=== PATIENT | male | born 1980 | race Caucasian/White ===

== ENCOUNTER 2016-05-26 17:39 | Emergency (ER) | payer BC ==
--- NOTE | 2016-05-26 18:29 | UC ---
Cardiac HPI - HPI Summary HPI Summary: The patient comes in today for: 1. Chest tightness/cough/right otalgia/malaise/nausea/headache (has history of migraine headaches)/chest congestion: Onset: This morning at 7 AM Palliative/provocative: Chest tightness worsens with coughing, or taking a deep breath. Sometimes the chest tightness will change into a burning. Exertion does not make the chest tightness worse. Quality: Tightness is retrosternal Region: Lungs, retrosternal. Severity: 05/24 Associated symptoms: Wheezing: None. Previous inhaler use: "In grade school--episodic." Previous heart disease: CAD risk factors: Male > 45: (-), Smoker: (+)--quit yesterday, DM: (-): HTN: (+ and has been off his medication), MA equivalent (stroke): (-), FmHx: (-), Cough production: NOne. Rhinitis: None Rt ear discharge: None. Vomiting: None. Headache: Frontal/bitemporal * - History of Current Complaint Stated Complaint: CHEST TIGHTNESS,NAUSEA,COUGH Time Seen by Provider: 05/26/16 17:53 Hx Obtained From: Patient - Allergy/Home Medications Allergies/Adverse Reactions: Allergies Allergy/AdvReac Type Severity Reaction Status Date / Time Clarithromycin [From Biaxin] Allergy Severe Hives Verified 04/23/16 11:46 Home Medications: Home Medications ARIPiprazole TAB* [Abilify 15 MG TAB*] 15 mg PO DAILY 05/26/16 [History Confirmed 05/26/16] Bupropion XL* [Wellbutrin XL *] 450 mg PO DAILY 05/26/16 [History Confirmed 01/30] PMH/Surg Hx/FS Hx/Imm Hx Previously Healthy: No - ADHD, on "mood stabilizer"-Abilify. Endocrine History Of: Reports: Dyslipidemia Denies: Diabetes, Thyroid Disease, Hypothyroidism Cardiovascular History Of: Reports: Hypertension Denies: Cardiac Disorders, Pacemaker/ICD, Myocardial Infarction, Congestive Heart Failure, Atrial Fibrillation, Deep Vein Thrombosis, Bleeding Disorders Respiratory History Of: Denies: COPD, Asthma, Bronchitis, Pneumonia, Pulmonary Embolism GI/ History Of: Denies: Gastroesophageal Reflux, Ulcer, Gastrointestinal Bleed, Gall Bladder Disease, Kidney Stones, Diverticulitis, Renal Disease, Urosepsis Neurological History Of: Reports: Migraine - NONE FOR ONE MONTH SINCE ON TOPAMAX Denies: TIA, CVA, Dementia, Seizures Psychological History Of: Reports: Anxiety - ON MEDS, Depression Cancer History Of: Denies: Lung Cancer, Colorectal Cancer, Breast Cancer, Prostate Cancer, Cervical Cancer Other History Of: Negative For: HIV, Hepatitis B, Hepatitis C, Anticoagulant Therapy - Surgical History Surgical History: Yes Surgery Procedure, Year, and Place: right foot fusion,. wisdom teeth removal - Family History Known Family History: Positive: Hypertension, Other - [place] - Social History Occupation: Employed Full-time Alcohol Use: Occasionally Substance Use Type: Marijuana Substance Use Comment - Amount & Last Used: occasionally Smoking Status (MU): Light Every Day Tobacco Smoker Type: Cigarettes Amount Used/How Often: 3 CIG/DAY Length of Time of Smoking/Using Tobacco: 15 YEARS Have You Smoked in the Last Year: Yes When Did the Patient Quit Smoking/Using Tobacco: states he stopped yesterday - Immunization History Most Recent Influenza Vaccination: none Review of Systems Constitutional: Negative Skin: Negative Eyes: Negative ENT: Negative, Sore Throat Respiratory: Cough Cardiovascular: Chest Pain Gastrointestinal: Negative Genitourinary: Negative All Other Systems Reviewed And Are Negative: Yes Physical Exam Triage Information Reviewed: Yes Appearance: Well-Appearing, No Pain Distress, Well-Nourished Vital Signs: Initial Vital Signs Temp 98.6 F 05/26/16 17:49 Pulse 98 05/26/16 17:49 Resp 16 05/26/16 17:49 BP 163/103 05/26/16 17:49 Pulse Ox 98 05/26/16 17:49 Vital Signs Reviewed: Yes Eyes: Positive: Conjunctiva Clear. Negative: Discharge ENT: Positive: Hearing grossly normal. Negative: Pharyngeal erythema, Nasal congestion, Nasal drainage, TM bulging, TM dull, TM red, Tonsillar swelling, Tonsillar exudate Dental: Negative: Gross Decay/Caries @, Dental Fracture @ Neck: Positive: Supple, Nontender, No Lymphadenopathy. Negative: Nuchal Rigidity Respiratory: Positive: Chest non-tender, Lungs clear, No respiratory distress, No accessory muscle use. Negative: Crackles, Wheezing Cardiovascular: Positive: RRR, No Murmur Abdomen Description: Positive: Nontender, No Organomegaly, Soft Musculoskeletal: Positive: Strength Intact, ROM Intact, No Edema Neurological: Positive: Alert, Muscle Tone Normal, Fatigued Psychological: Positive: Age Appropriate Behavior, Consolable Skin: Negative: rashes, breakdown Diagnostics - Laboratory Diagnostic Studies Completed/Ordered: EKG: Rate: 90. Rhythm: Sinus. Ectopy : (-). Acute changes: None. - Assessment/Plan Course Of Treatment: CXR, EKG, DuoNeb: The CXR and the EKG were unremarkable and the DuoNeb treatment did not help. The patient continues with this feeling of "chest tightness/congestion." In regards to the patient's complaint of chest tightness, I said that there are many causes of chest discomfort some benign and some life-threatening. He was told that of the life-threatening conditions, these may present with minimal, or atypical symptoms or be present with no symptoms. Because we are limited here in having the tools to diagnose the life-threatening causes, my recommendation is to go to the ER which has these tools. However, he does not want to do that. He states that he will follow up wtih his primary care provider tomorrow. He did want something for his nausea. He was told to see his primary care provider for his high blood pressure this week also. - Clinical Impression Provider Diagnoses: Chest tightness. Hypertension Discharge - Discharge Plan Condition: Stable Disposition: AGAINST MEDICAL ADVICE Additional Instructions: If you are not going to the ER tonight for your chest tightness, please reconsider if you get worse. Please see your primary care provider as soon as you can.
[2016-05-26] MEDS ORDERED: Albuterol/Ipratropium NEB.SOL* Albuterol 2.5 MG/Ipratropium 0.5 MG 3 ML INH ONE (18:37)
--- NOTE | 2016-05-26 19:08 | RAD ---
Indication: Chest tightness and pressure. 2 views of the chest including dual energy PA views demonstrate no mediastinal shift. Heart is of normal size and configuration. Lung james demonstrate no pleural fluid, pneumonia or pneumothorax. IMPRESSION: No active cardiopulmonary disease is noted.
[2016-05-26 19:54] VITALS: BP 148/94
== END 2016-05-26 19:48 | disposition left against medical advice (07) ==
LOC: UCEAST 17:39
DX: R07.89 Other chest pain (principal); I10 Essential (primary) hypertension; F90.9 Attention-deficit hyperactivity disorder, unspecified type; E78.5 Hyperlipidemia, unspecified; G43.909 Migraine, unspecified, not intractable, without status migrainosus; F41.8 Other specified anxiety disorders; Z88.1 Allergy status to other antibiotic agents; F17.210 Nicotine dependence, cigarettes, uncomplicated
CPT/HCPCS: 71020; 93005; 99213; A9270-GY; G0463

== ENCOUNTER 2017-03-22 21:00 | Emergency (ER) | payer BC ==
--- OUTSIDE RECORDS SUMMARY | 2017-03-22 21:06 | XMS REPORT ---
:1980 External Reference #:[id number] Author Organization [facility] Address [address] [address] Phone [phone] Care Team Providers Name Role Phone Armando Parker MD Primary Care Physician Unavailable Payers Type Date Identification Numbers Payment Provider Subscriber Commercial Policy Number: [id number] BS Facets Jakob Rojo PayID: [id number] [address] [address] [place] [address] Medigap Part B Effective: Policy Number: Saurabh Hart Dayroncarine Deluca 2013 [id number] Expires: 2013 PayID: [id number] [address] [address] [place] [address] Medigap Part B Effective: Policy Number: Saurabh Banks 2010 [id number] Dayroncarine Rojo Expires: 2013 PayID: [id number] [address] [address] [place] [address] Medigap Part B Effective: 2013 Policy Number: DONOVAN Jarrett Taye Deluca [id number] Expires: 2016 PayID: [id number] [address] [address] [place] [address] Problems Date Description Provider Status Onset: 11/30/2013 Obstructive sleep apnea syndrome Glory Almonte MD Active Onset: 12/11/2013 Obstructive sleep apnea syndrome Glory Almonte MD Active Onset: 01/07/2015 Sprain of unspecified site of left knee, Kelechi Smith M.D. 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 Zolmitriptan 04/14 Active Tablets 5mg 10tab 1 tab by G43.009 Jorge Luis Santoyo s mouth Jesus, twice a M.D. day maximum 2 days weekly Topiramate 08/01 Active Tablets 100mg 60tab 2 tab by Jorge Luis Santoyo s mouth Jesus, daily M.D. Shannon Allergy Active Tablets 180mg 1 by mouth Unknown /0000 every day prn Wellbutrin XL Active Tablets 450mg 1 by mouth Unknown /0000 ER 24HR every day Adderall XR Active Caps ER 15mg 1 by mouth Unknown /0000 24HR every day Lamotrigine Active Tablets 100mg 1 by mouth Unknown /0000 once a day Topiramate 04/14 Hx Tablets 100mg 60tab 2 by mouth s every Jesus, - night at M.D. 10/13 bed Topiramate 05/27 Hx Tablets 25mg 90tab 3 tabs Jorge Luis Santoyo s every Jesus, - night at M.D. 04/14 bed (in addition to 100mg dose) Maxalt 02/12 Hx Tablets 10mg 12tab take 1 by Jorge Luis Santoyo s mouth as Jesus, - needed M.D. 04/14 migraine, may repeat after 2 hours, max 2/d, max 2d/wk Rawlings 12/21 Hx Tablets 5-325mg 30tab 1 by mouth s bid as Lyle, - needed for M.D. 02/19 pain ( currently taking) Cpap 11/30 Hx Device 327.23 Glory Kobi Almonte MD 02/11 Rawlings 08/08 Hx Tablets 5-325mg 30tab 1-2 by Jered s mouth bid Lyle, - as needed M.D. 09/14 for pain Oxycodone HCL 05/22 Hx Capsules 5mg 40cap 1-2 tab by Jered s mouth Lyle, - every 4- 6 M.D. 09/14 hours needed pain Rawlings 03/14 Hx Tablets 5-325mg 24tab 1 po q8 Jered s hours prn Kobi Alvarenga M.D. 05/21 Propranolol HCL 06/27 Hx Tablets 80mg 60tab 1 po bid Kobi Alcantara M.D. 12/19 Topiramate 06/27 Hx Tablets 25mg 120ta 1 qd for 1 bs week then Jesus - 2 qd for 1 M.DDemarcus 08/01 week 3 qd for 1 week then 4 each day Indomethacin 04/13 Hx Capsules 50mg 60cap 1 po tid s prn Kobi Rubalcava M.D. 06/27 Diclofenac Sodium 04/13 Hx Tablets 100mg 30tab once daily Hugo ER 24HR Kobi Cordova M.D. 06/27 Pravachol Hx Tablets 40mg 90tab 1 tablet Unknown /0000 s po qhs - 08/01 Hydrochlorothiazide Hx Tablets 25mg 90tab 1 po qd Unknown /0000 s - 06/27 Quinapril HCL Hx Tablets 40mg 90tab 1 po qd Unknown /0000 s - 06/27 Bupropion HCL SR Hx Tablets 150mg 180ta 1 by mouth Unknown /0000 ER 12HR bs twice - daily 06/27 Percocet Hx Tablets 5-325mg 50tab 1-2 po q4h Unknown /0000 s prn pain - 06/27 Propranolol HCL ER 00 Hx Caps ER 120mg 90cap 1 po qd Unknown /0000 24HR s - 06/27 Trazodone HCL Hx Tablets 50mg 30tab 1 tablet Unknown /0000 s at bedtime - as needed 02/11 Ibuprofen / Hx Tablets 600mg 60tab 1 po tid Unknown /0000 s prn - 05/21 Zoloft 00/00 Hx Tablets 50mg 1 po qd Unknown /0000 - 02/11 Lisinopril 00/00 Hx Tablets 20mg 90tab 1 po qd Unknown /0000 s - 10/13 Atorvastatin 00/00 Hx Tablets 20mg 90tab 1 po qd Unknown Calcium /0000 s - 10/13 Imitrex 00/00 Hx Unknown /0000 - 03/14 Propranolol 00/00 Hx Unknown /0000 - 03/14 Chantix 00/00 Hx Unknown /0000 - 09/14 Saphris 00/00 Hx Tablets 5mg one by Unknown /0000 Sub mouth - every 02/19 night needed Wellbutrin XL 00/ Hx Tablets 150mg 1 by mouth Unknown /0000 ER 24HR every day - 02/19 Viibryd 00 Hx Tablets 20mg one by Unknown /0000 mouth - every day 05/25 Pristiq 00/00 Hx Tablets 1 by mouth Unknown /0000 ER 24HR every - morning 02/19 Trintellix 00/00 Hx Tablets 10mg 1 by mouth Unknown /0000 every day - 10/13 Abilify 00/00 Hx Tablets 10mg take one Unknown /0000 tablet by - mouth 10/13 nightly at bedtime Chantix 00/00 Hx Tablets 1mg 1 by mouth Unknown /0000 twice a - day 10/13 Adderall 00/00 Hx Tablets 15mg 1 po qd Unknown /0000 - 04/14 Vraylar 00/00 Hx Capsules 3mg once a day Unknown /0000 po - 03/13 Medications Administered in Office Medication Date Status Form Strength Qnty SIG Indications Ordering Provider Influenza,Unsp Administered Injection Unknown ecified 017 Vital Signs Date Vital Result Comment 03/14/2017 Height 71 inches 5'11" Weight 241.00 lb Heart Rate 84 /min BP Systolic Sitting 158 mmHg BP Diastolic Sitting 78 mmHg Respiratory Rate 14 /min Body Temperature 98.7 F BMI (Body Mass Index) 33.6 kg/m2 10/14/2016 Height 71 inches 5'11" Weight 238.12 lb Heart Rate 78 /min BP Systolic 128 mmHg BP Diastolic 86 mmHg BMI (Body Mass Index) 33.2 kg/m2 04/14/2016 Height 71 inches 5'11" Weight 240.00 lb Heart Rate 71 /min BP Systolic Sitting 128 mmHg BP Diastolic Sitting 76 mmHg Respiratory Rate 16 /min BMI (Body Mass Index) 33.5 kg/m2 02/12/2015 Height 71 inches 5'11" Weight 220.00 lb Heart Rate 64 /min BP Systolic Sitting 130 mmHg BP Diastolic Sitting 84 mmHg Respiratory Rate 16 /min BMI (Body Mass Index) 30.7 kg/m2 01/18/2014 Height 71 inches 5'11" Heart Rate 74 /min BP Systolic 143 mmHg BP Diastolic 83 mmHg 12/21/2013 Height 71 inches 5'11" Weight 220.00 lb Pain Level 7 BMI (Body Mass Index) 30.7 kg/m2 11/30/2013 Height 71 inches 5'11" Weight 220.00 lb Heart Rate 76 /min BP Systolic Sitting 136 mmHg BP Diastolic Sitting 92 mmHg Respiratory Rate 16 /min O2 % BldC Oximetry 96 % BMI (Body Mass Index) 30.7 kg/m2 11/27/2013 Height 71 inches 5'11" Weight 220.00 lb Heart Rate 77 /min BP Systolic 128 mmHg BP Diastolic 87 mmHg BMI (Body Mass Index) 30.7 kg/m2 09/27/2013 Height 71 inches 5'11" Weight 230.00 lb Heart Rate 85 /min BMI (Body Mass Index) 32.1 kg/m2 09/18/2013 Height 71 inches 5'11" Weight 230.00 lb Heart Rate 76 /min BP Systolic Sitting 130 mmHg BP Diastolic Sitting 86 mmHg Respiratory Rate 16 /min BMI (Body Mass Index) 32.1 kg/m2 08/30/2013 Height 71 inches 5'11" Weight 230.00 lb Pain Level 2 BMI (Body Mass Index) 32.1 kg/m2 08/03/2013 Height 71 inches 5'11" Weight 230.00 lb Pain Level 1 BMI (Body Mass Index) 32.1 kg/m2 07/13/2013 Height 71 inches 5'11" Weight 230.00 lb Heart Rate 111 /min BP Systolic 137 mmHg BP Diastolic 93 mmHg BMI (Body Mass Index) 32.1 kg/m2 06/15/2013 Height 71 inches 5'11" Weight 230.00 lb Heart Rate 85 /min BP Systolic 135 mmHg BP Diastolic 84 mmHg BMI (Body Mass Index) 32.1 kg/m2 05/22/2013 Height 71 inches 5'11" Weight 230.00 lb Heart Rate 75 /min BP Systolic 132 mmHg BP Diastolic 92 mmHg BMI (Body Mass Index) 32.1 kg/m2 04/20/2013 Height 71 inches 5'11" Weight 220.00 lb Heart Rate 82 /min BP Systolic 152 mmHg BP Diastolic 108 mmHg BMI (Body Mass Index) 30.7 kg/m2 04/12/2013 Heart Rate 80 /min BP Systolic 145 mmHg BP Diastolic 94 mmHg 03/14/2013 Height 71 inches 5'11" Weight 230.00 lb Heart Rate 86 /min BP Systolic 137 mmHg BP Diastolic 87 mmHg BMI (Body Mass Index) 32.1 kg/m2 12/19/2012 Heart Rate 76 /min BP Systolic Sitting 140 mmHg BP Diastolic Sitting 88 mmHg Respiratory Rate 18 /min 08/01/2012 Height 71 inches 5'11" Weight 210.00 lb Heart Rate 60 /min BP Systolic 158 mmHg BP Diastolic 88 mmHg Respiratory Rate 12 /min BMI (Body Mass Index) 29.3 kg/m2 06/27/2012 Heart Rate 56 /min BP Systolic Sitting 158 mmHg BP Diastolic Sitting 96 mmHg Respiratory Rate 16 /min 04/13/2010 Height 71 inches 5'11" Weight 227.00 lb Heart Rate 80 /min BP Systolic 138 mmHg BP Diastolic 78 mmHg BMI (Body Mass Index) 31.7 kg/m2 Results Test Date Test Result H/L Range Note CBC Auto Diff 10/21/2015 White Blood Count 10.0 10^3/uL 3.5-10.8 Red Blood Count 4.79 10^6/uL 4.0-5.4 Hemoglobin 14.9 g/dL 14.0-18.0 Hematocrit 44 % 42-52 Mean Corpuscular Volume 92 fL 80-94 Mean Corpuscular Hemoglobin 31 pg 27-31 Mean Corpuscular HGB Conc 34 g/dL 31-36 Red Cell Distribution Width 13 % 10.5-15 Platelet Count 194 10^3/uL 150-450 Mean Platelet Volume 8 um3 7.4-10.4 Abs Neutrophils 6.4 10^3/uL 1.5-7.7 Abs Lymphocytes 2.4 10^3/uL 1.0-4.8 Abs Monocytes 0.9 10^3/uL High 0-0.8 Abs Eosinophils 0.2 10^3/uL 0-0.6 Abs Basophils 0.1 10^3/uL 0-0.2 Abs Nucleated RBC 0.01 10^3/uL Granulocyte % 64.3 % 38-83 Lymphocyte % 24.2 % Low 25-47 Monocyte % 8.7 % 1-9 Eosinophil % 1.9 % 0-6 Basophil % 0.9 % 0-2 Nucleated Red Blood Cells % 0.1 Urinalysis Profile 10/21/2015 Urine Color Yellow Urine Appearance Cloudy Urine Specific [place] 1.023 1.010-1.030 Urine pH 7.0 5-9 Urine Urobilinogen Negative Negative Urine Ketones Negative Negative Urine Protein Negative Negative Urine Leukocytes Negative Negative Urine Blood Negative Negative Urine Nitrite Negative Negative Urine Bilirubin Negative Negative Urine Glucose Negative Negative Urine Drug SCR ED 10/21/2015 Amphetamine Ur Screen None Detected None Detect & Pain Clinic Barbiturates Urine Screen None Detected None Detect Benzodiazepine Urine Screen None Detected None Detect Urine Cannabinoids Screen Presumptive Posi <SEE NOTE> None Detect 1 Urine Cocaine Screen None Detected None Detect Urine Opiates Screen None Detected None Detect Urine Phencyclidine Screen None Detected None Detect 2 Comp Metabolic Panel 10/21/2015 Sodium 139 mmol/L 133-145 Potassium 3.5 mmol/L 3.5-5.0 Chloride 109 mmol/L 101-111 Co2 Carbon Dioxide 24 mmol/L 22-32 Anion Gap 6 mmol/L 2-11 Glucose 112 mg/dL High 70-100 Blood Urea Nitrogen 13 mg/dL 6-24 Creatinine 0.72 mg/dL 0.67-1.17 BUN/Creatinine Ratio 18.1 8-20 Calcium 9.0 mg/dL 8.6-10.3 Total Protein 6.8 g/dL 6.4-8.9 Albumin 4.4 g/dL 3.2-5.2 Globulin 2.4 g/dL 2-4 Albumin/Globulin Ratio 1.8 1-3 Total Bilirubin 0.50 mg/dL 0.2-1.0 Alkaline Phosphatase 97 U/L 34-104 Alt 80 U/L High 7-52 Ast 34 U/L 13-39 Egfr Non- 125.0 >60 Egfr 160.7 >60 3 Laboratory test finding 10/21/2015 TSH (Thyroid Stim Horm) 1.34 mcIU/mL 0.34-5.60 Acetaminophen < 15 g/mL 4 Alcohol < 10 mg/dL <10 Salicylate < 2.50 mg/dL <30 Laboratory test finding 04/03/2015 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 2 The urine specimen was tested at the listed cutoffs: Drug class test level (ng/mL) Amphetamines 500 Barbiturates 200 Benzodiazepine metabolites 200 Cocaine metabolites 150 Cannabinoids 50 Opiates 300 Pcp 25 Specimen was received without chain of custody. Results should be used for medical purposes only. 3 Because ethnic data is not always readily available, this report includes an eGFR for both -Americans and non- Americans. The National Kidney Disease Education Program (NKDEP) does not endorse the use of the MDRD equation for patients that are not between the ages of 18 and 70, are , have extremes of body size, muscle mass, or nutritional status, or are non- or non-. According to the National Kidney Foundation, irrespective of diagnosis, the stage of the disease is based on the level of kidney function: Stage Description GFR(mL/min/1.73 m(2)) 1 Kidney damage with normal or decreased GFR 90 2 Kidney damage with mild decrease in GFR 60-89 3 Moderate decrease in GFR 30-59 4 Severe decrease in GFR 15-29 5 Kidney failure <15 (or dialysis) 4 Therapeutic concentration: <50 ug/mL Toxic concentration: >120 ug/mL 5 SEE RESULT BELOW Name: JAKOB ROJO : [address]: Cyrus Mayfield MD Acct: [id number] Unit: [id number] AGE: 34 Location: THYROID Re04/03/15 SEX: M Status: REG REF SPEC: [id number] ESPERANZA: 04/03/15-1210 [facility] DR: Buddy Gold MD REQ: [id number] RECD: 04/03/15 STATUS: STEFFI ISABEL DR: Cyrus Parker MD _ ORDERED: FN ASP DEEP, FNA IMMEDIATE S FINAL DIAGNOSIS Thyroid, right, Ultrasound guided, fine needle aspiration: Benign thyroid nodule- chronic lymphocytic thyroiditis ([place] Class II). The specimen demonstrates moderate watery colloid, moderate largely cohesive follicular epithelium arranged in uniform sheets, medium sized follicles and only occasional small groups demonstrating variable Hurthle cell metaplasia. No atypical Hurthle cells are seen. Lymphoid tangles, lymphocytes and plasma cells are seen in the background. No features of papillary carcinoma are seen. In this clinical setting the risk of malignancy is less than 3%. Clinical management of this thyroid nodule should be based on clinical and radiographic features as well as the above findings. THYROID RIGHT - US GUIDED FINE NEEDLE ASPIRATION CLINICAL HISTORY Right thyroid nodule 1.2 x 0.8 x 1.0 cm CONTINUED ON NEXT PAGE * ML=Testing performed at Main Lab DEPARTMENT OF PATHOLOGY, [address] [place] [address] Radames Ya M.D. Director [facility] # [id number] RUN DATE: 04/03/15 [facility] LAB LIVE PAGE 2 Patient: JAKOB ROJO [id number] (Continued) IMMEDIATE INTERPRETATION (Continued) IMMEDIATE INTERPRETATION Pass 1-adequate GROSS DESCRIPTION 3 - alcohol fixed slide(s) 1 - passes Signed (signature on file) Radames Ya MD 1237 END OF REPORT * ML=Testing performed at Main Lab DEPARTMENT OF PATHOLOGY, [address] [place] [address] Radames Ya M.D. Director [facility] # [id number] 6 OSTEOARTHROSIS LOCALIZED RIGHT ANKLE FOOT 7 [id number] CANC CHIPS 5CC TRANSFUSED 06/04/13 1015 [id number] CANC CHIPS 5CC TRANSFUSED 06/04/13 1015 Procedures Date CPT Code Description Status 09/30/2013 01373 Polysomnography Sleep Staging 4+ Parameters W/Cpap Completed 09/27/2013 75804 Rad Exam; Foot Limited Completed 09/06/2013 90300 Polysomnography Sleep Staging 4+ Parameters Completed 07/13/2013 22264 Rad Exam; Foot Comp Completed 07/13/2013 44343 Walking Cast Completed 06/15/2013 02440 Short Leg Cast Completed 06/04/2013 39785 Artrodesis Subtalar Completed 06/04/2013 Artrodesis Subtalar Completed 06/04/2013 07257 Bone Graft, Any Donor Area Major Or Large Completed 06/04/201350458 Bone Graft, Any Donor Area Major Or Large Completed Encounters Type Date Location Provider CPT E/M Dx Office Visit 10/14/2016 [facility] Jorge Luis Lee, 79438 G43.009 10:15a M.D. Office Visit 04/14/2016 [facility] Jorge Luis Lee, 42280 G43.009 9:00a M.D. Office Visit 02/12/2015 [facility] Jorge Luis Santoyo [place], [address]779 G43.009 8:30a Services Of Saige Smith.Lanette Office Visit 01/07/2015 [facility] Kelechi Smith, 48280 S83.92xD 3:40p CMindy Lugo Office Visit 01/18/2014 [facility] Jered Alvarenga, 58925 715.17 3:00p CMindy Lugo Office Visit 12/21/2013 [facility] Jered Alvarenga 47996 715.17 3:45p CMindy Lugo Office Visit 11/30/2013 [facility] Glory Almonte, 33981 327.23 8:00a Services Of [facility] Office Visit 11/27/2013 [facility] Of Jered Alvarenga, 70547 727.06 4:00p CMindy Lugo Office Visit 09/27/2013 [facility] Jered Alvarenga 27026 715.17 1:15p CMindy Lugo Office Visit 09/18/2013 [facility] Jorge Luis Lee, 79082 346.10 3:45p Services Of [facility] M.DDemarcus Office Visit 09/06/2013 [facility] [place], 47573 780.57 10:06a [place] 786.09 Office Visit 04/20/2013 11:00a [facility] Of Jered Alvarenga 63991 715.17 CMindy Lugo Office Visit 04/12/2013 1:15p [facility] Jered Alvarenga 29355 715.17 CMindy Lugo Office Visit 03/14/2013 1:00p [facility] Jered Alvarenga 90402 715.17 C.M.A. M.D. Office Visit 02/23/2013 3:15p [facility] Jered Alvarenga, 61950 715.17 C.M.A. M.D. Office Visit 12/19/2012 3:45p [facility] Jorge Luis Lee, 03347 346.00 Services Of [facility] M.D. 346.10 Office Visit 10/30/2012 4:30p [facility] Jered Alvarenga, 63756 715.17 C.M.A. M.D. Office Visit 08/01/2012 1:15p [facility] Jorge Luis Lee, 99483 346.10 Services Of [facility] M.D. Office Visit 06/27/2012 1:00p [facility] Jorge Luis Lee, 32592 346.11 Services Of [facility] M.D. Office Visit 05/15/2012 4:30p [facility] Jered Alvarenga, 41550 715.17 C.M.A. M.D. Office Visit 04/03/2012 8:15a [facility] Jered Alvarenga, 67841 715.17 C.M.A. M.D. Office Visit 03/20/2012 4:30p [facility] Jered Alvarenga, 92968 715.17 C.M.A. M.D. Office Visit 03/08/2012 3:30p [facility] Jered Alvarenga, 06192 715.17 C.M.A. M.D. Office Visit 04/13/2010 3:00p Rhe[facility]ology Services Hugo Rubalcava, 91542 719.40 Of Saige Lugo 718.87 Plan of Care Future Appointment(s):06/13/2017 3:40 pm - Sanchez Alexandra M.D. at [facility] Sfpjzlma73/01/2018 2:30 pm - Jorge Luis Lee M.D. at [facility] Xpbnic5403/14/2017 - Sanchez Alexandra M.D.Z20.2 Contact w and exposure to infect w a sexl mode of transmissNew Medication:Truvada 200-300 mgNew Labs:GC/Chlamydia Amplified RnaFollow up:3 months
[2017-03-22 21:20] VITALS: BP 149/95
== END 2017-03-22 21:36 | disposition left against medical advice (07) ==
LOC: UCEAST 21:00
DX: R10.9 Unspecified abdominal pain (principal); Z53.21 Procedure and treatment not carried out due to patient leaving prior to being seen by health care provider

== ENCOUNTER 2017-03-22 21:57 | Emergency (ER) | payer BC ==
[2017-03-23 00:26] VITALS: BP 176/108
== END 2017-03-23 00:29 | disposition left against medical advice (07) ==
LOC: ED 21:57
DX: R10.9 Unspecified abdominal pain (principal); Z53.21 Procedure and treatment not carried out due to patient leaving prior to being seen by health care provider

== ENCOUNTER 2018-05-16 22:05 | Emergency (ER) | payer BC ==
--- OUTSIDE RECORDS SUMMARY | 2018-05-16 22:18 | XMS REPORT | Continuity of Care Document ---
:1980 External Reference #:[id number] Author Name Donaldo Mehta Care Team Providers Name Role Phone Armando Parker MD Primary Care Physician Unavailable Payers Date Identification Numbers Payment Provider Subscriber Policy Number: [id number] [employer] Jakob Rojo PayID: [id number] [address] [address] [place] [address] Effective: 2013 Policy Number: [id number] [facility] Ppo Taye Chakrabortye Expires: 2013 PayID: [id number] [address] [address] [place] [address] Effective: 2010 Policy Number: [id number] [employer] Ppo Jakob Rojo Expires: 2013 PayID: [id number] [address] [address] [place] [address] Effective: 2013 Policy Number: [id number] [employer] Taye Deluca Expires: 2016 PayID: [id number] [address] [place] [address] Advance Directives Description No Information Available Problems Date Description Provider Status Onset: 11/30/2013 Obstructive sleep apnea syndrome Glory Almonte MD Active Onset: 12/11/2013 Obstructive sleep apnea syndrome Glory Almonte MD Active Onset: 01/07/2015 Sprain of unspecified site of left knee, Kelechi Smith M.D. Active subsequent encounter Onset: 05/10/2018 Degeneration of cervical intervertebral Jorge Luis Harvey M.D. 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 /2018 s at night , with 100mg M.D. tablet to equal 150mg Sildenafil Citrate 03/20 Active Tablets 50mg 30tab 1-2 as N52.1 s needed 30 D. minutes Nasrin, before sex M.DDemarcus Eletriptan 09/12 Active Tablets 40mg 10tab 1 by mouth G43.009 Jorge Luis Natanael Hydrobromide s twice a , day as M.DDemarcus needed migraine max 2 days/wk Truvada 03/14 Active Tablets 200-300mg 30tab 1 by mouth Z20.2 Sanchez s every day Lanette Alexandra M.D. Topiramate Active Tablets 100mg 60tab Take 1 tab . s PO in the [place], am, take 1 M.D. tab PO at hs with 50mg to equal 150mg at hs. Shannon Allergy Active Tablets 180mg 1 by mouth every day prn Adderall XR Active Caps ER 30mg 1 by mouth 24HR every day Lamotrigine Active Tablets 200mg 1 by mouth once a day Honor Carbonate Active Tablets 300mg 5 tabs Luciana, ER / ER once daily MD Facundo Amlodipine Besylate Active Tablets 5mg once daily TITO Cisse Indapamide Active Tablets 2.5mg once daily TITO Cisse Zolmitriptan 04/14 Hx Tablets 5mg 10tab 1 tab by G43.009 s mouth Jesus, - twice a M.D. maximum 2 days weekly Topiramate 04/14 Hx Tablets 100mg 60tab 2 by mouth s every Jesus, - night at M.D. 10/13 bed Topiramate 05/27 Hx Tablets 25mg 90tab 3 tabs s every Jesus, - night at M.D. 04/14 bed (in addition to 100mg dose) Maxalt 02/12 Hx Tablets 10mg 12tab take 1 by s mouth as Jesus, - needed M.D. 04/14 migraineJune repeat after 2 hours, max 2/d, max 2d/wk Cerro 12/21 Hx Tablets 5-325mg 30tab 1 by mouth s bid as Lyle, - needed for M.D. 02/19 pain ( currently taking) Cpap 11/30 Hx Device 327.23 Glory Suzy, - 02/11 [place]ro 08/08 Hx Tablets 5-325mg 30tab 1-2 by s mouth bid Lyle, - as needed M.D. 09/14 for pain Oxycodone HCL 05/22 Hx Capsules 5mg 40cap 1-2 tab by s mouth Lyle, - every 4- 6 M.D. 09/14 hours needed pain Cerro 03/14 Hx Tablets 5-325mg 24tab 1 po q8 s hours prn Lyle, - M.D. 05/21 Propranolol HCL 06/27 Hx Tablets 80mg 60tab 1 po bid s Jesus, - M.D. 12/19 Topiramate 06/27 Hx Tablets 25mg 120ta 1 qd for 1 week then Jesus, - 2 qd for 1 M.D. 08/01 week 3 qd for 1 week then 4 each day Indomethacin 04/13 Hx Capsules 50mg 60cap 1 po tid s prn Gini, - M.D. 06/27 Diclofenac Sodium 04/13 Hx Tablets 100mg 30tab once daily Hugo ER 24HR s Endo, - M.DDemarcus 06/27 Pravachol /00 Hx Tablets 40mg 90tab 1 tablet Unknown /0000 s po qhs - 08/01 Hydrochlorothiazide / Hx Tablets 25mg 90tab 1 po qd Unknown /0000 s - 06/27 Quinapril HCL /00 Hx Tablets 40mg 90tab 1 po qd Unknown /0000 s - 06/27 Bupropion HCL SR Hx Tablets 150mg 180ta 1 by mouth Unknown /0000 ER 12HR bs twice - daily 06/27 Percocet Hx Tablets 5-325mg 50tab 1-2 po q4h Unknown /0000 s prn pain - 06/27 Propranolol HCL ER Hx Caps ER 120mg 90cap 1 po qd Unknown /0000 24HR s - 06/27 Trazodone HCL / Hx Tablets 50mg 30tab 1 tablet Unknown /0000 s at bedtime - as needed 02/11 Ibuprofen / Hx Tablets 600mg 60tab 1 po tid Unknown /0000 s prn - 05/21 Zoloft / Hx Tablets 50mg 1 po qd Unknown /0000 - 02/11 Lisinopril /00 Hx Tablets 20mg 90tab 1 po qd [...] - every 02/19 night needed Wellbutrin XL 00/00 Hx Tablets 150mg 1 by mouth Unknown /0000 ER 24HR every day - 02/19 Viibryd 00/00 Hx Tablets 20mg one by Unknown /0000 mouth - every day 05/25 Wellbutrin XL 00/00 Hx Tablets 150mg 1 by mouth Unknown /0000 ER 24HR every day - 09/07 Pristiq 00/00 Hx Tablets 1 by mouth Unknown /0000 ER 24HR every - morning 02/19 Trintellix /00 Hx Tablets 10mg 1 by mouth Unknown /0000 every day - 10/13 Abilify Hx Tablets 10mg take one Unknown /0000 tablet by - mouth 10/13 nightly at bedtime Chantix Hx Tablets 1mg 1 by mouth Unknown /0000 twice a - day 10/13 Adderall Hx Tablets 15mg 1 po qd Unknown /0000 - 04/14 Vraylar Hx Capsules 3mg once a day Unknown /0000 po - 03/13 Medications Administered in Office Medication Date Status Form Strength Qnty SIG Indications Ordering Provider Influenza,Unsp Administered Injection Unknown ecified 017 Immunizations Description No Information Available Vital Signs Date Vital Result Comment 05/10/2018 2:51pm Height 71 inches 5'11" Weight 210.00 lb Heart Rate 95 /min BP Systolic Sitting 132 mmHg BP Diastolic Sitting 98 mmHg Respiratory Rate 14 /min Pain Level 6 BMI (Body Mass Index) 29.3 kg/m2 04/12/2018 10:13am Height 71 inches 5'11" Weight 210.00 lb Heart Rate 92 /min BP Systolic 148 mmHg BP Diastolic 88 mmHg BMI (Body Mass Index) 29.3 kg/m2 03/20/2018 4:08pm Height 71 inches 5'11" Weight 212.50 lb Heart Rate 88 /min BP Systolic 140 mmHg BP Diastolic 90 mmHg Body Temperature 98.5 F O2 % BldC Oximetry 97 % BMI (Body Mass Index) 29.6 kg/m2 12/15/2017 4:00pm Height 71 inches 5'11" Weight 227.50 lb Heart Rate 88 /min BP Systolic Sitting 128 mmHg BP Diastolic Sitting 84 mmHg Respiratory Rate 14 /min Body Temperature 98.8 F BMI (Body Mass Index) 31.7 kg/m2 09/12/2017 9:33am Height 71 inches 5'11" Weight 223.00 lb Heart Rate 74 /min BP Systolic 160 mmHg BP Diastolic 104 mmHg BMI (Body Mass Index) 31.1 kg/m2 09/08/2017 3:56pm Height 71 inches 5'11" Weight 221.00 lb Heart Rate 72 /min BP Systolic Sitting 162 mmHg BP Diastolic Sitting 90 mmHg Respiratory Rate 14 /min Body Temperature 98.9 F BMI (Body Mass Index) 30.8 kg/m2 06/09/2017 4:19pm Height 71 inches 5'11" Weight 230.50 lb Heart Rate 94 /min BP Systolic Sitting 155 mmHg BP Diastolic Sitting 98 mmHg Respiratory Rate 14 /min Body Temperature 98.5 F BMI (Body Mass Index) 32.1 kg/m2 03/14/2017 3:21pm Height 71 inches 5'11" Weight 241.00 lb Heart Rate 84 /min BP Systolic Sitting 158 mmHg BP Diastolic Sitting 78 mmHg Respiratory Rate 14 /min Body Temperature 98.7 F BMI (Body Mass Index) 33.6 kg/m2 10/14/2016 10:18am Height 71 inches 5'11" Weight 238.12 lb Heart Rate 78 /min BP Systolic 128 mmHg BP Diastolic 86 mmHg BMI (Body Mass Index) 33.2 kg/m2 04/14/2016 9:00am Height 71 inches 5'11" Weight 240.00 lb Heart Rate 71 /min BP Systolic Sitting 128 mmHg BP Diastolic Sitting 76 mmHg Respiratory Rate 16 /min BMI (Body Mass Index) 33.5 kg/m2 02/12/2015 8:31am Height 71 inches 5'11" Weight 220.00 lb Heart Rate 64 /min BP Systolic Sitting 130 mmHg BP Diastolic Sitting 84 mmHg Respiratory Rate 16 /min BMI (Body Mass Index) 30.7 kg/m2 01/18/2014 3:31pm Height 71 inches 5'11" Heart Rate 74 /min BP Systolic 143 mmHg BP Diastolic 83 mmHg 12/21/2013 3:45pm Height 71 inches 5'11" Weight 220.00 lb Pain Level 7 BMI (Body Mass Index) 30.7 kg/m2 11/30/2013 8:11am Height 71 inches 5'11" Weight 220.00 lb Heart Rate 76 /min BP Systolic Sitting 136 mmHg BP Diastolic Sitting 92 mmHg Respiratory Rate 16 /min O2 % BldC Oximetry 96 % BMI (Body Mass Index) 30.7 kg/m2 11/27/2013 4:34pm Height 71 inches 5'11" Weight 220.00 lb Heart Rate 77 /min BP Systolic 128 mmHg BP Diastolic 87 mmHg BMI (Body Mass Index) 30.7 kg/m2 09/27/2013 1:12pm Height 71 inches 5'11" Weight 230.00 lb Heart Rate 85 /min BMI (Body Mass Index) 32.1 kg/m2 09/18/2013 3:54pm Height 71 inches 5'11" Weight 230.00 lb Heart Rate 76 /min BP Systolic Sitting 130 mmHg BP Diastolic Sitting 86 mmHg Respiratory Rate 16 /min BMI (Body Mass Index) 32.1 kg/m2 08/30/2013 1:33pm Height 71 inches 5'11" Weight 230.00 lb Pain Level 2 BMI (Body Mass Index) 32.1 kg/m2 08/03/2013 4:00pm Height 71 inches 5'11" Weight 230.00 lb Pain Level 1 BMI (Body Mass Index) 32.1 kg/m2 07/13/2013 3:56pm Height 71 inches 5'11" Weight 230.00 lb Heart Rate 111 /min BP Systolic 137 mmHg BP Diastolic 93 mmHg BMI (Body Mass Index) 32.1 kg/m2 06/15/2013 4:01pm Height 71 inches 5'11" Weight 230.00 lb Heart Rate 85 /min BP Systolic 135 mmHg BP Diastolic 84 mmHg BMI (Body Mass Index) 32.1 kg/m2 05/22/2013 2:33pm Height 71 inches 5'11" Weight 230.00 lb Heart Rate 75 /min BP Systolic 132 mmHg BP Diastolic 92 mmHg BMI (Body Mass Index) 32.1 kg/m2 04/20/2013 11:34am Height 71 inches 5'11" Weight 220.00 lb Heart Rate 82 /min BP Systolic 152 mmHg BP Diastolic 108 mmHg BMI (Body Mass Index) 30.7 kg/m2 04/12/2013 1:16pm Heart Rate 80 /min BP Systolic 145 mmHg BP Diastolic 94 mmHg 03/14/2013 1:09pm Height 71 inches 5'11" Weight 230.00 lb Heart Rate 86 /min BP Systolic 137 mmHg BP Diastolic 87 mmHg BMI (Body Mass Index) 32.1 kg/m2 12/19/2012 3:52pm Heart Rate 76 /min BP Systolic Sitting 140 mmHg BP Diastolic Sitting 88 mmHg Respiratory Rate 18 /min 08/01/2012 1:24pm Height 71 inches 5'11" Weight 210.00 lb Heart Rate 60 /min BP Systolic 158 mmHg BP Diastolic 88 mmHg Respiratory Rate 12 /min BMI (Body Mass Index) 29.3 kg/m2 06/27/2012 12:58pm Heart Rate 56 /min BP Systolic Sitting 158 mmHg BP Diastolic Sitting 96 mmHg Respiratory Rate 16 /min 04/13/2010 3:13pm Height 71 inches 5'11" Weight 227.00 lb Heart Rate 80 /min BP Systolic 138 mmHg BP Diastolic 78 mmHg BMI (Body Mass Index) 31.7 kg/m2 Results Test Date Facility Test Result H/L Range Note HIV 1/2 AB [facility] HIV 1 2 Nonreactive Nonreactive [address] [place] [address] [phone] Basic Metabolic [facility] Sodium 140 mmol/L N 135- [address] [place] [address] [phone] Potassium 3.2 mmol/L Low 3.5-5.0 Chloride 103 mmol/L N 101-111 Co2 Carbon Dioxide 29 mmol/L N 22-32 Anion Gap 8 mmol/L N 2-11 Glucose 81 mg/dL N 70-100 Blood Urea Nitrogen 12 mg/dL N 6-24 Creatinine 0.91 mg/dL N 0.67-1.17 BUN/Creatinine Ratio 13.2 N 8-20 Calcium 9.8 mg/dL N 8.6-10.3 Egfr Non- 93.7 >60 Egfr 113.4 >60 2 Laboratory 03/18/2018 [facility] Syphillis Igg Nonreactive Nonreactive [address] W/[place] [address] [phone] Laboratory 11/26/2017 [facility] Syphillis Igg Nonreactive Nonreactive [address] W/[place] [address] [phone] Basic 11/26/2017 [facility] Sodium 140 mmol/L N 135-[address] [place] [address] [phone] Potassium 4.8 mmol/L N 3.5-5.0 Chloride 108 mmol/L N 101-111 Co2 Carbon Dioxide 27 mmol/L N 22-32 Anion Gap 5 mmol/L N 2-11 Glucose 104 mg/dL High 70-100 Blood Urea Nitrogen 12 mg/dL N 6-24 Creatinine 1.00 mg/dL N 0.67-1.17 BUN/Creatinine Ratio 12.0 N 8-20 Calcium 9.4 mg/dL N 8.6-10.3 Egfr Non- 84.1 >60 Egfr 101.7 >60 5 HIV 1/2 Ag/AB 11/26/2017 [facility] Hiv1/2 Ag/Ab Negative Negative 6 Screen,W/Reflex,Plasma [address] Screen,w/Reflex,[place] [address] [phone] GC/Chlamydia Amplified 09/08/2017 [facility] Chlamydia Negative Negative [address] [place] [address] [phone] Neisseria gonorrhoeae (GC) Rna Negative Negative Urinalysis Profile 06/30/2017 [facility] Urine Color Straw [address] [place] [address] [phone] Urine Appearance Clear Urine Specific Newell 1.005 Low 1.010-1.030 Urine pH 7.0 N 5-9 Urine Urobilinogen Negative Negative Urine Ketones Negative Negative Urine Protein Negative Negative Urine Leukocytes Negative Negative Urine Blood Negative Negative Urine Nitrite Negative Negative Urine Bilirubin Negative Negative Urine Glucose Negative Negative Comp Metabolic Panel 06/30/2017 [facility] Sodium 139 mmol/L N 139-145 [address] [place] [address] [phone] Potassium 4.5 mmol/L N 3.5-5.0 Chloride 109 mmol/L N 101-111 Co2 Carbon Dioxide 23 mmol/L N 22-32 Anion Gap 7 mmol/L N 2-11 Glucose 102 mg/dL High 70-100 Blood Urea Nitrogen 11 mg/dL N 6-24 Creatinine 0.91 mg/dL N 0.67-1.17 BUN/Creatinine Ratio 12.1 N 8-20 Calcium 9.9 mg/dL N 8.6-10.3 Total Protein 6.9 g/dL N 6.4-8.9 Albumin 4.6 g/dL N 3.2-5.2 Globulin 2.3 g/dL N 2-4 Albumin/Globulin Ratio 2.0 N 1-3 Total Bilirubin 0.40 mg/dL N 0.2-1.0 Alkaline Phosphatase 117 U/L High 34-104 Alt 47 U/L N 7-52 Ast 26 U/L N 13-39 Egfr Non- 94.3 >60 Egfr 121.2 >60 8 Laboratory 06/30/2017 [facility] Syphillis Nonreactive Nonreactive 9 test finding [address] Igg W/[place] [address] RPR [phone] HIV 1/2 AB 06/30/2017 [facility] HIV 1 2 Nonreactive Nonreactive [address] Antibody [place], [place] [id number] [phone] Laboratory 06/30/2017 [facility] Honor 0.55 mmol/L Low 0.6- 1.2 test finding [address] [place] [address] [phone] CBC Auto Diff 03/15/2017 [facility] White Blood 9.2 10^3/uL N 3.5-10.[address] [place] [address] [phone] Red Blood Count 5.10 10^6/uL N 4.0-5.4 Hemoglobin 15.5 g/dL N 14.0-18.0 Hematocrit 45 % N 42-52 Mean Corpuscular Volume 88 fL N 80-94 Mean Corpuscular Hemoglobin 30 pg N 27-31 Mean Corpuscular HGB Conc 35 g/dL N 31-36 Red Cell Distribution Width 14 % N 10.5-15 Platelet Count 218 10^3/uL N 150-450 Mean Platelet Volume 7 um3 Low 7.4-10.4 Abs Neutrophils 4.1 10^3/uL N 1.5-7.7 Abs Lymphocytes 4.2 10^3/uL N 1.0-4.8 Abs Monocytes 0.7 10^3/uL N 0-0.8 Abs Eosinophils 0.1 10^3/uL N 0-0.6 Abs Basophils 0 10^3/uL N 0-0.2 Abs Nucleated RBC 0 10^3/uL Granulocyte % 44.5 % N 38-83 Lymphocyte % 46.3 % N 25-47 Monocyte % 7.2 % N 1-9 Eosinophil % 1.5 % N 0-6 Basophil % 0.5 % N 0-2 Nucleated Red Blood Cells % 0 GC/Chlamydia 03/15/2017 [facility] Chlamydia Negative Negative Amplified Rna [address] [place] [address] [phone] Neisseria gonorrhoeae (GC) Rna Negative Negative Laboratory 03/14/2017 [facility] Syphillis Nonreactive Nonreactive 11 test finding [address] Igg W/[place] [address] RPR [phone] HIV 1/2 AB 03/14/2017 [facility] HIV 1 2 Nonreactive Nonreactive [address] [place] [address] [phone] Comp Metabolic 03/14/2017 [facility] Sodium 137 mmol/L N 133- [address] [place] [address] [phone] Potassium 3.8 mmol/L N 3.5-5.0 Chloride 106 mmol/L N 101-111 Co2 Carbon Dioxide 23 mmol/L N 22-32 Anion Gap 8 mmol/L N 2-11 Glucose 83 mg/dL N 70-100 Blood Urea Nitrogen 12 mg/dL N 6-24 Creatinine 1.02 mg/dL N 0.67-1.17 BUN/Creatinine Ratio 11.8 N 8-20 Calcium 9.3 mg/dL N 8.6-10.3 Total Protein 6.8 g/dL N 6.4-8.9 Albumin 4.4 g/dL N 3.2-5.2 Globulin 2.4 g/dL N 2-4 Albumin/Globulin Ratio 1.8 N 1-3 Total Bilirubin 0.50 mg/dL N 0.2-1.0 Alkaline Phosphatase 111 U/L High 34-104 Alt 41 U/L N 7-52 Ast 18 U/L N 13-39 Egfr Non- 82.6 >60 Egfr 106.3 >60 13 CBC Auto Diff 10/21/2015 [facility] White Blood 10.0 10^3/uL N 3.5-10.[address] [place] [address] [phone] Red Blood Count 4.79 10^6/uL N 4.0-5.4 Hemoglobin 14.9 g/dL N 14.0-18.0 Hematocrit 44 % N 42-52 Mean Corpuscular Volume 92 fL N 80-94 Mean Corpuscular Hemoglobin 31 pg N 27-31 Mean Corpuscular HGB Conc 34 g/dL N 31-36 Red Cell Distribution Width 13 % N 10.5-15 Platelet Count 194 10^3/uL N 150-450 Mean Platelet Volume 8 um3 N 7.4-10.4 Abs Neutrophils 6.4 10^3/uL N 1.5-7.7 Abs Lymphocytes 2.4 10^3/uL N 1.0-4.8 Abs Monocytes 0.9 10^3/uL High 0-0.8 Abs Eosinophils 0.2 10^3/uL N 0-0.6 Abs Basophils 0.1 10^3/uL N 0-0.2 Abs Nucleated RBC 0.01 10^3/uL N Granulocyte % 64.3 % N 38-83 Lymphocyte % 24.2 % Low 25-47 Monocyte % 8.7 % N 1-9 Eosinophil % 1.9 % N 0-6 Basophil % 0.9 % N 0-2 Nucleated Red Blood Cells % 0.1 N Urinalysis Profile 10/21/2015 [facility] Urine Color Yellow N [address] [place] [address] [phone] Urine Appearance Cloudy N Urine Specific [place]ell 1.023 N 1.010-1.030 Urine pH 7.0 N 5-9 Urine Urobilinogen Negative N Negative Urine Ketones Negative N Negative Urine Protein Negative N Negative Urine Leukocytes Negative N Negative Urine Blood Negative N Negative Urine Nitrite Negative N Negative Urine Bilirubin Negative N Negative Urine Glucose Negative N Negative Urine Drug 10/21/2015 [facility] Amphetamine Ur None Detected N None Detect SCR ED & [address] [place] [address] [phone] Barbiturates Urine Screen None Detected N None Detect Benzodiazepine Urine Screen None Detected N None Detect Urine Cannabinoids Screen Presumptive Posi <SEE NOTE> Abnormal None Detect 14 Urine Cocaine Screen None Detected N None Detect Urine Opiates Screen None Detected N None Detect Urine Phencyclidine Screen None Detected N None Detect 15 Comp Metabolic Panel 10/21/2015 [facility] Sodium 139 mmol/L N 133-[address] [place] [address] [phone] Potassium 3.5 mmol/L N 3.5-5.0 Chloride 109 mmol/L N 101-111 Co2 Carbon Dioxide 24 mmol/L N 22-32 Anion Gap 6 mmol/L N 2-11 Glucose 112 mg/dL High 70-100 Blood Urea Nitrogen 13 mg/dL N 6-24 Creatinine 0.72 mg/dL N 0.67-1.17 BUN/Creatinine Ratio 18.1 N 8-20 Calcium 9.0 mg/dL N 8.6-10.3 Total Protein 6.8 g/dL N 6.4-8.9 Albumin 4.4 g/dL N 3.2-5.2 Globulin 2.4 g/dL N 2-4 Albumin/Globulin Ratio 1.8 N 1-3 Total Bilirubin 0.50 mg/dL N 0.2-1.0 Alkaline Phosphatase 97 U/L N 34-104 Alt 80 U/L High 7-52 Ast 34 U/L N 13-39 Egfr Non- 125.0 N >60 Egfr 160.7 N >60 16 Laboratory test 10/21/2015 [facility] TSH (Thyroid 1.34 mcIU/mL N 0.34-5.[address] Stim [place]orm) [place] [address] [phone] Acetaminophen < 15 g/mL N 17 Alcohol < 10 mg/dL N <10 Salicylate < 2.50 mg/dL N <30 Laboratory test 04/03/2015 [facility] Cytology Non-Parts Advisor SEE RESULT [address] [place] [address] [phone] Cancellous Chips 06/03/2013 [facility] Cancellous Chips [id number] 19, [address] 5cc <[place] [address] NOTE> [phone] 1 It is recognized that currently available assays for the detection of antibodies to HIV-1 and/or HIV-2 may not detect all infected individuals. HIV antibodies may be undetectable in some stages of the infection and in some clinical conditions. The performance of this assay has not been established for populations of infants or children. Assayed by Chemiluminescence Microparticle Immunoassay on the Siemens Advia Centaur CP. Values obtained with different methods or kits cannot be used interchangeably.The diagnostic specificity of the ADVIA Centaur 1/O/2 Enhanced assay in the low risk population was 99.90% (6052/6058) with a 95% confidence interval of 99.78 to 99.96%. 2 Because ethnic data is not always readily [...] 15-29 5 Kidney failure <15 (or dialysis) 3 Warning: A positive result is not useful for establishing a diagnosis of syphilis. In most situations, such a result may reflect a prior treated infection; a negative result can exclude a diagnosis of syphilis except for incubating or early primary disease. 4 Warning: A positive result is not useful for establishing a diagnosis of syphilis. In most situations, such a result may reflect a prior treated infection; a negative result can exclude a diagnosis of syphilis except for incubating or early primary disease. 5 Because ethnic data is not always readily [...] 15-29 5 Kidney failure <15 (or dialysis) 6 Negative result does not rule out HIV infection. If exposure to HIV infection occurred <14 days ago, contact the laboratory to request addition of HIV-1 RNA detection / quantification test (HIVQN). Test Performed by: [facility] [address] [place] [address] [id number] 8 Because ethnic data is not always readily [...] 15-29 5 Kidney failure <15 (or dialysis) 9 Warning: A positive result is not useful for establishing a diagnosis of syphilis. In most situations, such a result may reflect a prior treated infection; a negative result can exclude a diagnosis of syphilis except for incubating or early primary disease. 10 It is recognized that currently available assays for the detection of antibodies to HIV-1 and/or HIV-2 may not detect all infected individuals. HIV antibodies may be undetectable in some stages of the infection and in some clinical conditions. The performance of this assay has not been established for populations of infants or children. Assayed by Chemiluminescence Microparticle Immunoassay on the Siemens Advia Centaur CP. Values obtained with different methods or kits cannot be used interchangeably.The diagnostic specificity of the ADVIA Centaur 1/O/2 Enhanced assay in the low risk population was 99.90% (6052/6058) with a 95% confidence interval of 99.78 to 99.96%. 11 Warning: A positive result is not useful for establishing a diagnosis of syphilis. In most situations, such a result may reflect a prior treated infection; a negative result can exclude a diagnosis of syphilis except for incubating or early primary disease. 12 It is recognized that currently available assays for the detection of antibodies to HIV-1 and/or HIV-2 may not detect all infected individuals. HIV antibodies may be undetectable in some stages of the infection and in some clinical conditions. The performance of this assay has not been established for populations of infants or children. Assayed by Chemiluminescence Microparticle Immunoassay on the Siemens Advia Centaur CP. Values obtained with different methods or kits cannot be used interchangeably.The diagnostic specificity of the ADVIA Centaur 1/O/2 Enhanced assay in the low risk population was 99.90% (6052/6058) with a 95% confidence interval of 99.78 to 99.96%. 13 Because ethnic data is not always readily [...] 15-29 5 Kidney failure <15 (or dialysis) 14 Presumptive Positive Presumptive positive results are unconfirmed. 15 The urine specimen was tested at the listed cutoffs: Drug class test level (ng/mL) Amphetamines 500 Barbiturates 200 Benzodiazepine metabolites 200 Cocaine metabolites 150 Cannabinoids 50 Opiates 300 Pcp 25 Specimen was received without chain of custody. Results should be used for medical purposes only. 16 Because ethnic data is not always readily [...] 15-29 5 Kidney failure <15 (or dialysis) 17 Therapeutic concentration: <50 ug/mL Toxic concentration: >120 ug/mL 18 SEE RESULT BELOW Name: JAKOB ROJO : [address]: Cyrus Mayfield MD Acct: [id number] Unit: [id number] AGE: 34 Location: THYROID Re04/03/15 SEX: M Status: REG REF SPEC: [id number] ESPERANZA: 04/03/15-[address]: Buddy Gold MD REQ: [id number] RECD: 04/03/15-1230 STATUS: STEFFI ISABEL DR: Cyrus Parker MD _ ORDERED: FN ASP DEEP, FNA IMMEDIATE S FINAL DIAGNOSIS Thyroid, right, Ultrasound guided, fine needle aspiration: Benign thyroid nodule- chronic lymphocytic thyroiditis ([place] Class II). The specimen demonstrates moderate watery [...] performed at Main Lab DEPARTMENT OF PATHOLOGY, [address] [place] [address] Radames Ya M.D. Director PEREZ # [id number] RUN DATE: 04/03/15 [facility] LAB LIVE PAGE 2 Patient: JAKOB ROJO [id number] (Continued) IMMEDIATE INTERPRETATION (Continued) IMMEDIATE INTERPRETATION Pass 1-adequate GROSS DESCRIPTION 3 - alcohol fixed slide(s) 1 - passes Signed (signature on file) Radames Ya MD 1237 END OF REPORT * ML=Testing performed at Main Lab DEPARTMENT OF PATHOLOGY, [address] [place] [address] Radames Ya M.D. Director PEREZ # [id number] 19 OSTEOARTHROSIS LOCALIZED RIGHT ANKLE FOOT 20 [id number] CANC CHIPS 5CC TRANSFUSED 06/04/13 1015 [id number] CANC CHIPS 5CC TRANSFUSED 06/04/13 1015 Procedures Date Code Description Status 09/30/2013 41513 Polysomnography Sleep Staging 4+ Parameters W/Cpap Completed 09/27/2013 01581 Rad Exam; Foot Limited Completed 09/06/2013 04556 Polysomnography Sleep Staging 4+ Parameters Completed 07/13/2013 88384 Rad Exam; Foot Comp Completed 07/13/2013 83535 Walking Cast Completed 06/15/2013 42722 Short Leg Cast Completed 06/04/2013 35400 Artrodesis Subtalar Completed 06/04/2013 Artrodesis Subtalar Completed 06/04/2013 Bone Graft, Any Donor Area Major Or Large Completed 06/04/2013 Bone Graft, Any Donor Area Major Or Large Completed Encounters Type Date Location Provider Dx Diagnosis Office Visit 04/12/2018 [facility] Eduardo Echeverria, FARHAD G43.109 Migraine with 10:00a [facility] aura, not intractable, w/o status migrainosus M54.2 Cervicalgia Office Visit 03/20/2018 [facility] Sanchez Gama Z11.4 Encounter for 4:00p For [place] Alexandra M.D. screening for human Diseases immunodeficiency virus Z79.899 Other shelter (current) drug therapy Z11.3 Encntr screen for infections w sexl mode of transmiss N52.9 Male erectile dysfunction, unspecified Office Visit 12/15/2017 [facility] Sanchez Gama Z11.4 Encounter for 4:00p For [place] Alexandra M.D. screening for human Diseases immunodeficiency virus Z79.899 Other long term care pharmacist (current) drug therapy Office 09/12/2017 [facility] Luis Santoyo G43.009 Migraine w/o aura, Visit 9:30a Clinic Jesus, not intractable, w/o M.D. status migrainosus Office 09/08/2017 [facility] Sanchez Gama Z11.4 Encounter for Visit 4:00p Infectious Alana Alexandra, screening for human KadeDDemarcus immunodeficiency virus Z11.3 Encntr screen for infections w sexl mode of transmiss Z70.8 Other sex counseling Office Visit 06/09/2017 4:20p [facility] Alicia Gama Z20.2 Contact w and Infectious [place] Alexandra exposure to Diseases infect w a sexl mode of transmiss Z71.89 Other specified counseling Office 03/14/2017 [facility] For Sanchez Lanette Z20.2 Contact w and Visit 3:20p Infectious Diseases Nasrin, exposure to infect M.DDemarcus w a sexl mode of transmiss Office 10/14/2016 [facility] Jorge Luis Santoyo G43.009 Migraine w/o aura, Visit 10:15a Clinic [place] Lee not intractable, w/o status migrainosus Office 04/14/2016 [facility] Jorge Luis Santoyo G43.009 Migraine w/o aura, Visit 9:00a Clinic [place] not intractable, w/o status migrainosus Office 02/12/2015 [facility] Jorge Luis Santoyo G43.009 Migraine w/o aura, Visit 8:30a Services Of Saige Lee M.D. not intractable, w/o status migrainosus Office 01/07/2015 [facility] Kelechi S83.92xD Sprain of Visit 3:40p Of Jany Smith M.D. unspecified site of left knee, subs encntr Office 01/18/2014 [facility] Jered Parkinson5.17 Osteoarthrosis Visit 3:00p Of Jany Alvarenga M.D. Localized Prim Ankle & Foot Office 12/21/2013 [facility] Jered Parkinson5.17 Osteoarthrosis Visit 3:45p Of Jany Alvarenga M.D. Localized Prim Ankle & Foot Office 11/30/2013 [facility] And Glory 327.23 Obstructive Sleep Visit 8:00a Sleep Services Of [place] Suzy Apnea Adult & [facility] Pediatric Office 11/27/2013 [facility] Jered 727.06 Tenosynovitis Foot Visit 4:00p Of Jany Alvarenga M.D. & Ankle Office 09/27/2013 [facility] Jered Parkinson5.17 Osteoarthrosis Visit 1:15p Of Jany Alvarenga M.D. Localized Prim Ankle & Foot Office 09/18/2013 [facility] Jorge Luis Santoyo 346.10 Migraine Common Visit 3:45p Services Of Saige Lee M.D. W/O Intractable W/O Status Migrainosus Office 09/06/2013 Sleep Disorder [place] SK. 780.57 Unspecified Sleep Visit 10:06a Marko Jameson M.D. Apnea 786.09 Dyspnea & Respiratory Abnormalities Other Office Visit 04/20/2013 Orthopedic Jered Navarro Osteoarthrosis 11:00a Services Of [place] Alvarenga Localized Prim Ankle C.M.A. & Foot Office Visit 04/12/2013 Orthopedic Jered Navarro Osteoarthrosis 1:15p Services Of [place] Alvarenga Localized Prim Ankle C.M.A. & Foot Office Visit 03/14/2013 Orthopedic Jered Navarro Osteoarthrosis 1:00p Services Of [place] Alvarenga Localized Prim Ankle C.M.A. & Foot Office Visit 02/23/2013 Orthopedic Jered Navarro Osteoarthrosis 3:15p Services Of [place] Alvarenga Localized Prim Ankle C.M.A. & Foot Office Visit 12/19/2012 [place] [facility] Jorge Luis Santoyo 346.00 Migraine Classical 3:45p Neurologic [place] W/O Intractable W/O [facility] Status Migrainosus 346.10 Migraine Common W/O Intractable W/O Status Migrainosus Office Visit 10/30/2012 Orthopedic Jered Christianson.Cecil Osteoarthrosis 4:30p Services Of Jany Alvarenga M.D. Localized Prim Ankle & Foot Office Visit 08/01/2012 [facility] Jorge Luis Santoyo 346.10 Migraine Common W/O 1:15p Services Of Saige Lee M.D. Intractable W/O Status Migrainosus Office Visit 06/27/2012 [facility] Jorge Luis Santoyo 346.11 Migraine W/O Aura 1:00p Services Of Saige Lee M.D. W/Intractable W/O Status Migrainosus Office Visit 05/15/2012 Orthopedic Jered Navarro Osteoarthrosis 4:30p Services Of Jany Alvarenga M.D. Localized Prim Ankle & Foot Office Visit 04/03/2012 Orthopedic Jered Navarro Osteoarthrosis 8:15a Services Of Jany Alvarenga M.D. Localized Prim Ankle & Foot Office Visit 03/20/2012 Orthopedic Jered Navarro Osteoarthrosis 4:30p Services Of Jany Alvarenga M.D. Localized Prim Ankle & Foot Office Visit 03/08/2012 Orthopedic Jered 715.17 Osteoarthrosis 3:30p Services Of Jany Alvarenga M.D. Localized Prim Ankle & Foot Office Visit 04/13/2010 Rheumatology Hugo 719.40 Pain Joint Site 3:00p [facility] Parish Rubalcava Unspec 718.87 Derangement Joint Other Not Elsewhere Class Ankle & Foot Plan of Treatment Future Appointment(s):06/07/2018 1:00 pm - Jose Rodriguez NP at [facility] Internal [facility]06/19/2018 4:00 pm - Denisha Mart NP at [facility] Wzafqqhg66/20/2019 3:45 pm - Jorge Luis Lee M.D. at [facility]06/13/2018 11:00 am - Glory Almonte MD at [facility]05/10/2018 - Jorge Luis Harvey M.D.M50.320 Other cerv disc degeneration, mid-cervical rgn, unsp levelFollow up: with PCP
[2018-05-16] MEDS ORDERED: oxyCODONE/Acetamin 5/325 MG* TAB PO ONE (23:12)
[2018-05-16] MEDS ORDERED: Ketorolac INJ* 60 MG/2 ML VIAL IM ONE (23:12)
[2018-05-16] MEDS ORDERED: Lidocaine PATCH 5%* 1 PATCH TRANSDERM ONE (23:30)
--- NOTE | 2018-05-16 23:30 | ED ---
Back Pain - HPI Summary HPI Summary: 37-year-old male presents with back pain today. He states he was bending down and felt a sharp pain in his lower back that radiates to his neck. He has history of neck and left shoulder issues. Currently seeing an orthopedist about these issues. He had an MRI done in the past month for the neck. Has never had imaging of his lower back. Denies any hematuria or urgency or frequency urgency area. No saddle anesthesia or loss of bladder. States pain does radiate into his legs. He admits to numbness of hands. No numbness or tingling in her legs. Has been having some difficulty due to walking pain. no weakness. Has not taking anything for his pain. he denies any fevers. - History of Current Complaint Chief Complaint: EDBackInjuryPain Stated Complaint: NECK ,SHOULDER AND BACK PAIN PER PT Time Seen by Provider: 05/16/18 23:04 Pain Intensity: 10 - Allergies/Home Medications Allergies/Adverse Reactions: Allergies Allergy/AdvReac Type Severity Reaction Status Date / Time clarithromycin [From Biaxin] Allergy Severe Hives Verified 05/16/18 22:12 Home Medications: Home Medications Eletriptan HBr 40 mg PO BID PRN 05/16/18 [History Confirmed 05/16/18] Indapamide TAB* [Lozol TAB*] 2.5 mg PO DAILY 05/16/18 [History Confirmed ] [facility] Carbonate ER (NF) 1,500 mg PO DAILY 05/16/18 [History Confirmed 05/16/18 ] Sildenafil (NF) [Viagra (NF)] 25 mg PO ONCE PRN 05/16/18 [History Confirmed 04/04] amLODIPine TAB* [Norvasc 5 mg TAB*] 5 mg PO DAILY 05/16/18 [History Confirmed ] PMH/Surg Hx/FS Hx/Imm Hx Endocrine/Hematology History: Denies: Hx Anticoagulant Therapy, Hx Diabetes, Hx Thyroid Disease, Hx Anemia Cardiovascular History: Reports: Hx Coronary Artery Disease - CHOLESTEROL CONTROL WITH MEDS, Hx Hypertension - ON MEDS Denies: Hx Congestive Heart Failure, Hx Deep Vein Thrombosis, Hx Myocardial Infarction, Hx Pacemaker/ICD Respiratory History: Reports: Hx Sleep Apnea - evaluation for 06/2013 Denies: Hx Asthma, Hx Chronic Obstructive Pulmonary Disease (COPD), Hx Lung Cancer, Hx Pneumonia, Hx Pulmonary Embolism GI History: Denies: Hx Gall Bladder Disease, Hx Gastrointestinal Bleed, Hx Jaundice, Hx Ulcer, Hx Urosepsis History: Denies: Hx Dialysis, Hx Kidney Stones, Hx Renal Disease Musculoskeletal History: Reports: Other Musculoskeletal History - osteo- arthritis Right foot Denies: Hx Rheumatoid Arthritis, Hx Osteoporosis, Hx Scoliosis Sensory History: Denies: Hx Contacts or Glasses, Hx Hearing Aid Opthamlomology History: Denies: Hx Contacts or Glasses Neurological History: Reports: Hx Headaches - HX MIGRAINES, Hx Migraine - NONE FOR ONE MONTH SINCE ON TOPAMAX, Other Neuro Impairments/Disorders - migraines Denies: Hx Dementia, Hx Seizures, Hx Transient Ischemic Attacks (TIA) Psychiatric History: Reports: Hx Anxiety - ON MEDS, Hx Eating Disorder - reports inconsistent eating habits, times of binging, others restricting, Hx Depression Denies: Hx Panic Disorder, Hx of Violent Episodes Against Others - Pt denied - Surgical History Surgery Procedure, Year, and Place: right foot fusion,. wisdom teeth removal Hx Anesthesia Reactions: Yes - LOCAL ANESTHESIA ONLY - Immunization History Date of Tetanus Vaccine: 2011 Infectious Disease History: No Infectious Disease History: Denies: Hx Hepatitis, Hx Human Immunodeficiency Virus (HIV), History Other Infectious Disease, Traveled Outside the [place] in Last 30 Days - Family History Known Family History: Positive: Hypertension, Other - [place] - Social History Alcohol Use: Rare Hx Substance Use: Yes Substance Use Type: Reports: None Substance Use Comment - Amount & Last Used: occasionally Hx Tobacco Use: Yes Smoking Status (MU): Former Smoker Type: Cigarettes Amount Used/How Often: 3 CIG/DAY Length of Time of Smoking/Using Tobacco: 15 YEARS Have You Smoked in the Last Year: Yes Review of Systems Negative: Fever Negative: Chest Pain Negative: Shortness Of Breath Positive: Myalgia - back pain All Other Systems Reviewed And Are Negative: Yes Physical Exam Triage Information Reviewed: Yes Vital Signs On Initial Exam: Initial Vitals Temp Pulse Resp BP Pulse Ox 99.3 F 96 16 146/108 100 05/16/18 22:05 05/16/18 22:05 05/16/18 22:05 05/16/18 22:05 05/16/18 22:05 Vital Signs Reviewed: Yes Appearance: Positive: Well-Appearing Skin: Positive: Warm, Dry Head/Face: Positive: Normal Head/Face Inspection Eyes: Positive: Normal, Conjunctiva Clear ENT: Positive: Pharynx normal Respiratory/Lung Sounds: Positive: Clear to Auscultation, Breath Sounds Present Cardiovascular: Positive: Normal, RRR Musculoskeletal: Positive: Limited @ - back, Other - tenderness lower back, pos SLR left, good pulses, sensation grossly intact Neurological: Positive: Normal, Babinski Bilateral - normal Psychiatric: Positive: Normal Diagnostics - Vital Signs Vital Signs Temp Pulse Resp BP Pulse Ox 05/16/18 23:26 16 05/16/18 23:15 91 159/99 95 05/16/18 23:08 105 163/100 99 05/16/18 23:07 113 98 05/16/18 22:05 99.3 F 96 16 146/108 100 - Laboratory Lab Statement: Any lab studies that have been ordered have been reviewed, and results considered in the medical decision making process. - CT lumbar CT Interpretation Completed By: Radiologist Summary of CT Findings: IMPRESSION: 1. Normal lumbar spine CT. 2. Left nephrolithiasis. Re-Evaluation - Re-Evaluation First Eval Re-Evaluation Time: 00:29 Change: Improved Comment: feeling better Back Pain Course/Dx - Course Course Of Treatment: 37-year-old male presents with back pain today. He states he was bending down and felt a sharp pain in his lower back that radiates to his neck. He has history of neck and left shoulder issues. Currently seeing an orthopedist about these issues. He had an MRI done in the past month for the neck. Has never had imaging of his lower back. Denies any hematuria or urgency or frequency urgency area. No saddle anesthesia or loss of bladder. States pain does radiate into his legs. He admits to numbness of hands. No numbness or tingling in her legs. Has been having some difficulty due to walking pain. no weakness. Has not taking anything for his pain. he denies any fevers. On exam tenderness of lower back and over left side neck. Neurovascular intact. Positive straight leg on left. Lumbar CT is normal. Neck pain is no different than previous neck pain so did not get any imaging. gave percocet, toradol and lidocaine and feeling better. Will discharge with Flexeril and medrol. Told to follow up primary and PT. Patient understands and agrees with plan. - Diagnoses Differential Diagnosis/HQI/PQRI: Positive: Herniated Disc, Strain, Sprain Provider Diagnoses: Back pain Discharge - Sign-Out/Discharge Documenting (check all that apply): Patient Departure Patient Received Moderate/Deep Sedation with Procedure: No - Discharge Plan Condition: Good Disposition: HOME Prescriptions: Cyclobenzaprine TAB* [Flexeril 10 MG TAB*] 10 mg PO TID PRN #21 tab PRN Reason: Pain methylPREDNISolone [Medrol Dosepak 4 MG*] 4 mg PO .SEE YAZAN INSTRUCTION #1 packet Patient Education Materials: Back Pain (ED) Referrals: Armando Parker MD [Primary Care Provider] - [facility] Physical therapy,PT [Medical Doctor] - Additional Instructions: Follow directions on package for Medrol pack Take muscle relaxers three times a day Use ibuprofen or Tylenol for pain every 6 hours ice/heat area, move as much as possible Follow up with primary within 5 days Return to ED if develop any new or worsening symptoms - Billing Disposition and Condition Condition: GOOD Disposition: Home
[2018-05-17 00:36] VITALS: BP 150/93
[2018-05-17] MEDS ORDERED: Cyclobenzaprine TAB* 10 MG PO ONE (00:47)
[2018-05-17] MEDS ORDERED: Lidocaine Patch REMOVE* 1 NOTE MISC SCH (21:00)
== END 2018-05-17 00:46 | disposition home or self-care (01) ==
LOC: ED 22:05
DX: M54.5 Low back pain (principal); R20.0 Anesthesia of skin; N20.0 Calculus of kidney; I25.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 native coronary artery without angina pectoris; I10 Essential (primary) hypertension; G43.909 Migraine, unspecified, not intractable, without status migrainosus; F41.9 Anxiety disorder, unspecified; Z88.1 Allergy status to other antibiotic agents; Z82.49 Family history of ischemic heart disease and other diseases of the circulatory system; Z80.9 Family history of malignant neoplasm, unspecified; Z87.891 Personal history of nicotine dependence
CPT/HCPCS: 72131; 96372; 99283; A9270-GY; J1885

== ENCOUNTER → 2018-09-13 12:57 | Emergency (ER) | payer BC ==
[~2018-09-13 12:57] MED LIST: Iohexol 300* (CONTRAST) 10 ML SDV IV ONE; Ketorolac INJ* 30 MG/ML 1 ML VIAL IV PUSH ONE; NS 0.9% 1000 ML** 1,000 ML IV ONE; Ondansetron INJ* 2 MG/ML VIAL IV ONE
--- OUTSIDE RECORDS SUMMARY | 2018-09-13 13:11 | XMS REPORT | Continuity of Care Document ---
:1980 External Reference #:[id number] Author Name Amie Ny Care Team Providers Name Role Phone Radha Julien MD Primary Care Physician Unavailable Payers Date Identification Numbers Payment Provider Subscriber Policy Number: [id number] [employer] Jakob Rojo PayID: [id number] [address] [address] [place] [address] Effective: 2013 Policy Number: [id number] [employer] Ppo Taye Deluca Expires: 2013 PayID: [id number] [address] [address] [place] [address] Effective: 2010 Policy Number: [id number] [employer] Ppo Jakob Rojo Expires: 2013 PayID: [id number] [address] [address] [place] [address] Effective: 2013 Policy Number: [id number] [employer] Taye Deluca Expires: 2016 PayID: [id number] [facility] [place] [address] Problems Active Problems Provider Date Obstructive sleep apnea syndrome Glory Almonte MD Onset: 11/30/2013 Obstructive sleep apnea syndrome Glory Almonte MD Onset: 12/11/2013 Sprain of unspecified site of left knee, Kelechi Smith M.D. Onset: 2014 subsequent encounter Degeneration of cervical intervertebral disc Jorge Luis Harvey M.D. 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 Following with Dr. Meyer for Prep. On Truvada. Allergies, Adverse Reactions, Alerts Active Allergies Reaction Severity Comments Date Biaxin Urticaria Moderate 04/13/2010 Medications Active Medications SIG Qnty Indications Ordering Date Provider Gabapentin take one capsule 60caps G47.00 Jose Rodriguez NP 06/28/2018 300mg qhs. if tolerated Capsules after two weeks increase to one cap morning and every night at bedtime Topiramate take 1 tab by 60tabs G43.109 Jorge Luis Santoyo 04/12/2018 50mg Tablets mouth twice a day Parish Lee with 100 mg tablet to equal 150 mg Sildenafil Citrate 1-2 as needed 30 30tabs N52.1 Sanchez Gama 03/20/2018 50mg minutes before sex Parish Meyer Tablets Eletriptan 1 by mouth twice a 10tabs G43.009 Jorge Luis Santoyo 09/12/2017 Hydrobromide day as needed Parish Lee 40mg migraine max 2 Tablets days/wk [place] 1 by mouth every 30tabs Z20.2 Sanchez Gama 03/14/2017 200-300mg day Parish Meyer Tablets Topiramate take 1 tab by 60tabs Jorge Luis Santoyo 100mg mouth in the in [place] Lee Tablets the morning, take 1 tab by mouth at at bedtime with 50mg to equal 150mg at hs. Shannon Allergy 1 by mouth every Unknown 180mg day prn Tablets Adderall XR 1 by mouth every Unknown 30mg Caps day ER 24HR Lamotrigine 1 by mouth once a Unknown 200mg day Tablets [place] Carbonate ER 5 tabs once daily Facundo Chowdhury MD 300mg Tablets ER Amlodipine Besylate once daily Renetta Mclean 5mg C ,CFNP Tablets Centrum Adults once daily Unknown Tablets Celecoxib Take 1 Capsule By Unknown 200mg Mouth Every Day Capsules History Medications Prednisone Take 2 tabs po 2tabs Jorge Luis Santoyo 07/26/2018 - 20mg Tablets one time today. Parish Lee 08/20/2018 Potassium Chloride ER takes 2 tabs by 14tabs Jose Rodriguez NP 06/14/2018 - 20Meq mouth daily per 06/22/2018 Tablets ER pt Trazodone HCL 1-2 tablets at 30tabs G47.00 Jose Rodriguez NP 06/07/2018 - 50mg Tablets bedtime as 06/28/2018 needed. Zolmitriptan 1 tab by mouth 10tabs G43.00 Jorge Luis Santoyo 04/14/2016 - 5mg Tablets twice a day 9 Parish Lee 04/11/2018 maximum 2 days weekly Topiramate 2 by mouth 60tabs Jorge Luis Santoyo 04/14/2016 - 100mg Tablets every night at [place] Lee 10/13/2016 bedtime Topiramate 3 tabs every 90tabs Jorge Luis Santoyo 05/28/2015 - 25mg Tablets night at [facility] Lee 04/14/2016 bedtime (in addition to 100mg dose) Maxalt take 1 by mouth 12tabs Jorge Luis Santoyo 02/12/2015 - 10mg Tablets as needed Parish Lee 04/14/2016 migraine, may repeat after 2 hours, max 2/d, max 2d/wk [place] 1 by mouth bid 30tabs Jered 12/21/2013 - 5-325mg Tablets as needed for Parish Alvarenga 02/20/2016 pain (not currently taking) Cpap 327.23 Glory 11/30/2013 - Trinity Almonte MD 02/11/2015 [place] 1-2 by mouth 30tabs Jered 08/08/2013 - 5-325mg Tablets bid as needed Parish Alvarenga 09/14/2013 for pain Oxycodone HCL 1-2 tab by 40caps Jered 05/22/2013 - 5mg Capsules mouth every 4- Parish Alvarenga 09/14/2013 6 hours as needed pain [place] 1 po q8 hours 24tabs Jered 03/14/2013 - 5-325mg Tablets prn Parish Alvarenga 05/21/2013 Propranolol HCL 1 po bid 60tabs Jorge Luis Santoyo 06/27/2012 - 80mg Tablets [place] Lee 12/19/2012 Topiramate 1 qd for 1 week 120tabs Jorge Luis Santoyo 06/27/2012 - 25mg Tablets then 2 qd for 1 Parish Lee 08/01/2012 week then 3 qd for 1 week then 4 each day Diclofenac Sodium ER once daily 30tabs Hugo Rubalcava, 04/13/2010 - 100mg MTyrone 06/27/2012 Tablets ER 24HR Indomethacin 1 po tid prn 60caps Hugo Rubalcava, 04/13/2010 - 50mg Capsules Sarah.Lanette 06/27/2012 Indapamide once daily On Vinay, - 2.5mg Tablets TITO Truong 06/28/2018 Vraylar once a day po Unknown - 3mg Capsules 03/13/2017 Adderall 1 po qd Unknown - 15mg Tablets 04/14/2016 Chantix 1 by mouth Unknown - 1mg Tablets twice a day 10/13/2016 Abilify take one tablet Unknown - 10mg Tablets by mouth 10/13/2016 nightly at bedtime Trintellix 1 by mouth Unknown - 10mg Tablets every day 10/13/2016 Pristiq 1 by mouth Unknown - Tablets ER 24HR every morning 02/20/2016 Wellbutrin XL 1 by mouth Unknown - 150mg Tablets ER every day 09/07/2017 24HR Viibryd one by mouth Unknown - 20mg Tablets every day 05/26/2015 Wellbutrin XL 1 by mouth Unknown - 150mg Tablets ER every day 02/20/2016 24HR Saphris one by mouth Unknown - 5mg Tablets Sub every night as 02/20/2016 needed Chantix Unknown - 09/14/2013 Propranolol Unknown - 03/14/2013 Imitrex Unknown - 03/14/2013 Atorvastatin Calcium 1 po qd 90tabs Unknown - 20mg Tablets 10/13/2016 Lisinopril 1 po qd 90tabs Unknown - 20mg Tablets 10/13/2016 Zoloft 1 po qd Unknown - 50mg Tablets 02/11/2015 Ibuprofen 1 po tid prn 60tabs Unknown - 600mg Tablets 05/21/2013 Trazodone HCL 1 tablet at 30tabs Unknown - 50mg Tablets bedtime as 02/11/2015 needed Propranolol HCL ER 1 po qd 90caps Unknown - 120mg Caps ER 06/27/2012 24HR Percocet 1-2 po q4h prn 50tabs Unknown - 5-325mg Tablets pain 06/27/2012 Bupropion HCL SR 1 by mouth 180tabs Unknown - 150mg Tablets ER twice daily 06/27/2012 12HR Quinapril HCL 1 po qd 90tabs Unknown - 40mg Tablets 06/27/2012 Hydrochlorothiazide 1 po qd 90tabs Unknown - 25mg Tablets 06/27/2012 Pravachol 1 tablet po qhs 90tabs Unknown - 40mg Tablets 08/01/2012 Medications Administered in Office Medication SIG Qnty Indications Ordering Provider Date Influenza,Unspecified Unknown 11/14/2016 Injection Vital Signs Date Vital Result Comment 08/21/2018 1:53pm Height 71 inches 5'11" Weight 221.50 lb Heart Rate 84 /min BP Systolic Sitting 154 mmHg Lue large cuff BP Diastolic Sitting 96 mmHg Lue large cuff Respiratory Rate 20 /min O2 % BldC Oximetry 98 % On Ra BMI (Body Mass Index) 30.9 kg/m2 07/26/2018 1:12pm Height 71 inches 5'11" Weight 215.00 lb Heart Rate 88 /min BP Systolic 178 mmHg BP Diastolic 108 mmHg BMI (Body Mass Index) 30.0 kg/m2 06/28/2018 2:33pm Height 71 inches 5'11" Weight 217.38 lb Heart Rate 82 /min BP Systolic 131 mmHg BP Diastolic 86 mmHg Body Temperature 98.1 F O2 % BldC Oximetry 97 % BMI (Body Mass Index) 30.3 kg/m2 06/23/2018 4:06pm Height 71 inches 5'11" Weight 210.00 lb Heart Rate 92 /min BP Systolic 148 mmHg BP Diastolic 90 mmHg BMI (Body Mass Index) 29.3 kg/m2 06/19/2018 4:04pm Height 71 inches 5'11" Weight 218.00 lb Heart Rate 86 /min BP Systolic Sitting 126 mmHg BP Diastolic Sitting 86 mmHg Respiratory Rate 14 /min Body Temperature 98.7 F BMI (Body Mass Index) 30.4 kg/m2 06/13/2018 10:27am Height 71 inches 5'11" Weight 215.25 lb Heart Rate 92 /min BP Systolic Sitting 136 mmHg Lue large cuff BP Diastolic Sitting 84 mmHg Lue large cuff Respiratory Rate 12 /min O2 % BldC Oximetry 98 % BMI (Body Mass Index) 30.0 kg/m2 Neck Circumference in inches 16.25 06/07/2018 1:11pm Height 71 inches 5'11" Weight 259.25 lb Heart Rate 88 /min BP Systolic 154 mmHg Re-check 143/94 BP Diastolic 100 mmHg Re-check 143/94 Body Temperature 97.8 F O2 % BldC Oximetry 98 % BMI (Body Mass Index) 36.2 kg/m2 05/10/2018 2:51pm Height 71 inches 5'11" Weight [...] Date Facility Test Result H/L Range Note Laboratory test 06/28/2018 [facility] TSH 1.23 mcIU/mL N 0.34- 5.[address] ([place] [address] Stim Horm) [phone] T3 Total 124 ng/dL N 87-178 Thyroxine 5.72 g/dL Low 6.09-12.23 Methylmalonic Acid Mma 0.14 nmol/mL <=0.40 1 Laboratory test 06/28/2018 [facility] [place] 0.51 Low 0.6- 1.[address] mmol/[place] [address] [phone] Protein 06/28/2018 [facility] Total 7.1 g/dL 6.3 - 7.[address] Protein([place] [address] ) [phone] Albumin 4.1 g/dL 3.4-4.7 Alpha-1 Globulin 0.2 g/dL 0.1-0.3 Alpha-2 Globulin 0.9 g/dL 0.6-1.0 Beta Globulin 1.1 g/dL 0.7-1.2 Gamma Globulin 0.8 g/dL 0.6-1.6 Albumin/Globulin Ratio 1.38 Impression See Comment 2 Laboratory 06/28/2018 [facility] Topamax 5.7 g/mL [address] (Topiramate) [place] [address] [phone] Laboratory 06/21/2018 [facility] Potassium 4.1 mmol/L N 3.5- 5.[address] [place] [address] [phone] HIV 1/2 AB 06/13/2018 [facility] HIV 1 2 Nonreactive Nonreactive [address] [place] [address] [phone] Laboratory 06/13/2018 [facility] Syphillis Igg Negative Negative test finding [address] W/[place] [address] [phone] CBC Auto Diff 06/13/2018 [facility] White Blood 9.9 10^3/uL N 3.5-10.8 [address] [place] [address] [phone] Red Blood Count 5.32 10^6/uL N 4.18-5.48 Hemoglobin 16.4 g/dL N 14.0-18.0 Hematocrit 48 % High 36-46 Mean Corpuscular Volume 90 fL N 80-94 Mean Corpuscular Hemoglobin 31 pg N 27-31 Mean Corpuscular HGB Conc 34 g/dL N 31-36 Red Cell Distribution Width 14 % N 10.5-15 Platelet Count 267 10^3/uL N 150-450 Mean Platelet Volume 7.9 fL N 7.4-10.4 Abs Neutrophils 6.7 10^3/uL N 1.5-7.7 Abs Lymphocytes 2.4 10^3/uL N 1.0-4.8 Abs Monocytes 0.6 10^3/uL N 0-0.8 Abs Eosinophils 0.2 10^3/uL N 0-0.6 Abs Basophils 0 10^3/uL N 0-0.2 Abs Nucleated RBC 0 10^3/uL Granulocyte % 68.0 % Lymphocyte % 23.9 % Monocyte % 5.7 % Eosinophil % 2.1 % Basophil % 0.3 % Nucleated Red Blood Cells % 0.2 Laboratory test 06/13/2018 [facility] Ferritin 61.7 ng/mL N 24 -[address] [place] [address] [phone] Vitamin B12 296 pg/mL N 180-914 5 PSA Screening 0.968 ng/mL N 0-4.000 6 Urinalysis Profile 06/13/2018 [facility] Urine Color Yellow [address] [place] [address] [phone] Urine Appearance Clear Urine Specific Chandler 1.009 Low 1.010-1.030 Urine pH 7.0 N 5-9 Urine Urobilinogen Negative Negative Urine Ketones Negative Negative Urine Protein Negative Negative Urine Leukocytes Negative Negative Urine Blood Negative Negative Urine Nitrite Negative Negative Urine Bilirubin Negative Negative Urine Glucose Negative Negative Comp Metabolic Panel 06/13/2018 [facility] Sodium 139 mmol/L N 135-[address] [place] [address] [phone] Potassium 2.8 mmol/L Low 3.5-5.0 Chloride 101 mmol/L N 101-111 Co2 Carbon Dioxide 28 mmol/L N 22-32 Anion Gap 10 mmol/L N 2-11 Glucose 100 mg/dL N 70-100 Blood Urea Nitrogen 11 mg/dL N 6-24 Creatinine 0.90 mg/dL N 0.67-1.17 BUN/Creatinine Ratio 12.2 N 8-20 Calcium 9.7 mg/dL N 8.6-10.3 Total Protein 6.9 g/dL N 6.4-8.9 Albumin 4.7 g/dL N 3.2-5.2 Globulin 2.2 g/dL N 2-4 Albumin/Globulin Ratio 2.1 N 1-3 Total Bilirubin 0.60 mg/dL N 0.2-1.0 Alkaline Phosphatase 88 U/L N 34-104 Alt 44 U/L N 7-52 Ast 19 U/L N 13-39 Egfr Non- 95.0 >60 Egfr 114.9 >60 7 Laboratory test 06/13/2018 [facility] Lyme Screen Negative Negative finding [address] W/ [place] [address] WB [phone] HIV 1/2 AB 03/18/2018 [facility] HIV 1 2 Nonreactive Nonreactive [address] [place] [address] [phone] Basic Metabolic 03/18/2018 [facility] Sodium 140 mmol/L N 135- [address] [place] [address] [phone] Potassium 3.2 mmol/L Low 3.5-5.0 Chloride 103 mmol/L N 101-111 Co2 Carbon Dioxide 29 mmol/L N 22-32 Anion Gap 8 mmol/L N 2-11 Glucose 81 mg/dL N 70-100 Blood Urea Nitrogen 12 mg/dL N 6-24 Creatinine 0.91 mg/dL N 0.67-1.17 BUN/Creatinine Ratio 13.2 N 8-20 Calcium 9.8 mg/dL N 8.6-10.3 Egfr Non- 93.7 >60 Egfr 113.4 >60 9 Laboratory 03/18/2018 [facility] [place]ph[place] Nonreactive Nonreactive 10 test finding [address] Igg W/[place] [address] RPR [phone] Laboratory 11/26/2017 [facility] [place] Nonreactive Nonreactive 11 test finding [address] Igg W/[place] [address] RPR [phone] Basic 11/26/2017 [facility] Sodium 140 mmol/L N 135-[address] [place] [address] [phone] Potassium 4.8 mmol/L N 3.5-5.0 Chloride 108 mmol/L N 101-111 Co2 Carbon Dioxide 27 mmol/L N 22-32 Anion Gap 5 mmol/L N 2-11 Glucose 104 mg/dL High 70-100 Blood Urea Nitrogen 12 mg/dL N 6-24 Creatinine 1.00 mg/dL N 0.67-1.17 BUN/Creatinine Ratio 12.0 N 8-20 Calcium 9.4 mg/dL N 8.6-10.3 Egfr Non- 84.1 >60 Egfr 101.7 >60 12 HIV 1/2 Ag/AB 11/26/2017 [facility] Hiv1/2 Ag/Ab Negative Negative 13 Screen,W/Reflex,Plasma [address] Screen,w/Reflex,[place] [address] [phone] GC/Chlamydia Amplified 09/08/2017 [facility] Chlamydia Negative Negative [address] [place] [address] [phone] Neisseria gonorrhoeae (GC) Rna Negative Negative Laboratory 06/30/2017 [facility] [place] 0.55 mmol/L Low 0.6- 1.2 test finding [address] [place] [address] [phone] HIV 1/2 AB 06/30/2017 [facility] HIV 1 2 Nonreactive Nonreactive [address] [place] [address] [phone] Laboratory 06/30/2017 [facility] [place] Nonreactive Nonreactive [address] Igg W/[place] [address] RPR [phone] Comp 06/30/2017 [facility] Sodium 139 mmol/L N 139-145 Metabolic [address] [place] [address] [phone] Potassium 4.5 mmol/L N 3.5-5.0 Chloride 109 [...] Egfr Non- 94.3 >60 Egfr 121.2 >60 17 Urinalysis Profile 06/30/2017 [facility] Urine Color St[place] [address] [place] [address] [phone] Urine Appearance Clear Urine Specific [place] 1.005 Low 1.010-1.030 Urine pH 7.0 N 5-9 Urine Urobilinogen Negative Negative Urine Ketones Negative Negative Urine Protein Negative Negative Urine Leukocytes Negative Negative Urine Blood Negative Negative Urine Nitrite Negative Negative Urine Bilirubin Negative Negative Urine Glucose Negative Negative GC/Chlamydia 03/15/2017 [facility] Chlamydia Negative Negative Amplified Rna [address] [place] [address] [phone] Neisseria gonorrhoeae (GC) Rna Negative Negative CBC Auto Diff 03/15/2017 [facility] White Blood 9.2 10^3/uL N 3.5-10.[address] [place] [address] [phone] Red Blood Count 5.10 10^6/uL N 4.0-5.4 [...] 0-2 Nucleated Red Blood Cells % 0 HIV 1/2 AB 03/14/2017 [facility] HIV 1 2 Nonreactive Nonreactive [address] [place] [address] [phone] Comp Metabolic 03/14/2017 [facility] Sodium 137 mmol/L N 133- [address] [place] [address] [phone] Potassium 3.8 mmol/L N 3.5-5.0 Chloride 106 [...] Egfr Non- 82.6 >60 Egfr 106.3 >60 19 Laboratory 03/14/2017 [facility] Sy[place] Igg Nonreactive Nonreactive 20 test finding [address] W/[place] [address] [phone] Urine Drug 10/21/2015 [facility] Amphetamine Ur None Detected N None Detect SCR ED & Pain [address] [place] [address] [phone] Barbiturates Urine Screen None Detected N None Detect Benzodiazepine Urine Screen None Detected N None Detect Urine Cannabinoids Screen Presumptive Posi <SEE NOTE> Abnormal None Detect 21 Urine Cocaine Screen None Detected N None Detect Urine Opiates Screen None Detected N None Detect Urine Phencyclidine Screen None Detected N None Detect 22 Comp Metabolic Panel 10/21/2015 [facility] Sodium 139 mmol/L N 133-[address] [place] [address] [phone] Potassium 3.5 mmol/L N 3.5-5.0 Chloride 109 [...] 125.0 N >60 Egfr 160.7 N >60 23 Laboratory test 10/21/2015 [facility] TSH (Thyroid 1.34 mcIU/mL N 0.34-5.[address] Stim [place]orm) [place] [address] [phone] Acetaminophen < 15 g/mL N 24 Alcohol < 10 mg/dL N <10 Salicylate < 2.50 mg/dL N <30 Urinalysis Profile 10/21/2015 [facility] Urine Color Yellow N [address] [place] [address] [phone] Urine Appearance Cloudy N Urine Specific [place] 1.023 N 1.010-1.030 Urine pH 7.0 N 5-9 Urine Urobilinogen Negative N Negative Urine Ketones Negative N Negative Urine Protein Negative N Negative Urine Leukocytes Negative N Negative Urine Blood Negative N Negative Urine Nitrite Negative N Negative Urine Bilirubin Negative N Negative Urine Glucose Negative N Negative CBC Auto Diff 10/21/2015 [facility] White Blood 10.0 10^3/uL N 3.5-10.[address] [place] [address] [phone] Red Blood Count 4.79 10^6/uL N 4.0-5.4 [...] Nucleated Red Blood Cells % 0.1 N Laboratory test 04/03/2015 [facility] Cytology Non-Arts Therapist SEE RESULT [address] [place] [address] [phone] Cancellous Chips 06/03/2013 [facility] Cancellous Chips [id number] 26, [address] 5cc <[place] [address] NOTE> [phone] ADDITIONAL INFORMATION This test was developed and its performance characteristics determined by [facility] in a manner consistent with CLIA requirements. This test has not been cleared or approved by the U.S. Food and Drug Administration. Test Performed by: [facility] [place] [id number] RESULT: No apparent monoclonal protein on serum electrophoresis. Test Performed by: [facility] - [address] [address] 3 REFERENCE VALUE Reference values depend on clinical use: Anticonvulsant: 5.0-20.0 mcg/mL Psychiatric: 2.0-8.0 mcg/mL ADDITIONAL INFORMATION This test was developed and its performance characteristics determined by [facility] in a manner consistent with CLIA requirements. This test has not been cleared or approved by the U.S. Food and Drug Administration. Test Performed by: [facility] [address] 4 It is recognized that currently available assays [...] 95% confidence interval of 99.78 to 99.96%. 5 Normal Range 180 to 914 Indeterminate Range 145 to 180 Deficient Range <145 6 Serum levels of PSA measured using the Jade Brandt DXI Hybritech immunoassay should not be interpreted as absolute evidence of the presence or absence of disease. The PSA value should be used in conjunction with other pertinent clinical diagnostic procedures. The values obtained with different assay methods or kits cannot be used interchangeably. 7 Because ethnic data is not always readily [...] 15-29 5 Kidney failure <15 (or dialysis) 8 It is recognized that currently available assays [...] 95% confidence interval of 99.78 to 99.96%. 9 Because ethnic data is not always readily [...] 15-29 5 Kidney failure <15 (or dialysis) 10 Warning: A positive result is not useful for establishing a diagnosis of syphilis. In most situations, such a result may reflect a prior treated infection; a negative result can exclude a diagnosis of syphilis except for incubating or early primary disease. 11 Warning: A positive result is not useful for establishing a diagnosis of syphilis. In most situations, such a result may reflect a prior treated infection; a negative result can exclude a diagnosis of syphilis except for incubating or early primary disease. 12 Because ethnic data is not always readily [...] 15-29 5 Kidney failure <15 (or dialysis) 13 Negative result does not rule out HIV infection. If exposure to HIV infection occurred <14 days ago, contact the laboratory to request addition of HIV-1 RNA detection / quantification test (HIVQN). Test Performed by: [facility] [address] [place] [address] 14 [id number] It is recognized that currently available assays [...] 95% confidence interval of 99.78 to 99.96%. 16 Warning: A positive result is not useful for establishing a diagnosis of syphilis. In most situations, such a result may reflect a prior treated infection; a negative result can exclude a diagnosis of syphilis except for incubating or early primary disease. 17 Because ethnic data is not always readily [...] 15-29 5 Kidney failure <15 (or dialysis) 18 It is recognized that currently available assays [...] 95% confidence interval of 99.78 to 99.96%. 19 Because ethnic data is not always readily [...] 15-29 5 Kidney failure <15 (or dialysis) 20 Warning: A positive result is not useful for establishing a diagnosis of syphilis. In most situations, such a result may reflect a prior treated infection; a negative result can exclude a diagnosis of syphilis except for incubating or early primary disease. 21 Presumptive Positive Presumptive positive results are unconfirmed. 22 The urine specimen was tested at the listed cutoffs: Drug class test level (ng/mL) Amphetamines 500 Barbiturates 200 Benzodiazepine metabolites 200 Cocaine metabolites 150 Cannabinoids 50 Opiates 300 Pcp 25 Specimen was received without chain of custody. Results should be used for medical purposes only. 23 Because ethnic data is not always readily [...] 15-29 5 Kidney failure <15 (or dialysis) 24 Therapeutic concentration: <50 ug/mL Toxic concentration: >120 ug/mL 25 SEE RESULT BELOW Name: JAKOB ROJO : [address]: Cyrus Mayfield MD Acct: [id number] Unit: [id number] AGE: 34 Location: THYROID Re04/03/15 SEX: M Status: REG REF SPEC: [id number] ESPERANZA: 04/03/15-[address]: Buddy Gold MD REQ: [id number] RECD: 04/03/15-1230 STATUS: STEFFI ISABEL DR: Cyrus Parker MD _ ORDERED: FN ASP DEEP, FNA IMMEDIATE S FINAL DIAGNOSIS Thyroid, right, Ultrasound guided, fine needle aspiration: Benign thyroid nodule- chronic lymphocytic thyroiditis ([place] Class II). The specimen demonstrates moderate watery [...] performed at Main Lab DEPARTMENT OF PATHOLOGY, [address] [place] [address] Radames Ya M.D. Director [facility] # [id number] RUN DATE: 04/03/15 [facility] LAB LIVE PAGE 2 Patient: JAKOB ROJO [id number] (Continued) IMMEDIATE INTERPRETATION (Continued) IMMEDIATE INTERPRETATION Pass 1-adequate GROSS DESCRIPTION 3 - alcohol fixed slide(s) 1 - passes Signed (signature on file) Radames Ya MD 1237 END OF REPORT * ML=Testing performed at Main Lab DEPARTMENT OF PATHOLOGY, [address] [place] [address] Radames Ya M.D. Director [facility] # [id number] 26 OSTEOARTHROSIS LOCALIZED RIGHT ANKLE FOOT 27 [id number] CANC CHIPS 5CC TRANSFUSED 06/04/13 1015 [id number] CANC CHIPS 5CC TRANSFUSED 06/04/13 1015 Procedures Date Code Description Status 07/21/2018 91918 Polysomnography Sleep Staging 4+ Parameters Completed 07/21/2018 01578 Polysomnography Sleep Staging 4+ Parameters Completed 06/19/2018 92517 Sleep Study Unattended,HRT Rate,Oxygen Sat,Resp Completed Effort/Airflow 09/30/2013 44690 Polysomnography Sleep Staging 4+ Parameters W/Cpap Completed 09/27/2013 98065 Rad Exam; Foot Limited Completed 09/06/2013 90565 Polysomnography Sleep Staging 4+ Parameters Completed 07/13/2013 88356 Rad Exam; Foot Comp Completed 07/13/2013 32681 Walking Cast Completed 06/15/2013 64360 Short Leg Cast Completed 06/04/2013 01830 Artrodesis Subtalar Completed 06/04/201323518 Artrodesis Subtalar Completed 06/04/201382198 Bone Graft, Any Donor Area Major Or Large Completed 06/04/2013 Bone Graft, Any Donor Area Major Or Large Completed Encounters Type Date Location Provider Dx Diagnosis Office Visit 07/26/2018 [facility] Eduardo Echeverria, FARHAD G43.109 Migraine with 1:00p Services Of Instructional Services Librarian aura, not intractable, w/o status migrainosus G62.9 Polyneuropathy, unspecified Z79.899 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 M54.81 Occipital neuralgia Office Visit 06/28/2018 2:20p [facility] Internal Jose Rodriguez, G47.00 Insomnia, Medicine - [facility] MUTUEL CASHIER unspecified I10 Essential (primary) hypertension Office Visit 06/23/2018 Neurohospitalist Eduardo Echeverria, G43.109 Migraine with 3:30p Clinic MUTUEL CASHIER aura, not intractable, w/o status migrainosus Z79.899 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 G62.9 Polyneuropathy, unspecified Office Visit 06/19/2018 [facility] Denisha Drew Z11.4 Encounter for 4:00p For Infectious [facility], MUTUEL CASHIER screening for human Diseases immunodeficiency virus Z11.3 Encntr screen for infections w sexl mode of transmiss Z79.899 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 Office Visit 06/13/2018 11:00a Pul[facility]ology And [place] G47.33 Obstructive sleep Sleep Services Of MD Suzy apnea (adult) [facility] (pediatric) G47.00 Insomnia, unspecified Office Visit 06/07/2018 1:00p [facility] Internal Jose Michael, R35.0 Frequency of Medicine - [facility] MUTUEL CASHIER micturition R53.83 Other fatigue R10.819 Abdominal tenderness, unspecified site G47.00 Insomnia, unspecified R11.2 Nausea with vomiting, unspecified M54.5 Low back pain M50.10 Cervical disc disorder w radiculopathy, unsp cervical region I10 Essential (primary) hypertension R42 Dizziness and giddiness G43.109 Migraine with aura, not intractable, w/o status migrainosus R41.3 Other amnesia Office Visit 05/10/2018 Neurosurgery Jorge Luis M50.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 screening for human Diseases immunodeficiency virus Z79.899 Other jail (current) drug therapy Office 09/12/2017 Neurohospitalist Jorge Luis Santoyo G43.009 Migraine w/o aura, Visit 9:30a Clinic Jesus, not intractable, w/o M.D. status migrainosus Office 09/08/2017 [facility] Alicia Gama Z11.4 Encounter for Visit 4:00p Infectious Alana Meyer, screening for human M.DDemarcus immunodeficiency virus Z11.3 Encntr screen for infections w sexl mode of transmiss Z70.8 Other sex counseling Office Visit 06/09/2017 4:20p [facility] Sanchez Gama Z20.2 Contact w and Infectious [place] Meyer exposure to Diseases infect w a sexl mode of transmiss Z71.89 Other specified counseling Office 03/14/2017 [facility] Alicia Gama Z20.2 Contact w and Visit 3:20p Infectious Diseases Nasrin, exposure to infect M.DDemarcus w a sexl mode of transmiss Office 10/14/2016 Neurohospitalist Jorge Luis Santoyo G43.009 Migraine w/o aura, Visit 10:15a Clinic [place] not intractable, w/o status migrainosus Office 04/14/2016 Neurohospitalist Jorge Luis Santoyo G43.009 Migraine w/o aura, Visit 9:00a Clinic [place] not intractable, w/o status migrainosus Office 02/12/2015 [facility] Jorge Luis Santoyo G43.009 Migraine w/o [...] Services Of MD Suzy Apnea Adult & [facility] Pediatric Office 11/27/2013 Orthopedic Services Jered 727.06 Tenosynovitis Foot Visit 4:00p Of Jany Alvarenga M.D. & Ankle Office 09/27/2013 Orthopedic Services Jered Parkinson5.17 Osteoarthrosis Visit 1:15p Of Jany Alvarenga M.D. Localized Prim Ankle & Foot Office 09/18/2013 [facility] Jorge Luis Santoyo 346.10 Migraine Common Visit 3:45p Services Of Saige Lee M.D. W/O Intractable W/O Status Migrainosus Office 09/06/2013 Sleep Disorder [place] SK. 780.57 Unspecified Sleep Visit 10:06a [place] Jameson Apnea 786.09 Dyspnea & Respiratory Abnormalities Other [...] Ankle C.M.A. & Foot Office Visit 12/19/2012 [place] Jorge Luis Santoyo 346.00 Migraine Classical 3:45p Neurologic [place] W/O Intractable W/O Services Of [facility] Status Migrainosus 346.10 Migraine Common W/O Intractable W/O Status Migrainosus Office Visit 10/30/2012 Orthopedic Jered Navarro Osteoarthrosis 4:30p Services Of Jany Alvarenga M.D. Localized Prim Ankle & Foot Office Visit 08/01/2012 [place] Gina Santoyo 346.10 Migraine Common W/O 1:15p Services Of Saige Lee M.D. Intractable W/O Status Migrainosus Office Visit 06/27/2012 [place] Gina Santoyo 346.11 Migraine W/O Aura 1:00p Services [...] 719.40 Pain Joint Site 3:00p Services Of [facility] [place] Rubalcava Unspec 718.87 Derangement Joint Other Not Elsewhere Class Ankle & Foot Plan of Treatment Future Appointment(s):10/18/2018 2:30 pm - Alannah South DNP, RN, PRIMARY CLINICIAN-BC at [facility] Of [facility]09/28/2018 3:40 pm - Jose Rodriguez NP at [facility] Internal Medicine - [facility]09/18/2018 4:00 pm - Sanchez Meyer M.D. at [facility] Ahmvjkxj87/20/2019 3:45 pm - Jorge Luis Lee M.D. at [facility]08/21/2018 - Marina Rubalcava NPG47.33 Obstructive sleep apnea (adult) (pediatric)New Orders:[facility]Home[facility], Ordered: 08/21/18Recommendations:If you have any sleepiness while driving you MUST avoid operating a vehicle or machinery. If you have difficulty with your equipment, or need to replace your mask or hoses, please contact your homecare agency. If you have any further questions, please call the [facility] at [phone] Insomnia, unspecified
--- NOTE | 2018-09-13 13:23 | ED ---
Abdominal Pain/Male - HPI Summary HPI Summary: Patient is a 37-year-old male who presents emergency department for left-sided abdominal pain times several days. Patient notes history of diverticulitis. Denies other past medical history. Patient denies fever, chills, chest pain, shortness of breath, vomiting, diarrhea, urinary symptoms. Pain is worse with movement and walking. Lying still improves pain. Symptoms are moderate in severity. - History of Current Complaint Chief Complaint: EDAbdPain Stated Complaint: FLANK PAIN LEFT SIDE PER PT Time Seen by Provider: 09/13/18 13:09 Hx Obtained From: Patient Pain Intensity: 8 - Allergies/Home Medications Allergies/Adverse Reactions: Allergies Allergy/AdvReac Type Severity Reaction Status Date / Time clarithromycin [From Biaxin] Allergy Severe Hives Verified 09/13/18 13:02 Home Medications: Home Medications Amphetamine/Dextroamph ER(NF) [Adderal XR (NF)] 30 mg PO DAILY 09/13/18 [ History Confirmed 09/13/18] Eletriptan 40 mg (Nf)* [Relpax (NF)] 40 mg PO BID PRN 09/13/18 [History Confirmed 09/13/18] Fexofenadine (NF) [Shannon 180 (NF)] 180 mg PO DAILY PRN 09/13/18 [History Confirmed 09/13/18] Multivitamin/Iron/Folic Acid [Centrum Adults Tablet] 1 tab PO DAILY 09/13/18 [ History Confirmed 09/13/18] Topiramate TAB(*) [Topamax 100 mg tab] 100 mg PO BID 09/13/18 [History Confirmed 09/13/18] Topiramate TAB(*) [Topamax 25 MG tab] 50 mg PO BID 09/13/18 [History Confirmed 09/13/18] celeCOXIB CAP* [CeleBREX CAP*] 200 mg PO DAILY 09/13/18 [History Confirmed 09/13] lamoTRIgine TAB(*) [LaMICtal TAB(*)] 200 mg PO DAILY 09/13/18 [History Confirmed 09/13/18] PMH/Surg Hx/FS Hx/Imm Hx Previously Healthy: Yes Endocrine/Hematology History: Denies: Hx Anticoagulant Therapy, Hx Diabetes, Hx Thyroid Disease, Hx Anemia Cardiovascular History: Reports: Hx Coronary Artery Disease - CHOLESTEROL CONTROL WITH MEDS, Hx Hypertension - ON MEDS Denies: Hx Congestive Heart Failure, Hx Deep Vein Thrombosis, Hx Myocardial Infarction, Hx Pacemaker/ICD Respiratory History: Reports: Hx Sleep Apnea - evaluation for 06/2013, another scheduled for 07/2018 Denies: Hx Asthma, Hx Chronic Obstructive Pulmonary Disease (COPD), Hx Lung Cancer, Hx Pneumonia, Hx Pulmonary Embolism GI History: Reports: Other GI Disorders - enlarged liver 2018 Denies: Hx Gall Bladder Disease - possible gallstones on MRI 2018, Hx Gastrointestinal Bleed, Hx Jaundice, Hx Ulcer, Hx Urosepsis History: Denies: Hx Dialysis, Hx Kidney Stones, Hx Renal Disease Musculoskeletal History: Reports: Hx Arthritis, Hx Back Problems, Other Musculoskeletal History - osteo-arthritis Right foot Denies: Hx Rheumatoid Arthritis, Hx Osteoporosis, Hx Scoliosis Sensory History: Denies: Hx Contacts or Glasses, Hx Hearing Aid Opthamlomology History: Denies: Hx Contacts or Glasses Neurological History: Reports: Hx Headaches - HX MIGRAINES, Hx Migraine - NONE FOR ONE MONTH SINCE ON TOPAMAX, Other Neuro Impairments/Disorders - migraines Denies: Hx Dementia, Hx Seizures, Hx Transient Ischemic Attacks (TIA) Psychiatric History: Reports: Hx Anxiety - ON MEDS, Hx Eating Disorder - reports inconsistent eating habits, times of binging, others restricting, Hx Depression, Hx Bipolar Disorder - on [place], bipolar pers disorder? Denies: Hx Panic Disorder, Hx of Violent Episodes Against Others - Pt denied - Surgical History Surgery Procedure, Year, and Place: right foot fusion, 2013? wisdom teeth removal Hx Anesthesia Reactions: Yes - LOCAL ANESTHESIA ONLY - Immunization History Date of Tetanus Vaccine: 2011 Infectious Disease History: No Infectious Disease History: Denies: Hx Hepatitis, Hx Human Immunodeficiency Virus (HIV), History Other Infectious Disease, Traveled Outside the [place] in Last 30 Days - Family History Known Family History: Positive: Hypertension, Other - [place], Non-Contributory - Social History Occupation: Employed Full-time Lives: With Family Alcohol Use: Weekly Alcohol Amount: 1 Hx Substance Use: Yes Substance Use Type: Reports: Marijuana Substance Use Comment - Amount & Last Used: occasionally Hx Tobacco Use: Yes Smoking Status (MU): Former Smoker Type: Cigarettes Amount Used/How Often: 3 CIG/DAY Length of Time of Smoking/Using Tobacco: 15 YEARS Have You Smoked in the Last Year: Yes Review of Systems Constitutional: Negative Negative: Fever, Chills Eyes: Negative Cardiovascular: Negative Respiratory: Negative Positive: Abdominal Pain. Negative: Vomiting, Diarrhea Genitourinary: Negative Negative: dysuria, flank pain Neurological: Negative All Other Systems Reviewed And Are Negative: Yes Physical Exam Triage Information Reviewed: Yes Vital Signs On Initial Exam: Initial Vitals Temp Pulse Resp BP Pulse Ox 99.1 F 100 16 179/108 98 09/13/18 12:58 09/13/18 12:58 09/13/18 12:58 09/13/18 12:58 09/13/18 12:58 Vital Signs Reviewed: Yes Appearance: Positive: Well-Appearing - Pt. lying in bed in NAD. Skin: Positive: Warm, Dry Head/Face: Positive: Normal Head/Face Inspection Eyes: Positive: Normal, EOMI Neck: Positive: Supple Respiratory/Lung Sounds: Positive: Clear to Auscultation, Breath Sounds Present Cardiovascular: Positive: Normal, RRR Abdomen Description: Positive: Other: - Obese. Abd. is soft with marked tenderness to LUQ and LLQ with guarding. Mild left CVA tenderness. Musculoskeletal: Positive: Normal, Strength/ROM Intact Neurological: Positive: Normal, CN Intact II-III Psychiatric: Positive: Affect/Mood Appropriate Diagnostics - Vital Signs Vital Signs Temp Pulse Resp BP Pulse Ox 09/13/18 12:58 99.1 F 100 16 179/108 98 - Laboratory Result Diagrams: 09/13/18 13:56 09/13/18 13:56 Lab Statement: Any lab studies that have been ordered have been reviewed, and results considered in the medical decision making process. Abdominal Pain Male Course/Dx - Course Assessment/Plan: Pt. with LLQ pain. He is afebrile with stable VS. Labs show elevated CBC, otherwise unremarkable. CT per radiolgoy:IMPRESSION: 1. DIVERTICULITIS, WITHOUT LOCULATED FLUID COLLECTION TO SUGGEST ABSCESS. 2. HEPATOMEGALY WITH FATTY INFILTRATION OF THE LIVER. On re-exam pt. resting comfortably. Pt. notes he has been treated for divertic abount 4-5 times in the last 4 years. States he has never been hospitalized. Will tx with cipro and flagyl. Clear liquid diet. Small rx for lortab given. 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 To fu with pcp and return to ER if sxs change or worsen. - Diagnoses Differential Diagnosis/HQI/PQRI: Constipation, Diverticulitis, Ureteral Stone, Urinary Tract Infection Provider Diagnoses: Diverticulitis Discharge - Sign-Out/Discharge Documenting (check all that apply): Patient Departure Patient Received Moderate/Deep Sedation with Procedure: No - Discharge Plan Condition: Improved Disposition: HOME Prescriptions: Ciprofloxacin HCl [Cipro] 500 mg PO BID #20 tablet Hydrocodone/Acetaminophen [Hydrocodone-Acetamin 5-325 mg] 1 each PO Q6H #12 tablet MDD 4 metroNIDAZOLE [Flagyl] 500 mg PO TID #30 tablet Patient Education Materials: Diverticulitis (ED), Diverticulitis Diet (ED) Referrals: Jose Rodriguez RECORD TESTER [Primary Care Provider] - Additional Instructions: Follow up with PCP within one week Medication as directed Clear liquid diet x 3-5 days Return to ER for increased pain, fever, vomiting or if concerned - Billing Disposition and Condition Condition: IMPROVED Disposition: Home
[2018-09-13 13:38] LABS: Urine Appearance Cloudy; Urine Bilirubin Negative (Negative); Urine Blood Negative (Negative); Urine Color Yellow; Urine Glucose Negative (Negative); Urine Ketones Negative (Negative); Urine Nitrite Negative (Negative); Urine Protein Negative (Negative); Urine Specific Gravity 1.018 (1.010-1.030); Urine Urobilinogen Negative (Negative)
[2018-09-13 14:08] LABS: ABS Basophils 0.1 10^3/ul (0-0.2); ABS Eosinophils 0.1 10^3/ul (0-0.6); ABS Lymphocytes 1.7 10^3/ul (1.0-4.8); ABS Monocytes 0.7 10^3/ul (0-0.8); Eosinophil % 1.2 %; Hematocrit 44 % (42-52); Hemoglobin 14.9 g/dL (14.0-18.0); Lymphocyte % 13.5 %; Mean Corpuscular HGB Conc 34 g/dL (31-36); Mean Corpuscular Hemoglobin 31 pg (27-31); Mean Corpuscular Volume 91 fL (80-94); Mean Platelet Volume 7.8 fL (7.4-10.4); Platelet Count 202 10^3/uL (150-450); Red Blood Count 4.81 10^6 /uL (4.18-5.48); Red Cell Distribution Width 14 % (10-15); White Blood Count 12.6 10^3/uL (3.5-10.8)
[2018-09-13 14:41] LABS: Albumin 4.4 g/dL (3.2-5.2); BUN/Creatinine Ratio 12.8 (8-20); C Reactive Protein 11.1 mg/L (<8.01); Calcium 8.9 mg/dL (8.6-10.3); EGFR African American 121.1 (>60); EGFR Non-African American 100.1 (>60); Globulin 2.2 g/dL (2-4); Potassium 3.4 mmol/L (3.5-5.0); Total Bilirubin 0.7 mg/dL (0.2-1.0); Total Protein 6.6 g/dL (6.4-8.9)
[2018-09-13 16:02] VITALS: BP 168/94
== END | disposition home or self-care (01) ==
LOC: ED 12:57
DX: K57.92 Diverticulitis of intestine, part unspecified, without perforation or abscess without bleeding (principal); I25.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 native coronary artery without angina pectoris; I10 Essential (primary) hypertension; Z88.1 Allergy status to other antibiotic agents; Z79.899 Other long term (current) drug therapy; Z87.891 Personal history of nicotine dependence; K76.0 Fatty (change of) liver, not elsewhere classified; R16.0 Hepatomegaly, not elsewhere classified
CPT/HCPCS: 36415; 74177; 80053; 81003; 85025; 86140; 96361; 96374; 96375; 99282; J1885; Q9967

== ENCOUNTER 2018-10-18 10:37 | Observation (INO) | payer BC ==
[2018-10-18] MEDS ORDERED: Aspirin 81 mg CHEW TAB* 81 MG TAB.CHEW PO ONE (10:54)
[2018-10-18 11:06] LABS: ABS Basophils 0.1 10^3/ul (0-0.2); ABS Eosinophils 0.3 10^3/ul (0-0.6); ABS Lymphocytes 2.4 10^3/ul (1.0-4.8); ABS Monocytes 0.8 10^3/ul (0-0.8); ABS Neutrophils 10.2 10^3/ul (1.5-7.7); Eosinophil % 1.9 %; Hematocrit 47 % (42-52); Hemoglobin 15.9 g/dL (14.0-18.0); Lymphocyte % 17.3 %; Mean Corpuscular HGB Conc 34 g/dL (31-36); Mean Corpuscular Hemoglobin 31 pg (27-31); Mean Corpuscular Volume 91 fL (80-94); Mean Platelet Volume 7.9 fL (7.4-10.4); Nucleated Red Blood Cells % 0.1; Platelet Count 208 10^3/uL (150-450); Red Blood Count 5.14 10^6 /uL (4.18-5.48); Red Cell Distribution Width 13 % (10-15); White Blood Count 13.8 10^3/uL (3.5-10.8)
--- NOTE | 2018-10-18 11:12 | ED ---
HPI Chest Pain - HPI Summary HPI Summary: Patient is a 37 y/o M presenting to ED with complaints of chest pain. He was scheduled for a stress test today, 10/18/18, due to patient likely having had a recent [place]. Patient states that he was sent to ED for evaluation after having failed his stress test. Patient notes that he was informed that he will likely need a cardiac catheterization. He notes that he has substernal chest pain at present rated 4-5/10 and characterized as a pressure. SOB is denied, patient endorses some nausea and dizziness. He notes that he is a former smoker, endorses rare alcohol usage, and reports marijuana usage. No FMHx of cardiac disease is reported. Home medications and allergies are reviewed. - History of Current Complaint Chief Complaint: EDChestPainROMI Time Seen by Provider: 10/18/18 11:10 Hx Obtained From: Patient Onset/Duration: Still Present Current Severity: Moderate Pain Intensity: 5 Pain Scale Used: 0-10 Numeric Chest Pain Location: Lower Sternal Character: Pressure/Squeezing Associated Signs and Symptoms: Positive: Chest Pain, Dizziness, Nausea. Negative: Shortness of Breath - Additional Pertinent History Primary Care Physician: [id number] - Allergy/Home Medications Allergies/Adverse Reactions: Allergies Allergy/AdvReac Type Severity Reaction Status Date / Time clarithromycin [From Biaxin] Allergy Severe Hives Verified 09/13/18 13:02 Home Medications: Home Medications Aspirin EC TAB* [Ecotrin EC Low Dose 81 MG*] 81 mg PO DAILY 10/18/18 [History Confirmed 10/18/18] Inositol 500 - 1,000 mg PO DAILY 10/18/18 [History Confirmed 10/18/18] L.acidoph,Paracasei, B.lactis [Probiotic] 1 each PO QID 10/18/18 [History Confirmed 10/18/18] [place]-3 Fatty Acids (Nf) [Fish Oil (NF)] 1,000 mg PO DAILY 10/18/18 [History Confirmed 10/18/18] Topiramate TAB(*) [Topamax 100 mg tab] 150 mg PO BID 10/18/18 [History Confirmed 10/18/18] PMH/Surg Hx/FS Hx/Imm Hx Endocrine/Hematology History: Denies: Hx Anticoagulant Therapy, Hx Diabetes, Hx Thyroid Disease, Hx Anemia Cardiovascular History: Reports: Hx Coronary Artery Disease - CHOLESTEROL CONTROL WITH MEDS, Hx Hypertension - ON MEDS Denies: Hx Congestive Heart Failure, Hx Deep Vein Thrombosis, Hx Myocardial Infarction, Hx Pacemaker/ICD Respiratory History: Reports: Hx Sleep Apnea - evaluation for 06/2013, another scheduled for 07/2018 Denies: Hx Asthma, Hx Chronic Obstructive Pulmonary Disease (COPD), Hx Lung Cancer, Hx Pneumonia, Hx Pulmonary Embolism GI History: Reports: Other GI Disorders - enlarged liver 2018 Denies: Hx Gall Bladder Disease - possible gallstones on MRI 2018, Hx Gastrointestinal Bleed, Hx Jaundice, Hx Ulcer, Hx Urosepsis History: Denies: Hx Dialysis, Hx Kidney Stones, Hx Renal Disease Musculoskeletal History: Reports: Hx Arthritis, Hx Back Problems, Other Musculoskeletal History - osteo-arthritis Right foot Denies: Hx Rheumatoid Arthritis, Hx Osteoporosis, Hx Scoliosis Sensory History: Denies: Hx Contacts or Glasses, Hx Hearing Aid Opthamlomology History: Denies: Hx Contacts or Glasses Neurological History: Reports: Hx Headaches - HX MIGRAINES, Hx Migraine - NONE FOR ONE MONTH SINCE ON TOPAMAX, Other Neuro Impairments/Disorders - migraines Denies: Hx Dementia, Hx Seizures, Hx Transient Ischemic Attacks (TIA) Psychiatric History: Reports: Hx Anxiety - ON MEDS, Hx Eating Disorder - reports inconsistent eating habits, times of binging, others restricting, Hx Depression, Hx Bipolar Disorder - on [place], bipolar pers disorder? Denies: Hx Panic Disorder, Hx of Violent Episodes Against Others - Pt denied - Surgical History Surgery Procedure, Year, and Place: right foot fusion, 2013? wisdom teeth removal Hx Anesthesia Reactions: Yes - LOCAL ANESTHESIA ONLY - Immunization History Date of Tetanus Vaccine: 2011 Infectious Disease History: No Infectious Disease History: Denies: Hx Hepatitis, Hx Human Immunodeficiency Virus (HIV), History Other Infectious Disease, Traveled Outside the [place] in Last 30 Days - Family History Known Family History: Positive: Hypertension, Other - [place] Negative: Cardiac Disease - Social History Alcohol Use: Rare Alcohol Amount: 1 Hx Substance Use: Yes Substance Use Type: Reports: Marijuana Substance Use Comment - Amount & Last Used: occasionally Hx Tobacco Use: Yes Smoking Status (MU): Former Smoker Type: Cigarettes Amount Used/How Often: 3 CIG/DAY Length of Time of Smoking/Using Tobacco: 15 YEARS Have You Smoked in the Last Year: Yes Review of Systems Positive: Chest Pain Negative: Shortness Of Breath Positive: Nausea Neurological: Other - positive - dizziness All Other Systems Reviewed And Are Negative: Yes Physical Exam - Summary Physical Exam Summary: General: Well-developed, Well-nourished male. No acute distress. HEENT: Normocephalic, Atraumatic. Eyes: Conjuctiva normal, PERRL. Ears: TMs within normal limits. Nares: (-) discharge, (-) erythema. Oropharynx: Clear, mucous membranes moist, (-) exudates. Neck: Soft, FROM, (-) lymphadenopathy, (-) thyromegaly, (-) JVD. Cardiovascular: Normal sinus rhythm, (-) murmur. Lungs: Clear to auscultation bilaterally (-) wheezes, (-) rales, (-) rhonchi. Abdomen: Soft, non-tender, non-distended, (-) organomegaly, normal bowel sounds. Back: (-) CVA tenderness Extremities: No edema. Skin: Warm, dry, (-) rash. Neuro: Alert and oriented x3, no focal deficits. Psychiatric: Mood normal, affect normal. Triage Information Reviewed: Yes Vital Signs On Initial Exam: Initial Vitals Temp Pulse Resp BP Pulse Ox 96.1 F 70 20 171/107 100 10/18/18 10:53 10/18/18 10:53 10/18/18 10:53 10/18/18 10:53 10/18/18 10:53 Vital Signs Reviewed: Yes Diagnostics - Vital Signs Vital Signs Temp Pulse Resp BP Pulse Ox 10/18/18 10:53 96.1 F 70 20 171/107 100 - Laboratory Lab Results: Lab Results 10/18/18 Range/Units 10:57 WBC 13.8 H (3.5-10.8) 10^3/uL RBC 5.14 (4.18-5.48) 10^6 /uL Hgb 15.9 (14.0-18.0) g/dL Hct 47 (42-52) % MCV 91 (80-94) fL MCH 31 (27-31) pg MCHC 34 (31-36) g/dL RDW 13 (10-15) % Plt Count 208 (150-450) 10^3/uL MPV 7.9 (7.4-10.4) fL Neut % (Auto) 74.2 % Lymph % (Auto) 17.3 % Young % (Auto) 5.8 % Eos % (Auto) 1.9 % Baso % (Auto) 0.8 % Absolute Neuts (auto) 10.2 H (1.5-7.7) 10^3/ul Absolute Lymphs (auto) 2.4 (1.0-4.8) 10^3/ul Absolute Monos (auto) 0.8 (0-0.8) 10^3/ul Absolute Eos (auto) 0.3 (0-0.6) 10^3/ul Absolute Basos (auto) 0.1 (0-0.2) 10^3/ul Absolute Nucleated RBC 0.0 10^3/ul Nucleated RBC % 0.1 Result Diagrams: 10/18/18 10:57 10/18/18 10:57 Lab Statement: Any lab studies that have been ordered have been reviewed, and results considered in the medical decision making process. - Radiology CXR Radiology Interpretation Completed By: Radiologist Summary of Radiographic Findings: IMPRESSION: NO ACTIVE CARDIOPULMONARY DISEASE. THIS REPORT WAS REVIEWED BY DR. HARRISON. - EKG 1042 Cardiac Rate: Bradycardia - rate of 67 BPM EKG Rhythm: Sinus Bradycardia Summary of EKG Findings: EKG showed sinus bradycardia with rate of 57 BPM, ST elevation in V2. Chest Pain Course/Dx - Course Course Of Treatment: Patient is a 37 y/o M presenting to ED with complaints of chest pain. He was scheduled for a stress test today, 10/18/18, due to patient likely having had a recent [place]. Patient states that he was sent to ED for evaluation after having failed his stress test. Patient notes that he was informed that he will likely need a cardiac catheterization. Physical exam is unremarkable. EKG showed sinus bradycardia with rate of 57 BPM, ST elevation in V2. CXR IMPRESSION: NO ACTIVE CARDIOPULMONARY DISEASE. Bloodwork obtained. Trop was negative. Abnormal values include glucose 101, BUN/creatinine ratio 20.5, absolute neuts 10.2, WBC 13.8. 1125 - Patients case was discussed with Dr. Rose, who evaluated the patient in ED. Dr. Rose ordered nitro drip and heparin drip. Patient also received Lipitor 80 mg PO and Tylenol 650 mg PO, ordered by Dr. Rose. 1200 Dr. Rose placed admission order, patient to be admitted to ICU. - Diagnoses Provider Diagnoses: ACS (acute coronary syndrome) - Provider Notifications Discussed Care Of Patient With: Karon Rose Time Discussed With Above Provider: 11:25 Instructed by Provider To: Other - 1125 - Patients case was discussed with Dr. Rose, who evaluated the patient in ED. Dr. Rose ordered nitro drip and heparin drip. Patient also received Lipitor 80 mg PO and Tylenol 650 mg PO, ordered by Dr. Rose. 1200 Dr[address] Rose placed admission order, patient to be admitted to ICU. Discharge ED - Sign-Out/Discharge Documenting (check all that apply): Patient Departure - admit All imaging exams completed and their final reports reviewed: Yes Patient Received Moderate/Deep Sedation with Procedure: No - Discharge Plan Condition: Fair Disposition: ADMITTED TO [facility] - Billing Disposition and Condition Condition: FAIR Disposition: Admitted to [facility] - Attestation Statements Document Initiated by Scribe: Yes Documenting Scribe: KE CAMPOS Provider For Whom Scribe is Documenting (Include Credential): MEG HARRISON MD Scribe Attestation: KE Venegas, scribed for MEG HARRISON MD on 10/18/18 at 1351. Scribe Documentation Reviewed: Yes Provider Attestation: The documentation as recorded by the KE corbin accurately reflects the service I personally performed and the decisions made by , MEG HARRISON MD Status of Scribe Document: Viewed
[2018-10-18] MEDS ORDERED: nitroGLYCERIN DRIP* 25,000 MCG/250 ML BTL ONE ×2 (11:13→14:52)
[2018-10-18 11:16] LABS: Activated Partial Thrombo Time 34.9 seconds (26.0-38.0); INR 0.98 (0.82-1.09)
[2018-10-18 11:31] LABS: Albumin 4.4 g/dL (3.2-5.2); Albumin/Globulin Ratio 1.9 (1-3); BUN/Creatinine Ratio 20.5 (8-20); Calcium 9.4 mg/dL (8.6-10.3); EGFR African American 135.5 (>60); Globulin 2.3 g/dL (2-4); Potassium 4.3 mmol/L (3.5-5.0); Total Bilirubin 0.6 mg/dL (0.2-1.0); Total Protein 6.7 g/dL (6.4-8.9)
--- OUTSIDE RECORDS SUMMARY | 2018-10-18 11:31 | XMS REPORT | Continuity of Care Document ---
:1980 External Reference #:[id number] Author Name Jose Rodriguez NP (transmitted by agent of provider Kathryn Tyler) Address [address] [facility], [place] [address] Care Team Providers Name Role Phone Kem Celaya MD - Family Medicine Care Team Information Calculation Reviewer [phone] Radha Julien MD - Internal Medicine Care Team Information Calculation Reviewer [phone] Problems Active Problems Provider Date Obstructive sleep apnea syndrome Glory Almonte MD Onset: 11/30/2013 Obstructive sleep apnea syndrome Glory Almonte MD Onset: 12/11/2013 Sprain of unspecified site of left knee, Kelechi Smith M.D. Onset: 2014 subsequent encounter Degeneration of cervical intervertebral disc Jorge Luis Harvey M.D. Onset: 05/10 Social History Type Date Description Comments Sex Unknown ETOH Use Occasionally consumes alcohol Recreational Drug Use Former Drug User Tobacco Use Start: Unknown End: Patient is a former smoker Unknown Smoking Status Reviewed: 10/09/18 Patient is a former smoker Exercise Type/Frequency Exercises sporadically Allergies, Adverse Reactions, Alerts Active Allergies Reaction [...] 100 mg tablet to equal 150 mg Eletriptan 1 by mouth twice a 10tabs G43.009 Jorge Luis Santoyo 09/12/2017 Hydrobromide day as needed Parish Lee 40mg migraine max 2 Tablets days/wk Truvada 1 by mouth every 30tabs Z20.2 Sanchez Gama 03/14/2017 200-300mg day Parish Alexandra Tablets Topiramate take 1 tab by 60tabs Jorge Luis Santoyo 100mg mouth in the in Parish Lee Tablets the morning, take 1 tab by mouth at at bedtime with 50mg to equal 150mg at hs. Shannon Allergy 1 by mouth every Unknown 180mg day prn Tablets Amlodipine Besylate once daily Renetta [place] 5mg C ,CFNP Tablets Celecoxib Take 1 Capsule By Unknown 200mg Mouth Every Day Capsules History Medications Prednisone Take 2 tabs po 2tabs Jorge Luis Lee, 07/26/2018 - 20mg one time today. Parish 08/20/2018 Tablets Potassium Chloride takes 2 tabs by 14tabs Jose Rodriguez NP 06/14/2018 - ER mouth daily per 06/22/2018 20Meq Tablets ER pt Trazodone HCL 1-2 tablets at 30tabs G47.00 Jose Rodriguez NP 06/07/2018 - 50mg bedtime as 06/28/2018 Tablets needed. Medications Administered in Office Medication SIG Qnty Indications Ordering Provider Date Influenza,Unspecified Unknown 11/14/2016 Injection Immunizations Description No Information Available Vital Signs Date Vital Result Comment 10/09/2018 9:59am Height 71 inches 5'11" Weight 222.25 lb Heart Rate 82 /min BP Systolic 137 mmHg BP Diastolic 94 mmHg BP Systolic Recheck 134 mmHg BP Diastolic Recheck 84 mmHg Body Temperature 97.2 F O2 % BldC Oximetry 96 % BMI (Body Mass Index) 31.0 kg/m2 10/03/2018 4:09pm Height 71 inches 5'11" Weight 226.00 lb Heart Rate 74 /min BP Systolic 152 mmHg BP Diastolic 92 mmHg BMI (Body Mass Index) 31.5 kg/m2 Results Test Date Facility Test Result H/L Range Note Order 10/09/2018 [facility] In-House EKG <pending> Urinalysis Profile 09/13/2018 [facility] Urine Color Yellow [address] [place] [address] [phone] Urine Appearance Cloudy Urine Specific [place] 1.018 Normal 1.010-1.030 Urine pH 6.0 Normal 5-9 Urine Urobilinogen Negative Negative Urine Ketones Negative Negative Urine Protein Negative Negative Urine Leukocytes Negative Negative Urine Blood Negative Negative Urine Nitrite Negative Negative Urine Bilirubin Negative Negative Urine Glucose Negative Negative CBC Auto 09/13/2018 [facility] White Blood 12.6 10^3/uL High 3.5-10.[address] [place] [address] [phone] Red Blood Count 4.81 10^6/uL Normal 4.18-5.48 Hemoglobin 14.9 g/dL Normal 14.0-18.0 Hematocrit 44 % Normal 42-52 Mean Corpuscular Volume 91 fL Normal 80-94 Mean Corpuscular Hemoglobin 31 pg Normal 27-31 Mean Corpuscular HGB Conc 34 g/dL Normal 31-36 Red Cell Distribution Width 14 % Normal 10-15 Platelet Count 202 10^3/uL Normal 150-450 Mean Platelet Volume 7.8 fL Normal 7.4-10.4 Abs Neutrophils 10.0 10^3/uL High 1.5-7.7 Abs Lymphocytes 1.7 10^3/uL Normal 1.0-4.8 Abs Monocytes 0.7 10^3/uL Normal 0-0.8 Abs Eosinophils 0.1 10^3/uL Normal 0-0.6 Abs Basophils 0.1 10^3/uL Normal 0-0.2 Abs Nucleated RBC 0.0 10^3/uL Granulocyte % 78.9 % Lymphocyte % 13.5 % Monocyte % 5.5 % Eosinophil % 1.2 % Basophil % 0.9 % Nucleated Red Blood Cells % 0.0 Laboratory test 09/13/2018 [facility] C Reactive 11.10 mg/L High <8.[address] [place] [address] [phone] Comp Metabolic 09/13/2018 [facility] Sodium 140 mmol/L Normal 135-[address] [place] [address] [phone] Potassium 3.4 mmol/L Low 3.5-5.0 Chloride 109 mmol/L Normal 101-111 Co2 Carbon Dioxide 23 mmol/L Normal 22-32 Anion Gap 8 mmol/L Normal 2-11 Glucose 101 mg/dL High 70-100 Blood Urea Nitrogen 11 mg/dL Normal 6-24 Creatinine 0.86 mg/dL Normal 0.67-1.17 BUN/Creatinine Ratio 12.8 Normal 8-20 Calcium 8.9 mg/dL Normal 8.6-10.3 Total Protein 6.6 g/dL Normal 6.4-8.9 Albumin 4.4 g/dL Normal 3.2-5.2 Globulin 2.2 g/dL Normal 2-4 Albumin/Globulin Ratio 2.0 Normal 1-3 Total Bilirubin 0.70 mg/dL Normal 0.2-1.0 Alkaline Phosphatase 92 U/L Normal 34-104 Alt 31 U/L Normal 7-52 Ast 17 U/L Normal 13-39 Egfr Non- 100.1 >60 Egfr 121.1 >60 1 Laboratory 09/05/2018 [facility] Syphillis Negative Negative test finding [address] Igg W/[place] [address] RPR [phone] HIV-1 Rna QNT 09/05/2018 [facility] HIV-1 Rna Undetected Undetected 2 By PCR Sli [address] (PCR) copies/[place] [address] [phone] Basic 09/05/2018 [facility] Sodium 142 mmol/L Normal 135-[address] [place] [address] [phone] Potassium 4.0 mmol/L Normal 3.5-5.0 Chloride 109 mmol/L Normal 101-111 Co2 Carbon Dioxide 24 mmol/L Normal 22-32 Anion Gap 9 mmol/L Normal 2-11 Glucose 94 mg/dL Normal 70-100 Blood Urea Nitrogen 14 mg/dL Normal 6-24 Creatinine 0.91 mg/dL Normal 0.67-1.17 BUN/Creatinine Ratio 15.4 Normal 8-20 Calcium 10.5 mg/dL High 8.6-10.3 Egfr Non- 93.7 >60 Egfr 113.4 >60 3 Laboratory test 06/28/2018 [facility] Fleischmanns 0.51 Low 0.6- 1.[address] mmol/[place] [address] [phone] Laboratory test 06/28/2018 [facility] Topamax 5.7 g/mL [address] ([place] [address] ) [phone] Protein 06/28/2018 [facility] Total 7.1 g/dL 6.3 - 7.[address] Protein([place] [address] ) [phone] Albumin 4.1 g/dL 3.4-4.7 Alpha-1 Globulin 0.2 g/dL 0.1-0.3 Alpha-2 Globulin 0.9 g/dL 0.6-1.0 Beta Globulin 1.1 g/dL 0.7-1.2 Gamma Globulin 0.8 g/dL 0.6-1.6 Albumin/Globulin Ratio 1.38 Impression See Comment 5 Laboratory 06/28/2018 [facility] TSH (Thyroid 1.23 Normal 0.34 -5.[address] Stim Horm) mcIU/mL [place], [place] [id number] [phone] T3 Total 124 ng/dL Normal 87-178 Thyroxine 5.72 g/dL Low 6.09-12.23 Methylmalonic Acid Mma 0.14 nmol/mL <=0.40 6 Laboratory 06/21/2018 [facility] Potassium 4.1 mmol/L Normal 3.5-5.[address] [place] [address] [phone] HIV 1/2 AB 06/13/2018 [facility] HIV 1 2 Nonreactive Nonreactive 7 Evaluation [address] [place] [address] [phone] Laboratory 06/13/2018 [facility] Syphillis Negative Negative test finding [address] [place] [address] W/Reflex [phone] RPR CBC Auto Diff 06/13/2018 [facility] White Blood 9.9 10^3/uL Normal 3.5-10.[address] [place] [address] [phone] Red Blood Count 5.32 10^6/uL Normal 4.18-5.48 Hemoglobin 16.4 g/dL Normal 14.0-18.0 Hematocrit 48 % High 36-46 Mean Corpuscular Volume 90 fL Normal 80-94 Mean Corpuscular Hemoglobin 31 pg Normal 27-31 Mean Corpuscular HGB Conc 34 g/dL Normal 31-36 Red Cell Distribution Width 14 % Normal 10.5-15 Platelet Count 267 10^3/uL Normal 150-450 Mean Platelet Volume 7.9 fL Normal 7.4-10.4 Abs Neutrophils 6.7 10^3/uL Normal 1.5-7.7 Abs Lymphocytes 2.4 10^3/uL Normal 1.0-4.8 Abs Monocytes 0.6 10^3/uL Normal 0-0.8 Abs Eosinophils 0.2 10^3/uL Normal 0-0.6 Abs Basophils 0 10^3/uL Normal 0-0.2 Abs Nucleated RBC 0 10^3/uL Granulocyte % 68.0 % Lymphocyte % 23.9 % Monocyte % 5.7 % Eosinophil % 2.1 % Basophil % 0.3 % Nucleated Red Blood Cells % 0.2 Laboratory test 06/13/2018 [facility] Ferritin 61.7 ng/mL Normal 24-336 finding [address] [place] [address] [phone] Vitamin B12 296 pg/mL Normal 180-914 8 PSA Screening 0.968 ng/mL Normal 0-4.000 9 Urinalysis Profile 06/13/2018 [facility] Urine Color Yellow [address] [place] [address] [phone] Urine Appearance Clear Urine Specific [place] 1.009 Low 1.010-1.030 Urine pH 7.0 Normal 5-9 Urine Urobilinogen Negative Negative Urine Ketones Negative Negative Urine Protein Negative Negative Urine Leukocytes Negative Negative Urine Blood Negative Negative Urine Nitrite Negative Negative Urine Bilirubin Negative Negative Urine Glucose Negative Negative Comp Metabolic 06/13/2018 [facility] Sodium 139 mmol/L Normal 135-145 Panel [address] [place] [address] [phone] Potassium 2.8 mmol/L Low 3.5-5.0 Chloride 101 mmol/L Normal 101-111 Co2 Carbon Dioxide 28 mmol/L Normal 22-32 Anion Gap 10 mmol/L Normal 2-11 Glucose 100 mg/dL Normal 70-100 Blood Urea Nitrogen 11 mg/dL Normal 6-24 Creatinine 0.90 mg/dL Normal 0.67-1.17 BUN/Creatinine Ratio 12.2 Normal 8-20 Calcium 9.7 mg/dL Normal 8.6-10.3 Total Protein 6.9 g/dL Normal 6.4-8.9 Albumin 4.7 g/dL Normal 3.2-5.2 Globulin 2.2 g/dL Normal 2-4 Albumin/Globulin Ratio 2.1 Normal 1-3 Total Bilirubin 0.60 mg/dL Normal 0.2-1.0 Alkaline Phosphatase 88 U/L Normal 34-104 Alt 44 U/L Normal 7-52 Ast 19 U/L Normal 13-39 Egfr Non- 95.0 >60 Egfr 114.9 >60 10 Laboratory test 06/13/2018 [facility] Lyme Screen Negative Negative finding [address] W/ [place] [address] WB [phone] 1 Because ethnic data is not always readily [...] 15-29 5 Kidney failure <15 (or dialysis) 2 Result in log copies/mL is Undetected. ADDITIONAL INFORMATION The quantification range of this assay is 20 to 10,000,000 copies/mL (1.30 log to 7.00 log copies/mL). Testing was performed using the tano HIV-1 test ([employer] with the tano 6800 System. This test has been modified from the industrial machine system technician's instructions. Its performance characteristics were determined by [facility] in a manner consistent with CLIA requirements. This test has not been cleared or approved by the U.S. Food and Drug Administration. Test Performed by: [place] [address] 3 Because ethnic data is not always [...] 5 Kidney failure <15 (or dialysis) 4 REFERENCE VALUE Reference values depend on clinical use: Anticonvulsant: 5.0-20.0 mcg/mL Psychiatric: 2.0-8.0 mcg/mL ADDITIONAL INFORMATION This test was developed and its performance characteristics determined by [facility] in a manner consistent with CLIA requirements. This test has not been cleared or approved by the U.S. Food and Drug Administration. Test Performed by: [facility] [place] - [address] [address] 5 RESULT: No apparent monoclonal protein on serum electrophoresis. Test Performed by: [facility] - [address] [address] 6 ADDITIONAL INFORMATION This test was developed and its performance characteristics determined by [facility] in a manner consistent with CLIA requirements. This test has not been cleared or approved by the U.S. Food and Drug Administration. Test Performed by: [address] [address] 7 It is recognized that currently available assays [...] 95% confidence interval of 99.78 to 99.96%. 8 Normal Range 180 to 914 Indeterminate Range 145 to 180 Deficient Range <145 9 Serum levels of PSA measured using the Jade Brandt DXI Hybritech immunoassay should not be interpreted as absolute evidence of the presence or absence of disease. The PSA value should be used in conjunction with other pertinent clinical diagnostic procedures. The values obtained with different assay methods or kits cannot be used interchangeably. 10 Because ethnic data is not always readily [...] 15-29 5 Kidney failure <15 (or dialysis) Procedures Date Code Description Status 10/09/2018 63422 EKG Tracing & Interpretation Completed 07/21/2018 55287 Polysomnography Sleep Staging 4+ Parameters Completed 07/21/2018 31032 Polysomnography Sleep Staging 4+ Parameters Completed 06/19/2018 50371 Sleep Study Unattended,HRT Rate,Oxygen Sat,Resp Completed Effort/Airflow Medical Devices Description No Information Available Encounters Type Date Location Provider Dx Diagnosis Office Visit 09/18/2018 [facility] Alicia Gama Z11.4 Encounter for screening 4:00p Infectious Gregg Alexandra. for human Diseases immunodeficiency virus Z79.899 Other [facility] (current) drug therapy Office Visit 08/21/2018 [facility] G47.33 Obstructive sleep 2:00p [facility] Rubalcava apnea (adult) [facility] (pediatric) G47.00 Insomnia, unspecified Office Visit 07/26/2018 1:00p [place] Eduardo Echeverria, G43.109 Migraine with Neurologic AUTOMOTIVE FINANCE MANAGER aura, not Services [facility] intractable, w/o status migrainosus G62.9 Polyneuropathy, unspecified Z79.899 Other [facility] (current) drug therapy M54.81 Occipital neuralgia Office Visit 06/28/2018 2:20p [facility] Internal Jose Rodriguez, G47.00 Insomnia, Medicine - [facility] [employer]GER unspecified I10 Essential (primary) hypertension Office Visit 06/23/2018 [facility] Eduardo Echeverria, G43.109 Migraine with 3:30p Clinic [employer] aura, not intractable, w/o status migrainosus Z79.899 Other m[facility] (current) drug therapy G62.9 Polyneuropathy, unspecified Office Visit 06/19/2018 [facility] Denisha Drew Z11.4 Encounter for 4:00p For Infectious [facility] Mart screening for human Diseases immunodeficiency virus Z11.3 Encntr screen for infections w sexl mode of transmiss Z79.899 Other [facility] (current) drug therapy Office Visit 06/13/2018 11:00a [facility] Glory G47.33 Obstructive sleep [facility] MD Suzy apnea (adult) [facility] (pediatric) G47.00 Insomnia, unspecified Office Visit 06/07/2018 1:00p [facility] Internal Jose Rodriguez, R35.0 Frequency of Medicine - [facility] [employer]NAGER micturition R53.83 Other fatigue R10.819 Abdominal tenderness, unspecified site G47.00 Insomnia, unspecified R11.2 Nausea with vomiting, unspecified M54.5 Low back pain M50.10 Cervical disc disorder w radiculopathy, unsp cervical region I10 Essential (primary) hypertension R42 Dizziness and giddiness G43.109 Migraine with aura, not intractable, w/o status migrainosus R41.3 Other amnesia Office Visit 05/10/2018 Neurosurgery Jorge Luis M50.320 Other cerv disc 3:00p Services Of Saige Harvey M.D. 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 without status migraino 10/03/2018 M54.5 Low back pain Jorge Luis Lee M.D. 10/03/2018 M54.2 Cervicalgia Jorge Luis Lee M.D. 09/18/2018 Z11.4 Encounter for screening for human Sanchez Alexandra M.D. immunodeficiency virus [Hi 09/18/2018 Z79.899 Other [facility] (current) drug Sanchez Alexandra M.D. therapy 08/21/2018 G47.33 Obstructive sleep apnea (adult) Marina Rubalcava NP (pediatric) 08/21/2018 G47.00 Insomnia, unspecified Marina Rubalcava NP 07/26/2018 G43.109 Migraine with aura, not intractable, Eduardo Echeverria NP without status migraino 07/26/2018 G62.9 Polyneuropathy, unspecified Eduardo Echeverria NP 07/26/2018 Z79.899 Other mcc (current) drug Eduardo Echeverria NP therapy 07/26/2018 M54.81 Occipital neuralgia Eduardo Juwan, [employer]IVE FINANCE MANAGER 07/21/2018 G47.33 Obstructive sleep apnea (adult) Glory Almonte MD (pediatric) 06/28/2018 G47.00 Insomnia, unspecified Jose Michael, AUT[employer]OTIVE FINANCE MANAGER 06/28/2018 I10 Essential (primary) hypertension Jose Michael, AUTOMOTIVE FINANCE MANAGER 06/23/2018 G43.109 Migraine with aura, not intractable, Eduardo Echeverria AUT[employer]IVE FINANCE MANAGER without status migraino 06/23/2018 Z79.899 Other [facility] (current) drug Eduardosly Echeverria, AUT[employer] FINANCE MANAGER therapy 06/23/2018 G62.9 Polyneuropathy, unspecified Eduardo Juwan, AUTOMOTIVE FINANCE MANAGER 06/19/2018 G47.33 Obstructive sleep apnea (adult) Glory Almonte MD (pediatric) 06/19/2018 Z11.4 Encounter for screening for human Denisha Mart NP immunodeficiency virus [Hi 06/19/2018 Z11.3 Encounter for screening for Denisha Mart NP infections with a predominantly 06/19/2018 Z79.899 Other neuroradiologist (current) drug Denisha Mart NP therapy 06/13/2018 G47.33 Obstructive sleep apnea (adult) Glory Almonte MD (pediatric) 06/13/2018 G47.00 Insomnia, unspecified Glory Almonte MD 06/07/2018 R35.0 Frequency of micturition Jose Michael, AUTOMOTIVE FINANCE MANAGER 06/07/2018 R53.83 Other fatigue Jose Michael, AUTOMOTIVE FINANCE MANAGER 06/07/2018 R10.819 Abdominal tenderness, unspecified Jose Michael, AUTOMOTIVE FINANCE MANAGER site 06/07/2018 G47.00 Insomnia, unspecified Jose Michael, AUTOMOTIVE FINANCE MANAGER 06/07/2018 R11.2 Nausea with vomiting, unspecified Jose Michael, AUTOMOTIVE FINANCE MANAGER 06/07/2018 M54.5 Low back pain Jose Michael, AUTOMOTIVE FINANCE MANAGER 06/07/2018 M50.10 Cervical disc disorder with Jose Michael, AUTOMOTIVE FINANCE MANAGER radiculopathy, unspecified cervi 06/07/2018 I10 Essential (primary) hypertension Jose Michael, AUTOMOTIVE FINANCE MANAGER 06/07/2018 R42 Dizziness and giddiness Jose Michael, AUTOMOTIVE FINANCE MANAGER 06/07/2018 G43.109 Migraine with aura, not intractable, Jose Rodriguez NP without status migraino 06/07/2018 R41.3 Other amnesia Jose Rodriguez NP 05/10/2018 M50.320 Other cervical disc degeneration, Jorge Luis Harvey M.D. mid-cervical region, unspe 04/12/2018 G43.109 Migraine with aura, not intractable, Eduardo Echeverria NP without status migraino 04/12/2018 M54.2 Cervicalgia Eduardo Echeverria NP Plan of Treatment Future Appointment(s):04/10/2019 3:45 pm - Jorge Luis Lee M.D. at [place] [facility]12/18/2018 4:00 pm - Sanchez Alexandra M.D. at [place] [facility]/04/2019 2:30 pm - Alannah South DNP , RN, PUMPER BREWERY-BC at [facility]10/09/2018 - Jose Rodriguez NPI10 Essential (primary) hypertensionComments:HYPERTENSION:Controlled on current regimen. Continue present management.R07.89 Other chest painComments:I have ordered a stress test to further evaluate your symptoms and abnormal EKG.If you develop chestpain that is not resolving or any new significant symptoms go to the ER.K57.92 Diverticulitis of intestine, part unspecified, without perforation or abscess without bleedingReferral:[facility], [id number] Neoplasm of uncertain behavior of unspecified testisNew Xrays:US Testicular, Ordered: 10/09/18 Functional Status Description No Information Available Mental Status Description No Information Available Referrals Refer to Reason for Referral Status Appt Date [facility] [place] Created [address] [place], [place] [id number] [phone] Pain Clinic Closed [address] [place] [address] [phone]
--- OUTSIDE RECORDS SUMMARY | 2018-10-18 11:31 | XMS REPORT | Continuity of Care Document ---
:1980 External Reference #:[id number] Author Name Jose Rodriguez NP (transmitted by agent of provider Radha Julien) Address [address], [place] [address] Care Team Providers Name Role Phone Kem Celaya MD - Family Medicine Care Team Information Green T[employer] Inspector Radha Julien MD - Internal Medicine Care Team Information Green T[employer] Inspector [phone] Problems Active Problems Provider Date Obstructive sleep [...] Test Result H/L Range Note Order 10/09/2018 Veterinary Attendant In-House EKG <pending> Lipid Profile 10/09/2018 [facility] Triglycerides 479 mg/dL 1 (Trig/Chol/HDL) [address] [place] [address] [phone] Cholesterol 322 mg/dL 2 HDL Cholesterol 34.0 mg/dL 3 LDL Cholesterol (SEE NOTE) mg/dL 4 Laboratory test 10/09/2018 [facility] Troponin-I (TnI) 0.01 ng/ mL <0.[address] [place] [address] [phone] TSH (Thyroid Stim Horm) 0.44 mcIU/mL Normal 0.34-5.60 LDL Cholesterol Direct 185 mg/dL 6 Urinalysis Profile 09/13/2018 [facility] Urine Color Yellow [address] [place] [address] [phone] Urine Appearance Cloudy Urine Specific [place] 1.018 Normal 1.010-1.030 Urine pH 6.0 Normal 5-9 Urine Urobilinogen Negative Negative Urine Ketones Negative Negative Urine Protein Negative Negative Urine Leukocytes Negative Negative Urine Blood Negative Negative Urine Nitrite Negative Negative Urine Bilirubin Negative Negative Urine Glucose Negative Negative CBC Auto 09/13/2018 [facility] White Blood 12.6 10^3/uL High 3.5-10.[address] [place] [address] [phone] Red Blood Count 4.81 10^6/uL Normal 4.18-5.48 [...] % Nucleated Red Blood Cells % 0.0 Comp Metabolic 09/13/2018 [facility] Sodium 140 mmol/L Normal 135-145 Panel [address] [place] [address] [phone] Potassium 3.4 mmol/L Low 3.5-5.0 Chloride 109 [...] Egfr Non- 100.1 >60 Egfr 121.1 >60 7 Laboratory test 09/13/2018 [facility] C Reactive 11.10 mg/L High <8.01 finding [address] [facility] [place] [address] [phone] Basic Metabolic 09/05/2018 [facility] Sodium 142 mmol/L Normal 135-145 Panel [address] [place] [address] [phone] Potassium 4.0 mmol/L Normal 3.5-5.0 Chloride 109 mmol/L Normal 101-111 Co2 Carbon Dioxide 24 mmol/L Normal 22-32 Anion Gap 9 mmol/L Normal 2-11 Glucose 94 mg/dL Normal 70-100 Blood Urea Nitrogen 14 mg/dL Normal 6-24 Creatinine 0.91 mg/dL Normal 0.67-1.17 BUN/Creatinine Ratio 15.4 Normal 8-20 Calcium 10.5 mg/dL High 8.6-10.3 Egfr Non- 93.7 >60 Egfr 113.4 >60 8 Laboratory test 09/05/2018 [facility] Syphillis Negative Negative finding [address] [place] [address] W/Reflex [phone] RPR HIV-1 Rna QNT By 09/05/2018 [facility] HIV-1 Rna Undetected Undetected 9 PCR Sli [address] (PCR) copies/[place] [address] [phone] Laboratory test 06/28/2018 [facility] [place] 0.51 mmol/L Low 0.6-1.[address] [place] [address] [phone] Laboratory test 06/28/2018 [facility] Topamax 5.7 g/mL [address] ([place] [address] ) [phone] Protein 06/28/2018 [facility] Total 7.1 g/dL 6.3 - 7.[address] Protein([place] [address] ) [phone] Albumin 4.1 g/dL 3.4-4.7 Alpha-1 Globulin 0.2 g/dL 0.1-0.3 Alpha-2 Globulin 0.9 g/dL 0.6-1.0 Beta Globulin 1.1 g/dL 0.7-1.2 Gamma Globulin 0.8 g/dL 0.6-1.6 Albumin/Globulin Ratio 1.38 Impression See Comment 11 Laboratory 06/28/2018 [facility] TSH (Thyroid 1.23 Normal 0.34 -5.60 test finding [address] Stim Horm) mcIU/[place] [address] [phone] T3 Total 124 ng/dL Normal 87-178 Thyroxine 5.72 g/dL Low 6.09-12.23 Methylmalonic Acid Mma 0.14 nmol/mL <=0.40 12 Laboratory 06/21/2018 [facility] Potassium 4.1 mmol/L Normal 3.5-5.0 test finding [address] [place] [address] [phone] HIV 1/2 AB 06/13/2018 [facility] HIV 1 2 Nonreactive Nonreactive [address] Antibody [place], [place] [address] [phone] Laboratory 06/13/2018 [facility] Syphillis Negative Negative test finding [address] [place] [address] W/Reflex [phone] RPR CBC Auto 06/13/2018 [facility] White Blood 9.9 10^3/uL Normal 3.5-10.[address] [place] [address] [phone] Red Blood Count 5.32 10^6/uL Normal 4.18-5.48 [...] Blood Cells % 0.2 Laboratory test 06/13/2018 [facility] Ferritin 61.7 ng/mL Normal 24-[address] [place] [address] [phone] Vitamin B12 296 pg/mL Normal 180-914 14 PSA Screening 0.968 ng/mL Normal 0-4.000 15 Urinalysis Profile 06/13/2018 [facility] Urine Color [place] [address] [place] [address] [phone] Urine Appearance Clear Urine Specific [place] 1.009 Low 1.010-1.030 Urine pH 7.0 Normal 5-9 Urine Urobilinogen Negative Negative Urine Ketones Negative Negative Urine Protein Negative Negative Urine Leukocytes Negative Negative Urine Blood Negative Negative Urine Nitrite Negative Negative Urine Bilirubin Negative Negative Urine Glucose Negative Negative Comp Metabolic 06/13/2018 [facility] Sodium 139 mmol/L Normal 135-[address] [place] [address] [phone] Potassium 2.8 mmol/L Low 3.5-5.0 Chloride 101 [...] Egfr Non- 95.0 >60 Egfr 114.9 >60 16 Laboratory test 06/13/2018 [facility] Lyme Screen Negative Negative finding [address] W/ [place] [address] WB [phone] 1 Desirable: <150 Borderline High: 150-199 High: 200-499 Very High: >500 2 Desirable: <200 Borderline High: 200-239 High: >239 3 Low: <40 Desirable: 40-60 High: >60 4 Unable to calculate LDL as triglyceride is > 400 5 Troponin-I testing on Plasma Separator Tubes (PST) has a known false positive rate of 0.20-0.40%. All positive troponins reflex immediately to secondary confirmatory testing. Using the [employer] 800 Access Immunoassay systems, the 99th percentile upper reference limit was demonstrated to be < 0.03 ng/mL. 6 Desirable: <100 Near Optimal: 100-129 Borderline High: 130-159 High: 160-189 Very High: >189 7 Because ethnic data is not always [...] 5 Kidney failure <15 (or dialysis) 8 Because ethnic data is not always [...] 5 Kidney failure <15 (or dialysis) 9 Result in log copies/mL is Undetected. ADDITIONAL INFORMATION The quantification range of this assay is 20 to 10,000,000 copies/mL (1.30 log to 7.00 log copies/mL). Testing was performed using the tano HIV-1 test ([employer] with the tano 6800 System. This test has been modified from the accounts clerk's instructions. Its performance characteristics were determined by [facility] in a manner consistent with CLIA requirements. This test has not been cleared or approved by the U.S. Food and Drug Administration. Test Performed by: [facility] - [address] [address] 10 REFERENCE VALUE Reference values depend on clinical use: Anticonvulsant: 5.0-20.0 mcg/mL Psychiatric: 2.0-8.0 mcg/mL ADDITIONAL INFORMATION This test was developed and its performance characteristics determined by [facility] in a manner consistent with CLIA requirements. This test has not been cleared or approved by the U.S. Food and Drug Administration. Test Performed by: [facility] [place] [address] 11 RESULT: No apparent monoclonal protein on serum electrophoresis. Test Performed by: [facility] - [address] [address] 12 ADDITIONAL INFORMATION This test was developed and its performance characteristics determined by [facility] in a manner consistent with CLIA requirements. This test has not been cleared or approved by the U.S. Food and Drug Administration. Test Performed by: [facility] - [address] [address] 13 It is recognized that currently available assays [...] 95% confidence interval of 99.78 to 99.96%. 14 Normal Range 180 to 914 Indeterminate Range 145 to 180 Deficient Range <145 15 Serum levels of PSA measured using the [employer] DXI Hybritech immunoassay should not be interpreted as absolute evidence of the presence or absence of disease. The PSA value should be used in conjunction with other pertinent clinical diagnostic procedures. The values obtained with different assay methods or kits cannot be used interchangeably. 16 Because ethnic data is not always [...] dialysis) Procedures Date Code Description Status 10/09/2018 76216 EKG Tracing & Interpretation Completed 07/21/2018 59603 Polysomnography Sleep Staging 4+ Parameters Completed 07/21/2018 59490 Polysomnography Sleep Staging 4+ Parameters Completed 06/19/2018 12561 Sleep Study Unattended,HRT Rate,Oxygen Sat,Resp Completed Effort/Airflow Medical Devices Description No Information Available Encounters Type Date Location Provider Dx Diagnosis Office Visit 09/18/2018 [facility] Alicia Gama Z11.4 Encounter for screening 4:00p Wicho Alexandra M.D. for human Diseases immunodeficiency virus Z79.899 Other retirement (current) drug therapy Office Visit 08/21/2018 [facility] G47.33 Obstructive sleep 2:00p [facility] Rubalcava apnea (adult) Saige (pediatric) G47.00 Insomnia, unspecified Office Visit 07/26/2018 1:00p [facility] Eduardo Echeverria G43.109 Migraine with Neurologic CATTLE KILLER aura, not [facility] intractable, w/o status migrainosus G62.9 Polyneuropathy, unspecified Z79.899 Other retirement (current) drug therapy M54.81 Occipital neuralgia Office Visit 06/28/2018 2:20p [facility] Internal Jose Michael, G47.00 Insomnia, Medicine - Ccmob CATTLE KILLER unspecified I10 Essential (primary) hypertension Office Visit 06/23/2018 Neurohospitalist Eduardo Echeverria, G43.109 Migraine with 3:30p Clinic CATTLE KILLER aura, not intractable, w/o status migrainosus Z79.899 Other retirement (current) drug therapy G62.9 Polyneuropathy, unspecified Office Visit 06/19/2018 [facility] Encounter for 4:00p For Infectious Mart, CATTLE KILLER screening for human Diseases immunodeficiency virus Z11.3 Encntr screen for infections w sexl mode of transmiss Z79.899 Other sound cutter (current) drug therapy Office Visit 06/13/2018 11:00a [facility] G47.33 Obstructive sleep [facility] Suzy apnea (adult) Veterinary Attendant (pediatric) G47.00 Insomnia, unspecified Office Visit 06/07/2018 1:00p [facility] Internal Jose Michael, R35.0 Frequency of Medicine - Ccmob CATTLE KILLER micturition R53.83 Other fatigue R10.819 Abdominal tenderness, [...] Other cerv disc 3:00p [facility] Hravey M.D. degeneration, mid-cervical rgn, unsp level Assessments Date Code Description Provider 10/09/2018 I10 Essential (primary) hypertension Josekevin Rodriguez CATTLE KILLER 10/09/2018 R07.89 Other chest pain Josekevin Rodriguez CATTLE KILLER 10/09/2018 R22.2 Localized swelling, mass and lump, Josekevin Rodriguez CATTLE KILLER trunk 10/09/2018 K57.92 Diverticulitis of intestine, part Jose Michael, CATTLE KILLER unspecified, without perforation or abscess without bleeding 10/09/2018 R94.31 Abnormal electrocardiogram [ECG] Jose Rodriguez NP [EKG] 10/03/2018 G43.109 Migraine with aura, not intractable, Jorge Luis Lee M.D. without status migraino 10/03/2018 M54.5 Low back pain Jorge Luis Lee M.D. 10/03/2018 M54.2 Cervicalgia Jorge Luis Lee M.D. 09/18/2018 Z11.4 Encounter for screening for human Sanchez Alexandra M.D. immunodeficiency virus [Hi 09/18/2018 Z79.899 Other retirement (current) drug Sanchez Alexandra M.D. therapy 08/21/2018 G47.33 Obstructive sleep apnea (adult) Marina Rubalcava NP (pediatric) 08/21/2018 G47.00 Insomnia, unspecified Marina Rubalcava, FARHAD 07/26/2018 G43.109 Migraine with aura, not intractable, Eduardo Echeverria CATTLE KILLER without status migraino 07/26/2018 G62.9 Polyneuropathy, unspecified Eduardo Knaake, CATTLE KILLER 07/26/2018 Z79.899 Other sound cutter (current) drug Eduardo Juwan, CATTLE KILLER therapy 07/26/2018 M54.81 Occipital neuralgia Eduardo Juwan, FARHAD 07/21/2018 G47.33 Obstructive sleep apnea (adult) Glory Almonte MD (pediatric) 06/28/2018 G47.00 Insomnia, unspecified Jose Rodriguez NP 06/28/2018 I10 Essential (primary) hypertension Jose Rodriguez NP 06/23/2018 G43.109 Migraine with aura, not intractable, Eduardosly Echeverria CATTLE KILLER without status migraino 06/23/2018 Z79.899 Other sound cutter (current) drug Eduardo Juwan, CATTLE KILLER therapy 06/23/2018 G62.9 Polyneuropathy, unspecified Eduarod Knaake, CATTLE KILLER 06/19/2018 G47.33 Obstructive sleep apnea (adult) Glory Almonte MD (pediatric) 06/19/2018 Z11.4 Encounter for screening for human Denisha Mart NP immunodeficiency virus [Hi 06/19/2018 Z11.3 Encounter for screening for Denisha Mart NP infections with a predominantly 06/19/2018 Z79.899 Other sound cutter (current) drug Denisha Mart NP therapy 06/13/2018 G47.33 Obstructive sleep apnea (adult) Glory Almonte MD (pediatric) 06/13/2018 G47.00 Insomnia, unspecified Glory Almonte MD 06/07/2018 R35.0 Frequency of micturition Jose Michael, CATTLE KILLER 06/07/2018 R53.83 Other fatigue Jose Michael, CATTLE KILLER 06/07/2018 R10.819 Abdominal tenderness, unspecified Jose Michael, CATTLE KILLER site 06/07/2018 G47.00 Insomnia, unspecified Jose Michael, CATTLE KILLER 06/07/2018 R11.2 Nausea with vomiting, unspecified Jose Michael, CATTLE KILLER 06/07/2018 M54.5 Low back pain Jose Michael, CATTLE KILLER 06/07/2018 M50.10 Cervical disc disorder with Josekevin Rodriguez, CATTLE KILLER radiculopathy, unspecified cervi 06/07/2018 I10 Essential (primary) hypertension Jose Michael, CATTLE KILLER 06/07/2018 R42 Dizziness and giddiness Jose Michael, CATTLE KILLER 06/07/2018 G43.109 Migraine with aura, not intractable, Josekevin Rodriguez, CATTLE KILLER without status migraino 06/07/2018 R41.3 Other amnesia Josekevin Rodriguez, CATTLE KILLER 05/10/2018 M50.320 Other cervical disc degeneration, Jorge Luis Harvey M.D. mid-cervical region, unspe Plan of Treatment Future Appointment(s):10/30/2018 3:45 pm - Ica ECHO Schedule at [place] [facility]10/30/2018 4:15 pm - Osmel Sena M.D., [facility] at [facility]04/10/2019 3:45 pm - Jorge Luis Lee M.D. at [facility]12/18/2018 4:00 pm - Sanchez Alexandra M.D. at [facility]96/04/2019 2:30 pm - Alannah South DNP , RN, KNOT BUMPER-BC at [facility]10/03/2018 - Jorge Luis Lee M.D.G43.109 Migraine with aura, not intractable, without status migrainoFollow up:6 mmldbnU33.5 Low back painM54.2 Cervicalgia Functional Status Description No Information Available Mental Status Description No Information Available Referrals Refer to Reason for Referral Status Appt Date [facility] [address] [place] [address] [phone] Pain Clinic Closed [address] [place] [address] [phone]
--- OUTSIDE RECORDS SUMMARY | 2018-10-18 11:31 | XMS REPORT | Continuity of Care Document ---
:1980 External Reference #:[id number] Author Name Yulisa Garcia Care Team Providers Name Role Phone Radha Julien MD Primary Care Physician Unavailable Payers Date Identification Numbers Payment Provider Subscriber Policy Number: [id number] [employer] Jakob Rojo PayID: [id number] [address] [address] [place] [address] Effective: 2013 Policy Number: [id number] [employer] Ppo Taye Deluca Expires: 2013 PayID: [id number] [address] [address] [place] [address] Effective: 2010 Policy Number: [id number] [employer] Ppo Jakob Rojo Expires: 2013 PayID: [id number] [address] [address] [place] [address] Effective: 2013 Policy Number: [id number] [employer] Taye Deluca Expires: 2016 PayID: [id number] [address] [facility] [place] [address] Problems Active Problems Provider Date Obstructive sleep [...] Marital Status Lives With Alone 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 Following with Dr. Meyer for Prep. On Truvada. Allergies, Adverse Reactions, Alerts Active Allergies Reaction Severity Comments Date Biaxin Urticaria Moderate 04/13/2010 Medications Active Medications SIG Qnty Indications Ordering Date Provider Gabapentin take one capsule 60caps G47.00 Jose Rodriguez NP 06/28/2018 300mg Capsules qhs. if tolerated after two weeks increase to one cap morning and every night at bedtime Topiramate take 1 tab by 60tabs G43.109 Jorge Luis Santoyo 04/12/2018 50mg Tablets mouth twice a day [facility] Lee with 100 mg tablet to equal 150 mg Sildenafil Citrate 1-2 as needed 30 30tabs N52.1 Sanchez Gama 03/20/2018 50mg minutes before [facility] Meyer Tablets sex Eletriptan 1 by mouth twice 10tabs G43.009 Jorge Luis Santoyo 09/12/2017 Hydrobromide a day as needed [facility] Lee 40mg Tablets migraine max 2 days/wk Truvada 1 by mouth every 30tabs Z20.2 Sanchez Gama 03/14/2017 200-300mg Tablets day Parish Meyer Metronidazole tid Unknown 500mg Tablets Hydrocodone-Acetaminop Unknown hen 5-325mg Tablets Ciprofloxacin HCL bid Unknown 500mg Tablets Celecoxib Take 1 Capsule By Unknown 200mg Capsules Mouth Every Day Centrum Adults once daily Unknown Tablets Amlodipine Besylate once daily Renetta Mclean 5mg C ,CFNP Tablets [place] Carbonate ER 5 tabs once daily Facundo Chowdhury, MD 300mg Tablets ER Lamotrigine 1 by mouth once a Unknown 200mg Tablets day Adderall XR 1 by mouth every Unknown 30mg Caps ER day 24HR Shannon Allergy 1 by mouth every Unknown 180mg day prn Tablets Topiramate take 1 tab by 60tabs Jorge Luis Santoyo 100mg Tablets mouth in the in [facility] Lee the morning, take 1 tab by mouth at at bedtime with 50mg to equal 150mg at hs. History Medications Prednisone Take 2 tabs po 2tabs Jorge Luis Santoyo 07/26/2018 - 20mg Tablets one time today. [facility] Lee 08/20/2018 Potassium Chloride ER takes 2 tabs by 14tabs Jose Rodriguez NP 06/14/2018 - 20Meq mouth daily per 06/22/2018 Tablets ER pt Trazodone HCL 1-2 tablets at 30tabs G47.00 Jose Rodriguez NP 06/07/2018 - 50mg Tablets bedtime as 06/28/2018 needed. Topiramate 2 by mouth 60tabs Jorge Luis Santoyo 04/14/2016 - 100mg Tablets every night at [facility] 10/13/2016 bedtime Zolmitriptan 1 tab by mouth 10tabs G43.00 Jorge Luis Santoyo 04/14/2016 - 5mg Tablets twice a day 9 [facility] [place] 04/11/2018 maximum 2 days weekly Topiramate 3 tabs every 90tabs Jorge Luis Santoyo 05/28/2015 - 25mg Tablets night at [facility] 04/14/2016 bedtime (in addition to 100mg dose) Maxalt take 1 by mouth 12tabs Jorge Luis Santoyo 02/12/2015 - 10mg Tablets as needed [facility] Lee 04/14/2016 migraine, may repeat after 2 hours, max 2/d, max 2d/wk Farber 1 by mouth bid 30tabs Jered 12/21/2013 - 5-325mg Tablets as needed for [facility] Alvarenga 02/20/2016 pain (not currently taking) Cpap 327.23 Glory 11/30/2013 - Trinity Almonte MD 02/11/2015 Farber 1-2 by mouth 30tabs Jered 08/08/2013 - 5-325mg Tablets bid as needed [facility] Alvarenga 09/14/2013 for pain Oxycodone HCL 1-2 tab by 40caps Jered 05/22/2013 - 5mg Capsules mouth every 4- [facility] Avlarenga 09/14/2013 6 hours as needed pain Farber 1 po q8 hours 24tabs Jered 03/14/2013 - 5-325mg Tablets prn [facility] Alvarenga 05/21/2013 Topiramate 1 qd for 1 week 120tabs Jorge Luis Santoyo 06/27/2012 - 25mg Tablets then 2 qd for 1 [facility] Lee 08/01/2012 week then 3 qd for 1 week then 4 each day Propranolol HCL 1 po bid 60tabs Jorge Luis Santoyo 06/27/2012 - 80mg Tablets [facility] Lee 12/19/2012 Indomethacin 1 po tid prn 60caps Hugo Rubalcava, 04/13/2010 - 50mg Capsules Parish 06/27/2012 Diclofenac Sodium ER once daily 30tabs Hugo Rubalcava, 04/13/2010 - 100mg Parish 06/27/2012 Tablets ER 24HR Indapamide once daily On Vinay, - 2.5mg [...] Injection Vital Signs Date Vital Result Comment 09/18/2018 4:17pm Height 71 inches 5'11" Weight 218.50 lb Heart Rate 84 /min BP Systolic Sitting 160 mmHg BP Diastolic Sitting 90 mmHg Respiratory Rate 14 /min Body Temperature 98.9 F BMI (Body Mass Index) 30.5 kg/m2 08/21/2018 1:53pm Height 71 inches 5'11" Weight [...] Date Facility Test Result H/L Range Note CBC Auto Diff 09/13/2018 [facility] White Blood 12.6 10^3/uL High 3.5-10.[address] [place] [address] [phone] Red Blood Count 4.81 10^6/uL Normal 4.18-5.48 [...] Blood Cells % 0.0 Comp Metabolic 09/13/2018 [facility] Sodium 140 mmol/L Normal 135-145 Panel [address] [place] [address] [phone] Potassium 3.4 mmol/L Low 3.5-5.0 Chloride 109 [...] 100.1 >60 Egfr 121.1 >60 1 Laboratory test 09/13/2018 [facility] C Reactive 11.10 mg/L High <8.01 finding [address] [facility] [place] [address] [phone] Urinalysis 09/13/2018 [facility] Urine Color Yellow Profile [address] [place] [address] [phone] Urine Appearance Cloudy Urine Specific [place]ander 1.018 Normal 1.010-1.030 Urine pH 6.0 Normal 5-9 Urine Urobilinogen Negative Negative Urine Ketones Negative Negative Urine Protein Negative Negative Urine Leukocytes Negative Negative Urine Blood Negative Negative Urine Nitrite Negative Negative Urine Bilirubin Negative Negative Urine Glucose Negative Negative Basic Metabolic 09/05/2018 [facility] Sodium 142 mmol/L Normal 135-145 Panel [address] [place] [address] [phone] Potassium 4.0 mmol/L Normal 3.5-5.0 Chloride 109 mmol/L Normal 101-111 Co2 Carbon Dioxide 24 mmol/L Normal 22-32 Anion Gap 9 mmol/L Normal 2-11 Glucose 94 mg/dL Normal 70-100 Blood Urea Nitrogen 14 mg/dL Normal 6-24 Creatinine 0.91 mg/dL Normal 0.67-1.17 BUN/Creatinine Ratio 15.4 Normal 8-20 Calcium 10.5 mg/dL High 8.6-10.3 Egfr Non- 93.7 >60 Egfr 113.4 >60 2 HIV-1 Rna QNT By 09/05/2018 [facility] HIV-1 Rna Undetected Undetected 3 PCR Sli [address] (PCR) copies/[place] [address] [phone] Laboratory test 09/05/2018 [facility] Syphillis Negative [place] [address] W/Reflex [phone] RPR Laboratory test 06/28/2018 [facility] [place] 0.51 mmol/L Low 0.6-1.[address] [place] [address] [phone] Laboratory test 06/28/2018 [facility] Topamax 5.7 g/mL [address] ([place] [address] ) [phone] Protein 06/28/2018 [facility] Total 7.1 g/dL 6.3 - 7.[address] Protein([place] [address] ) [phone] Albumin 4.1 g/dL 3.4-4.7 Alpha-1 Globulin 0.2 g/dL 0.1-0.3 Alpha-2 Globulin 0.9 g/dL 0.6-1.0 Beta Globulin 1.1 g/dL 0.7-1.2 Gamma Globulin 0.8 g/dL 0.6-1.6 Albumin/Globulin Ratio 1.38 Impression See Comment 5 Laboratory 06/28/2018 [facility] TSH (Thyroid 1.23 Normal 0.34 -5.[address] Stim Horm) mcIU/[place] [address] [phone] T3 Total 124 ng/dL Normal 87-178 Thyroxine 5.72 g/dL Low 6.09-12.23 Methylmalonic Acid Mma 0.14 nmol/mL <=0.40 6 Laboratory 06/21/2018 [facility] Potassium 4.1 mmol/L Normal 3.5-5.[address] [place] [address] [phone] HIV 1/2 AB 06/13/2018 [facility] HIV 1 2 Nonreactive Nonreactive [address] [place] [address] [phone] Laboratory 06/13/2018 [facility] Syphillis Negative Negative test finding [address] [place] [address] W/Reflex [phone] RPR CBC Auto Diff 06/13/2018 [facility] White Blood 9.9 10^3/uL Normal 3.5-10.8 [address] [place] [address] [phone] Red Blood Count 5.32 10^6/uL Normal 4.18-5.48 [...] Blood Cells % 0.2 Laboratory test 06/13/2018 [facility] Ferritin 61.7 ng/mL Normal 24-[address] [place] [address] [phone] Vitamin B12 296 pg/mL Normal 180-914 8 PSA Screening 0.968 ng/mL Normal 0-4.000 9 Urinalysis Profile 06/13/2018 [facility] Urine Color Yellow [address] [place] [address] [phone] Urine Appearance Clear Urine Specific Lander 1.009 Low 1.010-1.030 Urine pH 7.0 Normal 5-9 Urine Urobilinogen Negative Negative Urine Ketones Negative Negative Urine Protein Negative Negative Urine Leukocytes Negative Negative Urine Blood Negative Negative Urine Nitrite Negative Negative Urine Bilirubin Negative Negative Urine Glucose Negative Negative Comp Metabolic 06/13/2018 [facility] Sodium 139 mmol/L Normal 135-145 Panel [address] [place], [place] [id number] [phone] Potassium 2.8 mmol/L Low 3.5-5.0 Chloride 101 [...] 95.0 >60 Egfr 114.9 >60 10 Laboratory 06/13/2018 [facility] Lyme Negative Negative test finding [address] Screen [place]/ [place] [address] Reflex To [phone] WB HIV 1/2 AB 03/18/2018 [facility] HIV 1 2 Nonreactive Nonreactive 11 Evaluation [address] [place] [address] [phone] Basic 03/18/2018 [facility] Sodium 140 mmol/L Normal 135-145 Metabolic [address] [place] [address] [phone] Potassium 3.2 mmol/L Low 3.5-5.0 Chloride 103 mmol/L Normal 101-111 Co2 Carbon Dioxide 29 mmol/L Normal 22-32 Anion Gap 8 mmol/L Normal 2-11 Glucose 81 mg/dL Normal 70-100 Blood Urea Nitrogen 12 mg/dL Normal 6-24 Creatinine 0.91 mg/dL Normal 0.67-1.17 BUN/Creatinine Ratio 13.2 Normal 8-20 Calcium 9.8 mg/dL Normal 8.6-10.3 Egfr Non- 93.7 >60 Egfr 113.4 >60 12 Laboratory 03/18/2018 [facility] Syphillis Nonreactive Nonreactive 13 test finding [address] [place] [address] W/Reflex [phone] RPR Laboratory 11/26/2017 [facility] Syphillis Nonreactive Nonreactive 14 test finding [address] [place] [address] W/Reflex [phone] RPR Basic 11/26/2017 [facility] Sodium 140 mmol/L Normal 135-145 Metabolic [address] [place] [address] [phone] Potassium 4.8 mmol/L Normal 3.5-5.0 Chloride 108 mmol/L Normal 101-111 Co2 Carbon Dioxide 27 mmol/L Normal 22-32 Anion Gap 5 mmol/L Normal 2-11 Glucose 104 mg/dL High 70-100 Blood Urea Nitrogen 12 mg/dL Normal 6-24 Creatinine 1.00 mg/dL Normal 0.67-1.17 BUN/Creatinine Ratio 12.0 Normal 8-20 Calcium 9.4 mg/dL Normal 8.6-10.3 Egfr Non- 84.1 >60 Egfr 101.7 >60 15 HIV 1/2 Ag/AB 11/26/2017 [facility] Hiv1/2 Ag/Ab Negative Negative 16 Screen,W/Reflex,Plasma [address] Screen,w/Reflex,[place] [address] [phone] GC/Chlamydia Amplified 09/08/2017 [facility] Chlamydia Negative Negative 17 Rna [address] [address] [phone] Neisseria gonorrhoeae (GC) Rna Negative Negative Laboratory 06/30/2017 [facility] [place] 0.55 mmol/L Low 0.6- 1.2 test finding [address] [place] [address] [phone] HIV 1/2 AB 06/30/2017 [facility] HIV 1 2 Nonreactive Nonreactive [address] [place] [address] [phone] Laboratory 06/30/2017 [facility] Syphillis Nonreactive Nonreactive 19 test finding [address] [facility] [place] [address] W/Reflex [phone] RPR Comp 06/30/2017 [facility] Sodium 139 mmol/L Normal 139-[address] [place] [address] [phone] Potassium 4.5 mmol/L Normal 3.5-5.0 Chloride 109 mmol/L Normal 101-111 Co2 Carbon Dioxide 23 mmol/L Normal 22-32 Anion Gap 7 mmol/L Normal 2-11 Glucose 102 mg/dL High 70-100 Blood Urea Nitrogen 11 mg/dL Normal 6-24 Creatinine 0.91 mg/dL Normal 0.67-1.17 BUN/Creatinine Ratio 12.1 Normal 8-20 Calcium 9.9 mg/dL Normal 8.6-10.3 Total Protein 6.9 g/dL Normal 6.4-8.9 Albumin 4.6 g/dL Normal 3.2-5.2 Globulin 2.3 g/dL Normal 2-4 Albumin/Globulin Ratio 2.0 Normal 1-3 Total Bilirubin 0.40 mg/dL Normal 0.2-1.0 Alkaline Phosphatase 117 U/L High 34-104 Alt 47 U/L Normal 7-52 Ast 26 U/L Normal 13-39 Egfr Non- 94.3 >60 Egfr 121.2 >60 20 Urinalysis Profile 06/30/2017 [facility] Urine Color Straw [address] [place] [address] [phone] Urine Appearance Clear Urine Specific [place]ander 1.005 Low 1.010-1.030 Urine pH 7.0 Normal 5-9 Urine Urobilinogen Negative Negative Urine Ketones Negative Negative Urine Protein Negative Negative Urine Leukocytes Negative Negative Urine Blood Negative Negative Urine Nitrite Negative Negative Urine Bilirubin Negative Negative Urine Glucose Negative Negative GC/Chlamydia 03/15/2017 [facility] Chlamydia Negative Negative Amplified Rna [address] [place] [address] [phone] Neisseria gonorrhoeae (GC) Rna Negative Negative CBC Auto 03/15/2017 [facility] White Blood 9.2 10^3/uL Normal 3.5-10.[address] [place] [address] [phone] Red Blood Count 5.10 10^6/uL Normal 4.0-5.4 Hemoglobin 15.5 g/dL Normal 14.0-18.0 Hematocrit 45 % Normal 42-52 Mean Corpuscular Volume 88 fL Normal 80-94 Mean Corpuscular Hemoglobin 30 pg Normal 27-31 Mean Corpuscular HGB Conc 35 g/dL Normal 31-36 Red Cell Distribution Width 14 % Normal 10.5-15 Platelet Count 218 10^3/uL Normal 150-450 Mean Platelet Volume 7 um3 Low 7.4-10.4 Abs Neutrophils 4.1 10^3/uL Normal 1.5-7.7 Abs Lymphocytes 4.2 10^3/uL Normal 1.0-4.8 Abs Monocytes 0.7 10^3/uL Normal 0-0.8 Abs Eosinophils 0.1 10^3/uL Normal 0-0.6 Abs Basophils 0 10^3/uL Normal 0-0.2 Abs Nucleated RBC 0 10^3/uL Granulocyte % 44.5 % Normal 38-83 Lymphocyte % 46.3 % Normal 25-47 Monocyte % 7.2 % Normal 1-9 Eosinophil % 1.5 % Normal 0-6 Basophil % 0.5 % Normal 0-2 Nucleated Red Blood Cells % 0 Comp Metabolic 03/14/2017 [facility] Sodium 137 mmol/L Normal 133-[address] [place] [address] [phone] Potassium 3.8 mmol/L Normal 3.5-5.0 Chloride 106 mmol/L Normal 101-111 Co2 Carbon Dioxide 23 mmol/L Normal 22-32 Anion Gap 8 mmol/L Normal 2-11 Glucose 83 mg/dL Normal 70-100 Blood Urea Nitrogen 12 mg/dL Normal 6-24 Creatinine 1.02 mg/dL Normal 0.67-1.17 BUN/Creatinine Ratio 11.8 Normal 8-20 Calcium 9.3 mg/dL Normal 8.6-10.3 Total Protein 6.8 g/dL Normal 6.4-8.9 Albumin 4.4 g/dL Normal 3.2-5.2 Globulin 2.4 g/dL Normal 2-4 Albumin/Globulin Ratio 1.8 Normal 1-3 Total Bilirubin 0.50 mg/dL Normal 0.2-1.0 Alkaline Phosphatase 111 U/L High 34-104 Alt 41 U/L Normal 7-52 Ast 18 U/L Normal 13-39 Egfr Non- 82.6 >60 Egfr 106.3 >60 21 Laboratory 03/14/2017 [facility] Syphillis Nonreactive Nonreactive 22 test finding [address] I[place] [address] RPR [phone] HIV 1/2 AB 03/14/2017 [facility] HIV 1 2 Nonreactive Nonreactive [address] [place] [address] [phone] Urine Drug 10/21/2015 [facility] Amphetamine None Normal None Detect SCR ED & [address] Ur Screen [place] [address] [phone] Barbiturates Urine Screen None Detected Normal None Detect Benzodiazepine Urine Screen None Detected Normal None Detect Urine Cannabinoids Screen Presumptive Posi <SEE NOTE> Abnormal None Detect 24 Urine Cocaine Screen None Detected Normal None Detect Urine Opiates Screen None Detected Normal None Detect Urine Phencyclidine Screen None Detected Normal None Detect 25 Comp Metabolic 10/21/2015 [facility] Sodium 139 mmol/L Normal 133-[address] [place] [address] [phone] Potassium 3.5 mmol/L Normal 3.5-5.0 Chloride 109 mmol/L Normal 101-111 Co2 Carbon Dioxide 24 mmol/L Normal 22-32 Anion Gap 6 mmol/L Normal 2-11 Glucose 112 mg/dL High 70-100 Blood Urea Nitrogen 13 mg/dL Normal 6-24 Creatinine 0.72 mg/dL Normal 0.67-1.17 BUN/Creatinine Ratio 18.1 Normal 8-20 Calcium 9.0 mg/dL Normal 8.6-10.3 Total Protein 6.8 g/dL Normal 6.4-8.9 Albumin 4.4 g/dL Normal 3.2-5.2 Globulin 2.4 g/dL Normal 2-4 Albumin/Globulin Ratio 1.8 Normal 1-3 Total Bilirubin 0.50 mg/dL Normal 0.2-1.0 Alkaline Phosphatase 97 U/L Normal 34-104 Alt 80 U/L High 7-52 Ast 34 U/L Normal 13-39 Egfr Non- 125.0 Normal >60 Egfr 160.7 Normal >60 26 Laboratory 10/21/2015 [facility] TSH (Thyroid 1.34 Normal 0.34 -5.60 test finding [address] Stim Horm) mcIU/[place] [address] [phone] Acetaminophen < 15 g/mL Normal 27 Alcohol < 10 mg/dL Normal <10 Salicylate < 2.50 mg/dL Normal <30 Urinalysis Profile 10/21/2015 [facility] Urine Color Yellow Normal [address] [place] [address] [phone] Urine Appearance Cloudy Normal Urine Specific Lander 1.023 Normal 1.010-1.030 Urine pH 7.0 Normal 5-9 Urine Urobilinogen Negative Normal Negative Urine Ketones Negative Normal Negative Urine Protein Negative Normal Negative Urine Leukocytes Negative Normal Negative Urine Blood Negative Normal Negative Urine Nitrite Negative Normal Negative Urine Bilirubin Negative Normal Negative Urine Glucose Negative Normal Negative CBC Auto 10/21/2015 [facility] White Blood 10.0 10^3/uL Normal 3.5-10.[address] [place] [address] [phone] Red Blood Count 4.79 10^6/uL Normal 4.0-5.4 Hemoglobin 14.9 g/dL Normal 14.0-18.0 Hematocrit 44 % Normal 42-52 Mean Corpuscular Volume 92 fL Normal 80-94 Mean Corpuscular Hemoglobin 31 pg Normal 27-31 Mean Corpuscular HGB Conc 34 g/dL Normal 31-36 Red Cell Distribution Width 13 % Normal 10.5-15 Platelet Count 194 10^3/uL Normal 150-450 Mean Platelet Volume 8 um3 Normal 7.4-10.4 Abs Neutrophils 6.4 10^3/uL Normal 1.5-7.7 Abs Lymphocytes 2.4 10^3/uL Normal 1.0-4.8 Abs Monocytes 0.9 10^3/uL High 0-0.8 Abs Eosinophils 0.2 10^3/uL Normal 0-0.6 Abs Basophils 0.1 10^3/uL Normal 0-0.2 Abs Nucleated RBC 0.01 10^3/uL Normal Granulocyte % 64.3 % Normal 38-83 Lymphocyte % 24.2 % Low 25-47 Monocyte % 8.7 % Normal 1-9 Eosinophil % 1.9 % Normal 0-6 Basophil % 0.9 % Normal 0-2 Nucleated Red Blood Cells % 0.1 Normal Laboratory test 04/03/2015 [facility] Cytology Non-Setter Out SEE RESULT [address] [place] [address] [phone] Cancellous Chips 06/03/2013 [facility] Cancellous Chips [id number] 29, [address] 5cc <[place] [address] NOTE> [phone] 1 Because ethnic data is not always [...] 5 Kidney failure <15 (or dialysis) 2 Because ethnic data is not always [...] 5 Kidney failure <15 (or dialysis) 3 Result in log copies/mL is Undetected. ADDITIONAL INFORMATION The quantification range of this assay is 20 to 10,000,000 copies/mL (1.30 log to 7.00 log copies/mL). Testing was performed using the tano HIV-1 test ([employer] with the tano [employer] PC0 System. This test has been modified from the assembly member's instructions. Its performance characteristics were determined by [facility] in a manner consistent with CLIA requirements. This test has not been cleared or approved by the U.S. Food and Drug Administration. Test Performed by: [facility] - [address] [address] 4 REFERENCE VALUE Reference values depend on clinical use: Anticonvulsant: 5.0-20.0 mcg/mL Psychiatric: 2.0-8.0 mcg/mL ADDITIONAL INFORMATION This test was developed and its performance characteristics determined by [facility] in a manner consistent with CLIA requirements. This test has not been cleared or approved by the U.S. Food and Drug Administration. Test Performed by: [facility] - [address] [address] 5 RESULT: No apparent monoclonal protein on serum electrophoresis. Test Performed by: [facility] - [address] [address] 6 ADDITIONAL INFORMATION This test was developed and its performance characteristics determined by [facility] in a manner consistent with CLIA requirements. This test has not been cleared or approved by the U.S. Food and Drug Administration. Test Performed by: [facility] - [address] [address] 7 It is recognized that currently available [...] levels of PSA measured using the [employer] SpotRight DXI Hybritech immunoassay should not be interpreted [...] 15-29 5 Kidney failure <15 (or dialysis) 11 It is recognized that currently available assays [...] 95% confidence interval of 99.78 to 99.96%. 12 Because ethnic data is not always [...] 5 Kidney failure <15 (or dialysis) 13 Warning: A positive result is not useful for establishing a diagnosis of syphilis. In most situations, such a result may reflect a prior treated infection; a negative result can exclude a diagnosis of syphilis except for incubating or early primary disease. 14 Warning: A positive result is not useful for establishing a diagnosis of syphilis. In most situations, such a result may reflect a prior treated infection; a negative result can exclude a diagnosis of syphilis except for incubating or early primary disease. 15 Because ethnic data is not always readily [...] 15-29 5 Kidney failure <15 (or dialysis) 16 Negative result does not rule out HIV infection. If exposure to HIV infection occurred <14 days ago, contact the laboratory to request addition of HIV-1 RNA detection / quantification test (HIVQN). Test Performed by: [facility] [place] [address] [place] [address] 17 [id number] It is recognized that currently available [...] confidence interval of 99.78 to 99.96%. 19 Warning: A positive result is not useful for establishing a diagnosis of syphilis. In most situations, such a result may reflect a prior treated infection; a negative result can exclude a diagnosis of syphilis except for incubating or early primary disease. 20 Because ethnic data is not always readily [...] 15-29 5 Kidney failure <15 (or dialysis) 21 Because ethnic data is not always readily [...] 15-29 5 Kidney failure <15 (or dialysis) 22 Warning: A positive result is not useful for establishing a diagnosis of syphilis. In most situations, such a result may reflect a prior treated infection; a negative result can exclude a diagnosis of syphilis except for incubating or early primary disease. 23 It is recognized that currently available assays [...] 95% confidence interval of 99.78 to 99.96%. 24 Presumptive Positive Presumptive positive results are unconfirmed. 25 The urine specimen was tested at the listed cutoffs: Drug class test level (ng/mL) Amphetamines 500 Barbiturates 200 Benzodiazepine metabolites 200 Cocaine metabolites 150 Cannabinoids 50 Opiates 300 Pcp 25 Specimen was received without chain of custody. Results should be used for medical purposes only. 26 Because ethnic data is not always readily [...] 15-29 5 Kidney failure <15 (or dialysis) 27 Therapeutic concentration: <50 ug/mL Toxic concentration: >120 ug/mL 28 SEE RESULT BELOW Name: JAKOB ROJO Darren : [address]: Cyrus Mayfield MD Acct: [id number] Unit: [id number] AGE: 34 Location: THYROID Re04/03/15 SEX: M Status: REG REF SPEC: [id number] ESPERANZA: 04/03/15-12[address] [facility] [address]: Buddy Gold MD REQ: [id number] RECD: 04/03/15-1230 STATUS: STEFFI ISABEL DR: Cyrus Parker MD _ ORDERED: FN ASP DEEP, FNA IMMEDIATE S FINAL DIAGNOSIS Thyroid, right, Ultrasound guided, fine needle aspiration: Benign thyroid nodule- chronic lymphocytic thyroiditis (Tiro Class II). The specimen demonstrates moderate watery [...] 1.0 cm CONTINUED ON NEXT PAGE * ML = Testing performed at Main Lab DEPARTMENT OF PATHOLOGY, [address] [place] [address] Radames Ya M.D[address] Director [facility] # [id number] RUN DATE: 04/03/15 [facility] LAB LIVE PAGE 2 Patient: JAKOB ROJO Darren [id number] (Continued) IMMEDIATE INTERPRETATION (Continued) IMMEDIATE INTERPRETATION Pass 1-adequate GROSS DESCRIPTION 3 - alcohol fixed slide(s) 1 - passes Signed (signature on file) Radames Ya MD 1237 END OF REPORT * ML = Testing performed at Main Lab DEPARTMENT OF PATHOLOGY, [address] [place] [address] Radames Ya M.D. Director [facility] # [id number] 29 OSTEOARTHROSIS LOCALIZED RIGHT ANKLE FOOT 30 [id number] CANC CHIPS 5CC TRANSFUSED 06/04/13 1015 [id number] CANC CHIPS 5CC TRANSFUSED 06/04/13 1015 Procedures Date Code Description Status 07/21/2018 56217 Polysomnography Sleep Staging 4+ Parameters Completed 07/21/2018 06624 Polysomnography Sleep Staging 4+ Parameters Completed 06/19/2018 65897 Sleep Study Unattended,HRT Rate,Oxygen Sat,Resp Completed Effort/Airflow 09/30/2013 40202 Polysomnography Sleep Staging 4+ Parameters W/Cpap Completed 09/27/2013 24086 Rad Exam; Foot Limited Completed 09/06/2013 83363 Polysomnography Sleep Staging 4+ Parameters Completed 07/13/2013 95962 Rad Exam; Foot Comp Completed 07/13/2013 64765 Walking Cast Completed 06/15/2013 16079 Short Leg Cast Completed 06/04/2013 55460 Artrodesis Subtalar Completed 06/04/2013 62777 Artrodesis Subtalar Completed 06/04/2013 61224 Bone Graft, Any Donor Area Major Or Large Completed 06/04/201392712 Bone Graft, Any Donor Area Major Or Large Completed Encounters Type Date Location Provider Dx Diagnosis Office Visit 08/21/2018 Pul[facility]ology [facility] Marina G47.33 Obstructive sleep 2:00p [facility] Rubalcava apnea (adult) Cis Coordinator (pediatric) G47.00 Insomnia, unspecified Office Visit 07/26/2018 1:00p Saira Echeverria, G43.109 Migraine with Neurologic MANAGER INVENTORY MANAGEMENT aura, not Services Of Cis Coordinator intractable, w/o status migrainosus G62.9 Polyneuropathy, unspecified Z79.899 Other continuous churn buttermaker (current) drug therapy M54.81 Occipital neuralgia Office Visit 06/28/2018 2:20p [facility] Internal Josekevin Rodriguez G47.00 Insomnia, Medicine - Ccmob MANAGER INVENTORY MANAGEMENT unspecified I10 Essential (primary) hypertension Office Visit 06/23/2018 Neurohospitalist Eduardo Echeverria, G43.109 Migraine with 3:30p Clinic MANAGER INVENTORY MANAGEMENT aura, not intractable, w/o status migrainosus Z79.899 Other nursing home (current) drug therapy G62.9 Polyneuropathy, unspecified Office Visit 06/19/2018 [facility] Denisha Viki Z11.4 Encounter for 4:00p For Infectious Brittny MANAGER INVENTORY MANAGEMENT screening for human Diseases immunodeficiency virus Z11.3 Encntr screen for infections w sexl mode of transmiss Z79.899 Other continuous churn buttermaker (current) drug therapy Office Visit 06/13/2018 11:00a Pulmonology And Glory G47.33 Obstructive sleep Sleep Services Of MD Suzy apnea (adult) [facility] (pediatric) G47.00 Insomnia, unspecified Office Visit 06/07/2018 1:00p [facility] Internal Jose Michael, R35.0 Frequency of Medicine - Ccmob MANAGER INVENTORY MANAGEMENT micturition R53.83 Other fatigue R10.819 Abdominal tenderness, unspecified site G47.00 Insomnia, unspecified R11.2 Nausea with vomiting, unspecified M54.5 Low back pain M50.10 Cervical disc disorder w radiculopathy, unsp cervical region I10 Essential (primary) hypertension R42 Dizziness and giddiness G43.109 Migraine with aura, not intractable, w/o status migrainosus R41.3 Other amnesia Office Visit 05/10/2018 Neurosurgery Jorge Luis M50.320 Other cerv disc 3:00p Services Of [facility] Gregg Harvey. degeneration, mid-cervical rgn, unsp level Office Visit 04/12/2018 [facility] Eduardo Echeverria, G43.109 Migraine with 10:00a Services Of [facility] MANAGER INVENTORY MANAGEMENT aura, not intractable, w/o status migrainosus M54.2 Cervicalgia Office Visit 03/20/2018 [facility] Sanchez Gama Z11.4 Encounter for 4:00p For Infectious Parish Meyer screening for human Diseases immunodeficiency virus Z79.899 Other continuous churn buttermaker (current) drug therapy Z11.3 Encntr screen for infections w sexl mode of transmiss N52.9 Male erectile dysfunction, unspecified Office Visit 12/15/2017 [facility] Sanchez Gama Z11.4 Encounter for 4:00p For Infectious Parish Meyer screening for human Diseases immunodeficiency virus Z79.899 Other nursing home (current) drug therapy Office 09/12/2017 Neurohospitalist Jorge Luis Santoyo G43.009 Migraine w/o aura, Visit 9:30a Otilio Lee not intractable, w/o M.D. status migrainosus Office 09/08/2017 [facility] Alicia Gama Z11.4 Encounter for Visit 4:00p Infectious Diseases Nasrin, screening for human M.DDemarcus immunodeficiency virus Z11.3 Encntr screen for infections w sexl mode of transmiss Z70.8 Other sex counseling Office Visit 06/09/2017 4:20p [facility] Alicia Gama Z20.2 Contact w and Infectious Parish Meyer exposure to Diseases infect w a sexl mode of transmiss Z71.89 Other specified counseling Office 03/14/2017 [facility] Alicia Gama Z20.2 Contact w and Visit 3:20p Infectious Diseases Nasrin, exposure to infect M.D. w a sexl mode of transmiss Office 10/14/2016 Neurohospitalist Jorge Luis Santoyo G43.009 Migraine w/o aura, Visit 10:15a Otilio Lee M.D. not intractable, w/o status migrainosus Office 04/14/2016 Neurohospitalist Jorge Luis Santoyo G43.009 Migraine w/o aura, Visit 9:00a Otilio Lee M.D. not intractable, w/o status migrainosus Office 02/12/2015 [facility] Jorge Luis Santoyo G43.009 Migraine w/o aura, Visit 8:30a Services Of Saige Lee M.D. not intractable, w/o status migrainosus Office 01/07/2015 Orthopedic Services Kelechi S83.92xD Sprain of Visit 3:40p Of Jany Smith M.D. unspecified site of left knee, subs encntr Office 01/18/2014 Orthopedic Services Jered 715.17 Osteoarthrosis Visit 3:00p Of Jany Alvarenga M.D. Localized Prim Ankle & Foot Office 12/21/2013 Orthopedic Services Jered Christianson.17 Osteoarthrosis Visit 3:45p Of Jany Alvarenga M.D. Localized Prim Ankle & Foot Office 11/30/2013 [facility] 327.23 Obstructive Sleep Visit 8:00a Sleep Services Of MD Suzy Apnea Adult & [facility] Pediatric Office 11/27/2013 Orthopedic Services Jered 727.06 Tenosynovitis Foot Visit 4:00p Of Jany Alvarenga M.D. & Ankle Office 09/27/2013 Orthopedic Services Jered 715.17 Osteoarthrosis Visit 1:15p Of Jany Alvarenga M.D. Localized Prim Ankle & Foot Office 09/18/2013 [facility] Jorge Luis Santoyo 346.10 Migraine Common Visit 3:45p Services Of Saige Lee M.D. W/O Intractable W/O Status Migrainosus Office 09/06/2013 Sleep Disorder Ky SK. 780.57 Unspecified Sleep Visit 10:06a Marko Jameson M.D. Apnea 786.09 Dyspnea & Respiratory Abnormalities Other Office Visit 04/20/2013 Orthopedic Jered Christianson.17 Osteoarthrosis 11:00a Services Of Parish Alvarenga Localized Prim Ankle C.M.A. & Foot Office Visit 04/12/2013 Orthopedic Jered Christianson.17 Osteoarthrosis 1:15p Services Of Parish Alvarenga Localized Prim Ankle C.M.A. & Foot Office Visit 03/14/2013 Orthopedic Jered Christianson.17 Osteoarthrosis 1:00p Services Of Parish Alvarenga Localized Prim Ankle C.M.A. & Foot Office Visit 02/23/2013 Orthopedic Jered Christianson.17 Osteoarthrosis 3:15p Services Of Parish Alvarenga Localized Prim Ankle C.M.A. & Foot Office Visit 12/19/2012 [facility] Jorge Luis Santoyo 346.00 Migraine Classical 3:45p Neurologic Parish Lee W/O Intractable W/O Services Of [facility] Status Migrainosus 346.10 Migraine Common W/O Intractable W/O Status Migrainosus Office Visit 10/30/2012 Orthopedic Jered Christianson.17 Osteoarthrosis 4:30p Services Of Jany Alvarenga M.D. Localized Prim Ankle & Foot Office Visit 08/01/2012 [facility] Gina Santoyo 346.10 Migraine Common W/O 1:15p Services Of Saige Lee M.D. Intractable W/O Status Migrainosus Office Visit 06/27/2012 [facility] Jorge Luis DarrenDemarcus 346.11 Migraine W/O Aura 1:00p Services Of Saige Lee M.D. W/Intractable W/O Status Migrainosus Office Visit 05/15/2012 Orthopedic Jered 715.17 Osteoarthrosis 4:30p Services Of Jany Alvarenga M.D. Localized Prim Ankle & Foot Office Visit 04/03/2012 Orthopedic Jered 715.17 Osteoarthrosis 8:15a Services Of Jany Alvarenga M.D. Localized Prim Ankle & Foot Office Visit 03/20/2012 Orthopedic Jered Parkinson5.17 Osteoarthrosis 4:30p Services Of Jany Alvarenga M.D. Localized Prim Ankle & Foot Office Visit 03/08/2012 Orthopedic Jered 715.17 Osteoarthrosis 3:30p Services Of Jany Alvarenga M.D. Localized Prim Ankle & Foot Office Visit 04/13/2010 Rheumatology Hugo 719.40 Pain Joint Site 3:00p Services Of Saige Rubalcava M.D. Unspec 718.87 Derangement Joint Other Not Elsewhere Class Ankle & Foot Plan of Treatment Future Appointment(s):12/18/2018 4:00 pm - Sanchez Meyer M.D. at [facility]65/04/2019 2:30 pm - Alannah South DNP, RN, MECHANICAL SPREADER OPERATOR- at Pulmonology And Sleep Services Of [facility]09/28/2018 3:40 pm - Jose Rodriguez NP at [facility] Internal Medicine - Ccmob10/03/2018 3:45 pm - Jorge Luis Lee M.D. at [facility] Of [facility]09/18/2018 - Sanchez Meyer M.D.Z11.4 Encounter for screening for human immunodeficiency virusNew Labs: Syphillis Igg W/Reflex RPR, Ordered: 09/18/18HIV 1&2 p24 Screen, Ordered: Basic Metabolic Panel, Ordered: 09/18/18
[2018-10-18] MEDS ORDERED: diPHENhydraMINE IV* 50 MG/ML 1 ml VIAL (BENADRYL) SLOW PUSH PRN (11:36)
[2018-10-18] MEDS ORDERED: Diazepam TAB(*) 5 MG PO PRN (11:36)
[2018-10-18] MEDS ORDERED: nitroGLYCERIN DRIP* 25,000 MCG/250 ML BTL IV ONE (11:38)
[2018-10-18] MEDS ORDERED: NS 0.9% 1000 ML** 1,000 ML IV SCH ×2 (11:45→14:15)
[2018-10-18] MEDS: Heparin DRIP 25,000 UNITS(*) 25,000 UNITS/500 ML BAG IV SCH (11:51)
[2018-10-18] MEDS ORDERED: Heparin VIAL(*) 5000 UNITS/ML VIAL (FIVE THOUSAND) IV PRN (12:00)
[2018-10-18] MEDS ORDERED: Atorvastatin* 80 MG TAB PO ONE (12:03)
[2018-10-18] MEDS: Acetaminophen TAB* 325 MG PO PRN ×2 (12:13→18:37)
--- NOTE | 2018-10-18 12:45 | HP ---
History of Present Illness - History of Present Illness Reason for Visit: Abnormal ECG and resting stress images with angina. History of Present Illness: 37 yo male with 3 months of CP on exertion, walking. Referred for a stress test today (ex myoview). Resting images showed an anterior apical defect and ECG s/w anterior septal NE. I met the patient in the ED and he was having on going CP, upper sternal. Pt stated he received ASA 325 mg in office and 3 pills he swallowed (not sublingual). Mild diaphoresis, no nausea or SOB. No radiation of pain. ROS as below. Also stopped [place] February, amlodipine added 2018 for HTN. 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 Lives: Alone Domestic Violence: Negative Review of Systems - Review of Systems Constitutional: Negative: Fever, Chills, Sweats, Weakness, Malaise, Other Eyes: Negative: Pain, Vision Change, Conjunctivae Inflammation, Eyelid Inflammation, Redness, Other ENT: Negative: Ear Pain, Ear Discharge, Nose Pain, Nose Discharge, Nose Congestion, Mouth Pain, Mouth Swelling, Throat Pain, Throat Swelling, Other Respiratory: Negative: Cough, Dry, Shortness of Breath, Hemoptysis, SOB with Excertion, Pleuritic Pain, Sputum, Wheezing Cardiovascular: Positive: Chest Pain Gastrointestinal: Positive: Nausea Genitourinary: Negative: Dysuria, Frequency, Incontinence, Hematuria, Retention , Other Musculoskeletal: Negative: Neck Pain, Shoulder Pain, Arm Pain, Back Pain, Hand Pain, Leg Pain, Foot Pain, Other Skin: Negative: Rash, Lesions, Amish, Bruising, Other Neurological: Negative: Weakness, Numbness, Incoordination, Change in Speech, Confusion, Seizures, Other - Medications/Allergies Allergies/Adverse Reactions: Allergies Allergy/AdvReac Type Severity Reaction Status Date / Time clarithromycin [From Biaxin] Allergy Severe Hives Verified 09/13/18 13:02 Medications: Current Medications Acetaminophen (Tylenol Tab*) 650 mg PO Q4H PRN PRN Reason: HEADACHE Last Admin: 10/18/18 12:13 Dose: 650 mg Aspirin (Aspirin Ec Tab*) 81 mg PO DAILY WALKER Diazepam (Valium Tab(*)) 5 mg PO ONCE PRN PRN Reason: call center trainer to Group President Diphenhydramine HCl (Benadryl Iv*) 25 mg SLOW PUSH ONCE PRN PRN Reason: call center trainer to Group President Heparin Sodium (Porcine) (Heparin Vial(*)) 0 units IV .PER PROTOCOL PRN PRN Reason: . Heparin Sodium/Dextrose (Heparin Drip 25,000 Units(*)) 25,000 units in 500 mls @ 0 mls/hr IV .PER PROTOCOL WALKER; Protocol Last Admin: 10/18/18 11:51 Dose: 20 mls/hr Nitroglycerin/Dextrose (Nitroglycerin Drip*) 25,000 mcg in 250 mls @ 3 mls/hr IV ED ONCE ONE; Protocol Stop: 10/21/18 22:57 Last Admin: 10/18/18 11:45 Dose: 3 mls/hr Sodium Chloride (Ns 0.9% 1000 Ml) 1,000 mls @ 100 mls/hr IV .per rate [facility] Home MEDS: Emtricitabine/Tenofovir (Tdf) [Truvada 200 mg-300 mg Tablet] 1 each PO DAILY 08/01 [History Confirmed 10/18/18] amLODIPine TAB* [Norvasc 5 mg TAB*] 2.5 mg PO DAILY 05/16/18 [History Confirmed 10/18/18] Aspirin EC TAB* [Ecotrin EC Low Dose 81 MG*] 81 mg PO DAILY 10/18/18 [History Confirmed 10/18/18] Inositol 500 - 1,000 mg PO DAILY 10/18/18 [History Confirmed 10/18/18] L.acidoph,Paracasei, B.lactis [Probiotic] 1 each PO QID 10/18/18 [History Confirmed 10/18/18] Morris-3 Fatty Acids (Nf) [Fish Oil (NF)] 1,000 mg PO DAILY 10/18/18 [History Confirmed 10/18/18] Topiramate TAB(*) [Topamax 100 mg tab] 150 mg PO BID 10/18/18 [History Confirmed 10/18/18] Exam - Exam Vital Signs: Vital Signs (72 hours) 10/18/18 10/18/18 10/18/18 10:53 11:18 11:19 Temperature 96.1 F Pulse Rate 70 63 Respiratory 20 27 22 Rate Blood Pressure 171/107 174/114 (mmHg) O2 Sat by Pulse 100 97 Oximetry 10/18/18 10/18/18 10/18/18 11:28 11:48 12:00 Temperature Pulse Rate 52 59 60 Respiratory 19 15 19 Rate Blood Pressure 142/101 139/92 (mmHg) O2 Sat by Pulse 100 99 98 Oximetry 10/18/18 10/18/18 12:08 12:13 Temperature Pulse Rate 59 61 Respiratory 16 12 Rate Blood Pressure 120/73 122/84 (mmHg) O2 Sat by Pulse 99 98 Oximetry General: Alert, Oriented x3, Cooperative, Mild distress HEENT: Atraumatic, PERRLA, Mucous membr. moist/pink Lungs: Clear to auscultation Cardiovascular: Regular rate, Normal S1, Normal S2, No murmurs Abdomen: Normal bowel sounds, Soft, No tenderness, No hepatospenomegaly Extremities: Normal pulses - trace edema on the legs Skin: No rashes Neurological: Normal speech, Normal tone, Sensation intact, Cranial nerves 3-12 NL Psych/Mental Status: Mental status NL, Mood NL Assessment/Plan - Assessment/Plan Assessment: Laboratory Tests 10/18/18 10/18/18 10/18/18 10:56 10:57 10:57 WBC 13.8 H RBC 5.14 Hgb 15.9 Hct 47 MCV 91 MCH 31 MCHC 34 RDW 13 Plt Count 208 MPV 7.9 Neut % (Auto) 74.2 Lymph % (Auto) 17.3 Dyer % (Auto) 5.8 Eos % (Auto) 1.9 Baso % (Auto) 0.8 Absolute Neuts (auto) 10.2 H Absolute Lymphs (auto) 2.4 Absolute Monos (auto) 0.8 Absolute Eos (auto) 0.3 Absolute Basos (auto) 0.1 Absolute Nucleated RBC 0.0 Nucleated RBC % 0.1 INR (Anticoag Therapy) 0.98 APTT 34.9 Sodium 138 Potassium 4.3 Chloride 109 Carbon Dioxide 23 Anion Gap 6 BUN 16 Creatinine 0.78 Est GFR ( Amer) 135.5 Est GFR (Non-Af Amer) 112.0 BUN/Creatinine Ratio 20.5 H Glucose 101 H Calcium 9.4 Total Bilirubin 0.60 AST 21 ALT 43 Alkaline Phosphatase 97 Troponin I 0.00 Total Protein 6.7 Albumin 4.4 Globulin 2.3 Albumin/Globulin Ratio 1.9 Lipids outpatient: High TG's and LDL. ECG: NSR, anterior Q's. Resting nuclear images anterior apical defect. 37 yo with ongoing chest pain today with a 3 month hx crescendo angina, evidence of CAD and old apical NE on ECG and nuclear imaging. Cardiac catheterization: risks, benefits details of the procedure discussed as well as indications. ASA, heparin gtt, NTG gtt started for ACS. Lipator 80 mg initiated for mixed dyslipidemia, will need diet changes and would benefit if vascepa added. Continue with BP lowering meds, titrate PRN.
[2018-10-18 14:42] LABS: Urine Appearance Clear; Urine Bacteria Absent (Absent); Urine Bilirubin Negative (Negative); Urine Blood Negative (Negative); Urine Color Yellow; Urine Glucose Negative (Negative); Urine Ketones Negative (Negative); Urine Nitrite Negative (Negative); Urine Protein Negative (Negative); Urine Red Blood Cell Absent (Absent); Urine Specific Gravity 1.011 (1.010-1.030); Urine Urobilinogen Negative (Negative); Urine White Blood Cell Absent (Absent)
[2018-10-18] MEDS ORDERED: Heparin(*) 1000 UNIT/ML 10 ML VIAL CATH LAB IV ONE (14:51)
[2018-10-18] MEDS ORDERED: Midazolam* 1 MG/ML 5 ML VIAL (5 MG) ONE (14:51)
[2018-10-18] MEDS ORDERED: VERAPAMIL 2.5 MG/ML 2 ML VIAL ** 5 mg/2 ml ONE (14:51)
[2018-10-18] MEDS ORDERED: fentaNYL* 50 MCG/ML 2 ML VIAL (100 MCG VIAL) ONE (14:51)
[2018-10-18] MEDS ORDERED: Lidocaine 1% INJ* 10 MG/ML 30 ML SDV ONE (14:52)
[2018-10-18] MEDS ORDERED: Heparin 2 UNITS/ML IVPREMIX* 2,000 ML IV ONE (14:52)
[2018-10-18] MEDS ORDERED: Iohexol 350 (CONTRAST) 200 ML MDV IV ONE (14:52)
[2018-10-18] MEDS ORDERED: Ondansetron INJ* 2 MG/ML VIAL IV PRN (19:15)
[2018-10-18] MEDS: Lactobacillus Acidophilus* 1 TAB PO SCH (19:39)
[2018-10-18] MEDS: amLODIPine TAB* 5 MG PO SCH (19:39)
[2018-10-18] MEDS: Topiramate TAB(*) 100 MG PO SCH (19:59)
[2018-10-18] MEDS: Topiramate TAB(*) 25 MG PO SCH (19:59)
[2018-10-18] MEDS: Tenofovir/Emtricitab 200/300 * TAB PO SCH (19:59)
[2018-10-18] MEDS ORDERED: Temazepam CAP* 15 MG PO PRN (20:12)
[2018-10-19] MEDS: amLODIPine TAB* 5 MG PO SCH ×2 (05:40→07:46)
[2018-10-19 06:44] LABS: ABS Eosinophils 0.2 10^3/ul (0-0.6); ABS Lymphocytes 1.7 10^3/ul (1.0-4.8); ABS Monocytes 0.6 10^3/ul (0-0.8); Eosinophil % 2.4 %; Hematocrit 44 % (42-52); Hemoglobin 15.6 g/dL (14.0-18.0); Lymphocyte % 22.7 %; Mean Corpuscular HGB Conc 35 g/dL (31-36); Mean Corpuscular Hemoglobin 32 pg (27-31); Mean Corpuscular Volume 90 fL (80-94); Mean Platelet Volume 7.8 fL (7.4-10.4); Platelet Count 171 10^3/uL (150-450); Red Blood Count 4.87 10^6 /uL (4.18-5.48); Red Cell Distribution Width 13 % (10-15); White Blood Count 7.6 10^3/uL (3.5-10.8)
[2018-10-19 06:59] LABS: EGFR African American 126.1 (>60); EGFR Non-African American 104.3 (>60)
[2018-10-19] MEDS ORDERED: Perflutren Lipid Microsphere* 3 ML VIAL ONE (08:08)
[2018-10-19 08:23] LABS: Troponin I 0.02 ng/mL (<0.04)
[2018-10-19] MEDS: Heparin DRIP 25,000 UNITS(*) 25,000 UNITS/500 ML BAG IV SCH (08:23)
[2018-10-19] MEDS ORDERED: Isosorbide Mononitrate ER TAB* 30 MG PO ONE (08:31)
[2018-10-19] MEDS ORDERED: INOSITOL PO SCH (09:00)
[2018-10-19] MEDS ORDERED: Captopril TAB* 12.5 MG PO SCH (09:00)
[2018-10-19] MEDS ORDERED: Diltiazem TAB* 30 MG PO SCH (09:00)
[2018-10-19] MEDS ORDERED: CMCS:OMEGA-3 FATTY ACIDS (NF) 1,000 MG CAP PO SCH (09:00)
[2018-10-19] MEDS ORDERED: Magnesium Oxide TAB* 400 MG PO SCH (09:00)
[2018-10-19] MEDS ORDERED: Aspirin EC TAB* 81 MG TAB.EC PO SCH (09:00)
--- NOTE | 2018-10-19 09:21 | PN ---
Subjective Date of Service: 10/19/18 - CC: CP Interval History: Cath yesterday revealed 3V CAD, occluded LAD with collaterals and tight RCA + Cx. Severe WOODY yesterday w/NTG gtt, nausea-resolved with stopping gtt, resuming Topamax, tylenol. CP ongoing waxing waning, per patient improved with amlodipine this AM but still reports 5/10 CP now. Denies orthopnea, PND or SOB. Admits to anxiety. Patient stopped meds for bipolor disorder last month due to side effects, started supplements Inostitol and NAC instead. Medications Active Medications: Acetaminophen (Tylenol Tab*) 650 mg PO Q4H PRN PRN Reason: HEADACHE Last Admin: 10/18/18 18:37 Dose: 650 mg Amlodipine Besylate (Norvasc Tab*) 5 mg PO DAILY [facility] Last Admin: 10/19/18 07:46 Dose: 5 mg Aspirin (Aspirin Ec Tab*) 81 mg PO DAILY [facility] Atorvastatin Calcium (Lipitor*) 80 mg PO 1700 [facility] Captopril (Capoten Tab*) 6.25 mg PO TID [facility] Diltiazem HCl (Cardizem Tab*) 30 mg PO Q6H [facility] Emtricitabine/Tenofovir (Truvada 200/300 Mg*) 1 tab PO DAILY [facility]; Protocol Last Admin: 10/18/18 19:59 Dose: 1 tab Fish Oil (Fish Oil (Nf)) 1,000 mg PO DAILY [facility]; Protocol Heparin Sodium (Porcine) (Heparin Vial(*)) 0 units IV .PER PROTOCOL PRN PRN Reason: . Last Admin: 10/18/18 18:37 Dose: 4,000 units Heparin Sodium/Dextrose (Heparin Drip 25,000 Units(*)) 25,000 units in 500 mls @ 0 mls/hr IV .PER PROTOCOL WALKER; Protocol Last Admin: 10/19/18 08:23 Dose: 28 mls/hr Lactobacillus Rhamnosus (Lactobacillus Acidophilus*) 1 tab PO QID [facility] Last Admin: 10/18/18 19:39 Dose: 1 tab Magnesium Oxide (Magox 400 Tab*) 400 mg PO DAILY [facility] Nft* Inositol 1,000 mg PO DAILY [facility] Ondansetron HCl (Zofran Inj*) 4 mg IV Q4H PRN PRN Reason: NAUSEA Last Admin: 10/18/18 19:39 Dose: 4 mg Ranolazine (Ranexa (Nf)) 500 mg PO BID [facility]; Protocol Temazepam (Restoril Cap*) 15 mg PO BEDTIME PRN PRN Reason: INSOMNIA Last Admin: 10/18/18 22:11 Dose: 15 mg Topiramate (Topamax(*)) 100 mg PO BID [facility] Last Admin: 10/18/18 19:59 Dose: 100 mg Topiramate (Topamax(*)) 50 mg PO BID [facility] Last Admin: 10/18/18 19:59 Dose: 50 mg Objective Vital Signs: Temp Pulse Resp BP Pulse Ox 98.2 F 74 21 159/92 99 10/19/18 08:00 10/19/18 08:33 10/19/18 08:33 10/19/18 08:33 10/19/18 08:33 Vital Signs - 12 hr Temp Pulse Resp BP Pulse Ox 10/19/18 09:01 71 23 150/95 98 10/19/18 09:00 69 17 98 10/19/18 08:33 74 21 159/92 99 10/19/18 08:28 60 16 165/109 98 10/19/18 08:00 98.2 F 62 26 165/90 98 10/19/18 07:00 68 19 154/102 98 10/19/18 06:01 67 19 95 10/19/18 06:00 64 14 150/96 96 10/19/18 05:37 67 21 149/101 96 10/19/18 05:01 74 23 96 10/19/18 05:00 73 17 107/81 97 10/19/18 04:00 57 19 121/73 96 10/19/18 03:44 97.9 F 10/19/18 03:32 19 10/19/18 03:00 51 17 126/72 97 10/19/18 02:00 56 19 120/74 96 10/19/18 01:00 53 16 119/83 95 10/19/18 00:00 51 17 123/92 95 10/18/18 23:42 98.1 F 10/18/18 23:36 67 27 138/91 96 10/18/18 23:14 65 19 95 10/18/18 23:01 56 20 95 10/18/18 23:00 58 19 103/69 95 10/18/18 22:01 61 26 141/82 93 10/18/18 22:00 20 Oxygen Devices in Use Now: None Appearance: Stocky, fit, in no distress by appearance. Lying in bed 30 degrees. Eyes: No Scleral Icterus, PERRLA Ears/Nose/Mouth/Throat: Clear Oropharnyx, Mucous Membranes Moist Neck: NL Appearance and Movements; NL JVP, Trachea Midline Respiratory: Symmetrical Chest Expansion and Respiratory Effort, Clear to Auscultation Cardiovascular: NL Sounds; No Murmurs; No JVD, RRR Abdominal: NL Sounds; No Tenderness; No Distention, No Hepatosplenomegaly - overweight Extremities: No Edema - strong PTP, radial pulses good including cath site R radial. Skin: No Rash or Ulcers Neurological: Alert and Oriented x 3 Lines/Tubes/Other Access: Clean, Dry and Intact Peripheral IV Laboratory Results: 10/19/18 06:28 10/19/18 06:28 INR (Anticoag Therapy) 0.98 (0.82-1.09) 10/18/18 10:56 APTT 68.8 seconds (26.0-38.0) H 10/19/18 08:31 Total Bilirubin 0.60 mg/dL (0.2-1.0) 10/18/18 10:57 AST 21 U/L (13-39) 10/18/18 10:57 ALT 43 U/L (7-52) 10/18/18 10:57 Alkaline Phosphatase 97 U/L (34-104) 10/18/18 10:57 Total Protein 6.7 g/dL (6.4-8.9) 10/18/18 10:57 Albumin 4.4 g/dL (3.2-5.2) 10/18/18 10:57 Globulin 2.3 g/dL (2-4) 10/18/18 10:57 Albumin/Globulin Ratio 1.9 (1-3) 10/18/18 10:57 10/18/18 10/18/18 10/18/18 10:57 13:45 16:52 Troponin I 0.00 0.00 0.01 10/19/18 06:28 Troponin I 0.02 10/09/18 lipids: TC 322, TG 479 HDL 34 LDL 185. Diagnostic Imaging: Cardiac cath 10/18/18: 100% LAD occlusion, collateral flow, 75% Cx occlusion, 75% RCA occlusion, report pending. Vgram: normal wall motion, EF 65%. ECHO today pending. EKG Data: NSR 59 bpm, anterior Q's, precordial STelevation w/abnormal coving. Stable c/w 10/18/18, Q's and ST changes new c/w 2016 ECG. Assessment/Plan 37 yo with several months of exertional angina, now with anginal symptoms at rest refractory to medical management. Troponins negative. 3V CAD with occluded LAD, viable myocardium based on V gram and evidence of collateral flow. The being transferred to [facility] for revascularization, possible candidate for hybrid procedure with MORALES to LAD, stents to Cx and RCA, evaluation for best approach to be done there. CAD and risks: As BB not helpful yesterday with CP and can increase spasm, increasing CCB's for angina and BP control. On ACEI for elevated LVEDP (20) and BP. Trying Ranexa for CP Anxiolytics may help for CP as well. On heparin and ASA On high dose lipator (new) Will need diet changes for elevated TG's. Bipolor disorder: Off meds. Antiretroviral meds per pt used for prophylaxis.
[2018-10-19] MEDS: Lactobacillus Acidophilus* 1 TAB PO SCH (09:32)
[2018-10-19] MEDS: Topiramate TAB(*) 25 MG PO SCH (09:33)
[2018-10-19] MEDS: Topiramate TAB(*) 100 MG PO SCH (09:34)
[2018-10-19] MEDS: CMCS Ranolazine (NF) 500 MG TAB PO SCH ×2 (09:34→10:05)
[2018-10-19] MEDS: Tenofovir/Emtricitab 200/300 * TAB PO SCH (09:34)
--- NOTE | 2018-10-19 10:07 | ECHO ---
*[facility]* [place] [address] Fax #: [phone] Transthoracic Echocardiogram Patient: Jakob Martinez : 1980 Study Date: 10/19/2018 Age: 37 Gender: M HR: 55 bpm Height: 71 in /180.3 cm BSA: 2.2 m^2 Weight: 221.5 lb /100.7 kg BMI: 31 kg/m^2 *Instrument Repair Specialist: Lisa Jaramillo [facility] *Referring Physician: * Karon Rose MD *Reading Physician: * Karon Rose MD Indications: Myocardial Infarction (new). Chest Pain, unspecified. History: Risk factors: Hypertension. Dyslipidemia. Conclusions Summary: - Left ventricle: The cavity size is normal. Wall thickness is mildly increased. Systolic function is mildly reduced. The estimated ejection fraction is 45-50%. Hypokinesis of the apical and apical anterior myocardium seen on 4,3 and 2 chamber views. - Right ventricle: Systolic function is normal. - Mitral valve: There is trace to mild regurgitation. - No prior echocardiogram to compare. Study data: Transthoracic echocardiogram. Procedure: Transthoracic echocardiography was performed. Image quality was fair. Intravenous Definity , 3 mlswas administered. Image enhancement administered by OSMAN Graydecision unit rn Complete 2D, spectral Doppler, and color flow Doppler. Location: ICU Patient status: Inpatient. Patient room number: 4. Rhythm: Bradycardia. Findings Left ventricle: The cavity size is normal. Wall thickness is mildly increased. Systolic function is mildly reduced. The estimated ejection fraction is 45-50%. Regional wall motion abnormalities: Hypokinesis of the apical myocardium. Hypokinesis of the mid-apicalanteroseptal myocardium. There is no consistent Doppler evidence of clinically significant diastolic dysfunction. Right ventricle: The cavity size is normal. Systolic function is normal. Left atrium: The atrium is normal in size. Right atrium: The atrium is at the upper limits of normal in size. Mitral valve: The leaflets are normal thickness. There is no evidence of stenosis. There is trace to mild regurgitation. Aortic valve: The valve is probably trileaflet. The leaflets are normal thickness. There is no evidence of stenosis. There is no significant regurgitation. Tricuspid valve: The leaflets are normal thickness. There is no evidence of stenosis. There is no significant regurgitation. Pulmonic valve: The leaflets are normal thickness. There is no evidence of stenosis. There is no significant regurgitation. Aorta: The aortic root appears normal. The aortic arch appears normal. Pericardium: There is no significant pericardial effusion. Pulmonary arteries: The main pulmonary artery is normal-sized. Systolic pressure can not be accurately estimated. Systemic veins: Inferior vena cava: The vessel is normal in size. There is (>= 50%) respiratory change in the IVC dimension. Measurements Left ventricle Value Ref Aortic valve continued Value Ref MADELIN, LAX 4.8 cm 4.2 - 5.8 Peak v, S 1.04 m/sec ---- ESD, LAX 3.4 cm 2.5 - 4.0 VTI, S 20.6 cm ---- FS, LAX 30 % 25 - 43 Mean grad, S 2.0 mm Hg ---- PW, ED, LAX (H) 1.1 cm 0.6 - 1.0 Peak grad, S 4.0 mm Hg ---- EF 57 % 52 - 72 E', lat kimberley, TDI 10.3 cm/sec >=10.0 Mitral valve Value Re f E/e', lat kimberley, 8 Peak E 0.78 m/sec ---- TDI Peak A 0.55 m/sec ---- E', med kimberley, TDI 7.3 cm/sec >=7.0 Decel time 145 ms -- -- E/e', med kimberley, 11 Peak grad, D 2.5 mm Hg ---- TDI Peak E/A ratio 1.4 ---- E', avg, TDI 8.8 cm/sec E/e', avg, TDI 9 <=14 Pulmonic valve Value Re f Peak v, S 0.8 m/sec ---- LVOT Value Ref Peak grad, S 3.0 mm Hg ---- Peak speedy, S 0.84 m/sec Mean grad, S 1 mm Hg Aortic root Value Ref Root diam 3.4 cm <3.9 Ventricular septum Value Ref IVS, ED (H) 1.4 cm 0.6 - 1.0 Ascending aorta Value Ref AAo AP diam, S 3.1 cm ---- Right ventricle Value Ref MADELIN, LAX 2.7 cm Aortic arch Value Ref MADELIN minor ax, A4C 2.9 cm 1.9 - 3.5 Arch diam 2.9 cm ---- mid Decending aorta Value Ref Left atrium Value Ref Jenna peak speedy 0.93 m/sec ---- AP dim, ES 3.60 cm 3.00 - 4.00 Inferior vena cava Value Ref ML dim, A4C 4.0 cm Diam 2.2 cm ---- SI dim, A4C 5.3 cm Vol/bsa, ES, A/L 30 ml/m^2 16 - 34 Pulmonary veins Value Ref Peak v, S 0.55 m/sec ---- Right atrium Value Ref Peak v, D 0.39 m/sec ---- SI dim, ES (H) 5.4 cm 3.4 - 5.3 Peak S/D ratio 1.4 ---- ML dim, ES, A4C 4.3 cm 2.6 - 4.4 A rev duration 174 ms ---- Estimated RAP 8 mm Hg Aortic valve Value Ref Kimberley diam, ED 2.5 cm Legend: (L) and (H) ann values outside specified reference range. Prepared and electronically signed by Karon Rose MD 10/19/2018 10:07
[2018-10-19 10:32] VITALS: BP 159/98
--- NOTE | 2018-10-19 10:46 | TRS ---
CC: Risa Kowalski NP, Dr. Reymundo Ortiz* TRANSFER SUMMARY: DATE OF ADMISSION: 10/18/18. DATE OF TRANSFER: 10/19/18. ATTENDING PHYSICIAN: Dr. Karon Rose, cardiology* (dictated by Gurmeet Soria NP). PRIMARY MACHINE II ENGRAVER: Reymundo Ortiz DO. PRIMARY PROVIDER: Risa Kowalski NP. ADMITTING DIAGNOSES: 1. CCS class 2 angina, status post exercise nuclear stress test with abnormal MPI revealing anterior apical defect. The patient underwent left heart catheterization. Per Dr. Aden, occluded LAD with collaterals, 75% stenosis involving the left circumflex, 75% stenosis involving the right coronary artery. 2. History of hypertension, on amlodipine and captopril therapy. 3. History of bipolar disorder. The patient historically was on lithium therapy. I am told that he took himself off medications. 4. History of hyperlipidemia, on high-intensity statin therapy. DISCHARGE DIAGNOSES: 1. Triple-vessel coronary artery disease, to be transferred to [facility] for evaluation for CABG plus or minus PCI, ?hybrid approach, Dr. Ramsey accepting. The patient is on aspirin, statin, IV heparin, and diltiazem therapy. He has a tendency for relative bradycardia and is intolerant of IV nitroglycerin therapy. Thus, medications are not on the patient's medication regimen. 2. Hyperlipidemia, on Lipitor therapy. Goal LDL less than 70. 3. History of bipolar disorder, historically on lithium. I am told he took himself off medication. 4. History of hypertension. Systolic blood pressure currently 160. PROCEDURES PERFORMED: The patient underwent an elective left heart catheterization due to abnormal exercise nuclear stress test by Dr. Sampson Aden on 10/18/18 via right radial access. Per verbal report by Dr. Aden, left heart cath revealed LVEF 65%, 100% occlusion of LAD with collateral flow, 75% stenosis of left circumflex, 75% stenosis of right coronary artery. COMPLICATIONS: None. COURSE OF HOSPITAL STAY: This is a pleasant 37-year-old male patient who follows with Dr. Reymundo Ortiz of our practice due to history of hypertension, hyperlipidemia, and bipolar disorder who was complaining of stable angina. He was risk stratified with exercise nuclear stress test. Per report, there was an anterior apical defect. Thus, the patient presented to [facility] electively on 10/18/18 for left heart catheterization. Prior to having the procedure performed, basic blood work was obtained. White count was 7.6, hemoglobin 15.6, hematocrit 44. Trop was negative x5. Creatinine 0.83. He underwent the above-mentioned procedure, and post procedure, was transferred to the ICU. He has had ongoing chest pain described as sternal chest pressure radiating to his left arm that is worse with movement. He was given IV nitroglycerin; however, had a profound headache with associated emesis. Thus, IV nitroglycerin therapy was discontinued. Due to ongoing pain, he was given amlodipine. Most recent dose was on 08/28/18 and that did not resolve pain. Isoenzymes have been negative despite constant chest pain. ECG has been updated and on 10/19/18, it was 700. ECG revealed sinus bradycardia, rate 59 with biphasic anterior T waves in V1 through V4. No reciprocal changes appreciated. Comparable to prior ECG. He has been maintained on IV heparin therapy. He is to be given 500 mg of Ranexa this morning in addition to diltiazem therapy. He has been hypertensive, systolic blood pressure 160. Currently, heart rate is in the 70s. Due to relative bradycardia, he has not been given beta becki therapy. Given known triple-vessel disease with ongoing chest pain, he is to be transferred to [facility], which I am told is the nearest facility for possible bypass with hybrid approach. Dr. Karon Rose personally spoke to Dr. Ramsey, accepting physician at [facility]. The patient is currently in stable condition. DISPOSITION: [facility]. DISCHARGE MEDICATIONS: Per discharge med rec. The patient's family was at his bedside and is aware of plan of care. Dr. Karon Rose has personally seen and examined the patient and agrees with the above assessment and plan. GURMEET SORIA NP [id number]/[facility] #: [id number] IRISH
[2018-10-19] MEDS ORDERED: Atorvastatin* 80 MG TAB PO SCH (17:00)
--- NOTE | 2018-10-23 23:13 | CATH ---
CC: Risa Kowalski NP; Dr. Ortiz; Dr. Lee; [facility] * CATH REPORT: DATE OF CATH: 10/18/18 - ROOM #ICU-104 PRIMARY CARE PROVIDER: Risa Kowalski NP. CRANK HAND: Dr. Ortiz. NEUROLOGIST: Dr. Lee. PROCEDURES: Right radial artery access, bilateral selective coronary cineangiography, left heart catheterization, left ventriculography. HISTORY: A 37-year-old male with unstable angina with progressive frequency of symptoms. Stress testing revealed resting mid LAD fixed defect with LV dysfunction; the stress portion was, therefore, not performed. He was referred to the ER. PROCEDURE ACCESS: Right radial artery. SHEATH: 6F slender. MEDICATIONS: 1. Subcu lidocaine. 2. IV Versed. 3. IV fentanyl. 4. Intra-arterial nitroglycerin 300 mcg. 5. Verapamil 3 mg. DIAGNOSTIC CATHETER: 5F TIG4, 5F pigtail. HEMODYNAMICS: Initial LV 116/12, no aortic valve gradient on pullback. ANGIOGRAPHY: RCA: The RCA is large, dominant, it has mild proximal luminal irregularity. The PDA is moderate to large, has a 75% proximal stenosis. Distally, the PDA supplies right to left collaterals to the second diagonal via transseptal collaterals, and to the distal third of the LAD via distal transseptal collaterals. More distal RCA has luminal irregularity with a small and then a moderate posterolateral, without significant distal stenosis. Left main: The left main is normal in size, has no stenosis. LAD: The LAD is moderate to large, supplies a small first diagonal, the LAD is then occluded. The second diagonal fills by left collaterals. There is competitive flow at its origin, in some frames it appears there is backflow from the second diagonal into the LAD. Circumflex: The circumflex is large, nondominant, with a moderate ramus, a small first marginal, a large second marginal, which has 75% proximal stenosis. The AV groove continuation has 40% stenosis, supplies only a small posterolateral branch. LV gram: There is moderate distal anterolateral and apical hypokinesis with a visually estimated LVEF of 45%. There is no mitral regurgitation. CONCLUSION: 1. Three-vessel disease in a young patient of 37, with a mildly impaired LV systolic function. 2. Normal left-sided hemodynamics. 3. He will be referred to a tertiary center for review regarding revascularization options, including possible hybrid procedure. [id number]/[facility] #: [id number] IRISH
== END 2018-10-19 10:15 | disposition short-term general hospital (02) ==
LOC: ED 10:37 → ICU 12:00
PROVIDERS: ADMIT Specialist; ATTEND Specialist
DX: R07.9 Chest pain, unspecified (principal); I10 Essential (primary) hypertension; E78.5 Hyperlipidemia, unspecified; F41.9 Anxiety disorder, unspecified; Z79.82 Long term (current) use of aspirin; F31.9 Bipolar disorder, unspecified; I25.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 native coronary artery without angina pectoris; E78.00 Pure hypercholesterolemia, unspecified; G47.30 Sleep apnea, unspecified; R51 Headache; Z87.891 Personal history of nicotine dependence; Z79.899 Other long term (current) drug therapy; R94.31 Abnormal electrocardiogram [ECG] [EKG]
CPT/HCPCS: 36415; 71045; 80053; 81003; 82565; 83036; 83605; 84484; 85025; 85610; 85730; 87641; 93005; 93306; 93458; 96361; 96365; 96366; 96372; 96375; 99156; 99157; 99285; A9270-GY; C8929; G0378; J1200; J1644; J2250; J2405; J3010

== ENCOUNTER 2018-10-30 21:19 | Inpatient (IN) | payer BC ==
[2018-10-30] MEDS ORDERED: NS 0.9% 1000 ML** 1,000 ML IV ONE (21:34)
[2018-10-30] MEDS ORDERED: Morphine 4 MG/ML VIAL (1 ml) 4 MG/ML VIAL IV ONE (21:35)
--- OUTSIDE RECORDS SUMMARY | 2018-10-30 21:38 | XMS REPORT | Continuity of Care Document ---
:1980 External Reference #:[id number] Author Name Lauro Brown M.D. (transmitted by agent of provider Nannette Santos) Address [address] [place] [address] Care Team Providers Name Role Phone Kem Celaya MD - Family Medicine Care Team Information Preschool Adviser [phone] Radha Julien MD - Internal Medicine Care Team Information Preschool Adviser Problems Active Problems Provider Date Obstructive sleep apnea syndrome Glory Almonte MD Onset: 11/30/2013 Obstructive sleep apnea syndrome Glory Almonte MD Onset: 12/11/2013 Sprain of unspecified site of left knee, Kelechi Smith M.D. Onset: 2014 subsequent encounter Degeneration of cervical intervertebral disc Jorge Luis Harvey M.D. Onset: 05/10 Social History Type Date Description Comments Sex Unknown ETOH Use Occasionally consumes alcohol Tobacco Use Start: Unknown Patient is a former End: Unknown smoker Recreational Drug Use Never Used Drugs Prior marijuana use Smoking Status Reviewed: 10/18/18 Patient is a former smoker Exercise Type/Frequency [...] Gama 03/14/2017 200-300mg day [place] Alexandra Tablets Probiotic Daily 4 by mouth every Unknown day Capsules Magnesium 1 by mouth every Unknown 400mg Tablets day Inositol 5,000 mg/day Unknown 500mg Tablets O-Jwkhwm-S-Cysteine takes 2000 mg per Unknown day 600mg Capsules S-Adenosylmethionine 1600 mg/day Unknown Fish Oil Takes 1500mg three Unknown 1000mg times a day Capsules Aspirin Adult Low 1 by mouth every Unknown Dose day 81mg Tablets DR Celecoxib Take 1 Capsule By Unknown 200mg Mouth Every Day Capsules Amlodipine Besylate once daily Renetta Mclean 5mg C ,CFNP Tablets Shannon Allergy 1 by mouth every Unknown [...] Medication SIG Qnty Indications Ordering Provider Date Technetium TC 99M Reymundo Ortiz DO [facility] 10/18/2018 Tetrofosmin, Per Unit Dose Up To 40 Millicuries Injection Influenza,Unspecified Unknown 11/14/2016 Injection Immunizations Description No [...] Date Facility Test Result H/L Range Note Inr/Protime 10/18/2018 [facility] Inr 0.98 Normal 0.82-1.[address] [place] [address] [phone] Laboratory test 10/18/2018 [facility] Partial 34.9 seconds Normal 26.0-38.[address] [place] [address] PTT [phone] CBC Auto Diff 10/18/2018 [facility] White Blood 13.8 10^3/uL High 3.5-10.[address] [place] [address] [phone] Red Blood Count 5.14 10^6/uL Normal 4.18-5.48 Hemoglobin 15.9 g/dL Normal 14.0-18.0 Hematocrit 47 % Normal 42-52 Mean Corpuscular Volume 91 fL Normal 80-94 Mean Corpuscular Hemoglobin 31 pg Normal 27-31 Mean Corpuscular HGB Conc 34 g/dL Normal 31-36 Red Cell Distribution Width 13 % Normal 10-15 Platelet Count 208 10^3/uL Normal 150-450 Mean Platelet Volume 7.9 fL Normal 7.4-10.4 Abs Neutrophils 10.2 10^3/uL High 1.5-7.7 Abs Lymphocytes 2.4 10^3/uL Normal 1.0-4.8 Abs Monocytes 0.8 10^3/uL Normal 0-0.8 Abs Eosinophils 0.3 10^3/uL Normal 0-0.6 Abs Basophils 0.1 10^3/uL Normal 0-0.2 Abs Nucleated RBC 0.0 10^3/uL Granulocyte % 74.2 % Lymphocyte % 17.3 % Monocyte % 5.8 % Eosinophil % 1.9 % Basophil % 0.8 % Nucleated Red Blood Cells % 0.1 Comp Metabolic 10/18/2018 [facility] Sodium 138 mmol/L Normal 135-[address] [place] [address] [phone] Potassium 4.3 mmol/L Normal 3.5-5.0 Chloride 109 mmol/L Normal 101-111 Co2 Carbon Dioxide 23 mmol/L Normal 22-32 Anion Gap 6 mmol/L Normal 2-11 Glucose 101 mg/dL High 70-100 Blood Urea Nitrogen 16 mg/dL Normal 6-24 Creatinine 0.78 mg/dL Normal 0.67-1.17 BUN/Creatinine Ratio 20.5 High 8-20 Calcium 9.4 mg/dL Normal 8.6-10.3 Total Protein 6.7 g/dL Normal 6.4-8.9 Albumin 4.4 g/dL Normal 3.2-5.2 Globulin 2.3 g/dL Normal 2-4 Albumin/Globulin Ratio 1.9 Normal 1-3 Total Bilirubin 0.60 mg/dL Normal 0.2-1.0 Alkaline Phosphatase 97 U/L Normal 34-104 Alt 43 U/L Normal 7-52 Ast 21 U/L Normal 13-39 Egfr Non- 112.0 >60 Egfr 135.5 >60 2 Laboratory test 10/18/2018 [facility] Troponin-I (TnI) 0.00 ng/ mL <0.[address] [place] [address] [phone] Hemoglobin A1c (Glyco HGB) 5.4 % Normal 4.0-5.6 4 Order 10/18/2018 [facility] Stress Test, <pending> [address] [place] [address] [phone] Lipid Profile 10/09/2018 [facility] Triglycerides 479 mg/dL 5 (Trig/Chol/HD [address] L) [place] [address] [phone] Cholesterol 322 mg/dL 6 HDL Cholesterol 34.0 mg/dL 7 LDL Cholesterol (SEE NOTE) mg/dL 8 Laboratory test 10/09/2018 [facility] Troponin-I (TnI) 0.01 ng/ mL <0.04 [address] [place] [address] [phone] TSH (Thyroid Stim Horm) 0.44 mcIU/mL Normal 0.34-5.60 LDL Cholesterol Direct 185 mg/dL 10 CBC Auto 09/13/2018 [facility] White Blood 12.6 10^3/uL High 3.5-10.[address] [place] [address] [phone] Red Blood Count 4.81 10^6/uL Normal 4.18-5.48 [...] Blood Cells % 0.0 Comp Metabolic 09/13/2018 [facility] Sodium 140 mmol/L Normal 135-[address] [place] [address] [phone] Potassium 3.4 mmol/L Low 3.5-5.0 Chloride 109 [...] Egfr Non- 100.1 >60 Egfr 121.1 >60 11 Laboratory test 09/13/2018 [facility] C Reactive 11.10 mg/L High <8.[address] [place] [address] [phone] Urinalysis 09/13/2018 [facility] Urine Color Yellow Profile [address] [place] [address] [phone] Urine Appearance Cloudy Urine Specific Java 1.018 Normal 1.010-1.030 Urine pH 6.0 Normal 5-9 Urine Urobilinogen Negative Negative Urine Ketones Negative Negative Urine Protein Negative Negative Urine Leukocytes Negative Negative Urine Blood Negative Negative Urine Nitrite Negative Negative Urine Bilirubin Negative Negative Urine Glucose Negative Negative Basic Metabolic 09/05/2018 [facility] Sodium 142 mmol/L Normal 135-[address] [place] [address] [phone] Potassium 4.0 mmol/L Normal 3.5-5.0 Chloride 109 mmol/L Normal 101-111 Co2 Carbon Dioxide 24 mmol/L Normal 22-32 Anion Gap 9 mmol/L Normal 2-11 Glucose 94 mg/dL Normal 70-100 Blood Urea Nitrogen 14 mg/dL Normal 6-24 Creatinine 0.91 mg/dL Normal 0.67-1.17 BUN/Creatinine Ratio 15.4 Normal 8-20 Calcium 10.5 mg/dL High 8.6-10.3 Egfr Non- 93.7 >60 Egfr 113.4 >60 12 HIV-1 Rna QNT 09/05/2018 [facility] HIV-1 Rna Undetected Undetected 13 By PCR Sli [address] [employer] (PCR) copies/[place] [address] [phone] Laboratory 09/05/2018 [facility] Syphillis Negative Negative test finding [address] [place] [address] W/Reflex [phone] RPR Laboratory 06/28/2018 [facility] TSH 1.23 mcIU/mL Normal 0.34- 5.[address] ([place] [address] Stim Horm) [phone] T3 Total 124 ng/dL Normal 87-178 Thyroxine 5.72 g/dL Low 6.09-12.23 Methylmalonic Acid Mma 0.14 nmol/mL <=0.40 14 Protein 06/28/2018 [facility] Total 7.1 g/dL 6.3 - Electrophoresis DRIVE Protein(Pep) 7.9 [place] [address] [phone] Albumin 4.1 g/dL 3.4-4.7 Alpha-1 Globulin 0.2 g/dL 0.1-0.3 Alpha-2 Globulin 0.9 g/dL 0.6-1.0 Beta Globulin 1.1 g/dL 0.7-1.2 Gamma Globulin 0.8 g/dL 0.6-1.6 Albumin/Globulin Ratio 1.38 Impression See Comment 15 Laboratory 06/28/2018 [facility] Topamax 5.7 g/mL 16 test finding ticckle (Topiramate) [place] [address] [phone] Laboratory 06/28/2018 [facility] Shuqualak 0.51 mmol/L Low 0.6- 1.2 test [place] [address] [phone] Laboratory 06/21/2018 [facility] Potassium 4.1 mmol/L Normal 3.5-5.0 test [place] [address] [phone] HIV 1/2 AB 06/13/2018 [facility] HIV 1 2 Nonreactive Nonreactive 17 [address] [employer] [place] [address] [phone] Laboratory 06/13/2018 [facility] Syphillis Igg Negative Negative test finding [employer] W/[place] [address] [phone] CBC Auto 06/13/2018 [facility] White Blood 9.9 10^3/uL Normal 3.5-10.8 [place] [address] [phone] Red Blood Count 5.32 10^6/uL Normal 4.18-5.48 [...] Blood Cells % 0.2 Laboratory test 06/13/2018 [facility] Ferritin 61.7 ng/mL Normal 24-336 finding [address] [place] [address] [phone] Vitamin B12 296 pg/mL Normal 180-914 18 PSA Screening 0.968 ng/mL Normal 0-4.000 19 Urinalysis Profile 06/13/2018 [facility] Urine Color Yellow [address] [place] [address] [phone] Urine Appearance Clear Urine Specific Java 1.009 Low 1.010-1.030 Urine pH 7.0 Normal 5-9 Urine Urobilinogen Negative Negative Urine Ketones Negative Negative Urine Protein Negative Negative Urine Leukocytes Negative Negative Urine Blood Negative Negative Urine Nitrite Negative Negative Urine Bilirubin Negative Negative Urine Glucose Negative Negative Comp Metabolic 06/13/2018 [facility] Sodium 139 mmol/L Normal 135-145 Panel [address] [place] [address] [phone] Potassium 2.8 mmol/L Low 3.5-5.0 Chloride 101 [...] Egfr Non- 95.0 >60 Egfr 114.9 >60 20 Laboratory test 06/13/2018 [facility] Lyme Screen Negative Negative finding [address] W/ [place] [address] WB [phone] 1 Standard intensity warfarin therapeutic range: 2.0-3.0 High intensity warfarin therapeutic range: 2.5-3.5 2 Because ethnic data is not always [...] 5 Kidney failure <15 (or dialysis) 3 Troponin-I testing on Plasma Separator Tubes (PST) has a known false positive rate of 0.20-0.40%. All positive troponins reflex immediately to secondary confirmatory testing. Using the [employer] Access Immunoassay systems, the 99th percentile upper reference limit was demonstrated to be < 0.03 ng/mL. 4 Therapeutic target for the treatment of diabetes mellitus patients is <7% HBA1C, and in selective patients <6.0%. Please refer to [place] [employer] diabetic care guidelines for further information. 5 Desirable: <150 Borderline High: 150-199 High: 200-499 Very High: >500 6 Desirable: <200 Borderline High: 200-239 High: >239 7 Low: <40 Desirable: 40-60 High: >60 8 Unable to calculate LDL as triglyceride is > 400 9 Troponin-I testing on Plasma Separator Tubes (PST) has a known false positive rate of 0.20-0.40%. All positive troponins reflex immediately to secondary confirmatory testing. Using the [employer] DxI 800 Access Immunoassay systems, the 99th percentile upper reference limit was demonstrated to be < 0.03 ng/mL. 10 Desirable: <100 Near Optimal: 100-129 Borderline High: 130-159 High: 160-189 Very High: >189 11 Because ethnic data is not always readily [...] 15-29 5 Kidney failure <15 (or dialysis) 12 Because ethnic data is not always [...] 5 Kidney failure <15 (or dialysis) 13 Result in log copies/mL is Undetected. ADDITIONAL INFORMATION The quantification range of this assay is 20 to 10,000,000 copies/mL (1.30 log to 7.00 log copies/mL). Testing was performed using the tano HIV-1 test ([employer] with the tano [employer] System. This test has been modified from the production grip's instructions. Its performance characteristics were determined by [facility] in a manner consistent with CLIA requirements. This test has not been cleared or approved by the U.S. Food and Drug Administration. Test Performed by: [facility] - [address] [address] 14 ADDITIONAL INFORMATION This test was developed and its performance characteristics determined by [facility] in a manner consistent with CLIA requirements. This test has not been cleared or approved by the U.S. Food and Drug Administration. Test Performed by: [facility] - [address] [address] 15 RESULT: No apparent monoclonal protein on serum electrophoresis. Test Performed by: [facility] - [address] [address] 16 REFERENCE VALUE Reference values depend on clinical use: Anticonvulsant: 5.0-20.0 mcg/mL Psychiatric: 2.0-8.0 mcg/mL ADDITIONAL INFORMATION This test was developed and its performance characteristics determined by [facility] in a manner consistent with CLIA requirements. This test has not been cleared or approved by the U.S. Food and Drug Administration. Test Performed by: [facility] - [facility] [address] [place] [address] 17 It is recognized that currently available assays [...] 95% confidence interval of 99.78 to 99.96%. 18 Normal Range 180 to 914 Indeterminate Range 145 to 180 Deficient Range <145 19 Serum levels of PSA measured using the [employer] DXI Hybritech immunoassay should not be interpreted as absolute evidence of the presence or absence of disease. The PSA value should be used in conjunction with other pertinent clinical diagnostic procedures. The values obtained with different assay methods or kits cannot be used interchangeably. 20 Because ethnic data is not always [...] (or dialysis) Procedures Date Code Description Status 10/18/2018 14963 Myocardial Perfusion Imaging Tomographic (Spect) Multiple Completed Studies 10/09/2018 05880 EKG Tracing & Interpretation Completed 07/21/2018 48082 Polysomnography Sleep Staging 4+ Parameters Completed 07/21/2018 26809 Polysomnography Sleep Staging 4+ Parameters Completed 06/19/2018 22650 Sleep Study Unattended,HRT Rate,Oxygen Sat,Resp Completed Effort/Airflow Medical Devices Description No Information Available Encounters Type Date Location Provider Dx Diagnosis Office Visit 10/09/2018 [facility] Internal Jose Rodriguez NP I10 Essential (primary ) 10:00a Medicine - [facility] hypertension R07.89 Other chest pain R22.2 Localized swelling, mass and lump, trunk K57.92 Dvtrcli of intest, part unsp, w/o perf or abscess w/o bleed R94.31 Abnormal electrocardiogram [ECG] [EKG] Office Visit 09/18/2018 [facility] Sanchez Gama Z11.4 Encounter for 4:00p For Infectious [place] Alex[place] screening for human Diseases immunodeficiency virus Z79.899 Other jail (current) drug therapy Office Visit 08/21/2018 [facility] G47.33 Obstructive sleep 2:00p [facility] Rubalcava apnea (adult) [facility] (pediatric) G47.00 Insomnia, unspecified Office Visit 07/26/2018 1:00p [place] Eduardo cEheverria, G43.109 Migraine with Neurologic SALES AND LEASING AGENT aura, not Services [facility] intractable, w/o status migrainosus G62.9 Polyneuropathy, unspecified Z79.899 Other longwall headgate operator (current) drug therapy M54.81 Occipital neuralgia Office Visit 06/28/2018 2:20p [facility] Internal Jose Rodriguez G47.00 Insomnia, Medicine - [facility] SALES [employer] LEASING AGENT unspecified I10 Essential (primary) hypertension Office Visit 06/23/2018 [facility] Eduardo Echeverria, G43.109 Migraine with 3:30p Clinic SALES AND LEASING AGENT aura, not intractable, w/o status migrainosus Z79.899 Other jail (current) drug therapy G62.9 Polyneuropathy, unspecified Office Visit 06/19/2018 [facility] Denisha Drew Z11.4 Encounter for 4:00p For Infectious F[facility]HAD Mart screening for human Diseases immunodeficiency virus Z11.3 Encntr screen for infections w sexl mode of transmiss Z79.899 Other longwall headgate operator (current) drug therapy Office Visit 06/13/2018 11:00a [facility] Glory G47.33 Obstructive sleep Sleep Services [facility] MD Suzy apnea (adult) Saige (pediatric) G47.00 Insomnia, unspecified Office Visit 06/07/2018 1:00p [facility] Internal Jose Michael, R35.0 Frequency of Medicine - [facility] SALES [employer] LEASING AGENT micturition R53.83 Other fatigue R10.819 Abdominal tenderness, [...] Harvey M.D. 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 10/18/2018 F17.201 Nicotine dependence, unspecified, in Reymundoalfonzo Putnamsajan DO [facility] remission 10/18/2018 I10 Essential (primary) hypertension Reymundo Ortiz, DO [facility] 10/18/2018 E78.5 Hyperlipidemia, unspecified Reymundo SDemarcus Ortiz, DO [facility] 10/18/2018 E66.8 Other obesity Reymundo Ortiz, DO [facility] 10/18/2018 R07.89 Other chest pain Jose Michael SALES [employer] LEASING AGENT 10/18/2018 R94.31 Abnormal electrocardiogram [ECG] Jose Rodriguez NP [EKG] 10/09/2018 R94.31 Abnormal electrocardiogram [ECG] Enedina Abreu MD [EKG] 10/09/2018 I10 Essential (primary) hypertension Jose Rodriguez NP 10/09/2018 R07.89 Other chest pain Enedina Abreu MD 10/09/2018 R07.89 Other chest pain Josekevin Rodriguez NP 10/09/2018 R22.2 Localized swelling, mass and lump, Josekevin Rodriguez NP trunk 10/09/2018 K57.92 Diverticulitis of intestine, part Josekevin Rodriguez NP unspecified, without perforation or abscess [...] M.D. immunodeficiency virus [Hi 09/18/2018 Z79.899 Other longwall headgate operator (current) drug Sanchez Alexandra M.D. therapy 08/21/2018 G47.33 Obstructive sleep apnea (adult) Marina Rubalcava NP (pediatric) 08/21/2018 G47.00 Insomnia, unspecified Marina Rubalcava NP 07/26/2018 G43.109 Migraine with aura, not intractable, Eduardo Echeverria NP without status migraino 07/26/2018 G62.9 Polyneuropathy, unspecified Eduardo Juwan, SALES [employer] LEASING AGENT 07/26/2018 Z79.899 Other longwall headgate operator (current) drug Eduardo Echeverria NP therapy 07/26/2018 M54.81 Occipital neuralgia Eduardosly Echeverria, FARHAD 07/21/2018 G47.33 Obstructive sleep apnea (adult) Glory Almonte MD (pediatric) 06/28/2018 G47.00 Insomnia, unspecified Jose Rodriguez NP 06/28/2018 I10 Essential (primary) hypertension Jose Rodriguez NP 06/23/2018 G43.109 Migraine with aura, not intractable, Eduardo Echeverria NP without status migraino 06/23/2018 Z79.899 Other longwall headgate operator (current) drug Eduardo Echeverria NP therapy 06/23/2018 G62.9 Polyneuropathy, unspecified Eduardo Olgamaria dolores, SALES AND LEASING AGENT 06/19/2018 G47.33 Obstructive sleep apnea (adult) Glory Almonte MD (pediatric) 06/19/2018 Z11.4 Encounter for screening for human Denisha Mart NP immunodeficiency virus [Hi 06/19/2018 Z11.3 Encounter for screening for Denisha Mart NP infections with a predominantly 06/19/2018 Z79.899 Other jail (current) drug Denisha Mart NP therapy 06/13/2018 G47.33 Obstructive sleep apnea (adult) Glory Almonte MD (pediatric) 06/13/2018 G47.00 Insomnia, unspecified Glory Almonte MD 06/07/2018 R35.0 Frequency of micturition Josekevin Rodriguez, SALES AND LEASING AGENT 06/07/2018 R53.83 Other fatigue Josekevin Rodriguez, SALES AND LEASING AGENT 06/07/2018 R10.819 Abdominal tenderness, unspecified Josekevin Rodriguez, SALES AND LEASING AGENT site 06/07/2018 G47.00 Insomnia, unspecified Jose Michael, SALES AND LEASING AGENT 06/07/2018 R11.2 Nausea with vomiting, unspecified Jose Michael, SALES AND LEASING AGENT 06/07/2018 M54.5 Low back pain Josekevin Rodriguez SALES AND LEASING AGENT 06/07/2018 M50.10 Cervical disc disorder with Josekevin Rodriguez SALES AND LEASING AGENT radiculopathy, unspecified cervi 06/07/2018 I10 Essential (primary) hypertension Jose Michael, SALES AND LEASING AGENT 06/07/2018 R42 Dizziness and giddiness Jose iMchael, SALES AND LEASING AGENT 06/07/2018 G43.109 Migraine with aura, not intractable, Josekevin Rodriguez, SALES AND LEASING AGENT without status migraino 06/07/2018 R41.3 Other amnesia Jose Michael, SALES AND LEASING AGENT 05/10/2018 M50.320 Other cervical disc degeneration, Jorge Luis Harvey M.D. mid-cervical region, [facility] Plan of Treatment Future Appointment(s):10/30/2018 4:00 pm - Reymundo Ortiz DO FAC at [place] [facility]04/10/2019 3:45 pm - Jorge Luis Lee M.D. at [place] [facility]12/18/2018 4:00 pm - [place] Alexandra M.D. at [facility] For [facility]ious [facility]40/20/2019 - Jorge Luis Lee M.D.G43.109 Migraine with aura, not intractable, without status migrainoFollow up:6 inkiywU44.5 Low back painM54.2 Cervicalgia Functional Status Description No Information Available Mental Status Description No Information Available Referrals Refer to Dr Reason for Referral Status Appt Date Sherman Beckman MD Sent [address] [place] [address] [place] [address] [phone] [facility] Sent 10/30/[address] [place] [address] [phone] [facility] Received Partial 10/26/[address] [place] [address] [phone] Pain Clinic Closed [address] [place] [address] [phone]
[2018-10-30 21:58] LABS: ABS Basophils 0.1 10^3/ul (0-0.2); ABS Eosinophils 0.3 10^3/ul (0-0.6); ABS Lymphocytes 2.6 10^3/ul (1.0-4.8); ABS Monocytes 1.2 10^3/ul (0-0.8); ABS Neutrophils 6.4 10^3/ul (1.5-7.7); Eosinophil % 2.9 %; Hematocrit 42 % (42-52); Hemoglobin 14.5 g/dL (14.0-18.0); Lymphocyte % 24.4 %; Mean Corpuscular HGB Conc 35 g/dL (31-36); Mean Corpuscular Hemoglobin 31 pg (27-31); Mean Corpuscular Volume 89 fL (80-94); Mean Platelet Volume 7.3 fL (7.4-10.4); Platelet Count 343 10^3/uL (150-450); Red Blood Count 4.65 10^6 /uL (4.18-5.48); Red Cell Distribution Width 13 % (10-15); White Blood Count 10.6 10^3/uL (3.5-10.8)
[2018-10-30 22:24] LABS: Troponin I 0.01 ng/mL (<0.04)
[2018-10-30 22:25] LABS: Albumin 4.4 g/dL (3.2-5.2); Albumin/Globulin Ratio 1.7 (1-3); BUN/Creatinine Ratio 16.1 (8-20); Calcium 9.2 mg/dL (8.6-10.3); EGFR African American 110.6 (>60); EGFR Non-African American 91.4 (>60); Globulin 2.6 g/dL (2-4); Total Bilirubin 0.5 mg/dL (0.2-1.0)
[2018-10-30 22:28] LABS: INR 1.25 (0.82-1.09)
[2018-10-31] MEDS ORDERED: oxyCODONE TAB* 5 MG TAB PO ONE (01:26)
[2018-10-31] MEDS ORDERED: ELETRIPTAN 40 MG PO PRN (04:02)
[2018-10-31] MEDS ORDERED: Acetaminophen TAB* 325 MG PO PRN (04:02)
[2018-10-31] MEDS: Morphine 4 MG/ML VIAL (1 ml) 4 MG/ML VIAL IV PRN ×4 (04:03→20:28)
[2018-10-31] MEDS: Ondansetron INJ* 2 MG/ML VIAL IV PRN ×2 (04:03→23:34)
--- NOTE | 2018-10-31 05:17 | ED ---
HPI Chest Pain - HPI Summary HPI Summary: Patient is a 38 y/o M with recent CABG at [facility], [place] last week who presents to ED with complaints of chest pain and left calf pain. He states that he had onset of intermittent pain at left calf yesterday. Around 45 minutes ago, patient had onset of diffuse chest pain while he was lying on a couch. He notes that the chest pain is dissimilar to that which he had during his previous MS. Pain is aggravated by breathing. Patient is on ASA 325 mg daily. He states that he is being treated for diverticulitis with antibiotics as well. He denies vomiting. On triage, pain is rated 8/10, nothing is noted to aggravate/alleviate Sx. Home medications and allergies are reviewed. - History of Current Complaint Chief Complaint: EDChestPainROMI Time Seen by Provider: 10/30/18 21:29 Hx Obtained From: Patient Onset/Duration: Started Minutes Ago - chest pain, Started Days Ago - left calf pain Timing: Lasting Minutes - chest pain, Lasting Days - left calf pain Current Severity: Severe Pain Intensity: 8 Pain Scale Used: 0-10 Numeric Chest Pain Location: Diffuse Aggravating Factor(s): Deep Breaths Alleviating Factor(s): Nothing Associated Signs and Symptoms: Positive: Chest Pain, Calf Pain/Swelling. Negative: Vomiting - Additional Pertinent History Primary Care Physician: ELISA - Allergy/Home Medications Allergies/Adverse Reactions: Allergies Allergy/AdvReac Type Severity Reaction Status Date / Time clarithromycin [From Biaxin] Allergy Severe Hives Verified 10/30/18 21:35 Home Medications: Home Medications Acetaminophen TAB* [Tylenol TAB*] 650 mg PO Q4H PRN 10/30/18 [History Confirmed 10/30/18] Ascorbic Acid TAB* [Vitamin C TAB*] 500 mg PO DAILY 10/30/18 [History Confirmed 10/30/18] Atorvastatin* [Lipitor 80 MG*] 80 mg PO BEDTIME 10/30/18 [History Confirmed ] Carvedilol TAB* [Coreg TAB*] 6.25 mg PO BID 10/30/18 [History Confirmed 10/30/18 ] Eletriptan 40 mg (Nf)* [Relpax (NF)] 40 mg PO DAILY PRN MDD 80 mg 10/30/18 [ History Confirmed 10/30/18] Ferrous Gluconate TAB* [Fergon TAB*] 325 mg PO BID 10/30/18 [History Confirmed 10/30/18] Folic Acid TAB* [Folvite TAB*] 1 mg PO DAILY 10/30/18 [History Confirmed ] Gabapentin CAP(*) [Neurontin 300 CAP(*)] 300 mg PO BID 10/30/18 [History Confirmed 10/30/18] Magnesium Oxide TAB* [MagOx 400 TAB*] 400 mg PO DAILY 10/30/18 [History Confirmed 10/30/18] Multivitamins/Minerals TAB* [Theragran/minerals TAB*] 1 tab PO DAILY 10/30/18 [ History Confirmed 10/30/18] [place]-3 Fatty Acids (Nf) [Fish Oil (NF)] 1,500 mg PO TID 10/30/18 [History Confirmed 10/30/18] Oxycodone TAB(NF) [Oxycodone HCl 10 MG] 10 - 15 mg PO Q4HR PRN 10/30/18 [ History Confirmed 10/30/18] PMH/Surg Hx/FS Hx/Imm Hx Endocrine/Hematology History: Denies: Hx Anticoagulant Therapy, Hx Diabetes, Hx Thyroid Disease, Hx Anemia Cardiovascular History: Reports: Hx Angina, Hx Coronary Artery Disease - CHOLESTEROL CONTROL WITH MEDS, Hx Hypercholesterolemia, Hx Hypertension - ON MEDS, Hx Myocardial Infarction Denies: Hx Congestive Heart Failure, Hx Deep Vein Thrombosis, Hx Pacemaker/ ICD, Hx Valvular Heart Disease Respiratory History: Reports: Hx Sleep Apnea - evaluation for 06/2013, another scheduled for 07/2018 Denies: Hx Asthma, Hx Chronic Obstructive Pulmonary Disease (COPD), Hx Lung Cancer, Hx Pneumonia, Hx Pulmonary Embolism GI History: Reports: Other GI Disorders - enlarged liver 2019 Denies: Hx Gall Bladder Disease - possible gallstones on MRI 2019, Hx Gastrointestinal Bleed, Hx Jaundice, Hx Ulcer, Hx Urosepsis History: Denies: Hx Chronic Renal Failure, Hx Dialysis, Hx Kidney Stones, Hx Renal Disease Musculoskeletal History: Reports: Hx Arthritis, Hx Back Problems, Other Musculoskeletal History - osteo-arthritis Right foot Denies: Hx Rheumatoid Arthritis, Hx Osteoporosis, Hx Scoliosis Sensory History: Reports: Hx Contacts or Glasses Denies: Hx Cataracts, Hx Hearing Aid Opthamlomology History: Reports: Hx Contacts or Glasses Denies: Hx Cataracts Neurological History: Reports: Hx Headaches - HX MIGRAINES, Hx Migraine - NONE FOR ONE MONTH SINCE ON TOPAMAX, Other Neuro Impairments/Disorders - migraines Denies: Hx Dementia, Hx Seizures, Hx Transient Ischemic Attacks (TIA) Psychiatric History: Reports: Hx Anxiety - ON MEDS, Hx Eating Disorder - reports inconsistent eating habits, times of binging, others restricting, Hx Depression, Hx Bipolar Disorder - on [place] for depression Denies: Hx Panic Disorder, Hx of Violent Episodes Against Others - Pt denied - Surgical History Surgery Procedure, Year, and Place: right foot fusion, 2013? wisdom teeth removal Hx Anesthesia Reactions: Yes - LOCAL ANESTHESIA ONLY - Immunization History Date of Tetanus Vaccine: 2011 Infectious Disease History: No Infectious Disease History: Denies: Hx Hepatitis, Hx Human Immunodeficiency Virus (HIV), History Other Infectious Disease, Traveled Outside the [place] in Last 30 Days - Family History Known Family History: Positive: Hypertension, Other - [place] Negative: Cardiac Disease - Social History Alcohol Use: Rare Alcohol Amount: 1 drink a month Hx Substance Use: Yes Substance Use Type: Reports: None Substance Use Comment - Amount & Last Used: marajuana 2-3 times a Hx Tobacco Use: Yes Smoking Status (MU): Former Smoker Type: Cigarettes Amount Used/How Often: 3 CIG/DAY Length of Time of Smoking/Using Tobacco: 15 YEARS Have You Smoked in the Last Year: Yes - quit April 2018 Review of Systems Positive: Chest Pain Negative: Vomiting Musculoskeletal: Other - positive - calf pain All Other Systems Reviewed And Are Negative: Yes Physical Exam - Summary Physical Exam Summary: Appearance: Well-appearing, Well-nourished, lying in bed comfortably Skin: Warm, dry, no obvious rash; healing surgical wounds at left chest, sutures are clean and dry and healing well. There is no tenderness to palpation. Eyes: sclera anicteric, no conjunctival pallor ENT: mucous membranes moist, pharynx appears normal Neck: Supple, nontender Respiratory: Clear to auscultation, no signs of respiratory distress Cardiovascular: Normal S1, S2. No murmurs. Normal distal pulses in tibial and radial bilaterally. Abdomen: Soft, nontender, normal active bowel sounds present Musculoskeletal: Normal, Strength/ROM Intact; left leg is non-tender and not swollen. Neurological: A&Ox3, awake and alert, mentation is normal, speech is fluent and appropriate Psychiatric: affect is normal, does not appear anxious or depressed Triage Information Reviewed: Yes Vital Signs On Initial Exam: Initial Vitals Pulse Resp BP Pulse Ox 91 24 135/84 97 10/30/18 21:28 10/30/18 21:28 10/30/18 21:28 10/30/18 21:28 Vital Signs Reviewed: Yes Diagnostics - Vital Signs Vital Signs Temp Pulse Resp BP Pulse Ox 10/31/18 03:00 82 16 94 10/31/18 02:58 81 20 115/84 94 10/31/18 02:28 79 21 128/67 95 10/31/18 02:00 76 25 96 10/31/18 01:58 69 25 128/77 96 10/31/18 01:30 81 25 94/70 96 10/31/18 01:00 73 25 94 10/31/18 00:58 75 31 126/78 96 10/31/18 00:28 75 27 137/86 96 10/31/18 00:00 81 21 96 10/30/18 23:58 70 26 125/78 95 10/30/18 23:29 73 29 138/70 96 10/30/18 23:00 75 21 97 10/30/18 22:58 74 28 123/77 95 10/30/18 22:49 77 25 97 10/30/18 22:28 76 24 138/82 97 10/30/18 22:07 82 28 97 10/30/18 21:58 82 125/90 97 10/30/18 21:49 16 10/30/18 21:30 99.5 F 84 18 135/84 97 10/30/18 21:28 91 24 135/84 97 - Laboratory Lab Results: Lab Results 10/30/18 10/30/18 10/30/18 Range/Units 21:48 21:48 21:48 WBC 10.6 (3.5-10.8) 10^3/uL RBC 4.65 (4.18-5.48) 10^6 /uL Hgb 14.5 (14.0-18.0) g/dL Hct 42 (42-52) % MCV 89 (80-94) fL MCH 31 (27-31) pg MCHC 35 (31-36) g/dL RDW 13 (10-15) % Plt Count 343 (150-450) 10^3/uL MPV 7.3 L (7.4-10.4) fL Neut % (Auto) 60.6 % Lymph % (Auto) 24.4 % [place] % (Auto) 11.0 % Eos % (Auto) 2.9 % Baso % (Auto) 1.1 % Absolute Neuts (auto) 6.4 (1.5-7.7) 10^3/ul Absolute Lymphs (auto) 2.6 (1.0-4.8) 10^3/ul Absolute Monos (auto) 1.2 H (0-0.8) 10^3/ul Absolute Eos (auto) 0.3 (0-0.6) 10^3/ul Absolute Basos (auto) 0.1 (0-0.2) 10^3/ul Absolute Nucleated RBC 0.0 10^3/ul Nucleated RBC % 0.0 INR (Anticoag Therapy) 1.25 H (0.82-1.09) Sodium 138 (135-145) mmol/L Potassium 4.0 (3.5-5.0) mmol/L Chloride 106 (101-111) mmol/L Carbon Dioxide 24 (22-32) mmol/L Anion Gap 8 (2-11) mmol/L BUN 15 (6-24) mg/dL Creatinine 0.93 (0.67-1.17) mg/dL Est GFR ( Amer) 110.6 (>60) Est GFR (Non-Af Amer) 91.4 (>60) BUN/Creatinine Ratio 16.1 (8-20) Glucose 108 H (70-100) mg/dL Calcium 9.2 (8.6-10.3) mg/dL Total Bilirubin 0.50 (0.2-1.0) mg/dL AST 20 (13-39) U/L ALT 29 (7-52) U/L Alkaline Phosphatase 94 (34-104) U/L Troponin I 0.01 (<0.04) ng/mL Total Protein 7.0 (6.4-8.9) g/dL Albumin 4.4 (3.2-5.2) g/dL Globulin 2.6 (2-4) g/dL Albumin/Globulin Ratio 1.7 (1-3) 10/31/18 Range/Units 00:37 WBC (3.5-10.8) 10^3/uL RBC (4.18-5.48) 10^6 /uL Hgb (14.0-18.0) g/dL Hct (42-52) % MCV (80-94) fL MCH (27-31) pg MCHC (31-36) g/dL RDW (10-15) % Plt Count (150-450) 10^3/uL MPV (7.4-10.4) fL Neut % (Auto) % Lymph % (Auto) % [place] % (Auto) % Eos % (Auto) % Baso % (Auto) % Absolute Neuts (auto) (1.5-7.7) 10^3/ul Absolute Lymphs (auto) (1.0-4.8) 10^3/ul Absolute Monos (auto) (0-0.8) 10^3/ul Absolute Eos (auto) (0-0.6) 10^3/ul Absolute Basos (auto) (0-0.2) 10^3/ul Absolute Nucleated RBC 10^3/ul Nucleated RBC % INR (Anticoag Therapy) (0.82-1.09) Sodium (135-145) mmol/L Potassium (3.5-5.0) mmol/L Chloride (101-111) mmol/L Carbon Dioxide (22-32) mmol/L Anion Gap (2-11) mmol/L BUN (6-24) mg/dL Creatinine (0.67-1.17) mg/dL Est GFR ( Amer) (>60) Est GFR (Non-Af Amer) (>60) BUN/Creatinine Ratio (8-20) Glucose (70-100) mg/dL Calcium (8.6-10.3) mg/dL Total Bilirubin (0.2-1.0) mg/dL AST (13-39) U/L ALT (7-52) U/L Alkaline Phosphatase (34-104) U/L Troponin I 0.01 (<0.04) ng/mL Total Protein (6.4-8.9) g/dL Albumin (3.2-5.2) g/dL Globulin (2-4) g/dL Albumin/Globulin Ratio (1-3) Result Diagrams: 11/01/18 05:35 11/01/18 05:35 Lab Statement: Any lab studies that have been ordered have been reviewed, and results considered in the medical decision making process. - Radiology CXR Radiology Interpretation Completed By: ED Physician Summary of Radiographic Findings: CXR showed haziness to the left lingual, which is changed from recent film, pending official report. - Ultrasound LLE VENOUS DOPPLER STUDY Ultrasound Interpretation Completed By: ED Physician Summary of Ultrasound Findings: IMPRESSION: Deep vein thrombosis in one of 2 proximal and mid posterior tibial veins. THIS REPORT WAS REVIEWED BY DR. GARCÍA. - EKG 2138 Cardiac Rate: NL - rate of 84 BPM EKG Rhythm: Sinus Rhythm Summary of EKG Findings: NSR with rate of 84 BPM, stable Q waves and ST elevation, NSTEMI. EKG was reviewed and interpreted by ED physician. Chest Pain Course/Dx - Course Course Of Treatment: Patient is a 38 y/o M with recent CABG at [facility], [place] last week who presents to ED with complaints of chest pain and left calf pain. He states that he had onset of intermittent pain at left calf yesterday. Around 45 minutes ago, patient had onset of diffuse chest pain while he was lying on a couch. He notes that the chest pain is dissimilar to that which he had during his previous MS. Pain is aggravated by breathing. Patient is on ASA 325 mg daily. There are healing surgical wounds at left chest, sutures are clean and dry and healing well. There is no tenderness to palpation. Left leg is non- tender and not swollen. EKG showed NSR with rate of 84 BPM, stable Q waves and ST elevation, NSTEMI. CXR showed haziness to the left lingual, which is changed from recent film. LLE VENOUS DOPPLER IMPRESSION: Deep vein thrombosis in one of 2 proximal and mid posterior tibial veins. Bloodwork was obtained. Labs showed MPV 7.3, absolute monos 1.2, INR 1.25, glucose 108. First and second drop was negative. During ED course, patient received fluids, oxycodone 10 mg PO and morphine 10 mg IV. 0048 - Patient's case was discussed with Dr. Valentino, Dr. Valentino accepts for admission. - Diagnoses Provider Diagnoses: DVT (deep venous thrombosis), Pulmonary embolism - Provider Notifications Discussed Care Of Patient With: Zheng Valentino Time Discussed With Above Provider: 00:48 Instructed by Provider To: Other - 0048 - Patient's case was discussed with Dr. Valentino, Dr. Movva accepts for admission. Discharge ED - Sign-Out/Discharge Documenting (check all that apply): Patient Departure - admit All imaging exams completed and their final reports reviewed: Yes Patient Received Moderate/Deep Sedation with Procedure: No - Discharge Plan Condition: Stable Disposition: ADMITTED TO [facility] - Billing Disposition and Condition Condition: STABLE Disposition: Admitted to [facility] - Attestation Statements Document Initiated by Leroye: Yes Documenting Scribe: KE CAMPOS Provider For Whom Elieser is Documenting (Include Credential): BEN GARCÍA MD Scribe Attestation: KE Venegas, scribed for BEN GARCÍA MD on 11/04/18 at 0617. Scribe Documentation Reviewed: Yes Provider Attestation: The documentation as recorded by the KE corbin accurately reflects the service I personally performed and the decisions made by , BEN GARCÍA MD Status of Scribe Document: Viewed
[2018-10-31] MEDS: oxyCODONE/Acetamin 5/325 MG* TAB PO PRN ×4 (06:04→23:34)
[2018-10-31] MEDS: amLODIPine TAB* 5 MG PO SCH (08:34)
[2018-10-31] MEDS: Folic Acid TAB* 1 MG PO SCH (08:35)
[2018-10-31] MEDS: Ferrous Gluconate TAB* 324 MG TAB PO SCH ×2 (08:43→20:27)
[2018-10-31] MEDS: Gabapentin CAP(*) 300 MG PO SCH ×2 (08:44→20:26)
[2018-10-31] MEDS: Ascorbic Acid TAB* 500 MG PO SCH (08:44)
[2018-10-31] MEDS: Carvedilol TAB* 6.25 MG PO SCH ×2 (08:45→20:26)
[2018-10-31] MEDS: Multivitamins/Minerals TAB PO SCH (08:45)
[2018-10-31] MEDS: Aspirin 81 mg CHEW TAB* 81 MG TAB.CHEW PO SCH (08:45)
[2018-10-31] MEDS: Magnesium Oxide TAB* 400 MG PO SCH (08:45)
[2018-10-31] MEDS: Rivaroxaban TAB(*) 15 MG PO SCH ×2 (08:45→20:27)
[2018-10-31] MEDS: Topiramate TAB(*) 25 MG PO SCH ×2 (08:46→20:25)
[2018-10-31] MEDS: Tenofovir/Emtricitab 200/300 * TAB PO SCH (08:47)
[2018-10-31] MEDS: CMCS:OMEGA-3 FATTY ACIDS (NF) 1,000 MG CAP PO SCH ×3 (08:47→20:27)
[2018-10-31] MEDS ORDERED: Ferrous Gluconate TAB* 324 MG TAB PO SCH (09:00)
[2018-10-31] MEDS ORDERED: Iohexol 350* (CONTRAST) 500 ML MDV IV ONE (10:10)
[2018-10-31] MEDS: Furosemide TAB* 40 MG PO SCH (11:48)
--- NOTE | 2018-10-31 14:03 | CONS ---
CC: Dr. Julien; Dr. Reymundo Ortiz.* CONSULTATION REPORT: DATE OF CONSULT: 10/31/18 ATTENDING PHYSICIAN: Dr. Lauro Brown.* (DICTATED BY GURMEET RAYMOND NP) REASON FOR CONSULT: Acute left lower extremity deep vein thrombosis, status post bypass. PRIMARY PHYSICIAN: Dr. Julien. PRIMARY SOIL CONSERVATIONIST: Dr. Reymundo Ortiz. CHIEF COMPLAINT: Left lower extremity pain, chest pain. HISTORY OF PRESENT ILLNESS: This is a 38-year-old male patient, who follows Dr. Reymundo Ortiz of our practice due to known triple-vessel disease, status post MORALES to LAD on 10/24/18, hypertension, hyperlipidemia. The patient was recently transferred to [facility] for CABG with hybrid approach on 10/19/18 due to triple- vessel disease that was identified on his left heart catheterization. According to the patient, he underwent MORALES to LAD and is supposed to have staged intervention to right coronary artery and left circumflex. The patient was recently discharged from [facility] on 10/28/18. He states that he had frequent early ambulation post bypass. Apparently, on Tuesday10/29/18, he started to note left lower extremity pain and discomfort with swelling that was not improving. Thus, he presented to [facility] today at 5 o'clock in the morning. While being evaluated, he underwent a venous Doppler study, per report revealed acute left posterior tibial vein thrombus in the proximal mid aspect. The patient has not undergone chest CTA to rule out PE or V/Q scan. We have been asked to see the patient in consultation due to initiation of oral anticoagulation in the setting of recent CABG. The patient states he has been noting pleuritic chest pain worse with inspiration. Denies dizziness, syncope, palpitations. He is compliant with medications. He states that he has not heard back from Dr. Cisneros, film numberer at [facility] in regards to scheduling his staged intervention. He otherwise offers no other complaints. Apparently, he was treated for diverticulitis with IV Flagyl on 10/22/[address] [facility]. He denies any history of bleeding complications, requiring blood transfusions. Denies history of blood in the urine or stool. Last echocardiogram according to our medical records was 10/19/18, per report: LVEF 45% to 50%. There was hypokinesis of the apical myocardium, hypokinesis of the mid apical antral septal myocardium, trace mitral insufficiency, no aortic stenosis or aortic insufficiency. Last cardiac catheterization from the medical records was 10/23/18, per report: 1. Left main was normal in size. No stenosis. 2. LAD, moderate to large supplies the small first diag, LAD is not occluded. The second diag fills by left collaterals. There is competitive flow at its origin. In some frames, it appears that there is backflow from the second diag into the LAD. 3. Left circumflex, large, codominant with moderate ramus, small first marginal , and large second marginal, which has 75% proximal stenosis. AV groove continuation has 40% stenosis, supplies only a small posterolateral branch. 4. Right coronary, large dominant, has mild proximal luminal irregularity. PDA is moderate to large, has a 75% proximal stenosis. Distally the PDA supplies right to left collaterals to the second diagonal via transeptal collaterals and the distal third of the LAD via distal transeptal collaterals. LVEF on LV gram was 45%. PAST MEDICAL HISTORY: 1. Triple vessel coronary artery disease. 2. Hypertension. 3. Bipolar disorder. 4. Hyperlipidemia. 5. Diverticulitis. 6. Heart failure, mild reduction in ejection fraction. PAST SURGICAL HISTORY: CABG x1 at [facility] according to the patient, MORALES to LAD on 10/24/18 pending operative report, which was requested. HOME MEDICATIONS: 1. Norvasc 2.5 mg daily. 2. Topamax 150 mg p.o. b.i.d. 3. Gabapentin 300 mg p.o. b.i.d. 4. Truvada as directed. 5. Lipitor 80 mg p.o. q.h.s. 6. Aspirin 325 mg p.o. daily. 7. Coreg 6.25 mg p.o. b.i.d. 8. Furosemide 40 mg daily. 9. Laie 3 as directed. ALLERGIES: Listed include CLARITHROMYCIN. FAMILY HISTORY: Positive for cardiovascular disease in first-degree relatives ( his father). SOCIAL HISTORY: The patient formerly smoked tobacco products, however, he quit. Rare distant use of cocaine in his 20s. Denies illegal drug use at this time. 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 He lives home alone. Denies alcohol use. REVIEW OF SYSTEMS: All systems have been reviewed and are negative except as above mentioned in the HPI. PHYSICAL EXAM: Most recent set of vital signs, temperature 98.5, pulse 75, respirations 16, blood pressure 126/83, oxygenation 97% on room air. General: The patient was sitting up in bed, just finished his breakfast, upon entering room, does not appear to be in any distress. He is alert and oriented x3, cooperative with examination. HEENT: Head is atraumatic, normocephalic. Oral mucosa is moist. Tongue is midline. Neck: Supple. Trachea midline. No JVD. No carotid bruits. Cardiac: Normal S1 and S2. Regular rate and rhythm. No murmur, rub or gallop noted. Lungs: Auscultated posteriorly, no evidence of adventitious breath sounds. /GI: Abdomen is soft, nontender, nondistended, normoactive bowel sounds x4. Extremities: 3+ bilateral dorsalis pedis pulse palpated bilaterally and symmetrically, 3+ bilateral brachial pulse palpated bilaterally and symmetrically. SKIN: There is a 2 inch surgical incision noted under his left anterior chest, below breast. Incision is well approximated. No oozing, no hematoma. Surgical tape in place. Nontender to palpation. There is a small 1 cm surgical incision noted under left axilla, appears to be glued shut. No oozing, no hematoma, nontender to palpation. No inflammation. DIAGNOSTIC STUDIES/LAB DATA: Blood work obtained on 10/30/18, INR 1.25, sodium 138, potassium 4, chloride 106, carbon dioxide 24, BUN 15, creatinine 0.93, glucose 108, white count 10.6, hemoglobin 14.5, hematocrit 42, platelets 343. ECG obtained on 10/31/18 reviewed; sinus rhythm rate 84 with anterior Q-waves, comparable to prior ECG on 10/19/18. Chest x-ray 10/30/18 per radiology report; small left pleural effusion with patchy air space disease at the left lung base. ASSESSMENT AND PLAN: 1. Acute left lower extremity deep vein thrombosis; the patient is on Xarelto therapy. Aspirin has been reduced to 81 mg a day. CTA chest pending to rule out pulmonary embolus. I spoke with cardiothoracic surgeon, Dr. Gregorio at [facility] personally, who states that he was okay with the reduction of aspirin to 81 mg a day given initiation of oral anticoagulant therapy. He did ask that I recheck with Dr. Cisneros, who is supposed to do staged intervention. I have left a message with his nursing staff for him to contact us. 2. Status post bypass x1; surgical report pending. The patient states he had MORALES to LAD and still needs staged intervention to right coronary and left circumflex. The patient is on aspirin 81 mg a day, Coreg 6.25 mg p.o. b.i.d. and Lipitor therapy. He has complaints of pleuritic chest pain. CTA is pending to rule out pulmonary embolus, appears stable at this time. Isoenzymes normal x2. 3. History of hyperlipidemia, on atorvastatin 80 mg p.o. q.h.s. Goal LDL less than 70. 4. History of heart failure with mild reduction in EF; last echocardiogram was 10/19/18. Per report LVEF 45% to 50%. The patient is carvedilol therapy. He appears compensated on physical examination. We will resume home furosemide dose, which was prescribed prior to discharging from [facility]. 5. Disposition: Pending course Dr. Lauro Brown has personally seen and examined the patient and agrees with the above assessment and plan. Thank you for this kind consultation. We will update after I speak to Dr. Cisneros at the discretion of Dr. Gregorio, cardiothoracic surgeon, I was asked to update him the clinical status. Again, patient needs staged intervention and is now on aspirin 81 mg a day and oral coagulation due to acute deep vein thrombosis. GURMEET RAYMOND NP [id number]/[facility] #: [id number] IRISH
--- NOTE | 2018-10-31 16:08 | PN ---
Hospitalist Progress Note Date of Service: 10/31/18 Re-eval Brief Note: Patient seen and examined. Family at bedside. Complaint of left calf pain and chest pain primarily with deep inspiration. CTA chest negative for PE, no dissection. Continue xarelto with ASA 81mg daily. Pending reports from [facility] CV surgery. Continue telemetry monitoring. Cardiology consult appreciated.
[2018-10-31] MEDS: Atorvastatin* 80 MG TAB PO SCH (20:26)
--- NOTE | 2018-10-31 20:52 | HP ---
CC: Dr. Lauro Brown; Dr. Radha Julien * ADMISSION HISTORY AND PHYSICAL: DATE OF ADMISSION: 10/31/18 CHIEF COMPLAINT: Chest discomfort and left calf pain. HISTORY OF PRESENT ILLNESS: This is a 38-year-old male with past medical history of hypertension, dyslipidemia, coronary artery disease, recent coronary artery bypass graft of the LAD performed at [facility] where the surgery done on 10/24/18 and the patient was discharged on 10/28/18. Since discharge, the patient was doing well; however, yesterday he started to have chest pain, which was present in his entire chest, not just the surgical site pain which he had on the day of discharge. This was accompanied with some nausea and some back pain and also some left calf pain, so he finally decided to come to the ER for further evaluation. The patient otherwise denies any vomiting, any diarrhea, any breathing difficulty, although he did state that his pain is worse with breathing deeply. PAST MEDICAL HISTORY: Hypertension, dyslipidemia, migraine, anxiety, bipolar disorder, depression. He does take prophylactic Truvada for HIV prevention, but does not have HIV himself. PAST SURGICAL HISTORY: As mentioned, single vessel bypass graft performed in [facility] on 10/24/18 with a future plan of having further stenting. He has also had right foot bone fusion done in 2013. HOME MEDICATIONS: The patient is currently on: 1. Topamax 150 mg p.o. b.i.d. 2. Magnesium oxide 400 mg oral daily. 3. [place]-3 fatty acids 1500 mg p.o. t.i.d. 4. Gabapentin 300 mg p.o. b.i.d. 5. Truvada 1 tablet oral daily. 6. Relpax 40 mg p.o. p.r.n. for migraine. 7. Amlodipine 2.5 mg oral daily. 8. Atorvastatin 80 mg p.o. at bedtime. 9. Aspirin 325 mg oral daily. 10. Oxycodone 10 to 15 mg p.o. q.4 hours p.r.n. 11. Folic acid 1 mg p.o. daily. 12. Fergon 325 mg p.o. b.i.d. 13. Multivitamin 1 tablet oral daily. 14. Carvedilol 6.25 mg p.o. b.i.d. 15. Ascorbic acid 500 mg oral daily. 16. Tylenol 650 mg q.4 hours p.r.n. ALLERGIES: The patient is allergic to CLARITHROMYCIN, which causes hives. FAMILY HISTORY: Father had some coronary artery disease. SOCIAL HISTORY: The patient quit smoking a few years ago. 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 Denies any alcohol. Has used cocaine in the past. Lives alone. REVIEW OF SYSTEMS: A 14-point review of systems did not reveal any new information other than what is stated in the HPI. PHYSICAL EXAMINATION GENERAL: The patient is awake, alert, and oriented x3, did not appear to be in any acute respiratory distress. VITAL SIGNS: Upon arrival to the ER, temperature was documented at 98.5, BP 131 /81, heart rate 80, respiration rate 22, saturating 94% on room air. HEAD AND NECK: Atraumatic, normocephalic. Bilateral pupils are reactive. Oral mucosa was moist. Neck supple. No jugular venous distention. LUNGS: Clear to auscultation bilaterally. No wheezing, rhonchi, or rales. HEART: S1, S2. Regular rate and rhythm. ABDOMEN: Soft, nontender, nondistended. EXTREMITIES: The patient did have some mild tenderness of the left calf and some minimal swelling compared to the right calf on the left side. No obvious pitting edema was noted. DIAGNOSTIC STUDIES/LAB DATA: CBC was unremarkable. Coagulation profile shows INR elevated at 1.25. Comprehensive metabolic panel was unremarkable. Two sets of troponin were negative. Venous Doppler showed DVT of the proximal and mid posterior tibial vein on the left side. Chest x-ray showed small left pleural effusion with patchy airspace disease of the left lung base. EKG showed sinus rhythm with minimal ST elevation noted in V2 to V3, likely J- point elevation. When compared to an older EKG from 10/19/18, these elevations were present in the previous EKG as well. IMPRESSION: This is a 38-year-old male here with chest pain and left lower extremity deep venous thrombosis, with recent coronary artery bypass graft. ASSESSMENT AND PLAN: 1. Acute left lower extremity deep venous thrombosis. We will start the patient on Xarelto and decrease his home dose of aspirin from 325 mg to 81 mg and discuss the case with Cardiology regarding further treatment and plan. 2. Chest pain, typical, could be secondary to atelectasis given recent surgery versus postop pain. There is another possibility that this is acute pulmonary embolism; however, given that the patient has deep venous thrombosis, I do not see a benefit in doing a pulmonary embolism study at this point. Not to mention the patient has had cath recently with some contrast dye. Unless the patient becomes symptomatically short of breath, we would delay the CT angiogram. 3. History of hypertension. Restart home medications. 4. History of dyslipidemia. Restart home medications. 5. History of migraine. 6. History of psychiatric diseases including anxiety, bipolar, depression. Restart home medications. 7. HIV prophylaxis: On Truvada. 8. Code status: The patient is full code. [id number] #: [id number] MTDD
[2018-11-01] MEDS: Morphine 4 MG/ML VIAL (1 ml) 4 MG/ML VIAL IV PRN ×4 (00:40→20:27)
[2018-11-01] MEDS ORDERED: HYDROmorphone INJ* 0.5 MG/0.5 ML SYRINGE IV ONE (03:08)
[2018-11-01] MEDS ORDERED: HYDROmorphone INJ1* 1 MG/ML SYRINGE IV ONE (03:08)
[2018-11-01] MEDS: Ondansetron INJ* 2 MG/ML VIAL IV PRN ×2 (03:39→09:45)
[2018-11-01 05:48] LABS: ABS Eosinophils 0.3 10^3/ul (0-0.6); ABS Lymphocytes 1.9 10^3/ul (1.0-4.8); ABS Monocytes 0.8 10^3/ul (0-0.8); ABS Neutrophils 5.5 10^3/ul (1.5-7.7); Eosinophil % 3.6 %; Hematocrit 38 % (42-52); Hemoglobin 12.9 g/dL (14.0-18.0); Lymphocyte % 22.8 %; Mean Corpuscular HGB Conc 34 g/dL (31-36); Mean Corpuscular Hemoglobin 31 pg (27-31); Mean Corpuscular Volume 89 fL (80-94); Mean Platelet Volume 6.9 fL (7.4-10.4); Nucleated Red Blood Cells % 0.1; Platelet Count 306 10^3/uL (150-450); Red Blood Count 4.22 10^6 /uL (4.18-5.48); Red Cell Distribution Width 13 % (10-15); White Blood Count 8.6 10^3/uL (3.5-10.8)
[2018-11-01 06:11] LABS: BUN/Creatinine Ratio 16.9 (8-20); EGFR African American 125.5 (>60); EGFR Non-African American 103.7 (>60); Potassium 3.9 mmol/L (3.5-5.0)
[2018-11-01] MEDS ORDERED: Influenza VAC *QUAD* 2019-20* 0.5 ML SYRINGE IM ONE (09:00)
[2018-11-01] MEDS ORDERED: SUMAtriptan SQ* 6 MG/0.5 ML VIAL SUBCUT ONE (09:46)
[2018-11-01] MEDS: Aspirin 81 mg CHEW TAB* 81 MG TAB.CHEW PO SCH (10:14)
[2018-11-01] MEDS: Topiramate TAB(*) 25 MG PO SCH ×2 (10:14→20:32)
[2018-11-01] MEDS: CMCS:OMEGA-3 FATTY ACIDS (NF) 1,000 MG CAP PO SCH ×3 (10:15→20:32)
[2018-11-01] MEDS: Ascorbic Acid TAB* 500 MG PO SCH (10:15)
[2018-11-01] MEDS: Rivaroxaban TAB(*) 15 MG PO SCH ×2 (10:15→20:32)
[2018-11-01] MEDS: Folic Acid TAB* 1 MG PO SCH (10:16)
[2018-11-01] MEDS: Ferrous Gluconate TAB* 324 MG TAB PO SCH ×2 (10:16→20:32)
[2018-11-01] MEDS: Carvedilol TAB* 6.25 MG PO SCH ×2 (10:16→20:32)
[2018-11-01] MEDS: Magnesium Oxide TAB* 400 MG PO SCH (10:16)
[2018-11-01] MEDS: Multivitamins/Minerals TAB PO SCH (10:17)
[2018-11-01] MEDS: Gabapentin CAP(*) 300 MG PO SCH ×2 (10:17→20:32)
[2018-11-01] MEDS: Furosemide TAB* 40 MG PO SCH (10:17)
[2018-11-01] MEDS: Tenofovir/Emtricitab 200/300 * TAB PO SCH (10:18)
[2018-11-01] MEDS: amLODIPine TAB* 5 MG PO SCH (10:18)
--- NOTE | 2018-11-01 13:32 | PN ---
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 L lower leg pain and new pleuritic CP DVT, no PE On new Xarelto. Pt has persistent LLE pain, CP improved, now just mild incisional pain. Pt asking about NOAC and how long. Wants stents prior to end of year RE: insurance. Want details and wanted to know if they could be done here. Vital Signs: Temp Pulse Resp BP Pulse Ox 98.5 F 68 18 116/57 97 11/01/18 11:15 11/01/18 11:15 11/01/18 13:30 11/01/18 11:15 11/01/18 11:15 Exam: Overweight, NAD Lungs clear S1S2 regular no murmurs. A/p Pt with 3V CAD, s/p MORALES to LAD, on med management for RCA and Cx w/plans to revascularize in the future. Questions answered. Will discuss with [facility] interventional MD's. Addendum: Reviewed with Dr Daley, he feels his Cx and RCA lesions could be done here when it is felt safe to hold Xarelto for procedure.
--- NOTE | 2018-11-01 15:30 | PN ---
Subjective Date of Service: 11/01/18 Interval History: Patient seen and examined. Complaining of migraine headache this morning with nausea/vomiting. Denies SOB, no chest pain. States calf pain about the same as yesterday. No acute overnight events. Objective Active Medications: Acetaminophen (Tylenol Tab*) 650 mg PO Q4H PRN PRN Reason: PAIN - MILD Amlodipine Besylate (Norvasc Tab*) 2.5 mg PO DAILY [facility] Last Admin: 11/01/18 10:18 Dose: 2.5 mg Ascorbic Acid (Vitamin C Tab*) 500 mg PO DAILY [facility] Last Admin: 11/01/18 10:15 Dose: 500 mg Aspirin (Aspirin 81 Mg Chew Tab*) 81 mg PO DAILY [facility] Last Admin: 11/01/18 10:14 Dose: 81 mg Atorvastatin Calcium (Lipitor*) 80 mg PO BEDTIME [facility] Last Admin: 10/31/18 20:26 Dose: 80 mg Carvedilol (Coreg Tab*) 6.25 mg PO BID [facility] Last Admin: 11/01/18 10:16 Dose: 6.25 mg Emtricitabine/Tenofovir (Truvada 200/300 Mg*) 1 tab PO DAILY [facility]; Protocol Last Admin: 11/01/18 10:18 Dose: 1 tab Ferrous Gluconate (Fergon Tab*) 324 mg PO BID [facility] Last Admin: 11/01/18 10:16 Dose: 324 mg Fish Oil (Fish Oil (Nf)) 1,000 mg PO TID [facility]; Protocol Last Admin: 11/01/18 10:15 Dose: 1,000 mg Folic Acid (Folvite Tab*) 1 mg PO DAILY [facility] Last Admin: 11/01/18 10:16 Dose: 1 mg Furosemide (Lasix Tab*) 40 mg PO DAILY [facility] Last Admin: 11/01/18 10:17 Dose: 40 mg Gabapentin (Neurontin Cap(*)) 300 mg PO BID [facility] Last Admin: 11/01/18 10:17 Dose: 300 mg Magnesium Oxide (Magox 400 Tab*) 400 mg PO DAILY [facility] Last Admin: 11/01/18 10:16 Dose: 400 mg Morphine Sulfate (Morphine 4 Mg/Ml Vial (1 Ml)) 4 mg IV Q4H PRN PRN Reason: PAIN - SEVERE Last Admin: 11/01/18 09:47 Dose: 4 mg Multivitamins/Minerals (Theragran/Minerals Tab*) 1 tab PO DAILY [facility] Last Admin: 11/01/18 10:17 Dose: 1 tab Ondansetron HCl (Zofran Inj*) 4 mg IV Q4H PRN PRN Reason: NAUSEA/VOMITING Last Admin: 11/01/18 09:45 Dose: 4 mg Oxycodone/Acetaminophen (Percocet 5/325 Tab*) 1 tab PO Q4H PRN PRN Reason: PAIN - MODERATE Last Admin: 10/31/18 23:34 Dose: 1 tab Rivaroxaban (Xarelto(*)) 15 mg PO Q12HR [facility] Last Admin: 11/01/18 10:15 Dose: 15 mg Topiramate (Topamax(*)) 150 mg PO BID [facility] Last Admin: 11/01/18 10:14 Dose: 150 mg Vital Signs - 8 hr 11/01/18 11/01/18 11/01/18 08:00 09:47 10:17 Temperature Pulse Rate Respiratory 18 21 21 Rate Blood Pressure (mmHg) O2 Sat by Pulse Oximetry 11/01/18 11/01/18 11/01/18 11:15 13:29 13:30 Temperature 98.5 F Pulse Rate 68 Respiratory 19 18 18 Rate Blood Pressure 116/57 (mmHg) O2 Sat by Pulse 97 Oximetry Oxygen Devices in Use Now: None Appearance: alert, moderate distress Eyes: PERRLA Ears/Nose/Mouth/Throat: NL Teeth, Lips, Gums, Mucous Membranes Moist Neck: NL Appearance and Movements; NL JVP, Trachea Midline Respiratory: Symmetrical Chest Expansion and Respiratory Effort, Clear to Auscultation Cardiovascular: NL Sounds; No Murmurs; No JVD, RRR Abdominal: NL Sounds; No Tenderness; No Distention Extremities: No Clubbing, Cyanosis, - - left calf tight, tender Skin: No Rash or Ulcers, - - somewhat dry and flaky in general Neurological: Alert and Oriented x 3 Nutrition: Taking PO's Result Diagrams: 11/01/18 05:35 11/01/18 05:35 Additional Lab and Data: Lab Results 10/30/18 10/30/18 10/30/18 Range/Units 21:48 21:48 21:48 WBC 10.6 (3.5-10.8) 10^3/uL RBC 4.65 (4.18-5.48) 10^6 /uL Hgb 14.5 (14.0-18.0) g/dL Hct 42 (42-52) % MCV 89 (80-94) fL MCH 31 (27-31) pg MCHC 35 (31-36) g/dL RDW 13 (10-15) % Plt Count 343 (150-450) 10^3/uL MPV 7.3 L (7.4-10.4) fL Neut % (Auto) 60.6 % Lymph % (Auto) 24.4 % [place] % (Auto) 11.0 % Eos % (Auto) 2.9 % Baso % (Auto) 1.1 % Absolute Neuts (auto) 6.4 (1.5-7.7) 10^3/ul Absolute Lymphs (auto) 2.6 (1.0-4.8) 10^3/ul Absolute Monos (auto) 1.2 H (0-0.8) 10^3/ul Absolute Eos (auto) 0.3 (0-0.6) 10^3/ul Absolute Basos (auto) 0.1 (0-0.2) 10^3/ul Absolute Nucleated RBC 0.0 10^3/ul Nucleated RBC % 0.0 INR (Anticoag Therapy) 1.25 H (0.82-1.09) Sodium 138 (135-145) mmol/L Potassium 4.0 (3.5-5.0) mmol/L Chloride 106 (101-111) mmol/L Carbon Dioxide 24 (22-32) mmol/L Anion Gap 8 (2-11) mmol/L BUN 15 (6-24) mg/dL Creatinine 0.93 (0.67-1.17) mg/dL Est GFR ( Amer) 110.6 (>60) Est GFR (Non-Af Amer) 91.4 (>60) BUN/Creatinine Ratio 16.1 (8-20) Glucose 108 H (70-100) mg/dL Calcium 9.2 (8.6-10.3) mg/dL Total Bilirubin 0.50 (0.2-1.0) mg/dL AST 20 (13-39) U/L ALT 29 (7-52) U/L Alkaline Phosphatase 94 (34-104) U/L Troponin I 0.01 (<0.04) ng/mL Total Protein 7.0 (6.4-8.9) g/dL Albumin 4.4 (3.2-5.2) g/dL Globulin 2.6 (2-4) g/dL Albumin/Globulin Ratio 1.7 (1-3) 10/31/18 Range/Units 00:37 WBC (3.5-10.8) 10^3/uL RBC (4.18-5.48) 10^6 /uL Hgb (14.0-18.0) g/dL Hct (42-52) % MCV (80-94) fL MCH (27-31) pg MCHC (31-36) g/dL RDW (10-15) % Plt Count (150-450) 10^3/uL MPV (7.4-10.4) fL Neut % (Auto) % Lymph % (Auto) % [place] % (Auto) % Eos % (Auto) % Baso % (Auto) % Absolute Neuts (auto) (1.5-7.7) 10^3/ul Absolute Lymphs (auto) (1.0-4.8) 10^3/ul Absolute Monos (auto) (0-0.8) 10^3/ul Absolute Eos (auto) (0-0.6) 10^3/ul Absolute Basos (auto) (0-0.2) 10^3/ul Absolute Nucleated RBC 10^3/ul Nucleated RBC % INR (Anticoag Therapy) (0.82-1.09) Sodium (135-145) mmol/L Potassium (3.5-5.0) mmol/L Chloride (101-111) mmol/L Carbon Dioxide (22-32) mmol/L Anion Gap (2-11) mmol/L BUN (6-24) mg/dL Creatinine (0.67-1.17) mg/dL Est GFR ( Amer) (>60) Est GFR (Non-Af Amer) (>60) BUN/Creatinine Ratio (8-20) Glucose (70-100) mg/dL Calcium (8.6-10.3) mg/dL Total Bilirubin (0.2-1.0) mg/dL AST (13-39) U/L ALT (7-52) U/L Alkaline Phosphatase (34-104) U/L Troponin I 0.01 (<0.04) ng/mL Total Protein (6.4-8.9) g/dL Albumin (3.2-5.2) g/dL Globulin (2-4) g/dL Albumin/Globulin Ratio (1-3) Diagnostic Imaging: Patient Name: KRYSTLE ROJO Medical Record#: [id number] Ordering Physician: Sherry Louis NP Acct.#: [id number] : 1980 Age: 38 Sex: M Location: [address] [place] [address]/TELEMETRY Exam Date: 10/31/18956 ADM Status: ADM IN Order Information: CTA CHEST Accession Number: [id number] CPT: 32399 INDICATION: Chest pain and shortness of breath. Concern for pulmonary embolism. February 25, [address] COMPARISON: February 25, [address] TECHNIQUE: A CT angiogram of the chest was performed with intravenous following intravenous injection of 81 ml of Omnipaque 350 nonionic contrast. Contiguous axial sections were obtained from the lung apices through the lung bases. Images were reconstructed in the coronal and sagittal planes. FINDINGS: Images are mildly degraded by streak artifact. PULMONARY ARTERIES: There is relatively homogeneous opacification of the pulmonary arteries. No intraluminal filling defect or pulmonary embolism is seen. HEART: The heart is within normal limits in size. There is no abnormal bowing of the interventricular septum. No pericardial effusion is present. The coronary artery origins are conventional. THORACIC AORTA: The thoracic aorta is normal in caliber. LUNGS: Bibasilar dependent atelectasis is likely. There are a few paraseptal blebs at the right apex. A 2 mm calcified granuloma in the superior segment left lower lobe is unchanged. The central airways are clear There is a small left pleural effusion. MEDIASTINUM: No significant enlarged mediastinal or hilar lymph nodes are seen. Thyroid: There are two unchanged subcentimeter nodules in the right lobe of the thyroid ABDOMEN: No acute findings are seen on the visualized portion of the upper abdomen. BONES: No significant focal osseous abnormality is seen. IMPRESSION: 1. No pulmonary embolism is identified. 2. Small left pleural effusion. 3. Bibasilar dependent atelectasis is likely. Assess/Plan/Problems-Billing Assessment: This is a 38 year old male with hx of CAD, s/p CABG, HTN and bipolar depression that presented to the ED with complaints of left calf pain and swelling with chest pain, after having CABG at [facility] 1 week ago. - Patient Problems (1) Left leg DVT Code(s): I82.402 - ACUTE EMBOLISM AND THOMBOS UNSP DEEP VEINS OF L LOW EXTREM SNOMED Code(s): 650854583 Comment: - Noted on US - Xarelto started (2) CAD in [place] artery Code(s): I25.10 - ATHSCL HEART DISEASE OF [place] CORONARY ARTERY W/O ANG PCTRS SNOMED Code(s): 2653324807917 Comment: - 3 vessel disease, recent single vessel CABG at [facility], planned staged for further intervention - Continue lasix, amlodipine, coreg, ASA decreased to 81mg daily - CTA ruled out PE, chest pain is likely musculoskeltal 2/[address] surgery - Cardiology following, pending recs from Dr. Cisneros at [facility] (3) Migraine Code(s): G43.909 - MIGRAINE, UNSP, NOT INTRACTABLE, WITHOUT STATUS MIGRAINOSUS SNOMED Code(s): 83793505 Comment: - Responded well to zofran and SQ sumatriptan (4) Bipolar depression Code(s): F31.9 - BIPOLAR DISORDER, UNSPECIFIED SNOMED Code(s): 816288553 Comment: - On Topiramate, was on lithium in the past - Also some history of chronic pain, on gabapentin - Recommend outpatient follow up (5) High risk sexual behavior Code(s): Z72.51 - HIGH RISK HETEROSEXUAL BEHAVIOR SNOMED Code(s): 161374819 Comment: - On Truvada for PREP, follows with ID as outpatient - Will defer to ID for continuation during planned cardiothoracic surgical procedures (6) Hypercholesterolemia Code(s): E78.0 - PURE HYPERCHOLESTEROLEMIA * DO NOT USE * SNOMED Code(s): 27461011 Comment: - Continue high dose statin (7) Hypertension Code(s): I10 - ESSENTIAL (PRIMARY) HYPERTENSION SNOMED Code(s): 68325640 Comment: - Continue amlodipine and coreg (8) DVT prophylaxis Code(s): Z29.9 - ENCOUNTER FOR PROPHYLACTIC MEASURES, UNSPECIFIED SNOMED Code( s): 866595826 Comment: - Xarelto (9) Full code status Code(s): Z78.9 - OTHER SPECIFIED HEALTH STATUS SNOMED Code(s): 771536063 Status and Disposition: Inpatient. Dispo to home when medically stable.
[2018-11-01] MEDS: Atorvastatin* 80 MG TAB PO SCH (20:32)
[2018-11-01] MEDS: oxyCODONE/Acetamin 5/325 MG* TAB PO PRN (22:51)
[2018-11-02] MEDS: Rivaroxaban TAB(*) 15 MG PO SCH (09:23)
--- NOTE | 2018-11-02 10:12 | PN ---
Subjective Date of Service: 11/02/18 Interval History: f/u cad/cabg, popliteal dvt Has mild left calf and pain at surgery site no angina breathing is ok wants to go home, would prefer to have staged PCI when appropriate here with Dr. Aden Medications Active Medications: Acetaminophen (Tylenol Tab*) 650 mg PO Q4H PRN PRN Reason: PAIN - MILD Amlodipine Besylate (Norvasc Tab*) 2.5 mg PO DAILY [facility] Last Admin: 11/01/18 10:18 Dose: 2.5 mg Ascorbic Acid (Vitamin C Tab*) 500 mg PO DAILY [facility] Last Admin: 11/01/18 10:15 Dose: 500 mg Aspirin (Aspirin 81 Mg Chew Tab*) 81 mg PO DAILY [facility] Last Admin: 11/01/18 10:14 Dose: 81 mg Atorvastatin Calcium (Lipitor*) 80 mg PO BEDTIME [facility] Last Admin: 11/01/18 20:32 Dose: 80 mg Carvedilol (Coreg Tab*) 6.25 mg PO BID [facility] Last Admin: 11/01/18 20:32 Dose: 6.25 mg Emtricitabine/Tenofovir (Truvada 200/300 Mg*) 1 tab PO DAILY [facility]; Protocol Last Admin: 11/01/18 10:18 Dose: 1 tab Ferrous Gluconate (Fergon Tab*) 324 mg PO BID [facility] Last Admin: 11/01/18 20:32 Dose: 324 mg Fish Oil (Fish Oil (Nf)) 1,000 mg PO TID [facility]; Protocol Last Admin: 11/01/18 20:32 Dose: 1,000 mg Folic Acid (Folvite Tab*) 1 mg PO DAILY [facility] Last Admin: 11/01/18 10:16 Dose: 1 mg Furosemide (Lasix Tab*) 40 mg PO DAILY [facility] Last Admin: 11/01/18 10:17 Dose: 40 mg Gabapentin (Neurontin Cap(*)) 300 mg PO BID [facility] Last Admin: 11/01/18 20:32 Dose: 300 mg Magnesium Oxide (Magox 400 Tab*) 400 mg PO DAILY [facility] Last Admin: 11/01/18 10:16 Dose: 400 mg Morphine Sulfate (Morphine 4 Mg/Ml Vial (1 Ml)) 4 mg IV Q4H PRN PRN Reason: PAIN - SEVERE Last Admin: 11/01/18 20:27 Dose: 4 mg Multivitamins/Minerals (Theragran/Minerals Tab*) 1 tab PO DAILY [facility] Last Admin: 11/01/18 10:17 Dose: 1 tab Ondansetron HCl (Zofran Inj*) 4 mg IV Q4H PRN PRN Reason: NAUSEA/VOMITING Last Admin: 11/01/18 09:45 Dose: 4 mg Oxycodone/Acetaminophen (Percocet 5/325 Tab*) 1 tab PO Q4H PRN PRN Reason: PAIN - MODERATE Last Admin: 11/01/18 22:51 Dose: 1 tab Topiramate (Topamax(*)) 150 mg PO BID [facility] Last Admin: 11/01/18 20:32 Dose: 150 mg Objective Vital Signs: Temp Pulse Resp BP Pulse Ox 98.6 F 85 16 133/69 98 11/02/18 09:47 11/02/18 09:47 11/02/18 09:47 11/02/18 09:47 11/02/18 09:47 Oxygen Devices in Use Now: None Appearance: nad, pleasant Ears/Nose/Mouth/Throat: Clear Oropharnyx, Mucous Membranes Moist Neck: NL Appearance and Movements; NL JVP, Trachea Midline Respiratory: Symmetrical Chest Expansion and Respiratory Effort, Clear to Auscultation Cardiovascular: NL Sounds; No Murmurs; No JVD, RRR, No Edema, - - left sided thoracotomy and puncture sites healing well with no drainage or evidence of infection Abdominal: NL Sounds; No Tenderness; No Distention Extremities: No Edema Skin: No Rash or Ulcers Neurological: Alert and Oriented x 3 Laboratory Results: 11/01/18 05:35 11/01/18 05:35 INR (Anticoag Therapy) 1.25 (0.82-1.09) H 10/30/18 21:48 Total Bilirubin 0.50 mg/dL (0.2-1.0) 10/30/18 21:48 AST 20 U/L (13-39) 10/30/18 21:48 ALT 29 U/L (7-52) 10/30/18 21:48 Alkaline Phosphatase 94 U/L (34-104) 10/30/18 21:48 Total Protein 7.0 g/dL (6.4-8.9) 10/30/18 21:48 Albumin 4.4 g/dL (3.2-5.2) 10/30/18 21:48 Globulin 2.6 g/dL (2-4) 10/30/18 21:48 Albumin/Globulin Ratio 1.7 (1-3) 10/30/18 21:48 10/30/18 10/31/18 21:48 00:37 Troponin I 0.01 0.01 Diagnostic Imagin10/30/18 7109 EXAM: US Duplex Left Lower Extremity Veins, Limited FINDINGS: Left deep veins: The left common femoral, femoral, and popliteal veins show normal phasicity, augmentation, and Doppler flow. One of the paired posterior tibial veins contains an occlusive thrombus in the proximal and mid aspect with the distal aspect widely patent. Left superficial veins: Normal. Saphenofemoral junction is patent without thrombus. Soft tissues: Normal. IMPRESSION: Deep vein thrombosis in one of 2 proximal and mid posterior tibial veins. ct pe study Exam Date: 10/31/18 IMPRESSION: 1. No pulmonary embolism is identified. 2. Small left pleural effusion. 3. Bibasilar dependent atelectasis is likely. EKG Data: ekg 10/30/2018 NSr 84 bpm, ivcd old or recent anterior mi Assessment/Plan 1. CAD/MD/Ischemic CM - s/p robotic assisted MORALES-LAD 10/24/2018 - LVEF 45-50% pre-operatively - Residual 75% PDA and large OM2 stenosis, asymptomatic on DAPT planned for stage PCI in the future 2. Provoked post-operative symptomatic isolated distal DVT - Given controversy of whether we should anticoagulate at all or observe ( symptoms favor anticoagulate), ambulatory status, and combination of aspirin, will forgo loading dose xarelto and just use 20 mg once a day with follow up along with decreasing aspirin to 81 mg once a day. His other pre-admission medicatiosn can remain unchanged. We discussed the risks, benefits and uncertainties of this approach and he is agreeable to plan of care with non- standard dosing regimen (skipping loading dose 15 mg po bid). He will follow up on 11/08/2018 as scheduled with myself and we will recheck an ultrasound at some point and probably a d-dimer once recovered further from surgery. Once off anti -coagulation will arrange staged PCI with Dr. Aden at [facility] [place] [facility] as patient requests. Patient can be discharged today from a cardiac standpoint.
[2018-11-02] MEDS ORDERED: Morphine INJ* 4 MG/ML 1 ML SYRINGE (NEW SYRINGE VERSION) IV PRN (11:00)
[2018-11-02] MEDS: amLODIPine TAB* 5 MG PO SCH (11:15)
[2018-11-02] MEDS: Ascorbic Acid TAB* 500 MG PO SCH (11:16)
[2018-11-02] MEDS: Carvedilol TAB* 6.25 MG PO SCH (11:16)
[2018-11-02] MEDS: Aspirin 81 mg CHEW TAB* 81 MG TAB.CHEW PO SCH (11:16)
[2018-11-02] MEDS: Ferrous Gluconate TAB* 324 MG TAB PO SCH (11:16)
[2018-11-02] MEDS: Furosemide TAB* 40 MG PO SCH (11:17)
[2018-11-02] MEDS: Folic Acid TAB* 1 MG PO SCH (11:17)
[2018-11-02] MEDS: Gabapentin CAP(*) 300 MG PO SCH (11:17)
[2018-11-02] MEDS: Magnesium Oxide TAB* 400 MG PO SCH (11:18)
[2018-11-02] MEDS: Multivitamins/Minerals TAB PO SCH (11:18)
[2018-11-02] MEDS: Tenofovir/Emtricitab 200/300 * TAB PO SCH (11:18)
[2018-11-02] MEDS: CMCS:OMEGA-3 FATTY ACIDS (NF) 1,000 MG CAP PO SCH ×2 (11:18→15:08)
[2018-11-02] MEDS: Topiramate TAB(*) 25 MG PO SCH (11:19)
[2018-11-02] MEDS ORDERED: ELETRIPTAN 20 MG PO SCH (12:05)
[2018-11-02] MEDS ORDERED: SUMAtriptan SQ* 6 MG/0.5 ML VIAL SUBCUT ONE (13:08)
[2018-11-02 15:12] VITALS: BP 137/78
[2018-11-02] MEDS ORDERED: Rivaroxaban TAB(*) 20 MG TAB PO SCH (18:00)
--- NOTE | 2018-11-04 00:46 | DS ---
CC: Dr. Julien; Dr. Brown; Dr. Aden * DISCHARGE SUMMARY: DATE OF ADMISSION: 10/31/18 DATE OF DISCHARGE: 11/02/18 PRIMARY CARE PROVIDER: Dr. Julien. ATTENDING PHYSICIAN: Dr. Tiera Diggs.* (DICTATED BY ARANZA MARQUEZ NP ) HOSPITAL COURSE: Please refer to admitting H and P on 10/31/18, but in short, this is a 38-year-old male patient with a past medical history of coronary artery disease, status post single-vessel bypass on the LAD at [facility] on 12/02, discharged 3 days before admission to [facility]. The patient came in complaining of chest pain and left calf pain. In the emergency department an ultrasound was performed and showed the patient to have a posterior tibial DVT and there was some concern for the patient having PE. Because the patient had a recent bypass surgery, he was admitted and Cardiology was consulted to evaluate the patient. The patient was seen by both Dr. Rose and Dr. Ortiz of Cardiology. We did perform a CTA of the chest to rule out PE, which was negative. The patient was empirically started on Xarelto for anticoagulation. A call was placed to [facility], Dr. Cisneros, to advice of this change in status and his new DVT. Please refer to Cardiology's notes for these discussions and their updates. The patient did have some additional discussions regarding his continuing plan of care for his multivessel disease, however. The patient is supposed to be staged for intervention for 2 additional vessels for PCI. However, the question remained that if the patient was going to be anticoagulated, how would this impact the staging of his intervention. After some discussion it was determined, after talking to Dr. Ortiz, that the patient 's Xarelto dose would be lowered from 15 mg b.i.d. to 20 mg daily. The patient would be discharged on that dose and then he would follow up with Cardiology in the office and with Dr. Aden, to be scheduled as an outpatient to return to [facility] for PCI intervention for the rest of his residual clot burden in his coronary arteries. The patient's only other issue during this hospitalization was recurrent migraine. He was treated effectively with sumatriptan subcutaneously and Zofran. He responded well to these therapies. He was medically readied for discharge on 11/02/18. On the day of discharge, the patient denied any fever, fatigue or chills. No headache, no blurry vision. No chest pain, no shortness of breath. No nausea, no vomiting, no abdominal pain. He does have slight calf pain on the left lower extremity, but otherwise no further constitutional complaints. The patient was complaining of some recurrent depression. The patient does have history of bipolar depression. I did reach out to Philly Bustos, his nurse practitioner, who was managing his medications as an outpatient. She did recommend the patient restart Latuda 60 mg. He was agreeable to restarting this medication as an outpatient. It should also be noted that the patient is on Truvada for PrEP and follows up with ID as an outpatient. This medication was continued during his hospital stay. He did have some elevated liver enzymes; however, this did not impact any therapy that he received during this hospitalization or in the postoperative period after his bypass surgery. PHYSICAL EXAM: In general, the patient is alert and well appearing, in no acute distress. Vital signs are blood pressure of 137/78, heart rate 77, respiratory rate 18, O2 saturation 100% on room air with a temperature of 98.6. HEENT: The patient is atraumatic, normocephalic. PERRLA. Nonicteric sclerae. Oral mucosa is moist. Tongue is midline. Neck: Supple, nontender. No JVD noted and no thyromegaly appreciated. No carotid bruits auscultated. Cardiovascular: S1 and S2 present. Rate and rhythm are regular. No murmurs, gallops or rubs noted. Left chest surgical wound, with no erythema or drainage. Dressing is clean, dry, and intact. Lungs are clear bilaterally to auscultation, with no wheezing, rhonchi or rales. Abdomen: Soft, nontender, and nondistended. Positive bowel sounds in all four quadrants. : Deferred. Musculoskeletal: There is no clubbing, no cyanosis. He does have edema and some tightness to the left calf with palpable tenderness. +2 distal pulses. Full range of motion. Gross motor and sensation are intact. Steady gait. Neurologic: Grossly intact with no focal deficits. Psychiatric: Cooperative and appropriate. LABORATORY DATA: WBCs 8.6, RBCs 4.22, hemoglobin 12.9, hematocrit 38, platelets 306. Sodium 138, potassium 3.9, chloride 106, CO2 of 25, BUN 14, creatinine 0.83, GFR 103.7, calcium 9.0. Troponins are negative at 0.01 x2. IMAGING: Chest x-ray dated 10/30/18 shows small left pleural effusion with patchy airspace disease of the left lung base. Venous Doppler dated 10/30/18 shows deep vein thrombosis in 1 of 2 proximal and mid posterior tibial veins. CTA of the chest dated 10/31/18 shows no pulmonary embolism identified, small left pleural effusion and bibasilar dependent atelectases. DISCHARGE DIAGNOSES: 1. Left leg deep vein thrombosis, posterior tibial. 2. Coronary artery disease, multivessel. 3. Migraines. 4. History of bipolar depression. 5. Hypercholesterolemia. 6. Hypertension. MEDICATIONS AT DISCHARGE: Include: 1. Topiramate 150 mg p.o. b.i.d. 2. Mag-Ox 400 mg p.o. daily. 3. Fish oil 1500 mg p.o. 3 times a day. 4. Gabapentin 300 mg p.o. b.i.d. 5. Truvada 200/300 mg 1 tablet daily. 6. Relpax 40 mg p.o. daily as needed. 7. Amlodipine 2.5 mg p.o. daily. 8. Atorvastatin 80 mg p.o. in the evening. 9. Oxycodone 10 mg p.o. q.4 hours as needed. 10. Folic acid 1 mg p.o. daily. 11. Fergon 325 mg p.o. b.i.d. 12. Theragran with minerals 1 tab p.o. daily. 13. Carvedilol 6.25 mg p.o. b.i.d. 14. Vitamin C 500 mg p.o. daily. 15. Tylenol 650 mg p.o. q.4 hours as needed. 16. Aspirin 81 mg daily. This represents a change from the 325 mg he was taking. New medications include: 1. Xarelto 20 mg p.o. daily. 2. Latuda 60 mg p.o. daily. DISPOSITION: The patient was discharged to home under the care of family. He is in stable condition. DIET: Heart healthy, as tolerated. ACTIVITY: Progress activity as tolerated. FOLLOWUPS: The patient was instructed to follow up with Dr. Ortiz on 11/08/[address] Aden to schedule his PCI. Also to follow up with his primary care provider, Dr. Julien, on 11/03/18. Follow up with Dr. Cisneros at [facility] on an as-needed basis for his postoperative checks. The patient, again, was discharged in stable condition. All questions were answered. The patient stated his understanding of the discharge instructions, medications, and followup. TIME SPENT: Forty-five minutes on discharge planning. ARANZA MARQUEZ NP [id number] #: [id number] [place]
== END 2018-11-02 17:14 | disposition home or self-care (01) | DRG 197 ==
LOC: ED 21:19 → MEDTELE 10-31 03:16
PROVIDERS: ADMIT Internal Medicine; ATTEND Internal Medicine
DX: I82.442 Acute embolism and thrombosis of left tibial vein (principal); J98.11 Atelectasis; J90 Pleural effusion, not elsewhere classified; I25.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 native coronary artery without angina pectoris; E78.00 Pure hypercholesterolemia, unspecified; G47.30 Sleep apnea, unspecified; R16.0 Hepatomegaly, not elsewhere classified; G43.909 Migraine, unspecified, not intractable, without status migrainosus; F41.9 Anxiety disorder, unspecified; E78.5 Hyperlipidemia, unspecified; F31.9 Bipolar disorder, unspecified; I34.0 Nonrheumatic mitral (valve) insufficiency; R07.9 Chest pain, unspecified; E66.3 Overweight; F50.9 Eating disorder, unspecified; Z68.30 Body mass index [BMI] 30.0-30.9, adult; Z82.49 Family history of ischemic heart disease and other diseases of the circulatory system; Z87.891 Personal history of nicotine dependence; Z95.1 Presence of aortocoronary bypass graft; Z88.1 Allergy status to other antibiotic agents; I25.2 Old myocardial infarction; Z72.51 High risk heterosexual behavior; Z79.82 Long term (current) use of aspirin; Z79.01 Long term (current) use of anticoagulants
CPT/HCPCS: 36415; 71046; 71275; 80048; 80053; 84484; 85025; 85610; 85652; 90686; 93005; 99284; A9270-GY; J1170; J2270; J2405; J3030; Q9967

== ENCOUNTER 2018-12-05 15:10 | Emergency (ER) | payer BC ==
--- OUTSIDE RECORDS SUMMARY | 2018-12-05 15:17 | XMS REPORT | Continuity of Care Document ---
:1980 External Reference #:[id number] Author Name Alannah South DNP, RN, BREAD STACKER-BC (transmitted by agent of provider Amie Ny) Address [address], [address] [place] [address] Care Team Providers Name Role Phone Kem Celaya MD - Family Medicine Care Team Information Failure Analysis Engineer Radha Julein MD - Internal Medicine Care Team Information Failure Analysis Engineer [phone] Problems Active Problems Provider Date Obstructive sleep apnea syndrome Glory Almonte MD Onset: 11/30/2013 Note: Mild. AHI- 6.6/REM AHI 13.1, O2 agnieszka 91% Obstructive sleep apnea syndrome Glory Almonte MD [...] Drugs Prior marijuana use Smoking Status Reviewed: 11/20/18 Patient is a former smoker Exercise Type/Frequency Exercises sporadically Allergies, Adverse Reactions, Alerts Active Allergies Reaction Severity Comments Date Biaxin Urticaria Moderate 04/13/2010 Medications Active Medications SIG Qnty Indications Ordering Date Provider Latuda 1 by mouth every 30tabs Jose Rodriguez NP 11/03/2018 60mg Tablets day at bedtime Ascorbic Acid Take 1 tablet 30tabs Unknown 10/29/2018 500mg (500 mg total) by Tablets mouth daily Folic Acid Take 1 tablet (1 30tabs Unknown 10/29/2018 1mg Tablets mg total) by mouth daily Atorvastatin Calcium take 1 tablet (80 90tabs Reymundo S. 10/28/2018 mg total) by DO Angel FACC 80mg Tablets mouth nightly Acetaminophen Take 2 tablets 30tabs Unknown 10/28/2018 325mg (650 mg total) by Tablets mouth every 4 (four) hours as needed (Mild pain) Carvedilol take 1 tablet 180tabs Reymundo S. 10/28/2018 6.25mg (6.25 mg total) DO Angel FACC Tablets by mouth 2 (two) times a day Oxycodone HCL Take 1-1.5 40tabs Unknown 10/28/2018 10mg tablets (10-15 mg Tablets total) by mouth every 4 (four) hours as needed (Severe pain) Max Daily Amount: 90 mg Gabapentin take one capsule 60caps G47.00 Jose Rodriguez NP 06/28/2018 300mg qhs. if tolerated Capsules after two weeks increase to one cap morning and every night at bedtime Topiramate take 1 tab by 60tabs G43.109 Jorge Luis Santoyo 04/12/2018 50mg Tablets mouth twice a day [place] with 100 mg tablet to equal 150 mg Eletriptan 1 by mouth twice 10tabs G43.009 Jorge Luis Santoyo 09/12/2017 Hydrobromide a day as needed [place] 40mg migraine max 2 Tablets days/wk Truvada 1 by mouth every 30tabs Z20.2 Sanchez Gama 03/14/2017 200-300mg day [place] Tablets Xarelto 1 by mouth every 30tabs Reymundo S. 20mg Tablets day DO JOON Ortiz Aspirin chew one tablet 100units Reymundo S. 81mg Chewtabs by mouth every Ortiz DO FACC day Daily Farzaneh 1 by mouth every Unknown Tablets day Amlodipine Besylate take 2.5 mg by 90tabs Jose Rodriguez NP mouth daily 2.5mg Tablets Fish Oil Takes 1500mg Unknown 1000mg three times a day Capsules Shannon Allergy 1 by mouth every Unknown 180mg day prn Tablets Topiramate take 1 tab by 60tabs Jorge Luis Banks. 100mg mouth in the in [place] Tablets the morning, take 1 tab by mouth at at bedtime with 50mg to equal 150mg at hs. History Medications Ferrous Gluconate Take 1 tablet (324 60tabs Jose Rodriguez NP 11/03/2018 - mg total) by mouth 11/19/2018 324(37.5Fe) mg 2 (two) times a Tablets day Aspirin Ec Take 1 tablet (325 30tabs Unknown 10/29/2018 - 325mg mg total) by mouth 11/03/[address] daily Furosemide Take 1 tablet (40 5tabs Unknown 10/29/2018 - 40mg mg total) by mouth 11/08/2018 Tablets every morning for 5 days Potassium Chloride Take 1 tablet (20 5tabs Unknown 10/28/2018 - Kayla ER mEq total) by 11/08/2018 20Meq Tablets mouth daily for 5 ER days Take with Furosemide Senna-Docusate Take 2 tablets by 30tabs Unknown 10/28/2018 - Sodium mouth nightly 11/19/2018 8.6-50mg Tablets Carvedilol Take 1 tablet 60tabs Unknown 10/28/2018 - 6.25mg (6.25 mg total) by 10/28/2018 Tablets mouth 2 (two) times a day Senna-Docusate Take 2 tablets by 30tabs Unknown 10/28/2018 - Sodium mouth nightly 10/28/2018 8.6-50mg Tablets Oxycodone HCL Take 1-1.5 tablets 40tabs Unknown 10/28/2018 - 10mg (10-15 mg total) 10/28/2018 Tablets by mouth every 4 (four) hours as needed (Severe pain) Max Daily Amount: 90 mg Prednisone Take 2 tabs po one 2tabs Jorge Luis Santoyo 07/26/2018 - 20mg time today. [place] 08/20/2018 Tablets Potassium Chloride takes 2 tabs by 14tabs Jose Rodriguez NP 06/14/2018 - ER mouth daily per pt 06/22/2018 20Meq Tablets ER Trazodone HCL 1-2 tablets at 30tabs G47.00 Jose Rodriguez NP 06/07/2018 - 50mg bedtime as needed. 06/28/2018 Tablets Medications Administered in Office Medication SIG Qnty Indications Ordering Provider Date Technetium TC 99M Reymundo rOtiz DO MERGED WITH [facility] 10/18/2018 Tetrofosmin, Per Unit Dose Up To 40 Millicuries Injection Influenza,Unspecified Unknown 11/14/2016 Injection Immunizations Description No Information Available Vital Signs Date Vital Result Comment 11/20/2018 8:25am Height 71 inches 5'11" Weight 224.50 lb Heart Rate 68 /min BP Systolic Sitting 120 mmHg Lue large cuff BP Diastolic Sitting 82 mmHg Lue large cuff Respiratory Rate 22 /min O2 % BldC Oximetry 97 % On Ra BMI (Body Mass Index) 31.3 kg/m2 11/08/2018 1:39pm Height 71 inches 5'11" Weight 211.25 lb with shoes Heart Rate 80 /min BP Systolic Sitting 126 mmHg Ra BP Diastolic Sitting 80 mmHg Ra BP Systolic Standing 119 mmHg Ra BP Diastolic Standing 76 mmHg Ra BMI (Body Mass Index) 29.5 kg/m2 Ejection Fraction 45-50% Echo 10/19/18 Results Test Date Facility Test Result H/L Range Note Laboratory test 2018 [facility] Troponin-I 0.01 ng/mL < 0.04 [address] (TnI) [place] [address] [phone] CBC Auto Diff 10/30/2018 [facility] White Blood 10.6 10^3/uL Normal 3.5-10.[address] [place] [address] [phone] Red Blood Count 4.65 10^6/uL Normal 4.18-5.48 Hemoglobin 14.5 g/dL Normal 14.0-18.0 Hematocrit 42 % Normal 42-52 Mean Corpuscular Volume 89 fL Normal 80-94 Mean Corpuscular Hemoglobin 31 pg Normal 27-31 Mean Corpuscular HGB Conc 35 g/dL Normal 31-36 Red Cell Distribution Width 13 % Normal 10-15 Platelet Count 343 10^3/uL Normal 150-450 Mean Platelet Volume 7.3 fL Low 7.4-10.4 Abs Neutrophils 6.4 10^3/uL Normal 1.5-7.7 Abs Lymphocytes 2.6 10^3/uL Normal 1.0-4.8 Abs Monocytes 1.2 10^3/uL High 0-0.8 Abs Eosinophils 0.3 10^3/uL Normal 0-0.6 Abs Basophils 0.1 10^3/uL Normal 0-0.2 Abs Nucleated RBC 0.0 10^3/uL Granulocyte % 60.6 % Lymphocyte % 24.4 % Monocyte % 11.0 % Eosinophil % 2.9 % Basophil % 1.1 % Nucleated Red Blood Cells % 0.0 Inr/Protime 10/30/2018 [facility] Inr 1.25 High 0.82-1.[address] [place] [address] [phone] Laboratory test 10/30/2018 [facility] Troponin-I 0.01 <0.04 [address] (TnI) ng/[place] [address] [phone] Comp Metabolic 10/30/2018 [facility] Sodium 138 Normal 135- [address] mmol/[place] [address] [phone] Potassium 4.0 mmol/L Normal 3.5-5.0 Chloride 106 mmol/L Normal 101-111 Co2 Carbon Dioxide 24 mmol/L Normal 22-32 Anion Gap 8 mmol/L Normal 2-11 Glucose 108 mg/dL High 70-100 Blood Urea Nitrogen 15 mg/dL Normal 6-24 Creatinine 0.93 mg/dL Normal 0.67-1.17 BUN/Creatinine Ratio 16.1 Normal 8-20 Calcium 9.2 mg/dL Normal 8.6-10.3 Total Protein 7.0 g/dL Normal 6.4-8.9 Albumin 4.4 g/dL Normal 3.2-5.2 Globulin 2.6 g/dL Normal 2-4 Albumin/Globulin Ratio 1.7 Normal 1-3 Total Bilirubin 0.50 mg/dL Normal 0.2-1.0 Alkaline Phosphatase 94 U/L Normal 34-104 Alt 29 U/L Normal 7-52 Ast 20 U/L Normal 13-39 Egfr Non- 91.4 >60 Egfr 110.6 >60 4 Inr/Protime 10/18/2018 [facility] Inr 0.98 Normal 0.82-1.[address] [place] [address] [phone] Laboratory test 10/18/2018 [facility] Partial 34.9 Normal 26.0 -38.[address] [place] [address] Time PTT [phone] CBC Auto Diff 10/18/2018 [facility] White Blood 13.8 High 3.5- 10.[address] Count 10^3/[place] [address] [phone] Red Blood Count 5.14 10^6/uL Normal 4.18-5.48 [...] Blood Cells % 0.1 Comp Metabolic 10/18/2018 [facility] Sodium 138 mmol/L Normal 135-[address] [place] [address] [phone] Potassium 4.3 mmol/L Normal 3.5-5.0 Chloride 109 [...] Egfr Non- 112.0 >60 Egfr 135.5 >60 6 Laboratory test 10/18/2018 [facility] Troponin-I (TnI) 0.00 ng/ mL <0.[address] [place] [address] [phone] Hemoglobin A1c (Glyco HGB) 5.4 % Normal 4.0-5.6 8 Order 10/18/[address] [facility] Stress Test, <pending> [address] [place] [address] [phone] Lipid Profile 10/09/2018 [facility] Triglycerides 479 mg/dL 9 (Trig/Chol/HD DRIVE L) [place] [address] [phone] Cholesterol 322 mg/dL 10 HDL Cholesterol 34.0 mg/dL 11 LDL Cholesterol (SEE NOTE) mg/dL 12 Laboratory test 10/09/2018 [facility] Troponin-I (TnI) 0.01 ng/ mL <0.[address] [place] [address] [phone] TSH (Thyroid Stim Horm) 0.44 mcIU/mL Normal 0.34-5.60 LDL Cholesterol Direct 185 mg/dL 14 CBC Auto 09/13/2018 [facility] White Blood 12.6 10^3/uL High 3.5-10.[address] [place] [address] [phone] Red Blood Count 4.81 10^6/uL Normal 4.18-5.48 [...] Blood Cells % 0.0 Comp Metabolic 09/13/2018 [facility] Sodium 140 mmol/L Normal 135-145 Panel [address] [place] [address] [phone] Potassium 3.4 mmol/L Low 3.5-5.0 Chloride 109 [...] Egfr Non- 100.1 >60 Egfr 121.1 >60 15 Laboratory test 09/13/2018 [facility] C Reactive 11.10 mg/L High <8.[address] [place] [address] [phone] Urinalysis 09/13/2018 [facility] Urine Color Yellow Profile [address] [place] [address] [phone] Urine Appearance Cloudy Urine Specific [place] 1.018 Normal 1.010-1.030 Urine pH 6.0 Normal 5-9 Urine Urobilinogen Negative Negative Urine Ketones Negative Negative Urine Protein Negative Negative Urine Leukocytes Negative Negative Urine Blood Negative Negative Urine Nitrite Negative Negative Urine Bilirubin Negative Negative Urine Glucose Negative Negative Basic Metabolic 09/05/2018 [facility] Sodium 142 mmol/L Normal 135-145 Panel [address] [place], [place] [id number] [phone] Potassium 4.0 mmol/L Normal 3.5-5.0 Chloride 109 mmol/L Normal 101-111 Co2 Carbon Dioxide 24 mmol/L Normal 22-32 Anion Gap 9 mmol/L Normal 2-11 Glucose 94 mg/dL Normal 70-100 Blood Urea Nitrogen 14 mg/dL Normal 6-24 Creatinine 0.91 mg/dL Normal 0.67-1.17 BUN/Creatinine Ratio 15.4 Normal 8-20 Calcium 10.5 mg/dL High 8.6-10.3 Egfr Non- 93.7 >60 Egfr 113.4 >60 16 HIV-1 Rna QNT 09/05/2018 [facility] HIV-1 Rna Undetected Undetected 17 By PCR Sli [address] (PCR) copies/[place] [address] [phone] Laboratory 09/05/2018 [facility] Syphillis Negative Negative test finding [address] [place] [address] W/Reflex [phone] RPR Laboratory 06/28/2018 [facility] Orting 0.51 mmol/L Low 0.6- 1.2 test finding [address] [place] [address] [phone] Laboratory 06/28/2018 [facility] TSH 1.23 mcIU/mL Normal 0.34- 5.60 test finding [address] [employer] ([place] [address] Stim Horm) [phone] T3 Total 124 ng/dL Normal 87-178 Thyroxine 5.72 g/dL Low 6.09-12.23 Methylmalonic Acid Mma 0.14 nmol/mL <=0.40 18 Protein 06/28/2018 [facility] Total 7.1 g/dL 6.3 - Electrophoresis [address] Protein(Pep) 7.9 [place], [place] [id number] [phone] Albumin 4.1 g/dL 3.4-4.7 Alpha-1 Globulin 0.2 g/dL 0.1-0.3 Alpha-2 Globulin 0.9 g/dL 0.6-1.0 Beta Globulin 1.1 g/dL 0.7-1.2 Gamma Globulin 0.8 g/dL 0.6-1.6 Albumin/Globulin Ratio 1.38 Impression See Comment 19 Laboratory 06/28/2018 [facility] Topamax 5.7 g/mL [address] (Topiramate) [place] [address] [phone] Laboratory 06/21/2018 [facility] Potassium 4.1 mmol/L Normal 3.5-5.[address] [place] [address] [phone] Laboratory 06/13/2018 [facility] Syphillis Igg Negative Negative test finding [address] W/[place] [address] [phone] CBC Auto Diff 06/13/2018 [facility] White Blood 9.9 Normal 3.5 -10.[address] Count 10^3/[place] [address] [phone] Red Blood Count 5.32 10^6/uL Normal 4.18-5.48 [...] Blood Cells % 0.2 Laboratory test 06/13/2018 [facility] Ferritin 61.7 ng/mL Normal 24-[address] [place] [address] [phone] Vitamin B12 296 pg/mL Normal 180-914 21 PSA Screening 0.968 ng/mL Normal 0-4.000 22 Urinalysis Profile 06/13/2018 [facility] Urine Color Yellow [address] [place] [address] [phone] Urine Appearance Clear Urine Specific [place] 1.009 Low 1.010-1.030 Urine pH 7.0 Normal 5-9 Urine Urobilinogen Negative Negative Urine Ketones Negative Negative Urine Protein Negative Negative Urine Leukocytes Negative Negative Urine Blood Negative Negative Urine Nitrite Negative Negative Urine Bilirubin Negative Negative Urine Glucose Negative Negative Comp Metabolic 06/13/2018 [facility] Sodium 139 mmol/L Normal 135-145 Panel 101 [place] [address] [phone] Potassium 2.8 mmol/L Low 3.5-5.0 Chloride 101 [...] Egfr Non- 95.0 >60 Egfr 114.9 >60 23 Laboratory 06/13/2018 [facility] Lyme Screen Negative Negative test finding [address] W/ [place] [address] WB [phone] HIV 1/2 AB 06/13/2018 [facility] HIV 1 2 Nonreactive Nonreactive [address] [place] [address] [phone] 1 Troponin-I testing on Plasma Separator Tubes (PST) has a known false positive rate of 0.20-0.40%. All positive troponins reflex immediately to secondary confirmatory testing. Using the [employer] DxI 800 Access Immunoassay systems, the 99th percentile upper reference limit was demonstrated to be < 0.03 ng/mL. 2 Standard intensity warfarin therapeutic range: 2.0-3.0 High intensity warfarin therapeutic range: 2.5-3.5 3 Troponin-I testing on Plasma Separator Tubes (PST) has a known false positive rate of 0.20-0.40%. All positive troponins reflex immediately to secondary confirmatory testing. Using the [employer] DxI 800 Access Immunoassay systems, the 99th percentile upper reference limit was demonstrated to be < 0.03 ng/mL. 4 Because ethnic data is not always readily [...] 15-29 5 Kidney failure <15 (or dialysis) 5 Standard intensity warfarin therapeutic range: 2.0-3.0 High intensity warfarin therapeutic range: 2.5-3.5 6 Because ethnic data is not always readily [...] 15-29 5 Kidney failure <15 (or dialysis) 7 Troponin-I testing on Plasma Separator Tubes (PST) has a known false positive rate of 0.20-0.40%. All positive troponins reflex immediately to secondary confirmatory testing. Using the [employer] DxI 800 Access Immunoassay systems, the 99th percentile upper reference limit was demonstrated to be < 0.03 ng/mL. 8 Therapeutic target for the treatment of diabetes mellitus patients is <7% HBA1C, and in selective patients <6.0%. Please refer to [place] [employer] diabetic care guidelines for further information. 9 Desirable: <150 Borderline High: 150-199 High: 200-499 Very High: >500 10 Desirable: <200 Borderline High: 200-239 High: >239 11 Low: <40 Desirable: 40-60 High: >60 12 Unable to calculate LDL as triglyceride is > 400 13 Troponin-I testing on Plasma Separator Tubes (PST) has a known false positive rate of 0.20-0.40%. All positive troponins reflex immediately to secondary confirmatory testing. Using the [employer] DxI 800 Access Immunoassay systems, the 99th percentile upper reference limit was demonstrated to be < 0.03 ng/mL. 14 Desirable: <100 Near Optimal: 100-129 Borderline High: 130-159 High: 160-189 Very High: >189 15 Because ethnic data is not always [...] 5 Kidney failure <15 (or dialysis) 16 Because ethnic data is not always [...] 5 Kidney failure <15 (or dialysis) 17 Result in log copies/mL is Undetected. ADDITIONAL INFORMATION The quantification range of this assay is 20 to 10,000,000 copies/mL (1.30 log to 7.00 log copies/mL). Testing was performed using the tano HIV-1 test ([employer] with the tano 6800 System. This test has been modified from the rough rice tender's instructions. Its performance characteristics were determined by [facility] in a manner consistent with CLIA requirements. This test has not been cleared or approved by the U.S. Food and Drug Administration. Test Performed by: [facility] [address] [place] [address] 18 ADDITIONAL INFORMATION This test was developed and its performance characteristics determined by [facility] in a manner consistent with CLIA requirements. This test has not been cleared or approved by the U.S. Food and Drug Administration. Test Performed by: [facility] [address] [place] [address] 19 RESULT: No apparent monoclonal protein on serum electrophoresis. Test Performed by: [facility] [place] [address] [place] [address] 20 REFERENCE VALUE Reference values depend on clinical use: Anticonvulsant: 5.0-20.0 mcg/mL Psychiatric: 2.0-8.0 mcg/mL ADDITIONAL INFORMATION This test was developed and its performance characteristics determined by [facility] in a manner consistent with CLIA requirements. This test has not been cleared or approved by the U.S. Food and Drug Administration. Test Performed by: [facility] - [address] [address] 21 Normal Range 180 to 914 Indeterminate Range 145 to 180 Deficient Range <145 22 Serum levels of PSA measured using the [employer] DXI Hybritech immunoassay should not be interpreted as absolute evidence of the presence or absence of disease. The PSA value should be used in conjunction with other pertinent clinical diagnostic procedures. The values obtained with different assay methods or kits cannot be used interchangeably. 23 Because ethnic data is not always [...] 5 Kidney failure <15 (or dialysis) 24 It is recognized that currently available assays [...] 95% confidence interval of 99.78 to 99.96%. Procedures Date Code Description Status 11/08/2018 98199 EKG Tracing & Interpretation Completed 10/19/2018 99050 ECHO Transthorasic Realtime 2D W Doppler & Color Flow Hosp Completed 10/18/2018 83664 Left Heart Cath. Incl S/I Coronaries, Angio S/I V Gram If Completed Done 10/18/2018 91763 Myocardial Perfusion Imaging Tomographic (Spect) Single Completed Study 10/09/2018 90841 EKG Tracing & Interpretation Completed 07/21/2018 07705 Polysomnography Sleep Staging 4+ Parameters Completed 07/21/2018 48733 Polysomnography Sleep Staging 4+ Parameters Completed 06/19/2018 42392 Sleep Study Unattended,HRT Rate,Oxygen Sat,Resp Completed Effort/Airflow Medical Devices Description No Information Available Encounters Type Date Location Provider Dx Diagnosis Office Visit 11/08/2018 [facility] Reymundo Ortiz, I25.2 Old myocardial 1:40p Of [facility] DO FACC infarction I82.402 Acute embolism and thombos unsp deep veins of l low extrem I25.5 Ischemic cardiomyopathy I10 Essential (primary) hypertension E78.5 Hyperlipidemia, unspecified F17.201 Nicotine dependence, unspecified, in remission Office Visit 11/03/2018 9:20a [facility] Internal Jose Rodriguez, CARE CENTER MANAGER I25.119 [facility] disease of [place] cor art w unsp ang pctrs I10 Essential (primary) hypertension I82.402 Acute embolism and thombos unsp deep veins of l low extrem F31.9 Bipolar disorder, unspecified J90 Pleural effusion, not elsewhere classified Office Visit 11/02/2018 1:51p [facility] Reymundo Santoyo I25.10 [facility] heart [facility] Angel DO disease of FACC [place] coronary artery w/o ang pctrs I25.5 Ischemic cardiomyopathy I25.2 Old myocardial infarction I82.442 Acute embolism and thrombosis of left tibial vein Office Visit 11/02/2018 9:53a [facility] I82.402 Acute embolism Assoc,[facility], and [facility] Hospitalists CARE CENTER MANAGER unsp deep veins of l low extrem I25.119 [facility] heart disease of [place] cor art w unsp ang pctrs I10 Essential (primary) hypertension G43.909 Migraine, unsp, not intractable, without status migrainosus Office Visit 11/01/2018 4:43p [facility] Karon Rose, I25.10 [facility] heart Of Director Of Kids M.D. disease of [place] coronary artery w/o ang pctrs Office Visit 11/01/2018 9:53a [facility] I82.402 Acute embolism Assoc,[facility], and [facility] Hospitalists CARE CENTER MANAGER unsp deep veins of l low extrem I25.10 [facility]scl heart disease of [place] coronary artery w/o ang pctrs I10 Essential (primary) hypertension G43.909 Migraine, unsp, not intractable, without status migrainosus E78.00 Pure hypercholesterolemia, unspecified Office Visit 2018 3:58p [facility] Sammi Soria, I82.402 Acute embolism Of [facility] CARE CENTER MANAGER and [facility] unsp deep veins of l low extrem I25.10 Athscl heart disease of [place] coronary artery w/o ang pctrs Z95.1 Presence of aortocoronary bypass graft E78.5 Hyperlipidemia, unspecified I50.9 Heart failure, unspecified Office Visit 2018 9:52a [facility] Corine Oh, I82.402 Acute embolism Assoc, [facility] and [facility] Hospitalists unsp deep veins of l low extrem R07.9 Chest pain, unspecified I10 Essential (primary) hypertension E78.5 Hyperlipidemia, unspecified Office Visit 10/19/2018 3:01p [facility] Karon Rose, I25.119 Athscl heart Of Director Of Kids M.D. disease of [place] cor art w unsp ang pctrs I10 Essential (primary) hypertension E78.5 Hyperlipidemia, unspecified R07.9 Chest pain, unspecified Office Visit 10/18/2018 9:00a [facility] Reymundo Santoyo I25.2 Old myocardial Of [facility] Ortiz, DO infarction FACC I25.119 [facility] heart disease of [place] cor art w unsp ang pctrs F17.201 Nicotine dependence, unspecified, in remission I10 Essential (primary) hypertension E78.5 Hyperlipidemia, unspecified E66.8 Other obesity Office Visit 10/18/2018 3:50p [facility] Karon Rose, I25.110 [facility] heart Of [facility] M.D. disease of [place] cor art w unstable ang pctrs I25.2 Old myocardial infarction Office Visit 10/09/2018 10:00a [facility] Internal Jose Michael, I10 Essential ( primary) Medicine - [facility] CARE CENTER MANAGER hypertension R07.89 Other chest pain R22.2 Localized swelling, mass and lump, trunk K57.92 Dvtrcli of intest, part unsp, w/o perf or abscess w/o bleed R94.31 Abnormal electrocardiogram [ECG] [EKG] Office Visit 10/03/2018 [place] Jorge Luis Santoyo G43.109 Migraine with 3:45p Neurologic [place] aura, not Services Of [facility] intractable, w/o status migrainosus M54.5 Low back pain M54.2 Cervicalgia Office Visit 09/18/2018 [facility] Sanchez Gama Z11.4 Encounter for 4:00p For Infectious [place] screening for human Diseases immunodeficiency virus Z79.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 Office Visit 08/21/2018 [facility] G47.33 Obstructive sleep 2:00p Sleep [facility] Rubalcava apnea (adult) [facility] (pediatric) G47.00 Insomnia, unspecified Office Visit 07/26/2018 1:00p [place] Eduardo Echeverria G43.109 Migraine with Neurologic CARE CENTER MANAGER aura, not Services [facility] intractable, w/o status migrainosus G62.9 Polyneuropathy, unspecified Z79.899 Other half-way (current) drug therapy M54.81 Occipital neuralgia Office Visit 06/28/2018 2:20p [facility] Internal Josekevin Rodriguez G47.00 Insomnia, Medicine - [facility] CARE CENTER MANAGER unspecified I10 Essential (primary) hypertension Office Visit 06/23/2018 [facility] Eduardo Knaake, G43.109 Migraine with 3:30p Clinic CARE CENTER MANAGER aura, not intractable, w/o status migrainosus Z79.899 Other half-way (current) drug therapy G62.9 Polyneuropathy, unspecified Office Visit 06/19/2018 [facility] Denisha Drew Z11.4 Encounter for 4:00p For Infectious Mart, CARE CENTER MANAGER screening for human Diseases immunodeficiency virus Z11.3 Encntr screen for infections w sexl mode of transmiss Z79.899 Other half-way (current) drug therapy Office Visit 06/13/2018 11:00a [facility] G47.33 Obstructive sleep [facility] Suzy apnea (adult) Director Of Kids (pediatric) G47.00 Insomnia, unspecified Office Visit 06/07/2018 1:00p [facility] Internal Jose Rodriguez, R35.0 Frequency of Medicine - Ccmob CARE CENTER MANAGER micturition R53.83 Other fatigue R10.819 Abdominal tenderness, unspecified site G47.00 Insomnia, unspecified R11.2 Nausea with vomiting, unspecified M54.5 Low back pain M50.10 Cervical disc disorder w radiculopathy, unsp cervical region I10 Essential (primary) hypertension R42 Dizziness and giddiness G43.109 Migraine with aura, not intractable, w/o status migrainosus R41.3 Other amnesia Assessments Date Code Description Provider 11/20/2018 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, Alannah South DNP, RN, delayed sleep phase type [facility]- 11/20/2018 F51.04 Psychophysiologic insomnia Alannah South DNP, RN, [facility]- 11/20/2018 G47.33 Obstructive sleep apnea (adult) Alannah South DNP, RN, (pediatric) [facility] 11/08/2018 I25.2 Old myocardial infarction Reymundo Ortiz, DO [facility] 11/08/2018 I82.402 Acute embolism and thrombosis of Reymundo Ortiz, DO [facility] unspecified deep veins of left lower extremity 11/08/2018 I25.5 Ischemic cardiomyopathy Reymundo Ortiz DO [facility] 11/08/2018 I10 Essential (primary) hypertension Reymundo Ortiz DO [facility] 11/08/2018 E78.5 Hyperlipidemia, unspecified Reymundo Ortiz DO [facility] 11/08/2018 F17.201 Nicotine dependence, unspecified, in Reymundo Ortiz, DO [facility] remission 11/03/2018 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 11/03/2018 I10 Essential (primary) hypertension Jose Rodriguez, CARE CENTER MANAGER 11/03/2018 I82.402 Acute embolism and thrombosis of Jose Rodriguez, CARE CENTER MANAGER unspecified deep veins of left lower extremity 11/03/2018 F31.9 Bipolar disorder, unspecified Jose Rodriguez, CARE CENTER MANAGER 11/03/2018 J90 Pleural effusion, not elsewhere Josekevin Rodriguez, CARE CENTER MANAGER classified 11/02/2018 I25.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 Reymundo Ortiz, DO [facility] [place] coronary artery without angina pectoris 11/02/2018 I82.402 Acute embolism and thrombosis of Sherry Louis, CARE CENTER MANAGER unspecified deep veins of left lower extremity 11/02/2018 I25.5 Ischemic cardiomyopathy Reymundo Ortiz, DO [facility] 11/02/2018 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 Sherry Louis CARE CENTER MANAGER [place]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 11/02/2018 I25.2 Old myocardial infarction Reymundo Ortiz, DO [facility] 11/02/2018 I10 Essential (primary) hypertension Sherry Louis, CARE CENTER MANAGER 11/02/2018 I82.442 Acute embolism and thrombosis of Reymudno Ortiz, DO [facility] left tibial vein 11/02/2018 G43.909 Migraine, unspecified, not Sherry Quinn Fischero, CARE CENTER MANAGER intractable, without status migrainosus 11/01/2018 I25.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 Karon Rose M.D. [place] coronary artery without angina pectoris 11/01/2018 I82.402 Acute embolism and thrombosis of Sherry Louis, CARE CENTER MANAGER unspecified deep veins of left lower extremity 11/01/2018 I25.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 Sherry Louis, CARE CENTER MANAGER [place] coronary artery without angina pectoris 11/01/2018 I10 Essential (primary) hypertension Sherry Fischero, CARE CENTER MANAGER 11/01/2018 G43.909 Migraine, unspecified, not Sherry Quinn Doto, CARE CENTER MANAGER intractable, without status migrainosus 11/01/2018 E78.00 Pure hypercholesterolemia, Sherry Ball FARHAD Louis unspecified 2018 I82.402 Acute embolism and thrombosis of Sammi SoriaFARHAD unspecified deep veins of left lower extremity 2018 I82.402 Acute embolism and thrombosis of Corine Oh M.D. unspecified deep veins of left lower extremity 2018 I25.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 Sammi BrandFARHAD oh [place] coronary artery without angina pectoris 2018 R07.9 Chest pain, unspecified Corine Oh M.D. 2018 Z95.1 Presence of aortocoronary bypass Sammi Soria NP graft 2018 I10 Essential (primary) hypertension Corine Oh M.D. 2018 E78.5 Hyperlipidemia, unspecified Sammi Soria NP 2018 E78.5 Hyperlipidemia, unspecified Corine Oh M.D. 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 [place]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 10/19/2018 I10 Essential (primary) hypertension Karon Rose M.D. 10/19/2018 E78.5 Hyperlipidemia, unspecified Karon Rose M.D. 10/19/2018 R07.9 Chest pain, unspecified Karon Rose M.D. 10/18/2018 I25.1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 Karon Rose M.D. [place] coronary artery with unstable angina pectoris 10/18/2018 I25.2 Old myocardial infarction Karon Rose M.D. 10/18/2018 I25.1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 Sampson Aden MD, [facility], [place] coronary artery with unstable FSCAI angina pectoris 10/18/2018 R07.9 Chest pain, unspecified Reymundo Ortiz, [facility] 10/18/2018 I25.2 Old myocardial infarction Reymundo Ortiz, DO [facility] 10/18/2018 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 Reymundo Ortiz, DO [facility] [place]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 10/18/2018 F17.201 Nicotine dependence, unspecified, in Reymundo Ortiz, DO [facility] remission 10/18/2018 I10 Essential (primary) hypertension Reymundo Ortiz, DO [facility] 10/18/2018 E78.5 Hyperlipidemia, unspecified Reymundo Ortiz, DO [facility] 10/18/2018 E66.8 Other obesity Reymundo Ortiz, DO [facility] 10/18/2018 R07.89 Other chest pain Jose Michael, CARE CENTER MANAGER 10/18/2018 R94.31 Abnormal electrocardiogram [ECG] Jose Michael CARE CENTER MANAGER [EKG] 10/09/2018 R94.31 Abnormal electrocardiogram [ECG] Enedina Abreu MD [EKG] 10/09/2018 I10 Essential (primary) hypertension Jose Michael, CARE CENTER MANAGER 10/09/2018 R07.89 Other chest pain Enedina Abreu MD 10/09/2018 R07.89 Other chest pain Jose Michael, CARE CENTER MANAGER 10/09/2018 R22.2 Localized swelling, mass and lump, Jose Michael, CARE CENTER MANAGER trunk 10/09/2018 K57.92 Diverticulitis of intestine, part Jose Michael, CARE CENTER MANAGER unspecified, without perforation or abscess without bleeding 10/09/2018 R94.31 Abnormal electrocardiogram [ECG] Josekevin Rodriguez, CARE CENTER MANAGER [EKG] 10/03/2018 G43.109 Migraine with aura, not intractable, Jorge Luis Lee M.D. without status migraino 10/03/2018 M54.5 Low back pain Jorge Luis Lee M.D. 10/03/2018 M54.2 Cervicalgia Jorge Luis Lee M.D. 09/18/2018 Z11.4 Encounter for screening for human Sanchez Alexandra M.D. immunodeficiency virus [Hi 09/18/2018 Z79.899 Other half-way (current) drug Sanchez Alexandra M.D. therapy 08/21/2018 G47.33 Obstructive sleep apnea (adult) Marina Rubalcava NP (pediatric) 08/21/2018 G47.00 Insomnia, unspecified Marina Rubalcava NP 07/26/2018 G43.109 Migraine with aura, not intractable, Eduardo Knaake, CARE CENTER MANAGER without status migraino 07/26/2018 G62.9 Polyneuropathy, unspecified Eduardo Knaake, CARE CENTER MANAGER 07/26/2018 Z79.899 Other half-way (current) drug Eduardo Knaake, CARE CENTER MANAGER therapy 07/26/2018 M54.81 Occipital neuralgia Eduardo Knaake, CARE CENTER MANAGER 07/21/2018 G47.33 Obstructive sleep apnea (adult) Glory Almonte MD (pediatric) 06/28/2018 G47.00 Insomnia, unspecified Jose Michael, CARE CENTER MANAGER 06/28/2018 I10 Essential (primary) hypertension Jose Michael, CARE CENTER MANAGER 06/23/2018 G43.109 Migraine with aura, not intractable, Eduardo Knaake, CARE CENTER MANAGER without status migraino 06/23/2018 Z79.899 Other half-way (current) drug Eduardo Knaake, CARE CENTER MANAGER therapy 06/23/2018 G62.9 Polyneuropathy, unspecified Eduardo Knaake, CARE CENTER MANAGER 06/19/2018 G47.33 Obstructive sleep apnea (adult) Glory Almonte MD (pediatric) 06/19/2018 Z11.4 Encounter for screening for human Denisha Mart NP immunodeficiency virus [Hi 06/19/2018 Z11.3 Encounter for screening for Denisha Mart NP infections with a predominantly 06/19/2018 Z79.899 Other buttermilk drier operator (current) drug Denisha Mart NP therapy 06/13/2018 G47.33 Obstructive sleep apnea (adult) Glory Almonte MD (pediatric) 06/13/2018 G47.00 Insomnia, ryanified Glory Almonte MD 06/07/2018 R35.0 Frequency of micturition Jose Michael, CARE CENTER MANAGER 06/07/2018 R53.83 Other fatigue Jose Michael, CARE CENTER MANAGER 06/07/2018 R10.819 Abdominal tenderness, unspecified Jose Michael, CARE CENTER MANAGER site 06/07/2018 G47.00 Insomnia, unspecified Jose Michael, CARE CENTER MANAGER 06/07/2018 R11.2 Nausea with vomiting, unspecified Jose Michael, CARE CENTER MANAGER 06/07/2018 M54.5 Low back pain Jose Michael, CARE CENTER MANAGER 06/07/2018 M50.10 Cervical disc disorder with Jose Rodriguez NP radiculopathy, unspecified cervi 06/07/2018 I10 Essential (primary) hypertension Jose Rodriguez NP 06/07/2018 R42 Dizziness and giddiness Jose Rodriguez NP 06/07/2018 G43.109 Migraine with aura, not intractable, Jose Rodriguez NP without status migraino 06/07/2018 R41.3 Other amnesia Jose Rodriguez NP Plan of Treatment Future Appointment(s):01/05/2019 11:15 am - Alannah South DNP, RN, BREAD STACKER-BC at [facility]11/21/2018 10:40 am - Jose Rodriguez [facility] pm - Reymundo Ortiz DO [facility] at [place]04/10/2019 3:45 pm - Jorge Luis Lee M.D. at [place] [facility]12/18/2018 4:00 pm - Sanchez Alexandra M.D. at [place] [facility]60/07/2019 - Alannah South DNP, RN, BREAD STACKER- BC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, delayed sleep phase typeFollow up:1 month 30 minutesRecommendations:We discussed that you may have insomnia due to the delayed sleep phase. Keep sleep diary BASED ON PERCEPTION ONLY IF YOU ARE UNABLE TO SLEEP get out of bed for 30 minutes then go back to sleep. Wear your CPAP mask. Review the sleep hygiene handout. We discussed tie for sleep to try 1 AM to 9 AM, Keepthe 9 AM wake up time so your clock is not too much off for return to work in Feb 2019.F51.04 Psychophysiologic insomniaRecommendations:See assessment # 1 We discussed the 3P and 4 P model, circadian rhythm, and sleep drive. Keep the sleep diary based on perception.G47.33 Obstructive sleep apnea ( adult) (pediatric)Recommendations:Resume CAP auto device, change in pressure to min 6 max 10 and try the Resmed N30i (sample mask) provided. Cleaning Wipe off mask daily (baby wipe-no scent, or warm water) Clean mask, tubing, filter, and water chamber weekly in mild no scent dish soap and water. Hang to dry. If you have any sleepiness while driving you MUST avoid operating a vehicle or machinery. If you have difficulty with your equipment, or need to replace your mask or hoses, please contact your homecare agency. A weight change of 20 pounds or more may have an effect on your equipment; if you are experiencing problems please call for an appointment. If you have any further questions, please call the [facility] [phone]. Review of risks of untreated sleep apnea including cardiovascular events: rhythm irregularities, heart attack, stroke; gastro esophageal reflux disease (GERD); diabetes; anxiety, depression; high blood pressure; accidents (machinery and automobile) Recommendation for PAPother treatment modalities NON-PAP including oral appliance/mandibular advancement device, positional strategies , and surgery. Functional Status Description No Information Available Mental Status Description No Information Available Referrals Refer to Reason for Referral Status Appt Date Ofe Hoang NPP Sent [address] [place] [address] [phone] Malini Matson M.D. refaxed referral they will be looking for it. Closed 11/13/201810/[address] [place] [address] [phone] [facility] 10/30/[address] [place] [address] [phone] [facility] Received Partial 11/28/2018 [address] [place] [address] [phone] [facility] Cl[facility] [address] [place] [address] [phone]
--- OUTSIDE RECORDS SUMMARY | 2018-12-05 15:17 | XMS REPORT | Continuity of Care Document ---
:1980 External Reference #:[id number] Author Name Jose Rodriguez NP (transmitted by agent of provider Kathryn Tyler) Address [address] [facility], [place] [address] Care Team Providers Name Role Phone Kem Celaya MD - Family Medicine Care Team Information Grinding Room Inspector Radha Julien MD - Internal Medicine Care Team Information Grinding Room Inspector [phone] Problems Active Problems Provider Date Obstructive sleep [...] Use Start: Unknown Patient is a former Quit April 2018. End: Unknown smoker Recreational Drug Use Never Used Drugs Prior marijuana use Smoking Status Reviewed: 11/21/18 Patient is a former Quit April 2018. smoker Exercise Type/Frequency Exercises sporadically Allergies, Adverse Reactions, Alerts Active Allergies Reaction Severity Comments Date Biaxin Urticaria Moderate 04/13/2010 Medications Active Medications SIG Qnty Indications Ordering Date Provider Tramadol HCL 1-2 tablets every 42tabs R07.89 Jose Rodriguez NP 11/21/2018 50mg 8 hours as needed Tablets for pain. Latuda 1 by mouth every 30tabs Jose Rodriguez NP 11/03/2018 60mg Tablets day at bedtime Ascorbic Acid Take 1 tablet 30tabs Unknown 10/29/2018 500mg (500 mg total) by Tablets mouth daily Folic Acid Take 1 tablet (1 30tabs Unknown 10/29/2018 1mg Tablets mg total) by mouth daily Atorvastatin Calcium take 1 tablet (80 90tabs Reymundo S. 10/28/2018 mg total) by Ortiz, FACC 80mg Tablets mouth nightly Acetaminophen Take 2 tablets 30tabs Unknown 10/28/2018 325mg (650 mg total) by Tablets mouth every 4 (four) hours as needed (Mild pain) Carvedilol take 1 tablet 180tabs Reymundo S. 10/28/2018 6.25mg (6.25 mg total) Ortiz, FACC Tablets by mouth 2 (two) times [...] 1 tab by 60tabs G43.109 Jorge Luis S. 04/12/2018 50mg Tablets mouth twice a day Parish Lee with 100 mg tablet to equal 150 mg Eletriptan 1 by mouth twice 10tabs G43.009 Jorge Luis S. 09/12/2017 Hydrobromide a day as needed Parish Lee 40mg migraine max 2 Tablets days/wk Truvada 1 by mouth every 30tabs Z20.2 Sanchez Gama 03/14/2017 200-300mg day Parish Alexandra Tablets Xarelto 1 by mouth every 30tabs Reymundo S. 20mg Tablets day Ortiz, DO FACC Aspirin chew one tablet 100units Reymundo S. 81mg Chewtabs by mouth every Ortiz, DO FACC day Daily Farzaneh 1 by [...] Technetium TC 99M Reymundo Ortiz DO [facility] 10/18/2018 Tetrofosmin, Per Unit Dose Up To 40 [place] Injection Influenza,Unspecified Unknown 11/14/2016 Injection Immunizations Description No Information Available Vital Signs Date Vital Result Comment 11/21/2018 10:41am Height 71 inches 5'11" Weight 222.25 lb Heart Rate 73 /min BP Systolic 124 mmHg BP Diastolic 87 mmHg Body Temperature 97.9 F O2 % BldC Oximetry 97 % BMI (Body Mass Index) 31.0 kg/m2 11/20/2018 8:25am Height 71 inches 5'11" Weight 224.50 lb Heart Rate 68 /min BP Systolic Sitting 120 mmHg Lue large cuff BP Diastolic Sitting 82 mmHg Lue large cuff Respiratory Rate 22 /min O2 % BldC Oximetry 97 % On Ra BMI (Body Mass Index) 31.3 kg/m2 Results Test Date Facility Test Result H/L Range Note Laboratory test 2018 [facility] Troponin-I 0.01 ng/mL < 0.04 [address] (TnI) [place] [address] [phone] CBC Auto Diff 10/30/2018 [facility] White Blood 10.6 10^3/uL Normal 3.5-10.[address] [place] [address] [phone] Red Blood Count 4.65 10^6/uL Normal 4.18-5.48 [...] Red Blood Cells % 0.0 Inr/Protime 10/30/2018 [facility] Inr 1.25 High 0.82-1.[address] [place] [address] [phone] Laboratory test 10/30/2018 [facility] Troponin-I 0.01 <0.04 [address] (TnI) ng/[place] [address] [phone] Comp Metabolic 10/30/2018 [facility] Sodium 138 Normal 135- [address] mmol/[place] [address] [phone] Potassium 4.0 mmol/L Normal 3.5-5.0 Chloride 106 [...] >60 Egfr 110.6 >60 4 Inr/Protime 10/18/2018 [facility] Inr 0.98 Normal 0.82-1.[address] [place] [address] [phone] Laboratory test 10/18/2018 [facility] Partial 34.9 Normal 26.0 -38.[address] [place] [address] Time PTT [phone] CBC Auto Diff 10/18/2018 [facility] White Blood 13.8 High 3.5- 10.[address] Count 10^3/[place] [address] [phone] Red Blood Count 5.14 10^6/uL Normal 4.18-5.48 [...] Blood Cells % 0.1 Comp Metabolic 10/18/2018 [facility] Sodium 138 mmol/L Normal 135-[address] [place] [address] [phone] Potassium 4.3 mmol/L Normal 3.5-5.0 Chloride 109 [...] Egfr 135.5 >60 6 Laboratory test 10/18/2018 [facility] Troponin-I (TnI) 0.00 ng/ mL <0.04 [address] [place] [address] [phone] Hemoglobin A1c (Glyco HGB) 5.4 % Normal 4.0-5.6 8 Order 10/18/2018 [facility] Stress Test, <pending> [address] [place] [address] [phone] Lipid Profile 10/09/2018 [facility] Triglycerides 479 mg/dL 9 (Trig/Chol/HD [address] L) [place] [address] [phone] Cholesterol 322 mg/dL 10 HDL Cholesterol 34.0 mg/dL 11 LDL Cholesterol (SEE NOTE) mg/dL 12 Laboratory test 10/09/2018 [facility] Troponin-I (TnI) 0.01 ng/ mL <0.04 [address] [place] [address] [phone] TSH (Thyroid Stim Horm) 0.44 mcIU/mL Normal 0.34-5.60 LDL Cholesterol Direct 185 mg/dL 14 CBC Auto 09/13/2018 [facility] White Blood 12.6 10^3/uL High 3.5-10.[address] [place] [address] [phone] Red Blood Count 4.81 10^6/uL Normal 4.18-5.48 [...] Blood Cells % 0.0 Comp Metabolic 09/13/2018 [facility] Sodium 140 mmol/L Normal 135-145 Panel [address] [place] [address] [phone] Potassium 3.4 mmol/L Low 3.5-5.0 Chloride 109 [...] Egfr 121.1 >60 15 Laboratory test 09/13/2018 [facility] C Reactive 11.10 mg/L High <8.[address] [place] [address] [phone] Urinalysis 09/13/2018 [facility] Urine Color Yellow Profile [address] [place] [address] [phone] Urine Appearance Cloudy Urine Specific [place] 1.018 Normal 1.010-1.030 Urine pH 6.0 Normal 5-9 Urine Urobilinogen Negative Negative Urine Ketones Negative Negative Urine Protein Negative Negative Urine Leukocytes Negative Negative Urine Blood Negative Negative Urine Nitrite Negative Negative Urine Bilirubin Negative Negative Urine Glucose Negative Negative Basic Metabolic 09/05/2018 [facility] Sodium 142 mmol/L Normal 135-145 Panel [address] [place] [address] [phone] Potassium 4.0 mmol/L Normal 3.5-5.0 Chloride 109 mmol/L Normal 101-111 Co2 Carbon Dioxide 24 mmol/L Normal 22-32 Anion Gap 9 mmol/L Normal 2-11 Glucose 94 mg/dL Normal 70-100 Blood Urea Nitrogen 14 mg/dL Normal 6-24 Creatinine 0.91 mg/dL Normal 0.67-1.17 BUN/Creatinine Ratio 15.4 Normal 8-20 Calcium 10.5 mg/dL High 8.6-10.3 Egfr Non- 93.7 >60 Egfr 113.4 >60 16 HIV-1 Rna QNT 09/05/2018 [facility] HIV-1 Rna Undetected Undetected 17 By PCR Sli [address] (PCR) copies/[place] [address] [phone] Laboratory 09/05/2018 [facility] Syphillis Negative Negative test finding [address] [place] [address] W/Reflex [phone] RPR Laboratory 06/28/2018 [facility] Savona 0.51 mmol/L Low 0.6- 1.[address] [place] [address] [phone] Laboratory 06/28/2018 [facility] TSH 1.23 mcIU/mL Normal 0.34- 5.60 test finding [address] ([place] [address] Stim Horm) [phone] T3 Total 124 ng/dL Normal 87-178 Thyroxine 5.72 g/dL Low 6.09-12.23 Methylmalonic Acid Mma 0.14 nmol/mL <=0.40 18 Protein 06/28/2018 [facility] Total 7.1 g/dL 6.3 - Electrophoresis [address] Protein(Pep) 7.9 [place] [address] [phone] Albumin 4.1 g/dL 3.4-4.7 Alpha-1 Globulin 0.2 g/dL 0.1-0.3 Alpha-2 Globulin 0.9 g/dL 0.6-1.0 Beta Globulin 1.1 g/dL 0.7-1.2 Gamma Globulin 0.8 g/dL 0.6-1.6 Albumin/Globulin Ratio 1.38 Impression See Comment 19 Laboratory 06/28/2018 [facility] Topamax 5.7 g/mL [address] (Topiramate) [place] [address] [phone] Laboratory 06/21/2018 [facility] Potassium 4.1 mmol/L Normal 3.5-5.[address] [place] [address] [phone] Laboratory 06/13/2018 [facility] Syphillis Igg Negative Negative test finding [address] W/[place] [address] [phone] CBC Auto Diff 06/13/2018 [facility] White Blood 9.9 Normal 3.5 -10.[address] Count 10^3/[place] [address] [phone] Red Blood Count 5.32 10^6/uL Normal 4.18-5.48 [...] Blood Cells % 0.2 Laboratory test 06/13/2018 [facility] Ferritin 61.7 ng/mL Normal 24-[address] [place] [address] [phone] Vitamin B12 296 pg/mL Normal 180-914 21 PSA Screening 0.968 ng/mL Normal 0-4.000 22 Urinalysis Profile 06/13/2018 [facility] Urine Color Yellow [address] [place] [address] [phone] Urine Appearance Clear Urine Specific Charlotte 1.009 Low 1.010-1.030 Urine pH 7.0 Normal 5-9 Urine Urobilinogen Negative Negative Urine Ketones Negative Negative Urine Protein Negative Negative Urine Leukocytes Negative Negative Urine Blood Negative Negative Urine Nitrite Negative Negative Urine Bilirubin Negative Negative Urine Glucose Negative Negative Comp Metabolic 06/13/2018 [facility] Sodium 139 mmol/L Normal 135-[address] [place] [address] [phone] Potassium 2.8 mmol/L Low 3.5-5.0 Chloride 101 [...] >60 Egfr 114.9 >60 23 Laboratory 06/13/2018 [facility] Lyme Screen Negative Negative test finding [address] W/ [place] [address] WB [phone] HIV 1/2 AB 06/13/2018 [facility] HIV 1 2 Nonreactive Nonreactive [address] [place] [address] [phone] 1 Troponin-I testing on Plasma Separator Tubes [...] in selective patients <6.0%. Please refer to [place] [employer] diabetic care guidelines for further [...] performed using the tano HIV-1 test ([employer] with the tano 6800 System. This test has been modified from the rn access's instructions. Its performance characteristics were determined by [facility] in a manner consistent with CLIA requirements. This test has not been cleared or approved by the U.S. Food and Drug Administration. Test Performed by: [facility] [address] [place] [address] 18 ADDITIONAL INFORMATION This test was developed and its performance characteristics determined by [facility] in a manner consistent with CLIA requirements. This test has not been cleared or approved by the U.S. Food and Drug Administration. Test Performed by: [facility] [address] [place] [address] 19 RESULT: No apparent monoclonal protein on serum electrophoresis. Test Performed by: [facility] - [address] [address] 20 REFERENCE VALUE Reference values depend on clinical use: Anticonvulsant: 5.0-20.0 mcg/mL Psychiatric: 2.0-8.0 mcg/mL ADDITIONAL INFORMATION This test was developed and its performance characteristics determined by [facility] in a manner consistent with CLIA requirements. This test has not been cleared or approved by the U.S. Food and Drug Administration. Test Performed by: [facility] - [address] [address] 21 Normal Range 180 to 914 Indeterminate Range 145 to 180 Deficient Range <145 22 Serum levels of PSA measured using the [employer] [place] DXI Hybritech immunoassay should not be interpreted [...] 99.96%. Procedures Date Code Description Status 11/08/2018 57430 EKG Tracing & Interpretation Completed 10/19/2018 24034 ECHO Transthorasic Realtime 2D W Doppler & Color Flow Hosp Completed 10/18/2018 50762 Left Heart Cath. Incl S/I Coronaries, Angio S/I V Gram If Completed Done 10/18/2018 51332 Myocardial Perfusion Imaging Tomographic (Spect) Single Completed Study 10/09/2018 67438 EKG Tracing & Interpretation Completed 07/21/2018 07147 Polysomnography Sleep Staging 4+ Parameters Completed 07/21/2018 04718 Polysomnography Sleep Staging 4+ Parameters Completed 06/19/2018 34201 Sleep Study Unattended,HRT Rate,Oxygen Sat,Resp Completed Effort/Airflow Medical Devices Description No Information Available Encounters Type Date Location Provider Dx Diagnosis Office Visit 11/08/2018 [facility] Reymundo Ortiz, I25.2 Old myocardial 1:40p Of [facility] FACC infarction I82.402 Acute embolism and thombos unsp deep veins of l low extrem I25.5 Ischemic cardiomyopathy I10 Essential (primary) hypertension E78.5 Hyperlipidemia, unspecified F17.201 Nicotine dependence, unspecified, in remission Office Visit 11/03/2018 9:20a [facility] Internal Jose Michael, MANAGER TELEMETRY I25.119 [facility] heart Medicine - [facility] disease of [place] cor art w unsp ang pctrs I10 Essential (primary) hypertension I82.402 Acute embolism and thombos unsp deep veins of l low extrem F31.9 Bipolar disorder, unspecified J90 Pleural effusion, not elsewhere classified Office Visit 11/02/2018 1:51p [facility] Reymundo Santoyo I25.10 Athscl heart Of [facility] Ortiz, DO disease of [facility] [place] coronary artery w/o ang pctrs I25.5 Ischemic cardiomyopathy I25.2 Old myocardial infarction I82.442 Acute embolism and thrombosis of left tibial vein Office Visit 11/02/2018 9:53a [facility] I82.402 Acute embolism Assoc,[facility], and [facility] Hospitalists MANAGER TELEMETRY unsp deep veins of l low extrem I25.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 disease of [place] coronary artery w/o ang pctrs Office Visit 11/01/2018 9:53a [facility] I82.402 Acute embolism Assoc,[facility], and [facility] Hospitalists MANAGER TELEMETRY unsp deep veins of l low extrem I25.10 Athscl heart disease of [place] coronary artery w/o ang pctrs I10 Essential (primary) hypertension G43.909 Migraine, unsp, not intractable, without status migrainosus E78.00 Pure hypercholesterolemia, unspecified Office Visit 2018 3:58p [facility] Sammi Soria, I82.402 Acute embolism Of [facility] MANAGER TELEMETRY and [facility] unsp deep veins of l low extrem I25.10 Athscl heart disease of [place] coronary artery w/o ang pctrs Z95.1 Presence of aortocoronary bypass graft E78.5 Hyperlipidemia, unspecified I50.9 Heart failure, unspecified Office Visit 2018 9:52a [facility] Corine Oh, I82.402 Acute embolism Assoc,[facility] Hospitalists unsp deep veins of l low extrem R07.9 Chest pain, unspecified I10 Essential (primary) hypertension E78.5 Hyperlipidemia, unspecified Office Visit 10/19/2018 3:01p [facility] Karon Rose, I25.119 Athscl heart [facility] M.D. disease of [place] cor art w unsp ang pctrs I10 Essential (primary) hypertension E78.5 Hyperlipidemia, unspecified R07.9 Chest pain, unspecified Office Visit 10/18/2018 9:00a [facility] Reymundo SDemarcus I25.2 Old myocardial Of [facility] Ortiz, DO infarction FAC I25.119 Athscl heart disease of [place] cor art w unsp ang pctrs F17.201 Nicotine dependence, unspecified, in remission I10 Essential (primary) hypertension E78.5 Hyperlipidemia, unspecified E66.8 Other obesity Office Visit 10/18/2018 3:50p [facility] Karon Rose, I25.110 Athscl heart [facility] M.D. disease of [place] cor art w unstable ang pctrs I25.2 Old myocardial infarction Office Visit 10/09/2018 10:00a [facility] Internal Jose Michael, I10 Essential ( primary) Medicine - [facility] MANAGER TELEMETRY hypertension R07.89 Other chest pain R22.2 Localized swelling, mass and lump, trunk K57.92 Dvtrcli of intest, part unsp, w/o perf or abscess w/o bleed R94.31 Abnormal electrocardiogram [ECG] [EKG] Office Visit 10/03/2018 [place] Jorge Luis Santoyo G43.109 Migraine with 3:45p Neurologic Parish Lee aura, not Services [facility] intractable, w/o status migrainosus M54.5 Low back pain M54.2 Cervicalgia Office Visit 09/18/2018 [facility] Sanchez Gama Z11.4 Encounter for 4:00p For Infectious Parish Alexandra screening for human Diseases immunodeficiency virus Z79.899 Other intermediate (current) drug therapy Office Visit 08/21/2018 [facility] G47.33 Obstructive sleep 2:00p Sleep Services Of FARHAD Rubalcava apnea (adult) [facility] (pediatric) G47.00 Insomnia, unspecified Office Visit 07/26/2018 1:00p [place] Eduardo Echeverria G43.109 Migraine with Neurologic MANAGER TELEMETRY aura, not Services [facility] intractable, w/o status migrainosus G62.9 Polyneuropathy, unspecified 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 therapy M54.81 Occipital neuralgia Office Visit 06/28/2018 2:20p [facility] Internal Jose Rodriguez G47.00 Insomnia, Medicine - [facility] MANAGER TELEMETRY unspecified I10 Essential (primary) hypertension Office Visit 06/23/2018 [facility] Eduardo Echeverria, G43.109 Migraine with 3:30p Clinic MANAGER TELEMETRY aura, not intractable, w/o status migrainosus 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 therapy G62.9 Polyneuropathy, unspecified Office Visit 06/19/2018 [facility] Denisha Drew Z11.4 Encounter for 4:00p For Infectious Mart, MANAGER TELEMETRY screening for human Diseases immunodeficiency virus Z11.3 Encntr screen for infections w sexl mode of transmiss Z79.899 Other intermediate (current) drug therapy Office Visit 06/13/2018 11:00a [facility] G47.33 Obstructive sleep Sleep Services Of MD Suzy apnea (adult) [facility] (pediatric) G47.00 Insomnia, unspecified Office Visit 06/07/2018 1:00p [facility] Internal Jose Michael, R35.0 Frequency of Medicine - [facility] MANAGER TELEMETRY micturition R53.83 Other fatigue R10.819 Abdominal tenderness, unspecified site G47.00 Insomnia, unspecified R11.2 Nausea with vomiting, unspecified M54.5 Low back pain M50.10 Cervical disc disorder w radiculopathy, unsp cervical region I10 Essential (primary) hypertension R42 Dizziness and giddiness G43.109 Migraine with aura, not intractable, w/o status migrainosus R41.3 Other amnesia Assessments Date Code Description Provider 11/21/2018 R07.89 Other chest pain Jose Michael, MANAGER TELEMETRY 11/21/2018 F31.9 Bipolar disorder, unspecified Jose Michael, MANAGER TELEMETRY 11/20/2018 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, Alannah South DNP, RN, delayed sleep phase type [facility]- 11/20/2018 F51.04 Psychophysiologic insomnia Alannah South DNP, RN, SPA ASSISTANT MANAGER- 11/20/2018 G47.33 Obstructive sleep apnea (adult) Alannah South DNP, RN, (pediatric) SPA ASSISTANT MANAGER- 11/08/2018 I25.2 Old myocardial infarction Reymundo Ortiz, DO FAC 11/08/2018 I82.402 Acute embolism and thrombosis of Reymundo Ortiz, DO [facility] unspecified deep veins of left lower extremity 11/08/2018 I25.5 Ischemic cardiomyopathy Reymundo Ortiz, DO FAC 11/08/2018 I10 Essential (primary) hypertension Reymundo Ortiz, DO FAC 11/08/2018 E78.5 Hyperlipidemia, unspecified Reymundo Ortiz, DO FAC 11/08/2018 F17.201 Nicotine dependence, unspecified, in Reymundo Ortiz, DO FAC remission 11/03/2018 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 Jose Rodriguez MANAGER TELEMETRY [place]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 11/03/2018 I10 Essential (primary) hypertension Jose Rodriguez, MANAGER TELEMETRY 11/03/2018 I82.402 Acute embolism and thrombosis of Jose Rodriguez, MANAGER TELEMETRY unspecified deep veins of left lower extremity 11/03/2018 F31.9 Bipolar disorder, unspecified Jose Rodriguez, MANAGER TELEMETRY 11/03/2018 J90 Pleural effusion, not elsewhere Josekevin Rodriguez, MANAGER TELEMETRY classified 11/02/2018 I25.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 Reymundo Ortiz, DO [facility] [place] coronary artery without angina pectoris 11/02/2018 I82.402 Acute embolism and thrombosis of Sherry Ball FARHAD Louis unspecified deep veins of left lower extremity 11/02/2018 I25.5 Ischemic cardiomyopathy Reymundo Ortiz, DO [facility] 11/02/2018 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 Sherry Ball FARHAD Louis [place]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 11/02/2018 I25.2 Old myocardial infarction Reymundo Ortiz, DO FAC 11/02/2018 I10 Essential (primary) hypertension Sherry Ball Heriberto, MANAGER TELEMETRY 11/02/2018 I82.442 Acute embolism and thrombosis of Reymundo Ortiz, DO [facility] left tibial vein 11/02/2018 G43.909 Migraine, unspecified, not Sherry Ball Heriberto, MANAGER TELEMETRY intractable, without status migrainosus 11/01/2018 I25.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 Karon Rose M.D. 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 unspecified deep veins of left lower extremity 2018 I25.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 Sammi Soria FARHAD [place] coronary artery without angina pectoris 2018 R07.9 Chest pain, unspecified Corine Oh M.D. 2018 Z95.1 Presence of aortocoronary bypass Sammi SoriaFARHAD graft 2018 I10 Essential (primary) hypertension Corine Oh M.D. 2018 E78.5 Hyperlipidemia, unspecified Sammithai Soria NP 2018 E78.5 Hyperlipidemia, unspecified Corine Oh M.D. 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 [place]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 10/19/2018 I10 Essential (primary) hypertension Karon Rose M.D. 10/19/2018 E78.5 Hyperlipidemia, unspecified Karon Rose M.D. 10/19/2018 R07.9 Chest pain, unspecified Karon Rose M.D. 10/18/2018 I25.1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 Karon Rose M.D. [place] coronary artery with unstable angina pectoris 10/18/2018 I25.2 Old myocardial infarction Karon Rose M.D. 10/18/2018 I25.1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 Sampson Aden MD, [facility], [place] coronary artery with unstable FSCAI angina pectoris 10/18/2018 R07.9 Chest pain, unspecified Reymundo Ortiz, DO [facility] 10/18/2018 I25.2 Old myocardial infarction Reymundo Ortiz, DO [facility] 10/18/2018 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 Reymundo Ortiz, DO [facility] [place]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 10/18/2018 F17.201 Nicotine dependence, unspecified, in Reymundo Ortiz, DO [facility] remission 10/18/2018 I10 Essential (primary) hypertension Reymundo Ortiz, [facility] 10/18/2018 E78.5 Hyperlipidemia, unspecified Reymundo Ortiz, [facility] 10/18/2018 E66.8 Other obesity Reymundo Ortiz, [facility] 10/18/2018 R07.89 Other chest pain Jose Michael, [employer] 10/18/2018 R94.31 Abnormal electrocardiogram [ECG] Jose Michael, [employer] [EKG] 10/09/2018 R94.31 Abnormal electrocardiogram [ECG] Enedina Abreu MD [EKG] 10/09/2018 I10 Essential (primary) hypertension Jose Michael, [employer] 10/09/2018 R07.89 Other chest pain Enedina Abreu MD 10/09/2018 R07.89 Other chest pain Jose Michael, [employer] 10/09/2018 R22.2 Localized swelling, mass and lump, Jose Michael, [employer] trunk 10/09/2018 K57.92 Diverticulitis of intestine, part Jose Michael, [employer] unspecified, without perforation or abscess without bleeding 10/09/2018 R94.31 Abnormal electrocardiogram [ECG] Jose Michael, [employer] [EKG] 10/03/2018 G43.109 Migraine with aura, not intractable, Jorge Luis Lee M.D. without status migraino 10/03/2018 M54.5 Low back pain Jorge Luis Lee M.D. 10/03/2018 M54.2 Cervicalgia Jorge Luis Lee M.D. 09/18/2018 Z11.4 Encounter for screening for human Sanchez Alexandra M.D. immunodeficiency virus [Hi 09/18/2018 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 Sanchez Alexandra M.D. therapy 08/21/2018 G47.33 Obstructive sleep apnea (adult) Marina Rubalcava NP (pediatric) 08/21/2018 G47.00 Insomnia, unspecified Marina Rubalcava, [facility] 07/26/2018 G43.109 Migraine with aura, not intractable, Eduardo Juwan, [employer] without status migraino 07/26/2018 G62.9 Polyneuropathy, unspecified Eduardo Knaake, [employer] 07/26/2018 Z79.899 Other intermediate (current) drug Eduardo Knaake, [employer] therapy 07/26/2018 M54.81 Occipital neuralgia Eduardo Knaake, [employer] 07/21/2018 G47.33 Obstructive sleep apnea (adult) Glory Almonte MD (pediatric) 06/28/2018 G47.00 Insomnia, unspecified Jose Michael, [employer] 06/28/2018 I10 Essential (primary) hypertension Jose Michael, [employer] 06/23/2018 G43.109 Migraine with aura, not intractable, Eduardosly Echeverria, [employer] without status migraino 06/23/2018 Z79.899 Other intermediate (current) drug Eduardo Knaake, [employer] therapy 06/23/2018 G62.9 Polyneuropathy, unspecified Eduardo Knaake, [employer] 06/19/2018 G47.33 Obstructive sleep apnea (adult) Glory Almonte MD (pediatric) 06/19/2018 Z11.4 Encounter for screening for human Denisha Mart NP immunodeficiency virus [Hi 06/19/2018 Z11.3 Encounter for screening for Denisha Mart NP infections with a predominantly 06/19/2018 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 Denisha Mart NP 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 06/13/2018 G47.33 Obstructive sleep apnea (adult) Glory Almonte MD (pediatric) 06/13/2018 G47.00 Insomnia, unspecified Glory Almonte MD 06/07/2018 R35.0 Frequency of micturition Jose Michael, [employer] 06/07/2018 R53.83 Other fatigue Jose Michael, [employer] 06/07/2018 R10.819 Abdominal tenderness, unspecified Jose Michael, [employer] site 06/07/2018 G47.00 Insomnia, unspecified Jose Rodriguez NP 06/07/2018 R11.2 Nausea with vomiting, unspecified Jose Rodriguez NP 06/07/2018 M54.5 Low back pain Jose Rodriguez NP 06/07/2018 M50.10 Cervical disc disorder with Jose Rodriguez NP radiculopathy, unspecified cervi 06/07/2018 I10 Essential (primary) hypertension Jose Rodriguez NP 06/07/2018 R42 Dizziness and giddiness Jose Rodriguez NP 06/07/2018 G43.109 Migraine with aura, not intractable, Jose Rodriguez NP without status migraino 06/07/2018 R41.3 Other amnesia Jose Rodriguez NP Plan of Treatment Future Appointment(s):05/23/2019 4:20 pm - [facility]15 am - Alannah South DNP, RN, SPA ASSISTANT MANAGER-BC at [facility]12/20/2018 1:40 pm - Reymundo Ortiz DO FAC at [facility]04/10/2019 3:45 pm - Jorge Luis Lee M.D. at [facility]12/18/2018 4:00 pm - Sanchez Alexandra M.D. at [facility]/08/2019 - Jose Rodriguez, NPR07.89 Other chest painNew Medication:Tramadol HCL 50 mg - 1-2 tablets every 8 hours as needed for pain.Comments:Continue taking the Tylenol 3-4 times daily for pain. You can take two of the 500mg pills at a time.Use the tramadol when the pain is increased.Follow up:6 month f/uF31.9 Bipolar disorder, unspecifiedComments:Continue taking the Latuda and keep your appointment with Ofe Hoang on 12/13. Functional Status Description No Information Available Mental Status Description No Information Available Referrals Refer to Reason for Referral Status Appt Date Ofe Hoang NPP Sent [address] [place] [address] [phone] Malini Matson M.D. refaxed referral they will be looking for it. Closed 11/13/201810/[address] [place] [address] [phone] [facility] Sent 10/30/[address] [place] [address] [phone] [facility] Received Partial 11/28/[address] [place] [address] [phone] [facility] Cl[facility] [address] [place] [address] [phone]
--- OUTSIDE RECORDS SUMMARY | 2018-12-05 15:18 | XMS REPORT | Continuity of Care Document ---
:1980 External Reference #:[id number] Author Name Reymundo Ortiz DO FACC (transmitted by agent of provider Leyla Zuñiga) Address [address] [facility] [place] [address] Care Team Providers Name Role Phone Kem Celaya MD - Family Medicine Care Team Information Cafeteria Aide Radha Julien MD - Internal Medicine Care Team Information Cafeteria Aide Problems Active Problems Provider Date Obstructive sleep [...] Drugs Prior marijuana use Smoking Status Reviewed: 11/03/18 Patient is a former smoker Exercise Type/Frequency Exercises sporadically Allergies, Adverse Reactions, Alerts Active Allergies Reaction Severity Comments Date Biaxin Urticaria Moderate 04/13/2010 Medications Active Medications SIG Qnty Indications Ordering Date Provider Ferrous Gluconate Take 1 tablet (324 60tabs Jose Rodriguez NP 11/03/2018 mg total) by mouth 324(37.5Fe) mg 2 (two) times a Tablets day Latuda 1 by mouth every 30tabs Jose Rodriguez NP 11/03/2018 60mg Tablets day at bedtime Ascorbic Acid Take 1 tablet (500 30tabs Unknown 10/29/2018 500mg mg total) by mouth Tablets daily Folic Acid Take 1 tablet (1 30tabs Unknown 10/29/2018 1mg Tablets mg total) by mouth daily Furosemide Take 1 tablet (40 5tabs Unknown 10/29/2018 40mg Tablets mg total) by mouth every morning for 5 days Atorvastatin Calcium Take 1 tablet (80 30tabs Unknown 10/28/2018 mg total) by mouth 80mg Tablets nightly Acetaminophen Take 2 tablets 30tabs Unknown 10/28/2018 325mg (650 mg total) by Tablets mouth every 4 (four) hours as needed (Mild pain) Potassium Chloride Take 1 tablet (20 5tabs Unknown 10/28/2018 Kayla ER mEq total) by 20Meq Tablets mouth daily for 5 ER days Take with Furosemide Senna-Docusate Sodium Take 2 tablets by 30tabs Unknown 10/28/2018 mouth nightly 8.6-50mg Tablets Carvedilol Take 1 tablet 60tabs Unknown 10/28/2018 6.25mg (6.25 mg total) by Tablets mouth 2 (two) times a day Oxycodone HCL Take 1-1.5 tablets 40tabs Unknown 10/28/2018 10mg (10-15 mg total) Tablets by mouth every 4 (four) hours [...] mouth twice a 10tabs G43.009 Jorge Luis Banks. 09/12/2017 Hydrobromide day as needed Parish Lee 40mg migraine max 2 Tablets days/wk Truvada 1 by mouth every 30tabs Z20.2 Sancehz Gama 03/14/2017 200-300mg day Parish Alexandra Tablets Topiramate take 1 tab by 60tabs Jorge Luis Santoyo 100mg mouth in the in Parish Lee Tablets the morning, take 1 tab by mouth at at bedtime with 50mg to equal 150mg at hs. Shannon Allergy 1 by mouth every Unknown 180mg day prn Tablets Fish Oil Takes 1500mg three Unknown 1000mg times a day Capsules Amlodipine Besylate take 2.5 mg by 90tabs Jose Rodriguez NP mouth daily 2.5mg Tablets Daily Farzaneh 1 by mouth every Unknown Tablets day Aspirin chew one tablet by Unknown 81mg Chewtabs mouth every day Xarelto 1 by mouth every Unknown 20mg Tablets day History Medications Aspirin Ec Take 1 tablet 30tabs Unknown 10/29/2018 - 325mg (325 mg total) 11/03/[address] by mouth daily Carvedilol Take 1 tablet 60tabs Unknown 10/28/2018 - 6.25mg (6.25 mg total) 10/28/2018 Tablets by mouth 2 (two) times a day Senna-Docusate Take 2 tablets 30tabs Unknown 10/28/2018 - Sodium by mouth nightly 10/28/2018 8.6-50mg Tablets Oxycodone HCL Take 1-1.5 40tabs Unknown 10/28/2018 - 10mg tablets (10-15 10/28/2018 Tablets mg total) by mouth every 4 (four) hours as needed (Severe pain) Max Daily Amount: 90 mg Prednisone Take 2 tabs po 2tabs Jorge Luis Santoyo 07/26/2018 - 20mg one time today. Parish Lee 08/20/2018 Tablets Potassium Chloride takes 2 tabs by 14tabs Jose Rodriguez NP 06/14/2018 - ER mouth daily per 06/22/2018 20Meq Tablets ER pt Trazodone HCL 1-2 tablets at 30tabs G47.00 Jose Rodriguez NP 06/07/2018 - 50mg bedtime as 06/28/2018 Tablets needed. Medications Administered in Office Medication SIG Qnty Indications Ordering Provider Date Technetium TC 99M Reymundo Ortiz DO [facility] 10/18/2018 Tetrofosmin, Per Unit Dose Up To 40 Millicuries Injection Influenza,Unspecified Unknown 11/14/2016 Injection Immunizations Description No Information Available Vital Signs Date Vital Result Comment 11/03/2018 9:26am Height 71 inches 5'11" Weight 213.25 lb Heart Rate 81 /min BP Systolic 122 mmHg BP Diastolic 78 mmHg Body Temperature 97.3 F O2 % BldC Oximetry 96 % BMI (Body Mass Index) 29.7 kg/m2 10/09/2018 9:59am Height 71 inches 5'11" Weight 222.25 lb Heart Rate 82 /min BP Systolic 137 mmHg BP Diastolic 94 mmHg BP Systolic Recheck 134 mmHg BP Diastolic Recheck 84 mmHg Body Temperature 97.2 F O2 % BldC Oximetry 96 % BMI (Body Mass Index) 31.0 kg/m2 Results Test Date Facility Test Result H/L Range Note Laboratory test 2018 [facility] Troponin-I 0.01 ng/mL < 0.04 [address] (TnI) [place] [address] [phone] CBC Auto Diff 10/30/2018 [facility] White Blood 10.6 10^3/uL Normal 3.5-10.[address] [place] [address] [phone] Red Blood Count 4.65 10^6/uL Normal 4.18-5.48 [...] Red Blood Cells % 0.0 Inr/Protime 10/30/2018 [facility] Inr 1.25 High 0.82-1.[address] [place] [address] [phone] Laboratory test 10/30/2018 [facility] Troponin-I 0.01 <0.[address] (TnI) ng/[place] [address] [phone] Comp Metabolic 10/30/2018 [facility] Sodium 138 Normal 135- [address] mmol/[place] [address] [phone] Potassium 4.0 mmol/L Normal 3.5-5.0 Chloride 106 [...] >60 Egfr 110.6 >60 4 Inr/Protime 10/18/2018 [facility] Inr 0.98 Normal 0.82-1.[address] [place] [address] [phone] Laboratory test 10/18/2018 [facility] Partial 34.9 Normal 26.0 -38.[address] [address] Time PTT [phone] CBC Auto Diff 10/18/2018 [facility] White Blood 13.8 High 3.5- 10.[address] Count 10^3/[place] [address] [phone] Red Blood Count 5.14 10^6/uL Normal 4.18-5.48 [...] Blood Cells % 0.1 Comp Metabolic 10/18/2018 [facility] Sodium 138 mmol/L Normal 135-[address] [place] [address] [phone] Potassium 4.3 mmol/L Normal 3.5-5.0 Chloride 109 [...] Egfr 135.5 >60 6 Laboratory test 10/18/2018 [facility] Troponin-I (TnI) 0.00 ng/ mL <0.[address] [place] [address] [phone] Hemoglobin A1c (Glyco HGB) 5.4 % Normal 4.0-5.6 8 Order 10/18/2018 [facility] Stress Test, <pending> [address] [place] [address] [phone] Lipid Profile 10/09/2018 [facility] Triglycerides 479 mg/dL 9 (Trig/Chol/HD [address]) [place] [address] [phone] Cholesterol 322 mg/dL 10 HDL Cholesterol 34.0 mg/dL 11 LDL Cholesterol (SEE NOTE) mg/dL 12 Laboratory test 10/09/2018 [facility] Troponin-I (TnI) 0.01 ng/ mL <0.[address] [place] [address] [phone] TSH (Thyroid Stim Horm) 0.44 mcIU/mL Normal 0.34-5.60 LDL Cholesterol Direct 185 mg/dL 14 CBC Auto 09/13/2018 [facility] White Blood 12.6 10^3/uL High 3.5-10.[address] [place] [address] [phone] Red Blood Count 4.81 10^6/uL Normal 4.18-5.48 [...] Blood Cells % 0.0 Comp Metabolic 09/13/2018 [facility] Sodium 140 mmol/L Normal 135-145 Panel [address] [place] [address] [phone] Potassium 3.4 mmol/L Low 3.5-5.0 Chloride 109 [...] Egfr 121.1 >60 15 Laboratory test 09/13/2018 [facility] C Reactive 11.10 mg/L High <8.01 finding [address] [facility] [place] [address] [phone] Urinalysis 09/13/2018 [facility] Urine Color Yellow Profile [address] [place] [address] [phone] Urine Appearance Cloudy Urine Specific Choudrant 1.018 Normal 1.010-1.030 Urine pH 6.0 Normal 5-9 Urine Urobilinogen Negative Negative Urine Ketones Negative Negative Urine Protein Negative Negative Urine Leukocytes Negative Negative Urine Blood Negative Negative Urine Nitrite Negative Negative Urine Bilirubin Negative Negative Urine Glucose Negative Negative Basic Metabolic 09/05/2018 [facility] Sodium 142 mmol/L Normal 135-145 Panel [address] [place] [address] [phone] Potassium 4.0 mmol/L Normal 3.5-5.0 Chloride 109 mmol/L Normal 101-111 Co2 Carbon Dioxide 24 mmol/L Normal 22-32 Anion Gap 9 mmol/L Normal 2-11 Glucose 94 mg/dL Normal 70-100 Blood Urea Nitrogen 14 mg/dL Normal 6-24 Creatinine 0.91 mg/dL Normal 0.67-1.17 BUN/Creatinine Ratio 15.4 Normal 8-20 Calcium 10.5 mg/dL High 8.6-10.3 Egfr Non- 93.7 >60 Egfr 113.4 >60 16 HIV-1 Rna QNT 09/05/2018 [facility] HIV-1 Rna Undetected Undetected 17 By PCR Sli 101 (PCR) copies/[place] [address] [phone] Laboratory 09/05/2018 [facility] Syphillis Negative Negative test finding [address] [place] [address] W/Reflex [phone] RPR Laboratory 06/28/2018 [facility] TSH 1.23 mcIU/mL Normal 0.34- 5.[address] ([place] [address] Stim Horm) [phone] T3 Total 124 ng/dL Normal 87-178 Thyroxine 5.72 g/dL Low 6.09-12.23 Methylmalonic Acid Mma 0.14 nmol/mL <=0.40 18 Protein 06/28/2018 [facility] Total 7.1 g/dL 6.3 - Electrophoresis Protein(Pep) 7.9 [place] [address] [phone] Albumin 4.1 g/dL 3.4-4.7 Alpha-1 Globulin 0.2 g/dL 0.1-0.3 Alpha-2 Globulin 0.9 g/dL 0.6-1.0 Beta Globulin 1.1 g/dL 0.7-1.2 Gamma Globulin 0.8 g/dL 0.6-1.6 Albumin/Globulin Ratio 1.38 Impression See Comment 19 Laboratory 06/28/2018 [facility] Topamax 5.7 g/mL [address] (Topiramate) [place] [address] [phone] Laboratory 06/28/2018 [facility] [place] 0.51 mmol/L Low 0.6- 1.[address] [place] [address] [phone] Laboratory 06/21/2018 [facility] Potassium 4.1 mmol/L Normal 3.5-5.0 test finding [address] [place] [address] [phone] HIV 1/2 AB 06/13/2018 [facility] HIV 1 2 Nonreactive Nonreactive 21 Evaluation 101 [facility] [place] [address] [phone] Laboratory 06/13/2018 [facility] Syphillis Igg Negative Negative test finding 101 [facility] W/[place] [address] [phone] CBC Auto 06/13/2018 [facility] White Blood 9.9 10^3/uL Normal 3.5-10.8 Diff 101 [facility] [place] [address] [phone] Red Blood Count 5.32 10^6/uL Normal 4.18-5.48 [...] Blood Cells % 0.2 Laboratory test 06/13/2018 [facility] Ferritin 61.7 ng/mL Normal 24-336 finding [address] [place] [address] [phone] Vitamin B12 296 pg/mL Normal 180-914 22 PSA Screening 0.968 ng/mL Normal 0-4.000 23 Urinalysis Profile 06/13/2018 [facility] Urine Color Yellow [address] [place] [address] [phone] Urine Appearance Clear Urine Specific Choudrant 1.009 Low 1.010-1.030 Urine pH 7.0 Normal 5-9 Urine Urobilinogen Negative Negative Urine Ketones Negative Negative Urine Protein Negative Negative Urine Leukocytes Negative Negative Urine Blood Negative Negative Urine Nitrite Negative Negative Urine Bilirubin Negative Negative Urine Glucose Negative Negative Comp Metabolic 06/13/2018 [facility] Sodium 139 mmol/L Normal 135-[address] [place] [address] [phone] Potassium 2.8 mmol/L Low 3.5-5.0 Chloride 101 [...] Egfr Non- 95.0 >60 Egfr 114.9 >60 24 Laboratory test 06/13/2018 [facility] Lyme Screen Negative Negative finding [address] W/ [place] [address] WB [phone] 1 Troponin-I testing on Plasma Separator Tubes (PST) has a known false positive rate of 0.20-0.40%. All positive troponins reflex immediately to secondary confirmatory testing. Using the JobyalI 800 Access Immunoassay systems, the 99th percentile upper reference limit was demonstrated to be < 0.03 ng/mL. 2 Standard intensity warfarin therapeutic range: 2.0-3.0 High intensity warfarin therapeutic range: 2.5-3.5 3 Troponin-I testing on Plasma Separator Tubes (PST) has a known false positive rate of 0.20-0.40%. All positive troponins reflex immediately to secondary confirmatory testing. Using the [employer] Digital DxI 800 Access Immunoassay systems, the 99th [...] in selective patients <6.0%. Please refer to [place] [employer] diabetic care guidelines for further [...] was performed using the tano HIV-1 test ([employer] with the tano Adteractive0 System. This test has been modified from the building custodial supervisor's instructions. Its performance characteristics were determined by [facility] in a manner consistent with CLIA requirements. This test has not been cleared or approved by the U.S. Food and Drug Administration. Test Performed by: [facility] - [address] [address] ADDITIONAL INFORMATION This test was developed and its performance characteristics determined by [facility] in a manner consistent with CLIA requirements. This test has not been cleared or approved by the U.S. Food and Drug Administration. Test Performed by: [facility] - [facility] [address] [place] [address] 19 RESULT: No apparent monoclonal protein on serum electrophoresis. Test Performed by: [facility] - [address] [address] 20 REFERENCE VALUE Reference values depend on clinical use: Anticonvulsant: 5.0-20.0 mcg/mL Psychiatric: 2.0-8.0 mcg/mL ADDITIONAL INFORMATION This test was developed and its performance characteristics determined by [facility] in a manner consistent with CLIA requirements. This test has not been cleared or approved by the U.S. Food and Drug Administration. Test Performed by: [facility] - [facility] [address] [place] [address] 21 It is recognized that currently available assays [...] 95% confidence interval of 99.78 to 99.96%. 22 Normal Range 180 to 914 Indeterminate Range 145 to 180 Deficient Range <145 23 Serum levels of PSA measured using the Jade Brantd DXI Hybritech immunoassay should not be interpreted as absolute evidence of the presence or absence of disease. The PSA value should be used in conjunction with other pertinent clinical diagnostic procedures. The values obtained with different assay methods or kits cannot be used interchangeably. 24 Because ethnic data is not always readily [...] (or dialysis) Procedures Date Code Description Status 10/19/2018 46560 ECHO Transthorasic Realtime 2D W Doppler & Color Flow Hosp Completed 10/18/2018 01508 Myocardial Perfusion Imaging Tomographic (Spect) Single Completed Study 10/09/2018 07985 EKG Tracing & Interpretation Completed 07/21/2018 46604 Polysomnography Sleep Staging 4+ Parameters Completed 07/21/2018 19985 Polysomnography Sleep Staging 4+ Parameters Completed 06/19/2018 20053 Sleep Study Unattended,HRT Rate,Oxygen Sat,Resp Completed Effort/Airflow Medical Devices Description No Information Available Encounters Type Date Location Provider Dx Diagnosis Office Visit 10/18/2018 [facility] Reymundo Ortiz, I25.2 Old myocardial 9:00a Of [facility] DO FAC infarction I25.119 Athscl heart disease of [place] cor art w unsp ang pctrs F17.201 Nicotine dependence, unspecified, in remission I10 Essential (primary) hypertension E78.5 Hyperlipidemia, unspecified E66.8 Other obesity Office Visit 10/09/2018 10:00a [facility] Internal Jose Michael, I10 Essential ( primary) Medicine - Ccmob FINE GRADER hypertension R07.89 Other chest pain R22.2 Localized swelling, mass and lump, trunk K57.92 Dvtrcli of intest, part unsp, w/o perf or abscess w/o bleed R94.31 Abnormal electrocardiogram [ECG] [EKG] Office Visit 10/03/2018 [place] Jorge Luis Santoyo G43.109 Migraine with 3:45p Neurologic Parish Lee aura, not Services Of [facility] intractable, w/o status migrainosus M54.5 Low back pain M54.2 Cervicalgia Office Visit 09/18/2018 [facility] Sanchez Gama Z11.4 Encounter for 4:00p For Infectious Parish Alexandra screening for human Diseases immunodeficiency virus Z79.899 Other fci (current) drug therapy Office Visit 08/21/2018 [facility] G47.33 Obstructive sleep 2:00p Sleep Services Of FARHAD Rubalcava apnea (adult) [facility] (pediatric) G47.00 Insomnia, unspecified Office Visit 07/26/2018 1:00p [place] Eduardo Knaake, G43.109 Migraine with Neurologic FINE GRADER aura, not Services [facility] intractable, w/o status migrainosus G62.9 Polyneuropathy, unspecified Z79.899 Other fci (current) drug therapy M54.81 Occipital neuralgia Office Visit 06/28/2018 2:20p [facility] Internal Jose Rodriguez, G47.00 Insomnia, Medicine - Ccmob FINE GRADER unspecified I10 Essential (primary) hypertension Office Visit 06/23/2018 [facility] Eduardo Echeverria, G43.109 Migraine with 3:30p Clinic FINE GRADER aura, not intractable, w/o status migrainosus Z79.899 Other manager terminal (current) drug therapy G62.9 Polyneuropathy, unspecified Office Visit 06/19/2018 [facility] Denisha Drew Z11.4 Encounter for 4:00p For Infectious Mart, FINE GRADER screening for human Diseases immunodeficiency virus Z11.3 Encntr screen for infections w sexl mode of transmiss Z79.899 Other manager terminal (current) drug therapy Office Visit 06/13/2018 11:00a [facility] Glory G47.33 Obstructive sleep Sleep Services Of MD Suzy apnea (adult) Clinical Services Manager (pediatric) G47.00 Insomnia, unspecified Office Visit 06/07/2018 1:00p [facility] Internal Jose Rodriguez, R35.0 Frequency of Medicine - Ccmob FINE GRADER micturition R53.83 Other fatigue R10.819 Abdominal tenderness, [...] unsp level Assessments Date Code Description Provider 11/03/2018 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 10/19/2018 E78.5 Hyperlipidemia, unspecified Karon Rose M.D. 10/19/2018 R07.9 Chest pain, unspecified Karon Rose M.D. 10/18/2018 R07.9 Chest pain, unspecified Reymundo Ortiz, DO [facility] 10/18/2018 I25.2 Old myocardial infarction Reymundo Ortiz, DO [facility] 10/18/2018 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 Reymundo Putnamno, DO [facility] [place]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 10/18/2018 F17.201 Nicotine dependence, unspecified, in Reymundo Ortiz, DO [facility] remission 10/18/2018 I10 Essential (primary) hypertension Reymundo SDemarcus Ortiz, DO [facility] 10/18/2018 E78.5 Hyperlipidemia, unspecified Reymundo Ortiz, DO [facility] 10/18/2018 E66.8 Other obesity Reymundoalfonzo Ortiz, DO [facility] 10/18/2018 R07.89 Other chest pain Jose Rodriguez NP 10/18/2018 R94.31 Abnormal electrocardiogram [ECG] Josekevin Rodriguez NP [EKG] 10/09/2018 R94.31 Abnormal electrocardiogram [ECG] Enedina Abreu MD [EKG] 10/09/2018 I10 Essential (primary) hypertension Jose Rodriguez NP 10/09/2018 R07.89 Other chest pain Enedina Abreu MD 10/09/2018 R07.89 Other chest pain Josekevin Rodriguez NP 10/09/2018 R22.2 Localized swelling, mass and lump, Josekevin Rodriguez NP trunk 10/09/2018 K57.92 Diverticulitis of intestine, part Jose FARHAD Rodriguez unspecified, without perforation or abscess without bleeding 10/09/2018 R94.31 Abnormal electrocardiogram [ECG] Jose Rodriguez NP [EKG] 10/03/2018 G43.109 Migraine with aura, not intractable, Jorge Luis Lee M.D. without status migraino 10/03/2018 M54.5 Low back pain Jorge Luis Lee M.D. 10/03/2018 M54.2 Cervicalgia Jorge Luis Lee M.D. 09/18/2018 Z11.4 Encounter for screening for human Sanchez Alexandra M.D. immunodeficiency virus [Hi 09/18/2018 Z79.899 Other manager terminal (current) drug Sanchez Alexandra M.D. therapy 08/21/2018 G47.33 Obstructive sleep apnea (adult) Marina Rubalcava NP (pediatric) 08/21/2018 G47.00 Insomnia, unspecified Marina Rubalcava, FARHAD 07/26/2018 G43.109 Migraine with aura, not intractable, Eduardosly Echeverria, FINE GRADER without status migraino 07/26/2018 G62.9 Polyneuropathy, unspecified Eduardo Knaake, FINE GRADER 07/26/2018 Z79.899 Other fci (current) drug Eduardosly Echeverria, FARHAD therapy 07/26/2018 M54.81 Occipital neuralgia Eduardo Juwan, FINE GRADER 07/21/2018 G47.33 Obstructive sleep apnea (adult) Glory Almonte MD (pediatric) 06/28/2018 G47.00 Insomnia, unspecified Jose Rodriguez NP 06/28/2018 I10 Essential (primary) hypertension Jose Rodriguez, FARHAD 06/23/2018 G43.109 Migraine with aura, not intractable, Eduardosly Echeverria FINE GRADER without status migraino 06/23/2018 Z79.899 Other manager terminal (current) drug Eduardo Juwan, FINE GRADER therapy 06/23/2018 G62.9 Polyneuropathy, unspecified Eduardo Knaake, FINE GRADER 06/19/2018 G47.33 Obstructive sleep apnea (adult) Glory Almonte MD (pediatric) 06/19/2018 Z11.4 Encounter for screening for human Denisha Mart NP immunodeficiency virus [Hi 06/19/2018 Z11.3 Encounter for screening for Denisha Mart NP infections with a predominantly 06/19/2018 Z79.899 Other fci (current) drug Denisha Mart NP therapy 06/13/2018 G47.33 Obstructive sleep apnea (adult) Glory Almonte MD (pediatric) 06/13/2018 G47.00 Insomnia, unspecified Glory Almonte MD 06/07/2018 R35.0 Frequency of micturition Jose Rodriguez NP 06/07/2018 R53.83 Other fatigue Jose Rodriguez NP 06/07/2018 R10.819 Abdominal tenderness, unspecified Jose Rodriguez NP site 06/07/2018 G47.00 Insomnia, unspecified Jose Rodriguez NP 06/07/2018 R11.2 Nausea with vomiting, unspecified Josekevin Rodriguez NP 06/07/2018 M54.5 Low back pain [...] mid-cervical region, unspe Plan of Treatment Future Appointment(s):11/17/2018 9:20 am - Jose Rodriguez NP at [facility] [place]/20/2018 8:30 am - Alannah South DNP, RN, [employer] TEACHER- at [facility]04/10/2019 3:45 pm - Jorge Luis Lee M.D. at [place] [facility]12/18/2018 4:00 pm - Sanchez Alexandra M.D. at [place] [facility] Bdjsegbq46/20/2019 - Jose Michael, NP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 [place]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Comments:It is important that you keep your follow up appointments with Dr. Ortiz.I10 Essential (primary) iittkkovyvclX87.402 Acute embolism and thrombosis of unspecified deep veins of left lower extremityComments:Continue on Xarelto and aspirin unless told otherwise by Dr. Oconnor.F31.9 Bipolar disorder, unspecifiedComments:I have sent in the prescription for the Latuda. It is important that you get in with mental health soon to take over that prescription.Referral:Ofe Hoang NPP, Psych/Mental Health/NPFollow up:2 [id number] Pleural effusion, not elsewhere classifiedComments :Please have the repeat chest xray done towards the end of next week. Functional Status Description No Information Available Mental Status Description No Information Available Referrals Refer to Reason for Referral Status Appt Date Ofe Hoang NPP Created [address] [place] [address] [phone] Malini Matson M.D. refaxed referral they will be looking for it. Sent 10/[address] [place] [address] [phone] [facility] Sent 10/30/[address] [place] [address] [phone] [facility] Received Partial 10/26/[address] [place] [address] [phone] [facility] Closed [address] [id number] [phone]
--- OUTSIDE RECORDS SUMMARY | 2018-12-05 15:18 | XMS REPORT | Continuity of Care Document ---
:1980 External Reference #:[id number] Author Name Malini Matson M.D. 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 Onset: 11/13/2018 Bladder muscle dysfunction - overactive Malini Matson M.D. Onset: 2018 Screening for malignant neoplasm of prostate Malini Matson M.D. Onset: Spermatocele Malini Matson M.D. Onset: 11/13/2018 Social History Type Date Description Comments Sex Unknown Tobacco Use Start: Unknown End: Unknown Patient is a former smoker Recreational Drug Use Marijuana Smoking Status Reviewed: 11/02/18 Patient is a former smoker Allergies, Adverse Reactions, Alerts Active Allergies Reaction Severity Comments Date Biaxin Hives Severe 11/13/2018 Medications Active Medications SIG Qnty Indications Ordering Date Provider Myrbetriq 1 by mouth every 30tabs N32.81 Malini Matson, 11/13/2018 50mg Tablets day M.D. ER 24HR Vitamin C Unknown W/Vitamin E [id number] Capsules Acetaminophen ER take one tablet by Unknown 650mg mouth every 4-6 Tablets ER hours as needed for pain Mens Multivitamin Unknown Tablets Fish Oil 1 by mouth every Unknown 1200mg day Capsules Amlodipine Besylate Take 1 Tablet By Unknown 5mg Mouth Every Day Tablets Topiramate Take 1 Tablet By Unknown 100mg Mouth In The Tablets Morning, Then Take 1 Tablet By Mouth AT Bedtime With 50MG Tablet To Equal 150MG AT Bedtime [place] Take 1 Tablet By Unknown 200-300mg Mouth Every Day Tablets Gabapentin Take 1 Capsule By Unknown 300mg Mouth AT Bedtime - Capsules If Tolerated After Two Weeks, Increase To 1 Capsule By Mouth Every Morning And 1 Capsule By Mouth AT Be Topiramate Take 1 Tablet By Unknown 50mg Tablets Mouth Two Times Daily With 100MG Tablet To Equal 150MG Atorvastatin Calcium Take 1 Tablet By Unknown Mouth Nightly 80mg Tablets Carvedilol Take 1 Tablet By Unknown 6.25mg Mouth Two Times Tablets Daily Folic Acid Take 1 Tablet By Unknown 1mg Tablets Mouth Every Day Oxycodone HCL Take 1 To 1 And Unknown 10mg 1/2 Tablets By Tablets Mouth Every 4 Hours as Needed For Severe Pain, Maximum Daily Dose Of 9 Tablets Per Day Potassium Chloride Take 1 Tablet By Unknown Kayla ER Mouth Every Day 20Meq Tablets For 5 Days -- Take ER With Furosemide Furosemide Naomi Woo NP 40mg Tablets Amlodipine Besylate Take 1 Tablet By Unknown Mouth Every Day 2.5mg Tablets Xarelto Unknown 20mg Tablets Eletriptan Take 1 Tablet By Unknown Hydrobromide Mouth Two Times 40mg Daily as Needed Tablets For Migraine ----- DO Not Use More Often Than A Maximum Of 2 Days Per Week Jose Lehman 60mg Tablets LI Lyn Aspirin Reymundo Ortiz 81mg Chewtabs Immunizations Description No Information Available Vital Signs Date Vital Result Comment 11/13/2018 11:08am BP Systolic 128 mmHg BP Diastolic 80 mmHg Body Temperature 97.4 F Heart Rate 77 /min Respiratory Rate 16 /min Height 71 inches 5'11" Weight 224.00 lb BMI (Body Mass Index) 31.2 kg/m2 BSA (Body Surface Area) 2.21 m2 [place] body weight in kilograms 78 kg O2 % BldC Oximetry 98 % Pain Level 6 from heart surgery 3 weeks ago. Results Test Date Facility Test Result H/L Range Note Laboratory test 11/13/2018 [facility] Prostate <pending> finding [address] [place] [address] Antigen [phone] Urine Dipstick 11/13/2018 [facility] Ua Color yellow Yellow Ua Clarity clear Clear Ua Leuko neg Negative Ua Nitrite neg Negative Ua Urobilinogen 0.2 0.2 - 1.0 E.U./dL Ua Protein neg Negative Ua PH 5.5 Low 6.5-7.5 Ua Blood neg Negative Ua Specific [place] 1.025 1.010-1.030 Ua Ketones neg Negative Ua Bilirubin neg Negative Ua Glucose neg Negative Procedures Description No Information Available Medical Devices Description No Information Available Encounters Type Date Location Provider Dx Diagnosis Office Visit 11/13/2018 Urology Malini Matson N43.41 Spermatocele of 11:15a M.D. epididymis, single Z12.5 Encounter for screening for malignant neoplasm of prostate N32.81 Overactive bladder Z87.442 Personal history of urinary calculi Assessments Date Code Description Provider 11/13/2018 N43.41 Spermatocele of epididymis, single Malini Matson M.D. 11/13/2018 Z12.5 Encounter for screening for malignant Malini Matson M.D. neoplasm of prostate 11/13/2018 N32.81 Overactive bladder Malini Matson M.D. 11/13/2018 Z87.442 Personal history of urinary calculi Malini Matson M.D. Plan of Treatment Future Appointment(s):12/26/2018 2:45 pm - Malini Matson M.D. at [id number] - Malini Matson M.D.N43.41 Spermatocele of epididymis, singleComments :Patient was reassured that spermatoceles are usually not malignant and do not require follow-up. Ultrasound report is reassuring there is no testicular lesions.Z12.5 Encounter for screening for malignant neoplasm of prostateComments :Patient has a history of urinary symptoms, we'll check his PSAN32.81 Overactive bladderNew Medication:Myrbetriq 50 mg - 1 by mouth every dayComments: Patient is bothered by his overactive bladder symptoms and IPS as 25. We'll do a trial of Myrbetriq.Patient to follow-up with me in 5-6 weeks.Z87.442 Personal history of urinary calculiNew Xrays:CT, Abdomen & Pelvis W/O Contrast, Ordered: 11/13/18Comments:Given patient's history of kidney stones and no recent imaging will obtain a CT scan. Functional Status Description No Information Available Mental Status Description No Information Available Referrals Description No Information Available
--- OUTSIDE RECORDS SUMMARY | 2018-12-05 15:18 | XMS REPORT | Continuity of Care Document ---
:1980 External Reference #:[id number] Author Name Reymundo Ortiz DO FAC (transmitted by agent of provider Carrol Cannon) Address [address] 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 Problems Active Problems Provider Date Obstructive sleep [...] Drugs Prior marijuana use Smoking Status Reviewed: 11/08/18 Patient is a former smoker Exercise Type/Frequency Exercises sporadically Allergies, Adverse Reactions, Alerts Active Allergies Reaction Severity Comments Date Biaxin Urticaria Moderate 04/13/2010 Medications Active Medications SIG Qnty Indications Ordering Date Provider Ferrous Gluconate Take 1 tablet 60tabs Jose Rodriguez NP 11/03/2018 (324 mg total) by 324(37.5Fe) mg mouth 2 (two) Tablets times a day Latuda 1 by mouth every 30tabs Jose Rodriguez NP 11/03/2018 60mg Tablets day at bedtime Ascorbic Acid Take 1 tablet 30tabs Unknown 10/29/2018 500mg (500 mg total) by Tablets mouth daily Folic Acid Take 1 tablet (1 30tabs Unknown 10/29/2018 1mg Tablets mg total) by mouth daily Atorvastatin Calcium take 1 tablet (80 90tabs Reymundo S. 10/28/2018 mg total) by Ortiz, DO FACC 80mg Tablets mouth nightly Acetaminophen Take 2 tablets 30tabs Unknown 10/28/2018 325mg (650 mg total) by Tablets mouth every 4 (four) hours as needed (Mild pain) Senna-Docusate Sodium Take 2 tablets by 30tabs Unknown 10/28/2018 mouth nightly 8.6-50mg Tablets Carvedilol take 1 tablet 180tabs Reymundo S. [...] 1 tab by 60tabs G43.109 Jorge Luis SDemarcus 04/12/2018 50mg Tablets mouth twice a day [...] to equal 150mg at hs. History Medications Aspirin Ec Take 1 tablet (325 30tabs Unknown 10/29/2018 - 325mg mg total) by mouth 11/03/[address] daily Furosemide Take 1 tablet (40 5tabs Unknown 10/29/2018 - 40mg mg total) by mouth 11/08/2018 Tablets every morning for 5 days Potassium Chloride Take 1 tablet (20 5tabs Unknown 10/28/2018 - Kayla ER mEq total) by mouth 11/08/2018 20Meq daily for 5 days Tablets ER Take with Furosemide Carvedilol Take 1 tablet (6.25 60tabs Unknown 10/28/2018 - 6.25mg mg total) by mouth 10/28/2018 Tablets 2 (two) times a day Senna-Docusate Take 2 tablets by 30tabs Unknown 10/28/2018 - Sodium mouth nightly 10/28/2018 8.6-50mg Tablets Oxycodone HCL Take 1-1.5 tablets 40tabs Unknown 10/28/2018 - 10mg (10-15 mg total) by 10/28/2018 Tablets mouth every 4 (four) hours as [...] Date Technetium TC 99M Reymundo Ortiz DO [facility] 10/18/2018 Tetrofosmin, Per Unit Dose Up To 40 Millicuries Injection Influenza,Unspecified Unknown 11/14/2016 Injection Immunizations Description No Information Available Vital Signs Date Vital Result Comment 11/08/2018 1:39pm Height 71 inches 5'11" Weight 211.25 lb with shoes Heart Rate 80 /min BP Systolic Sitting 126 mmHg Ra BP Diastolic Sitting 80 mmHg Ra BP Systolic Standing 119 mmHg Ra BP Diastolic Standing 76 mmHg Ra BMI (Body Mass Index) 29.5 kg/m2 Ejection Fraction 45-50% Echo 10/19/18 11/03/2018 9:26am Height 71 inches 5'11" Weight 213.25 lb Heart Rate 81 /min BP Systolic 122 mmHg BP Diastolic 78 mmHg Body Temperature 97.3 F O2 % BldC Oximetry 96 % BMI (Body Mass Index) 29.7 kg/m2 Results Test Date Facility Test Result H/L Range Note Laboratory test 2018 [facility] Troponin-I 0.01 ng/mL < 0.04 [address] (TnI) [place] [address] [phone] CBC Auto Diff 10/30/2018 [facility] White Blood 10.6 10^3/uL Normal 3.5-10.[address] [place] [address] [phone] Red Blood Count 4.65 10^6/uL Normal 4.18-5.48 [...] Red Blood Cells % 0.0 Inr/Protime 10/30/2018 [facility] Inr 1.25 High 0.82-1.[address] [place], [place] [id number] [phone] Laboratory test 10/30/2018 [facility] Troponin-I 0.01 <0.04 [address] (TnI) ng/mL [place], [place] [id number] [phone] Comp Metabolic 10/30/2018 [facility] Sodium 138 Normal 135- [address] mmol/[place] [address] [phone] Potassium 4.0 mmol/L Normal 3.5-5.0 Chloride 106 [...] >60 Egfr 110.6 >60 4 Inr/Protime 10/18/2018 [facility] Inr 0.98 Normal 0.82-1.[address] [place] [address] [phone] Laboratory test 10/18/2018 [facility] Partial 34.9 Normal 26.0 -38.[address] [place] [address] Time PTT [phone] CBC Auto Diff 10/18/2018 [facility] White Blood 13.8 High 3.5- 10.[address] Count 10^3/[place] [address] [phone] Red Blood Count 5.14 10^6/uL Normal 4.18-5.48 [...] Blood Cells % 0.1 Comp Metabolic 10/18/2018 [facility] Sodium 138 mmol/L Normal 135-[address] [place] [address] [phone] Potassium 4.3 mmol/L Normal 3.5-5.0 Chloride 109 [...] Egfr 135.5 >60 6 Laboratory test 10/18/2018 [facility] Troponin-I (TnI) 0.00 ng/ mL <0.04 [address] [place] [address] [phone] Hemoglobin A1c (Glyco HGB) 5.4 % Normal 4.0-5.6 8 Order 10/18/2018 [facility] Stress Test, <pending> [address] [place] [address] [phone] Lipid Profile 10/09/2018 [facility] Triglycerides 479 mg/dL 9 (Trig/Chol/HD [address]) [place] [address] [phone] Cholesterol 322 mg/dL 10 HDL Cholesterol 34.0 mg/dL 11 LDL Cholesterol (SEE NOTE) mg/dL 12 Laboratory test 10/09/2018 [facility] Troponin-I (TnI) 0.01 ng/ mL <0.[address] [place] [address] [phone] TSH (Thyroid Stim Horm) 0.44 mcIU/mL Normal 0.34-5.60 LDL Cholesterol Direct 185 mg/dL 14 CBC Auto 09/13/2018 [facility] White Blood 12.6 10^3/uL High 3.5-10.[address] [place] [address] [phone] Red Blood Count 4.81 10^6/uL Normal 4.18-5.48 [...] Blood Cells % 0.0 Comp Metabolic 09/13/2018 [facility] Sodium 140 mmol/L Normal 135-145 Panel [address] [place] [address] [phone] Potassium 3.4 mmol/L Low 3.5-5.0 Chloride 109 [...] Egfr 121.1 >60 15 Laboratory test 09/13/2018 [facility] C Reactive 11.10 mg/L High <8.01 finding [address] [facility] [address] [phone] Urinalysis 09/13/2018 [facility] Urine Color Yellow Profile [address] [place] [address] [phone] Urine Appearance Cloudy Urine Specific Lynn 1.018 Normal 1.010-1.030 Urine pH 6.0 Normal 5-9 Urine Urobilinogen Negative Negative Urine Ketones Negative Negative Urine Protein Negative Negative Urine Leukocytes Negative Negative Urine Blood Negative Negative Urine Nitrite Negative Negative Urine Bilirubin Negative Negative Urine Glucose Negative Negative Basic Metabolic 09/05/2018 [facility] Sodium 142 mmol/L Normal 135-[address] [place] [address] [phone] Potassium 4.0 mmol/L Normal 3.5-5.0 Chloride 109 mmol/L Normal 101-111 Co2 Carbon Dioxide 24 mmol/L Normal 22-32 Anion Gap 9 mmol/L Normal 2-11 Glucose 94 mg/dL Normal 70-100 Blood Urea Nitrogen 14 mg/dL Normal 6-24 Creatinine 0.91 mg/dL Normal 0.67-1.17 BUN/Creatinine Ratio 15.4 Normal 8-20 Calcium 10.5 mg/dL High 8.6-10.3 Egfr Non- 93.7 >60 Egfr 113.4 >60 16 HIV-1 Rna QNT 09/05/2018 [facility] HIV-1 Rna Undetected Undetected 17 By PCR Sli [email or web address] (PCR) copies/[place] [address] [phone] Laboratory 09/05/2018 [facility] Syphillis Negative Negative test finding [address] [email or web address] [address] W/Reflex [phone] RPR Laboratory 06/28/2018 [facility] [place] 0.51 mmol/L Low 0.6- 1.[address] [place] [address] [phone] Laboratory 06/28/2018 [facility] TSH 1.23 mcIU/mL Normal 0.34- 5.60 test finding [email or web address] ([place] [address] Stim Horm) [phone] T3 Total 124 ng/dL Normal 87-178 Thyroxine 5.72 g/dL Low 6.09-12.23 Methylmalonic Acid Mma 0.14 nmol/mL <=0.40 18 Protein 06/28/2018 [facility] Total 7.1 g/dL 6.3 - Electrophoresis [email or web address] Protein(Pep) 7.9 [place], [place] [address] [phone] Albumin 4.1 g/dL 3.4-4.7 Alpha-1 Globulin 0.2 g/dL 0.1-0.3 Alpha-2 Globulin 0.9 g/dL 0.6-1.0 Beta Globulin 1.1 g/dL 0.7-1.2 Gamma Globulin 0.8 g/dL 0.6-1.6 Albumin/Globulin Ratio 1.38 Impression See Comment 19 Laboratory 06/28/2018 [facility] Topamax 5.7 g/mL [address] (Topiramate) [place] [address] [phone] Laboratory 06/21/2018 [facility] Potassium 4.1 mmol/L Normal 3.5-5.[address] [place] [address] [phone] Laboratory 06/13/2018 [facility] Syphillis Igg Negative Negative test finding [address] W/[place] [address] [phone] CBC Auto Diff 06/13/2018 [facility] White Blood 9.9 Normal 3.5 -10.[address] Count 10^3/[place] [address] [phone] Red Blood Count 5.32 10^6/uL Normal 4.18-5.48 [...] Blood Cells % 0.2 Laboratory test 06/13/2018 [facility] Ferritin 61.7 ng/mL Normal 24-[address] [place] [address] [phone] Vitamin B12 296 pg/mL Normal 180-914 21 PSA Screening 0.968 ng/mL Normal 0-4.000 22 Urinalysis Profile 06/13/2018 [facility] Urine Color Yellow [address] [place] [address] [phone] Urine Appearance Clear Urine Specific Lynn 1.009 Low 1.010-1.030 Urine pH 7.0 Normal 5-9 Urine Urobilinogen Negative Negative Urine Ketones Negative Negative Urine Protein Negative Negative Urine Leukocytes Negative Negative Urine Blood Negative Negative Urine Nitrite Negative Negative Urine Bilirubin Negative Negative Urine Glucose Negative Negative Comp Metabolic 06/13/2018 [facility] Sodium 139 mmol/L Normal 135-[address] [place] [address] [phone] Potassium 2.8 mmol/L Low 3.5-5.0 Chloride 101 [...] >60 Egfr 114.9 >60 23 Laboratory 06/13/2018 [facility] Lyme Screen Negative Negative test finding [address] W/ [place] [address] WB [phone] HIV 1/2 AB 06/13/2018 [facility] HIV 1 2 Nonreactive Nonreactive [address] [place] [address] [phone] 1 Troponin-I testing on Plasma Separator Tubes (PST) has a known false positive rate of 0.20-0.40%. All positive troponins reflex immediately to secondary confirmatory testing. Using the [employer] DxI 800 Access Immunoassay systems, the 99th [...] in selective patients <6.0%. Please refer to [place] [employer] diabetic care guidelines for further [...] performed using the tano HIV-1 test ([employer] with the tano 6800 System. This test has been modified from the hot braider's instructions. Its performance characteristics were determined by [facility] in a manner consistent with CLIA requirements. This test has not been cleared or approved by the U.S. Food and Drug Administration. Test Performed by: [facility] - [address] [address] 18 ADDITIONAL INFORMATION This test was developed and its performance characteristics determined by [facility] in a manner consistent with CLIA requirements. This test has not been cleared or approved by the U.S. Food and Drug Administration. Test Performed by: [facility] - [facility] [address] [place] [address] 19 RESULT: No apparent monoclonal protein on serum electrophoresis. Test Performed by: [facility] - [address] [address] 20 REFERENCE VALUE Reference values depend on clinical use: Anticonvulsant: 5.0-20.0 mcg/mL Psychiatric: 2.0-8.0 mcg/mL ADDITIONAL INFORMATION This test was developed and its performance characteristics determined by [facility] in a manner consistent with CLIA requirements. This test has not been cleared or approved by the U.S. Food and Drug Administration. Test Performed by: [facility] - [facility] [address] [place] [address] 21 Normal Range 180 to 914 Indeterminate [...] by Chemiluminescence Microparticle Immunoassay on the Siemens Yeddaaur CP. Values obtained with different methods or kits cannot be used interchangeably.The diagnostic specificity of the ADVIA Centaur 1/O/2 Enhanced assay in the low risk population was 99.90% (6052/6058) with a 95% confidence interval of 99.78 to 99.96%. Procedures Date Code Description Status 11/08/2018 79409 EKG Tracing & Interpretation Completed 10/19/2018 00213 ECHO Transthorasic Realtime 2D W Doppler & Color Flow Hosp Completed 10/18/2018 19093 Left Heart Cath. Incl S/I Coronaries, Angio S/I V Gram If Completed Done 10/18/2018 08326 Myocardial Perfusion Imaging Tomographic (Spect) Single Completed Study 10/09/2018 60156 EKG Tracing & Interpretation Completed 07/21/2018 62807 Polysomnography Sleep Staging 4+ Parameters Completed 07/21/2018 41162 Polysomnography Sleep Staging 4+ Parameters Completed 06/19/2018 13428 Sleep Study Unattended,HRT Rate,Oxygen Sat,Resp Completed Effort/Airflow Medical Devices Description No Information Available Encounters Type Date Location Provider Dx Diagnosis Office Visit 11/03/2018 [facility] Internal Jose Rodriguez NP I25.119 Athscl heart 9:20a Medicine - [facility] disease of [place] cor art w unsp ang pctrs I10 Essential (primary) hypertension I82.402 Acute embolism and thombos unsp deep veins of l low extrem F31.9 Bipolar disorder, unspecified J90 Pleural effusion, not elsewhere classified Office Visit 11/01/2018 9:53a [facility] Sherry I82.402 Acute embolism Assoc,leila Louis, and [facility] Hospitalists SUBSTATION OPERATOR unsp deep veins of l low extrem I25.10 Athscl heart disease of [place] coronary artery w/o ang pctrs I10 Essential (primary) hypertension G43.909 Migraine, unsp, not intractable, without status migrainosus E78.00 Pure hypercholesterolemia, unspecified Office Visit 2018 9:52a [facility] Corine Oh, I82.402 Acute embolism Assoc,leila Lugo and [facility] Hospitalists unsp deep veins of l low extrem R07.9 Chest pain, unspecified I10 Essential (primary) hypertension E78.5 Hyperlipidemia, unspecified Office Visit 10/19/2018 3:01p [facility] Karon Rose, I25.119 Athscl heart Of [facility] M.D. disease of [place] cor art w unsp ang pctrs I10 Essential (primary) hypertension E78.5 Hyperlipidemia, unspecified R07.9 Chest pain, unspecified Office Visit 10/18/2018 3:50p [facility] Karon Rose, I25.110 Athscl heart Of [facility] M.D. disease of [place] cor art w unstable ang pctrs I25.2 Old myocardial infarction Office Visit 10/18/2018 9:00a [facility] Reymundo S. 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, unspecified, in remission I10 Essential (primary) hypertension E78.5 Hyperlipidemia, unspecified E66.8 Other obesity Office Visit 10/09/2018 10:00a [facility] Internal Jose Michael, I10 Essential ( primary) Medicine - [facility] SUBSTATION OPERATOR hypertension R07.89 Other chest pain R22.2 Localized swelling, mass and lump, trunk K57.92 Dvtrcli of intest, part unsp, w/o perf or abscess w/o bleed R94.31 Abnormal electrocardiogram [ECG] [EKG] Office Visit 10/03/2018 [place] Jorge Luis Santoyo G43.109 Migraine with 3:45p Neurologic [place] aura, not Services Of [facility] intractable, w/o status migrainosus M54.5 Low back pain M54.2 Cervicalgia Office Visit 09/18/2018 [place] Marko Gama Z11.4 Encounter for 4:00p For Infectious [place] Alexandra screening for human Diseases immunodeficiency virus Z79.899 Other fdc (current) drug therapy Office Visit 08/21/2018 [facility] G47.33 Obstructive sleep 2:00p Sleep Services Of FARHAD Rubalcava apnea (adult) [facility] (pediatric) G47.00 Insomnia, unspecified Office Visit 07/26/2018 1:00p [place] Eduardo Echeverria G43.109 Migraine with Neurologic SUBSTATION OPERATOR aura, not Services Of [facility] intractable, w/o status migrainosus G62.9 Polyneuropathy, unspecified Z79.899 Other fdc (current) drug therapy M54.81 Occipital neuralgia Office Visit 06/28/2018 2:20p [facility] Internal Jose Rodriguez, G47.00 Insomnia, Medicine - [facility]cm[facility] SUBSTATION OPERATOR unspecified I10 Essential (primary) hypertension Office Visit 06/23/2018 [facility] Eduardo Echeverria, G43.109 Migraine with 3:30p Clinic SUBSTATION OPERATOR aura, not intractable, w/o status migrainosus Z79.899 Other fdc (current) drug therapy G62.9 Polyneuropathy, unspecified Office Visit 06/19/2018 [facility] Denisha Viki Z11.4 Encounter for 4:00p For Infectious [place], SUBSTATION OPERATOR screening for human Diseases immunodeficiency virus Z11.3 Encntr screen for infections w sexl mode of transmiss Z79.899 Other superintendent terminal (current) drug therapy Office Visit 06/13/2018 11:00a Pul[facility] And Glory G47.33 Obstructive sleep Sleep Services Of MD Suzy apnea (adult) [facility] (pediatric) G47.00 Insomnia, unspecified Office Visit 06/07/2018 1:00p [facility] Internal Josekevin Rodriguez, R35.0 Frequency of Medicine - [facility] SUBSTATION OPERATOR micturition R53.83 Other fatigue R10.819 Abdominal tenderness, [...] unsp level Assessments Date Code Description Provider 11/08/2018 I25.2 Old myocardial infarction Reymundo Ortiz, DO FAC 11/08/2018 I82.402 Acute embolism and thrombosis of Reymundo Ortiz, DO FAC unspecified deep veins of left lower extremity 11/08/2018 I25.5 Ischemic cardiomyopathy Reymundo Ortiz, DO FAC 11/08/2018 I10 Essential (primary) hypertension Reymundo Ortiz, DO [facility] 11/08/2018 E78.5 Hyperlipidemia, unspecified Reymundo Ortiz, DO [facility] 11/03/2018 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 Jose Rodriguez NP [place]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 11/03/2018 I10 Essential (primary) hypertension Jose Rodriguez, SUBSTATION OPERATOR 11/03/2018 I82.402 Acute embolism and thrombosis of Jose Rodriguez SUBSTATION OPERATOR unspecified deep veins of left lower extremity 11/03/2018 F31.9 Bipolar disorder, unspecified Jose Rodriguez, SUBSTATION OPERATOR 11/03/2018 J90 Pleural effusion, not elsewhere Josekevin Rodriguez, SUBSTATION OPERATOR classified 11/02/2018 I82.402 Acute embolism and thrombosis of Sherry Louis NP unspecified deep veins of left lower extremity 11/02/2018 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 [place]ry Louis NP [place]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 11/02/2018 I10 Essential (primary) hypertension Sherry Louis, SUBSTATION OPERATOR 11/02/2018 G43.909 Migraine, unspecified, not Sherry Louis, SUBSTATION OPERATOR intractable, without status migrainosus 11/01/2018 I82.402 Acute embolism and thrombosis of Sherry Louis SUBSTATION OPERATOR unspecified deep veins of left lower extremity 11/01/2018 I25.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 Sherry Louis SUBSTATION OPERATOR [place] coronary artery without angina pectoris 11/01/2018 I10 Essential (primary) hypertension Sherry Louis, SUBSTATION OPERATOR 11/01/2018 G43.909 Migraine, unspecified, not Sherry Louis, SUBSTATION OPERATOR intractable, without status migrainosus 11/01/2018 E78.00 Pure hypercholesterolemia, Sherry Louis, SUBSTATION OPERATOR unspecified 2018 I82.402 Acute embolism and thrombosis of Corine Oh M.D. unspecified deep veins of left lower extremity 2018 R07.9 Chest pain, unspecified Corine Oh M.D. 2018 I10 Essential (primary) hypertension Corine Oh M.D. 2018 E78.5 Hyperlipidemia, unspecified Corine Oh M.D. 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 [place]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 10/19/2018 I10 Essential (primary) hypertension Karon Rose M.D. 10/19/2018 E78.5 Hyperlipidemia, unspecified Karon Rose M.D. 10/19/2018 R07.9 Chest pain, unspecified Karon Rose M.D. 10/18/2018 I25.1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 Karon Rose M.D. [place] coronary artery with unstable angina pectoris 10/18/2018 I25.2 Old myocardial infarction Karon Rose M.D. 10/18/2018 I25.1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 Sampson Aden MD, [facility], [place] coronary artery with unstable FSCAI angina pectoris 10/18/2018 R07.9 Chest pain, unspecified Reymundo SDemarcus Ortiz, DO [facility] 10/18/2018 I25.2 Old myocardial infarction Reymundo SDemarcus Ortiz, DO [facility] 10/18/2018 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 Reymundo Putnamno, DO [facility] [place]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 10/18/2018 F17.201 Nicotine dependence, unspecified, in Reymundo Putnamno, DO [facility] remission 10/18/2018 I10 Essential (primary) hypertension Reymundo SDemarcus Ortiz, DO [facility] 10/18/2018 E78.5 Hyperlipidemia, unspecified Reymundo SDemarcus Ortiz, DO [facility] 10/18/2018 E66.8 Other obesity Reymundo SDemarcus Ortiz, DO [facility] 10/18/2018 R07.89 Other chest pain Jose Michael, SUBSTATION OPERATOR 10/18/2018 R94.31 Abnormal electrocardiogram [ECG] Josekevin Rodriguez SUBSTATION OPERATOR [EKG] 10/09/2018 R94.31 Abnormal electrocardiogram [ECG] Enedina Abreu MD [EKG] 10/09/2018 I10 Essential (primary) hypertension Jose Michael, SUBSTATION OPERATOR 10/09/2018 R07.89 Other chest pain Enedina Abreu MD 10/09/2018 R07.89 Other chest pain Jose Michael, SUBSTATION OPERATOR 10/09/2018 R22.2 Localized swelling, mass and lump, Jose Rodriguez NP trunk 10/09/2018 K57.92 Diverticulitis of [...] M.D. immunodeficiency virus [Hi 09/18/2018 Z79.899 Other superintendent terminal (current) drug Sanchez Alexandra M.D. therapy 08/21/2018 G47.33 Obstructive sleep apnea (adult) Marina Rubalcava NP (pediatric) 08/21/2018 G47.00 Insomnia, unspecified Marina Rubalcava NP 07/26/2018 G43.109 Migraine with aura, not intractable, Eduardosly Echeverria NP without status migraino 07/26/2018 G62.9 Polyneuropathy, unspecified Eduardo Olgake, SUBSTATION OPERATOR 07/26/2018 Z79.899 Other fdc (current) drug Eduardo Juwan, SUBSTATION OPERATOR therapy 07/26/2018 M54.81 Occipital neuralgia Eduardo Juwan, SUBSTATION OPERATOR 07/21/2018 G47.33 Obstructive sleep apnea (adult) Glory Almonte MD (pediatric) 06/28/2018 G47.00 Insomnia, unspecified Jose Rodriguez NP 06/28/2018 I10 Essential (primary) hypertension Jose Rodriguez NP 06/23/2018 G43.109 Migraine with aura, not intractable, Eduardosly Echeverria SUBSTATION OPERATOR without status migraino 06/23/2018 Z79.899 Other fdc (current) drug Eduardo Juwan, SUBSTATION OPERATOR therapy 06/23/2018 G62.9 Polyneuropathy, unspecified Eduardo Elenaaake, SUBSTATION OPERATOR 06/19/2018 G47.33 Obstructive sleep apnea (adult) Glory Almonte MD (pediatric) 06/19/2018 Z11.4 Encounter for screening for human Denisha Mart NP immunodeficiency virus [Hi 06/19/2018 Z11.3 Encounter for screening for Denisha Mart NP infections with a predominantly 06/19/2018 Z79.899 Other superintendent terminal (current) drug Denisha Mart NP therapy 06/13/2018 G47.33 Obstructive sleep apnea (adult) Glory Almonte MD (pediatric) 06/13/2018 G47.00 Insomnia, unspecified Glory Almonte MD 06/07/2018 R35.0 Frequency of micturition Josekevin Rodriguez NP 06/07/2018 R53.83 Other fatigue Josekevin Rodriguez NP 06/07/2018 R10.819 Abdominal tenderness, unspecified Josekevin Rodriguez, SUBSTATION OPERATOR site 06/07/2018 G47.00 Insomnia, unspecified Josekevin Rodriguez NP 06/07/2018 R11.2 Nausea with vomiting, unspecified Josekevin Rodriguez, FARHAD 06/07/2018 M54.5 Low back pain Josekevin Rodriguez NP 06/07/2018 M50.10 Cervical disc disorder with Jose Rodriguez NP radiculopathy, unspecified cervi 06/07/2018 I10 Essential (primary) hypertension Jose Rodriguez NP 06/07/2018 R42 Dizziness and giddiness Josekevin Rodriguez, FARHAD 06/07/2018 G43.109 Migraine with aura, not intractable, Jose Rodriguez NP without status migraino 06/07/2018 R41.3 Other amnesia Josekevin Rodriguez NP 05/10/2018 M50.320 Other cervical disc degeneration, Jorge Luis Harvey M.D. mid-cervical region, unspe Plan of Treatment Future Appointment(s):12/20/2018 1:40 pm - Reymundo Ortiz DO FAC at [facility]11/17/2018 9:20 am - Jose Rodriguez NP at [facility]11/20/2018 8:30 am - Alannah South DNP, RN, [address] SERVICE-BC at [facility]04/10/2019 3:45 pm - Jorge Luis Lee M.D. at [facility]12/18/2018 4:00 pm - Sanchez Alexandra M.D. at [facility]77/25/2019 - Reymundo Ortiz, FACCI25.2 Old myocardial infarctionNew Therapy:Cardiac RehabComments:Once the clot is dissolved in your leg, we can stop xarelto. At that point we will change to a different blood thinner (technically an anti-platelet such as clopidogrel/ plavix or brilinta/ticagrelor) and arrange for the cardiac stents. Stop taking furosemide (lasix) and potassium Schedule ultrasound of lower left leg in 1 monthFollow up:Please stamp patients disability form and make a copy for our records. Schedule US of left lower leg in 1 month and then f/u OV eyqjyckzzkB45.402 Acute embolism and thrombosis of unspecified deep veins of left lower extremityNew Xrays:VL Lower Ext Veins Left, Scheduled: 12/18/18I25.5 Ischemic pyvlqfirupplgcE23 Essential (primary) mminqomyzzsuD37.5 Hyperlipidemia , unspecified Functional Status Description No Information Available Mental Status Description No Information Available Referrals Refer to Reason for Referral Status Appt Date Ofe Hoang NPP Sent [address] [place] [address] [phone] Malini Matson M.D. refaxed referral they will be looking for it. Sent 10/[address] [place] [phone] [facility] Sent 10/30/2018 [address] [place], [place] [address] [phone] [facility] Received Partial 11/28/2018 [address] [place], [place] [id number] [phone] [facility] [address] [place] [phone]
--- OUTSIDE RECORDS SUMMARY | 2018-12-05 15:18 | XMS REPORT | Continuity of Care Document ---
:1980 External Reference #:[id number] Author Name Jose Rodriguez NP (transmitted by agent of provider Delisa Grullon) Address [address] [facility], [place] [address] Care Team Providers Name Role Phone Kem Celaya MD - Family Medicine Care Team Information Mechanical Design Engineer Radha Julien MD - Internal Medicine Care Team Information Mechanical Design Engineer [phone] Problems Active Problems Provider Date Obstructive sleep [...] with 50mg to equal 150mg at hs. [facility] Allergy 1 by mouth every Unknown 180mg [...] Date Technetium TC 99M Reymundo Ortiz DO [facility] 10/18/2018 Tetrofosmin, Per Unit Dose Up [...] Result H/L Range Note Laboratory test 2018 [facility] Troponin-I 0.01 ng/mL < 0.[address] (TnI) [place] [address] [phone] CBC Auto Diff 10/30/2018 [facility] White Blood 10.6 10^3/uL Normal 3.5-10.[address] [place] [address] [phone] Red Blood Count 4.65 10^6/uL Normal 4.18-5.48 [...] Red Blood Cells % 0.0 Inr/Protime 10/30/2018 [facility] Inr 1.25 High 0.82-1.[address] [place], [place] [id number] [phone] Laboratory test 10/30/2018 [facility] Troponin-I 0.01 <0.[address] (TnI) ng/mL [place], [place] [id number] [phone] Comp Metabolic 10/30/2018 [facility] Sodium 138 Normal 135- [address] mmol/[place] [address] [phone] Potassium 4.0 mmol/L Normal 3.5-5.0 Chloride 106 [...] >60 Egfr 110.6 >60 4 Inr/Protime 10/18/2018 [facility] Inr 0.98 Normal 0.82-1.[address] [place] [address] [phone] Laboratory test 10/18/2018 [facility] Partial 34.9 Normal 26.0 -38[address] [place] [address] Time PTT [phone] CBC Auto Diff 10/18/2018 [facility] White Blood 13.8 High 3.5- 10.[address] Count 10^3/[place] [address] [phone] Red Blood Count 5.14 10^6/uL Normal 4.18-5.48 [...] Blood Cells % 0.1 Comp Metabolic 10/18/2018 [facility] Sodium 138 mmol/L Normal 135-[address] [place] [id number] [phone] Potassium 4.3 mmol/L Normal 3.5-5.0 Chloride 109 [...] Egfr 135.5 >60 6 Laboratory test 10/18/2018 [facility] Troponin-I (TnI) 0.00 ng/ mL <0.04 [address] [place] [address] [phone] Hemoglobin A1c (Glyco HGB) 5.4 % Normal 4.0-5.6 8 Order 10/18/2018 [facility] Stress Test, <pending> [address] [place] [address] [phone] Lipid Profile 10/09/2018 [facility] Triglycerides 479 mg/dL 9 (Trig/Chol/HD [address] L) [place] [address] [phone] Cholesterol 322 mg/dL 10 HDL Cholesterol 34.0 mg/dL 11 LDL Cholesterol (SEE NOTE) mg/dL 12 Laboratory test 10/09/2018 [facility] Troponin-I (TnI) 0.01 ng/ mL <0.[address] [place] [address] [phone] TSH (Thyroid Stim Horm) 0.44 mcIU/mL Normal 0.34-5.60 LDL Cholesterol Direct 185 mg/dL 14 CBC Auto 09/13/2018 [facility] White Blood 12.6 10^3/uL High 3.5-10.[address] [place] [address] [phone] Red Blood Count 4.81 10^6/uL Normal 4.18-5.48 [...] Blood Cells % 0.0 Comp Metabolic 09/13/2018 [facility] Sodium 140 mmol/L Normal 135-145 Panel [address] [place] [address] [phone] Potassium 3.4 mmol/L Low 3.5-5.0 Chloride 109 [...] Egfr 121.1 >60 15 Laboratory test 09/13/2018 [facility] C Reactive 11.10 mg/L High <8.01 finding [address] [facility] [place] [address] [phone] Urinalysis 09/13/2018 [facility] Urine Color Yellow Profile 101 [place] [address] [phone] Urine Appearance Cloudy Urine Specific [place] 1.018 Normal 1.010-1.030 Urine pH 6.0 Normal 5-9 Urine Urobilinogen Negative Negative Urine Ketones Negative Negative Urine Protein Negative Negative Urine Leukocytes Negative Negative Urine Blood Negative Negative Urine Nitrite Negative Negative Urine Bilirubin Negative Negative Urine Glucose Negative Negative Basic Metabolic 09/05/2018 [facility] Sodium 142 mmol/L Normal 135-145 Panel 101 [place] [address] [phone] Potassium 4.0 mmol/L Normal 3.5-5.0 Chloride 109 mmol/L Normal 101-111 Co2 Carbon Dioxide 24 mmol/L Normal 22-32 Anion Gap 9 mmol/L Normal 2-11 Glucose 94 mg/dL Normal 70-100 Blood Urea Nitrogen 14 mg/dL Normal 6-24 Creatinine 0.91 mg/dL Normal 0.67-1.17 BUN/Creatinine Ratio 15.4 Normal 8-20 Calcium 10.5 mg/dL High 8.6-10.3 Egfr Non- 93.7 >60 Egfr 113.4 >60 16 HIV-1 Rna QNT 09/05/2018 [facility] HIV-1 Rna Undetected Undetected 17 By PCR Sli [address] [employer] (PCR) copies/[place] [address] [phone] Laboratory 09/05/2018 [facility] Syphillis Negative Negative test [place] [address] W/Reflex [phone] RPR Laboratory 06/28/2018 [facility] TSH 1.23 mcIU/mL Normal 0.34- 5.60 test finding [address] ([place] [address] Stim Horm) [phone] T3 Total 124 ng/dL Normal 87-178 Thyroxine 5.72 g/dL Low 6.09-12.23 Methylmalonic Acid Mma 0.14 nmol/mL <=0.40 18 Protein 06/28/2018 [facility] Total 7.1 g/dL 6.3 - Electrophoresis centrose Protein(Pep) 7.9 [place] [address] [phone] Albumin 4.1 g/dL 3.4-4.7 Alpha-1 Globulin 0.2 g/dL 0.1-0.3 Alpha-2 Globulin 0.9 g/dL 0.6-1.0 Beta Globulin 1.1 g/dL 0.7-1.2 Gamma Globulin 0.8 g/dL 0.6-1.6 Albumin/Globulin Ratio 1.38 Impression See Comment 19 Laboratory 06/28/2018 [facility] Topamax 5.7 g/mL 20 test finding [address] [employer] (Topiramate) [place] [address] [phone] Laboratory 06/28/2018 [facility] [place] 0.51 mmol/L Low 0.6- 1.2 test finding 101 [place] [address] [phone] Laboratory 06/21/2018 [facility] Potassium 4.1 mmol/L Normal 3.5-5.0 test finding 101 [place] [address] [phone] HIV 1/2 AB 06/13/2018 [facility] HIV 1 2 Nonreactive Nonreactive 21 Evaluation [address] [facility] [place] [address] [phone] Laboratory 06/13/2018 [facility] Syphillis Igg Negative Negative test finding [address] [facility] W/[place] [address] [phone] CBC Auto 06/13/2018 [facility] White Blood 9.9 10^3/uL Normal 3.5-10.8 Diff 101 [facility] [address] [phone] Red Blood Count 5.32 10^6/uL Normal 4.18-5.48 [...] Blood Cells % 0.2 Laboratory test 06/13/2018 [facility] Ferritin 61.7 ng/mL Normal 24-336 finding [address] [place] [address] [phone] Vitamin B12 296 pg/mL Normal 180-914 22 PSA Screening 0.968 ng/mL Normal 0-4.000 23 Urinalysis Profile 06/13/2018 [facility] Urine Color Yellow [address] [place] [address] [phone] Urine Appearance Clear Urine Specific [place] 1.009 Low 1.010-1.030 Urine pH 7.0 Normal 5-9 Urine Urobilinogen Negative Negative Urine Ketones Negative Negative Urine Protein Negative Negative Urine Leukocytes Negative Negative Urine Blood Negative Negative Urine Nitrite Negative Negative Urine Bilirubin Negative Negative Urine Glucose Negative Negative Comp Metabolic 06/13/2018 [facility] Sodium 139 mmol/L Normal 135-[address] [place] [address] [phone] Potassium 2.8 mmol/L Low 3.5-5.0 Chloride 101 [...] Egfr 114.9 >60 24 Laboratory test 06/13/2018 [facility] Lyme Screen Negative Negative finding [address] W/ [place] [address] WB [phone] 1 Troponin-I testing on Plasma Separator Tubes (PST) has a known false positive rate of 0.20-0.40%. All positive troponins reflex immediately to secondary confirmatory testing. Using the [employer] DxI 800 Access Immunoassay systems, the 99th percentile upper reference limit was demonstrated to be < 0.03 ng/mL. 2 Standard intensity warfarin therapeutic range: 2.0-3.0 High intensity warfarin therapeutic range: 2.5-3.5 3 Troponin-I testing on Plasma Separator Tubes (PST) has a known false positive rate of 0.20-0.40%. All positive troponins reflex immediately to secondary confirmatory testing. Using the [employer] 800 Access Immunoassay systems, the 99th percentile [...] in selective patients <6.0%. Please refer to [employer] diabetic care guidelines for further [...] was performed using the tano HIV-1 test ([employer] with the tano [employer] System. This test has been modified from the defensive driving instructor's instructions. Its performance characteristics were determined by [facility] in a manner consistent with CLIA requirements. This test has not been cleared or approved by the U.S. Food and Drug Administration. Test Performed by: [facility] - [address] [address] ADDITIONAL INFORMATION This test was developed and its performance characteristics determined by [facility] in a manner consistent with CLIA requirements. This test has not been cleared or approved by the U.S. Food and Drug Administration. Test Performed by: [facility] - [facility] [address] [place] [address] 19 RESULT: No apparent monoclonal protein on serum electrophoresis. Test Performed by: [facility] - [address] [address] 20 REFERENCE VALUE Reference values depend on clinical use: Anticonvulsant: 5.0-20.0 mcg/mL Psychiatric: 2.0-8.0 mcg/mL ADDITIONAL INFORMATION This test was developed and its performance characteristics determined by [facility] in a manner consistent with CLIA requirements. This test has not been cleared or approved by the U.S. Food and Drug Administration. Test Performed by: [facility] - [facility] [address] [place] [address] 21 It is recognized that currently available [...] dialysis) Procedures Date Code Description Status 10/19/2018 98018 ECHO Transthorasic Realtime 2D W Doppler & Color Flow Hosp Completed 10/18/2018 65651 Myocardial Perfusion Imaging Tomographic (Spect) Single Completed Study 10/09/2018 17469 EKG Tracing & Interpretation Completed 07/21/2018 54240 Polysomnography Sleep Staging 4+ Parameters Completed 07/21/2018 82217 Polysomnography Sleep Staging 4+ Parameters Completed 06/19/2018 64652 Sleep Study Unattended,HRT Rate,Oxygen Sat,Resp Completed Effort/Airflow Medical Devices Description No Information Available Encounters Type Date Location Provider Dx Diagnosis Office Visit 10/18/2018 [facility] Reymundo Ortiz, I25.2 Old myocardial 9:00a [facility] DO FAC infarction I25.119 Athscl heart disease of [place] cor art w unsp ang pctrs F17.201 Nicotine dependence, unspecified, in remission I10 Essential (primary) hypertension E78.5 Hyperlipidemia, unspecified E66.8 Other obesity Office Visit 10/09/2018 10:00a [facility] Internal Jose Michael, I10 Essential ( primary) Medicine - Ccmob RACK CARRIER hypertension R07.89 Other chest pain R22.2 Localized swelling, mass and lump, trunk K57.92 Dvtrcli of intest, part unsp, w/o perf or abscess w/o bleed R94.31 Abnormal electrocardiogram [ECG] [EKG] Office Visit 10/03/2018 [place] Jorge Luis Santoyo G43.109 Migraine with 3:45p Neurologic [place] Lee aura, not Services [facility] intractable, w/o status migrainosus M54.5 Low back pain M54.2 Cervicalgia Office Visit 09/18/2018 [facility] Sanchez Gama Z11.4 Encounter for 4:00p For Infectious [place] Alexandra screening for human Diseases immunodeficiency virus Z79.899 Other custodial (current) drug therapy Office Visit 08/21/2018 [facility] G47.33 Obstructive sleep 2:00p Sleep Services Of FARHAD Rubalcava apnea (adult) [facility] (pediatric) G47.00 Insomnia, unspecified Office Visit 07/26/2018 1:00p [place] Eduardo Echeverria G43.109 Migraine with Neurologic RACK CARRIER aura, not Services [facility] intractable, w/o status migrainosus G62.9 Polyneuropathy, unspecified Z79.899 Other custodial (current) drug therapy M54.81 Occipital neuralgia Office Visit 06/28/2018 2:20p [facility] Internal Jose Rodriguez, G47.00 Insomnia, Medicine - Ccmob RACK CARRIER unspecified I10 Essential (primary) hypertension Office Visit 06/23/2018 [facility] Eduardo Echeverria, G43.109 Migraine with 3:30p Clinic RACK CARRIER aura, not intractable, w/o status migrainosus Z79.899 Other vermin exterminator (current) drug therapy G62.9 Polyneuropathy, unspecified Office Visit 06/19/2018 [facility] Denisha Drew Z11.4 Encounter for 4:00p For Infectious Mart, RACK CARRIER screening for human Diseases immunodeficiency virus Z11.3 Encntr screen for infections w sexl mode of transmiss Z79.899 Other custodial (current) drug therapy Office Visit 06/13/2018 11:00a [facility] Glory G47.33 Obstructive sleep Sleep Services Of MD Suzy apnea (adult) [facility] (pediatric) G47.00 Insomnia, unspecified Office Visit 06/07/2018 1:00p [facility] Internal Jose Rodriguez, R35.0 Frequency of Medicine - Ccmob RACK CARRIER micturition R53.83 Other fatigue R10.819 Abdominal tenderness, [...] Atherosclerotic heart disease of Jose Rodriguez NP [place]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 11/03/2018 I10 Essential (primary) hypertension Jose Rodriguez NP 11/03/2018 I82.402 Acute embolism and thrombosis of Josekevin Rodriguez NP unspecified deep veins of left lower extremity 11/03/2018 F31.9 Bipolar disorder, unspecified Jose Michael, RACK CARRIER 11/03/2018 J90 Pleural effusion, not elsewhere Josekevin Rodriguez NP classified 10/19/2018 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 [place]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 10/19/2018 I10 Essential (primary) hypertension Karon Rose M.D. 10/19/2018 E78.5 Hyperlipidemia, unspecified Karon Rose M.D. 10/19/2018 R07.9 Chest pain, unspecified Karon Rose M.D. 10/18/2018 R07.9 Chest pain, unspecified Reymundo Ortiz, [facility] 10/18/2018 I25.2 Old myocardial infarction Reymundo Ortiz, [facility] 10/18/2018 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 Reymundo Putnamno, DO [facility] [place]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 10/18/2018 F17.201 Nicotine dependence, unspecified, in Reymundo Ortiz, DO [facility] remission 10/18/2018 I10 Essential (primary) hypertension Reymundo DarrenDemarcus Ortiz, [facility] 10/18/2018 E78.5 Hyperlipidemia, unspecified Reymundo Ortiz, [facility] 10/18/2018 E66.8 Other obesity Reymundo Ortiz, [facility] 10/18/2018 R07.89 Other chest pain Jose Rodriguez NP 10/18/2018 R94.31 Abnormal electrocardiogram [ECG] Josekevin Rodriguez NP [EKG] 10/09/2018 R94.31 Abnormal electrocardiogram [ECG] Enedina Abreu MD [EKG] 10/09/2018 I10 Essential (primary) hypertension Jose Rodriguez NP 10/09/2018 R07.89 Other chest pain Enedina Abreu MD 10/09/2018 R07.89 Other chest pain Jose FARHAD Rodriguez 10/09/2018 R22.2 Localized swelling, mass and lump, Josekevin Rodriguez NP trunk 10/09/2018 K57.92 Diverticulitis of intestine, part Jose Michael, RACK CARRIER unspecified, without perforation or abscess without bleeding 10/09/2018 R94.31 Abnormal electrocardiogram [ECG] Jose Rodriguez NP [EKG] 10/03/2018 G43.109 Migraine with aura, not intractable, Jorge Luis Lee M.D. without status migraino 10/03/2018 M54.5 Low back pain Jorge Luis Lee M.D. 10/03/2018 M54.2 Cervicalgia Jorge Luis Lee M.D. 09/18/2018 Z11.4 Encounter for screening for human Sanchez Alexandra M.D. immunodeficiency virus [Hi 09/18/2018 Z79.899 Other custodial (current) drug Sanchez Alexandra M.D. therapy 08/21/2018 G47.33 Obstructive sleep apnea (adult) Marina Rubalcava NP (pediatric) 08/21/2018 G47.00 Insomnia, unspecified Marina Rubalcava, RACK CARRIER 07/26/2018 G43.109 Migraine with aura, not intractable, Eduardosly Echeverria, RACK CARRIER without status migraino 07/26/2018 G62.9 Polyneuropathy, unspecified Eduardo Knaake, RACK CARRIER 07/26/2018 Z79.899 Other vermin exterminator (current) drug Eduardo Juwan, RACK CARRIER therapy 07/26/2018 M54.81 Occipital neuralgia Eduardo Olgake, RACK CARRIER 07/21/2018 G47.33 Obstructive sleep apnea (adult) Glory Almonte MD (pediatric) 06/28/2018 G47.00 Insomnia, unspecified Jose Rodriguez, RACK CARRIER 06/28/2018 I10 Essential (primary) hypertension Jose oRdriguez, RACK CARRIER 06/23/2018 G43.109 Migraine with aura, not intractable, Eduardo Juwan, RACK CARRIER without status migraino 06/23/2018 Z79.899 Other custodial (current) drug Eduardo Olgake, RACK CARRIER therapy 06/23/2018 G62.9 Polyneuropathy, unspecified Eduardo Knaake, RACK CARRIER 06/19/2018 G47.33 Obstructive sleep apnea (adult) Glory Almonte MD (pediatric) 06/19/2018 Z11.4 Encounter for screening for human Denisha Mart NP immunodeficiency virus [Hi 06/19/2018 Z11.3 Encounter for screening for Denisha Mart NP infections with a predominantly 06/19/2018 Z79.899 Other custodial (current) drug Denisha Mart NP therapy 06/13/2018 G47.33 Obstructive sleep apnea (adult) Glory Almonte MD (pediatric) 06/13/2018 G47.00 Insomnia, unspecified Glory Almonte MD 06/07/2018 R35.0 Frequency of micturition Josekevin Rodriguez NP 06/07/2018 R53.83 Other fatigue Josekevin Rodriguez NP 06/07/2018 R10.819 Abdominal tenderness, unspecified Josekevin Rodriguez, RACK CARRIER site 06/07/2018 G47.00 Insomnia, unspecified Josekevin Rodriguez, RACK CARRIER 06/07/2018 R11.2 Nausea with vomiting, unspecified Josekevin Rodriguez RACK CARRIER 06/07/2018 M54.5 Low back pain Josekevin Rodriguez NP 06/07/2018 M50.10 Cervical disc disorder with Jose Rodriguez NP radiculopathy, unspecified cervi 06/07/2018 I10 Essential (primary) hypertension Jose Rodriguez RACK CARRIER 06/07/2018 R42 Dizziness and giddiness Josekevin Rodriguez NP 06/07/2018 G43.109 Migraine with aura, not intractable, Jose Rodriguez NP without status migraino 06/07/2018 R41.3 Other amnesia Jose Rodriguez NP 05/10/2018 M50.320 Other cervical disc degeneration, Jorge Luis Harvey M.D. mid-cervical region, unspe Plan of Treatment Future Appointment(s):11/17/2018 9:20 am - Jose Rodriguez NP at [facility]/20[facility] 8:30 am - Alannah South DNP, RN, FRACTIONATION PLANT SUPERVISOR-BC at [facility]11/08/2018 1:40 pm - Reymundo Ortiz DO [facility] at [place] [facility]04/10/2019 3:45 pm - Jorge Luis Lee M.D. at [place] [facility]12/18/2018 4:00 pm - Sanchez Alexandra M.D. at [place] [facility] Dwx[facility]qpc78/20/2019 - Jose Rodriguez, NP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 [place]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Comments:It is important that you keep your follow up appointments with Dr. Ortiz.I10 Essential (primary) tjyykfsweljpP61.402 Acute embolism and thrombosis of unspecified deep veins of left lower extremityComments:Continue on Xarelto and aspirin unless told otherwise by Dr. Oconnor.F31.9 Bipolar disorder, unspecifiedComments:I have sent in the prescription for the Latuda. It is important that you get in with mental health soon to take over that prescription.Referral:Ofe Hoang NPP, Psych/Mental Health/NPFollow up:2 [id number] Pleural effusion, not elsewhere classifiedComments:Please have the repeat chest xray done towards the end of next week. Functional Status Description No Information Available Mental Status Description No Information Available Referrals Refer to Reason for Referral Status Appt Date Ofe Hoang NPP Created [address] [place] [address] [phone] Malini Matson M.D. refaxed referral they will be looking for it. Sent 10/[address] [place] [address] [phone] [facility] Sent 10/30/2018 [facility] [place] [address] [phone] [facility] [place] Received Partial 10/26/2018 [place] [place] [address] [phone] [facility] Clinic Closed [address] [place] [address] [phone]
--- NOTE | 2018-12-05 15:22 | UC ---
Cardiac HPI - HPI Summary HPI Summary: 38 yo male with the onset of left ryan pain late last night or early AM. He has a know left DVT ( on xarelto) Has known 3 vessel CAD While enroute here developed mild left sided pleuretic chest pain and mild dyspnea - History of Current Complaint Stated Complaint: CHEST PAIN Hx Obtained From: Patient Onset/Duration: Gradual Onset, Lasting Minutes - CP x 30 min Timing: Constant Initial Severity: Mild Current Severity: Mild Chest Pain Location: Left Anterior Character: Sharp/Stabbing Aggravating Factor(s): Deep Breaths Alleviating Factor(s): Nothing Associated Signs & Symptoms: Positive: Chest Pain, Anxiety, SOB - mild - Risk Factors Pulmonary Embolism Risk Factors: DVT Cardiac Risk Factors: CAD - Allergy/Home Medications Allergies/Adverse Reactions: Allergies Allergy/AdvReac Type Severity Reaction Status Date / Time clarithromycin [From Biaxin] Allergy Severe Hives Verified 12/05/18 15:30 PMH/Surg Hx/FS Hx/Imm Hx Endocrine History: Dyslipidemia Cardiovascular History: Cardiac Disease, Hypertension, Deep Vein Thrombosis Other History Of: Negative For: HIV, Hepatitis B, Hepatitis C, Anticoagulant Therapy - Surgical History Surgical History: Yes Surgery Procedure, Year, and Place: right foot fusion, 2013? wisdom teeth removal - Family History Known Family History: Positive: Hypertension, Other - [place], Non-Contributory Negative: Cardiac Disease - Social History Alcohol Use: Rare Alcohol Amount: 1 drink a month Substance Use Type: None Substance Use Comment - Amount & Last Used: marajuana 2-3 times a Smoking Status (MU): Former Smoker Type: Cigarettes Amount Used/How Often: 3 CIG/DAY Length of Time of Smoking/Using Tobacco: 15 YEARS Have You Smoked in the Last Year: Yes - quit April 2018 When Did the Patient Quit Smoking/Using Tobacco: states he stopped yesterday - Immunization History Most Recent Influenza Vaccination: 11/01/18 Most Recent Pneumonia Vaccination: never Review of Systems All Other Systems Reviewed And Are Negative: Yes Constitutional: Positive: Negative Skin: Positive: Negative Eyes: Positive: Negative ENT: Positive: Negative Respiratory: Positive: Shortness Of Breath Cardiovascular: Positive: Chest Pain Gastrointestinal: Positive: Negative Genitourinary: Positive: Negative Motor: Positive: Negative Musculoskeletal: Positive: Calf Tenderness - left Neurological: Positive: Negative Psychological: Positive: Negative Physical Exam Triage Information Reviewed: Yes Appearance: Well-Appearing, No Pain Distress, Well-Nourished, Ill-Appearing Vital Signs: P- 71 BP 134/87 RR 18 O2 sat 97% T 99.2 Vital Signs Reviewed: Yes Eyes: Positive: Conjunctiva Clear ENT: Positive: Hearing grossly normal. Negative: Nasal congestion, Nasal drainage, Tonsillar swelling, Tonsillar exudate Neck: Positive: Supple, Nontender Respiratory: Positive: Lungs clear, Normal breath sounds, No respiratory distress, No accessory muscle use Cardiovascular: Positive: RRR, No Murmur Musculoskeletal: Positive: Edema @ - left leg Neurological: Positive: Alert Psychological Exam: Normal Skin Exam: Normal Diagnostics - EKG Cardiac Rate: Bradycardia Ectopy: None ST Segment: Non-Specific - Flipped T's 1 avL v2-4 new since 10/30/18 ST el v2 and v3 old - Differential Diagnoses - Chest Pain Differential Diagnosis/HQI/PQRI: ACS, Pulmonary Embolism - Clinical Impression Provider Diagnosis: Chest pain of uncertain etiology Discharge ED - Sign-Out/Discharge Documenting (check all that apply): Patient Departure All imaging exams completed and their final reports reviewed: No Studies - Discharge Plan Condition: Guarded Disposition: TRANS HIGHER LVL OF CARE FAC Referrals: Radha Julien MD [Primary Care Provider] - - Billing Disposition and Condition Condition: GUARDED Disposition: Trans Higher Lvl of Care Fac
[2018-12-05] MEDS ORDERED: Aspirin 81 mg CHEW TAB* 81 MG TAB.CHEW PO ONE (15:32)
[2018-12-05 15:49] VITALS: BP 134/87
== END 2018-12-05 16:00 | disposition short-term general hospital (02) ==
LOC: UCEAST 15:10
DX: R07.9 Chest pain, unspecified (principal); M79.662 Pain in left lower leg; I10 Essential (primary) hypertension; Z88.1 Allergy status to other antibiotic agents; Z87.891 Personal history of nicotine dependence
CPT/HCPCS: 93005; 99213; A9270-GY; G0463

== ENCOUNTER 2018-12-05 16:13 | Emergency (ER) | payer BC ==
--- NOTE | 2018-12-05 16:26 | ED ---
HPI Chest Pain - HPI Summary HPI Summary: Pt is a 38 y/o M presenting to the ED via EMS for a chief complaint of diffuse non-radiating chest pain that began two hours ago and is improving. Pt was given 3 doses of NTG by EMS. Pt states that he began to feel left calf pain and swelling the morning of 12/05/18 and went to [facility] when he began to feel chest pain. Pt reports the chest pain worsens with deep breaths and thinks it feels similar to his incisional chest pain. Pt also states he has difficulty sleeping. Pt denies WOODY or fever. Pt was previously having chest pain in Sept ( had elevations in anterior leads) as diagnosed with a remote MO requiring a 1 vesesel CABG performed at [facility]. Pt is currently taking Xarelto for a PMHx of DVT that required admission on 10/30/18. Pt has a PMHx of HTN and a FMHx of cardiac disease. Pt sees Dr. Ortiz. - History of Current Complaint Chief Complaint: EDChestPainROMI Time Seen by Provider: 12/05/18 16:21 Hx Obtained From: Patient Onset/Duration: Started Minutes Ago, Atraumatic, Still Present - Improving Timing: Lasting Minutes Initial Severity: Moderate Current Severity: Moderate Pain Intensity: 4 Pain Scale Used: 0-10 Numeric Chest Pain Location: Diffuse Chest Pain Radiates: No Aggravating Factor(s): Deep Breaths Alleviating Factor(s): Nothing Associated Signs and Symptoms: Positive: Chest Pain - Diffuse, Calf Pain/ Swelling - Left. Negative: Headaches, Fever - Additional Pertinent History Primary Care Physician: ELISA - Allergy/Home Medications Allergies/Adverse Reactions: Allergies Allergy/AdvReac Type Severity Reaction Status Date / Time clarithromycin [From Biaxin] Allergy Severe Hives Verified 12/05/18 15:30 Home Medications: Home Medications Mirabegron (NF) [Myrbetriq (NF)] 50 mg PO DAILY 12/05/18 [History Confirmed ] PMH/Surg Hx/FS Hx/Imm Hx Previously Healthy: Yes Endocrine/Hematology History: Denies: Hx Anticoagulant Therapy, Hx Diabetes, Hx Thyroid Disease, Hx Anemia Cardiovascular History: Reports: Hx Angina, Hx Coronary Artery Disease - CHOLESTEROL CONTROL WITH MEDS, Hx Hypercholesterolemia, Hx Hypertension - ON MEDS, Hx Myocardial Infarction Denies: Hx Congestive Heart Failure, Hx Deep Vein Thrombosis, Hx Pacemaker/ ICD, Hx Valvular Heart Disease Respiratory History: Reports: Hx Sleep Apnea - evaluation for 06/2013, another scheduled for 07/2018 Denies: Hx Asthma, Hx Chronic Obstructive Pulmonary Disease (COPD), Hx Lung Cancer, Hx Pneumonia, Hx Pulmonary Embolism GI History: Reports: Other GI Disorders - enlarged liver 2018 Denies: Hx Gall Bladder Disease - possible gallstones on MRI 2018, Hx Gastrointestinal Bleed, Hx Jaundice, Hx Ulcer, Hx Urosepsis History: Denies: Hx Chronic Renal Failure, Hx Dialysis, Hx Kidney Stones, Hx Renal Disease Musculoskeletal History: Reports: Hx Arthritis, Hx Back Problems, Other Musculoskeletal History - osteo-arthritis Right foot Denies: Hx Rheumatoid Arthritis, Hx Osteoporosis, Hx Scoliosis Sensory History: Reports: Hx Contacts or Glasses Denies: Hx Cataracts, Hx Hearing Aid Opthamlomology History: Reports: Hx Contacts or Glasses Denies: Hx Cataracts Neurological History: Reports: Hx Headaches - HX MIGRAINES, Hx Migraine - NONE FOR ONE MONTH SINCE ON TOPAMAX, Other Neuro Impairments/Disorders - migraines Denies: Hx Dementia, Hx Seizures, Hx Transient Ischemic Attacks (TIA) Psychiatric History: Reports: Hx Anxiety - ON MEDS, Hx Eating Disorder - reports inconsistent eating habits, times of binging, others restricting, Hx Depression, Hx Bipolar Disorder - on [place] for depression Denies: Hx Panic Disorder, Hx of Violent Episodes Against Others - Pt denied - Surgical History Surgical History: Yes Surgery Procedure, Year, and Place: right foot fusion, 2013? wisdom teeth removal. CABG Hx Anesthesia Reactions: Yes - LOCAL ANESTHESIA ONLY - Immunization History Date of Tetanus Vaccine: 2011 Infectious Disease History: No Infectious Disease History: Denies: Hx Hepatitis, Hx Human Immunodeficiency Virus (HIV), History Other Infectious Disease, Traveled Outside the [place] in Last 30 Days - Family History Known Family History: Positive: Cardiac Disease, Hypertension, Other - CA - Social History Alcohol Use: Rare Alcohol Amount: 1 drink a month Hx Substance Use: Yes Substance Use Type: Reports: Marijuana Substance Use Comment - Amount & Last Used: marajuana 2-3 times a Hx Tobacco Use: Yes Smoking Status (MU): Former Smoker Type: Cigarettes Amount Used/How Often: 3 CIG/DAY Length of Time of Smoking/Using Tobacco: 15 YEARS Have You Smoked in the Last Year: Yes - quit April 2018 Review of Systems Negative: Fever Positive: Chest Pain - Diffuse Positive: Myalgia - Left calf pain, Edema - Left calf Negative: Headache Positive: Other - Positive difficulty sleeping All Other Systems Reviewed And Are Negative: Yes Physical Exam - Summary Physical Exam Summary: Constitutional: Well-developed, Well-nourished, Alert. (-) Distressed Skin: Warm, Dry HENT: Normocephalic; Atraumatic Eyes: Conjunctiva normal Neck: Musculoskeletal ROM normal neck. (-) JVD, (-) Stridor, (-) Nuchal rigidity Cardio: Rhythm regular, rate normal, Heart sounds normal; Intact distal pulses; Radial pulses are 2+ and symmetric. (-) Murmur Pulmonary/Chest wall: Effort normal. (-) Respiratory distress, (-) Wheezes, (-) Rales Abd: Soft, (-) tenderness, (-) Distension, (-) Guarding, (-) Rebound Musculoskeletal: left calf tenderness with trace 1+ edema to left LE. Lymph: (-) Cervical adenopathy Neuro: Alert, Oriented x3 Psych: Mood and affect Normal Triage Information Reviewed: Yes Vital Signs On Initial Exam: Initial Vitals Temp Pulse Resp BP Pulse Ox 98.6 F 69 16 154/85 97 12/05/18 16:15 12/05/18 16:15 12/05/18 16:15 12/05/18 16:15 12/05/18 16:15 Vital Signs Reviewed: Yes Procedures - Sedation Patient Received Moderate/Deep Sedation with Procedure: No Diagnostics - Vital Signs Vital Signs Temp Pulse Resp BP Pulse Ox 12/05/18 16:15 98.6 F 69 16 154/85 97 - Laboratory Result Diagrams: 12/05/18 16:59 12/05/18 16:59 Lab Statement: Any lab studies that have been ordered have been reviewed, and results considered in the medical decision making process. - Radiology Venous Doppler Study Radiology Interpretation Completed By: Radiologist Summary of Radiographic Findings: Venous Doppler Study IMPRESSION: Persistent thrombotic occlusion of the left posterior tibial vein not significantly changed since the October 30, 2018 ultrasound exam. Reviewed by ED physician. Chest X-ray Radiology Interpretation Completed By: ED Physician Summary of Radiographic Findings: Chest X-ray IMPRESSION: no acute changes. Reviewed and interpreted by ED physician, pending official radiology report. - EKG 16:14 Cardiac Rate: NL - 66 BPM EKG Rhythm: Sinus Rhythm ST Segment: Normal Ectopy: None Summary of EKG Findings: EKG at 16:14 shows 66 BPM with normal sinus rhythm, deep T wave inversions in lead II and III. Reviewed and interpreted by ED physician. Re-Evaluation - Re-Evaluation First Eval Re-Evaluation Time: 18:09 Change: Unchanged Comment: At 18:09, Patient given tramadol for chest wall pain. Repeat trop ordered, if neg can be discharged w atypical CP and can f/u w cardiology. Chest Pain Course/Dx - Course Course Of Treatment: 38-year-old male with a history of triple-vessel disease status post CABG at [facility] on 10/19/18, DVT on Xarelto also who presents with chest pain and left calf pain. Echo in October showed EF of 45%. Most recent cardiac catheterization showed 75 proximal stenosis of the left circumflex artery, stenosis of the right coronary artery, no significant occlusion of the LAD. CP - here EKG w deep T waves V2,3 which although new on our system are c/w prior EKG per Cardiology. Check troponin, CXR. Patient states he thinks pain is post operative from his incision site. Denies SOB. DDx includes atypical CP, ACS (trop neg and EKG unchanged per cardiology when compared to 11/08), PE (on xarelto for DVT, normal VS, not hypoxic, neg CTA recently), PNA (no cough), dissection (does not describe tearing CP, no widened mediastinum, no pulse deficit). L calf pain w known DVT. Check US, labs. - Diagnoses Provider Diagnoses: Chest pain, Leg pain, DVT (deep venous thrombosis) Discharge ED - Sign-Out/Discharge Documenting (check all that apply): Sign-Out Patient Signing out patient TO: Za Barnhart - 19:00 on 12/05/18 - Discharge Plan Condition: Stable Referrals: Radha Julien MD [Primary Care Provider] - Additional Instructions: You were seen in the emergency department for chest pain. Your EKG (heart tracing), labs and chest x-ray did not show any cause for pain. The ultrasound of your leg showed a DVT which is similar to your prior study. Important that you follow up with you primary care doctor in the next 1-2 days. Please return to the emergency department for continued chest pain, trouble breathing, passing out, or if you're concerned. - Billing Disposition and Condition Condition: STABLE - Attestation Statements Document Initiated by Scribe: Yes Documenting Scribe: Lisa Raymond Provider For Whom Miguelibmisty is Documenting (Include Credential): Tonny Santiago MD Scribe Attestation: I, Lisa Raymond, scribed for Tonny Santiago MD on 12/05/18 at 1852. Scribe Documentation Reviewed: Yes Provider Attestation: The documentation as recorded by the scribe, Lisa Raymond accurately reflects the service I personally performed and the decisions made by me, Tonny Santiago MD Status of Scribe Document: Viewed Consult Consult: At 17:47, Dr. Sena reports EKG performed in the ED on 12/05/18 looks like EKG on 11/08/18 from their office (no new T wave inversions) and thinks T waves are c/w prior infarct.
[2018-12-05 17:14] LABS: ABS Eosinophils 0.7 10^3/ul (0-0.6); ABS Lymphocytes 2.3 10^3/ul (1.0-4.8); ABS Monocytes 0.6 10^3/ul (0-0.8); ABS Neutrophils 3.6 10^3/ul (1.5-7.7); Eosinophil % 9.7 %; Hematocrit 43 % (42-52); Lymphocyte % 32.3 %; Mean Corpuscular HGB Conc 35 g/dL (31-36); Mean Corpuscular Hemoglobin 31 pg (27-31); Mean Corpuscular Volume 90 fL (80-94); Mean Platelet Volume 7.5 fL (7.4-10.4); Platelet Count 226 10^3/uL (150-450); Red Blood Count 4.78 10^6 /uL (4.18-5.48); Red Cell Distribution Width 14 % (10-15); White Blood Count 7.2 10^3/uL (3.5-10.8)
[2018-12-05 17:20] LABS: INR 1.1 (0.82-1.09)
[2018-12-05 17:31] LABS: Troponin I 0.03 ng/mL (<0.04)
[2018-12-05 17:33] LABS: Albumin 4.3 g/dL (3.2-5.2); Albumin/Globulin Ratio 1.6 (1-3); BUN/Creatinine Ratio 18.1 (8-20); Calcium 9.3 mg/dL (8.6-10.3); EGFR African American 147.8 (>60); EGFR Non-African American 122.2 (>60); Globulin 2.7 g/dL (2-4); Potassium 3.8 mmol/L (3.5-5.0); Total Bilirubin 0.5 mg/dL (0.2-1.0)
[2018-12-05] MEDS ORDERED: traMADol TAB* 50 MG PO ONE (18:09)
--- NOTE | 2018-12-05 19:08 | ED ---
Progress - Progress Note Progress Note: Patient is received as a sign-out from Dr. Santiago to Dr. Barnhart at 1900 12/05 shift change pending second troponin and disposition. Second trop was negative. Repeat EKG showed sinus bradycardia, no STEMI. No acute changes compared to EKG done earlier today, 12/05/18. This EKG was reviewed and interpreted by Dr. Barnhart. Symptoms are improved after tramadol. Patient is discharged to home and will follow up with PCP. Re-Evaluation - Re-Evaluation First Eval Re-Evaluation Time: 20:07 Change: Improved Comment: Symptoms are improved after tramadol. Results discussed, patient agreeable with discharge. Course/Dx - Course Course Of Treatment: Patient is received as a sign-out from Dr. Santiago to Dr. Barnhart at 1900 12/05/18 shift change pending second troponin and disposition. Second trop was negative. Repeat EKG showed sinus bradycardia, no STEMI. No acute changes compared to EKG done earlier today, 12/05/18. Symptoms are improved after tramadol. Patient is discharged to home and will follow up with PCP. - Diagnoses Provider Diagnoses: Chest pain Discharge ED - Sign-Out/Discharge Documenting (check all that apply): Patient Departure - discharge , Receiving Sign-Out Receiving patient FROM: Tonny Santiago - Discharge Plan Condition: Stable Disposition: HOME Patient Education Materials: Chest Pain (ED) Referrals: Radha Julien MD [Primary Care Provider] - 2 Days Additional Instructions: You were seen in the emergency department for chest pain. Your EKG (heart tracing), labs and chest x-ray did not show any cause for pain. The ultrasound of your leg showed a DVT which is similar to your prior study. Important that you follow up with you primary care doctor in the next 1-2 days. Please return to the emergency department for continued chest pain, trouble breathing, passing out, or if you're concerned. - Billing Disposition and Condition Condition: STABLE Disposition: Home - Attestation Statements Document Initiated by Scribe: Yes Documenting Scribe: KE CAMPOS Provider For Whom Scribe is Documenting (Include Credential): MEG BARNHART MD Scribe Attestation: IKE, scribed for MEG BARNHART MD on 12/06/18 at 0224. Scribe Documentation Reviewed: Yes Provider Attestation: The documentation as recorded by the scribe, KE CAMPOS accurately reflects the service I personally performed and the decisions made by me, MEG BARNHART MD Status of Scribe Document: Viewed
[2018-12-05 20:48] VITALS: BP 138/91
== END 2018-12-05 20:15 | disposition home or self-care (01) ==
LOC: ED 16:13
DX: R07.9 Chest pain, unspecified (principal); I82.442 Acute embolism and thrombosis of left tibial vein; I10 Essential (primary) hypertension; 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 native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; E78.00 Pure hypercholesterolemia, unspecified; I25.2 Old myocardial infarction; F41.9 Anxiety disorder, unspecified; Z87.891 Personal history of nicotine dependence; Z88.1 Allergy status to other antibiotic agents; Z95.1 Presence of aortocoronary bypass graft; Z79.01 Long term (current) use of anticoagulants; Z79.82 Long term (current) use of aspirin; Z79.899 Other long term (current) drug therapy
CPT/HCPCS: 36415; 71046; 80053; 84484; 85025; 85610; 93005; 99282; A9270-GY

== ENCOUNTER 2019-03-09 10:20 | Observation (INO) | payer BC ==
[2019-03-09 11:13] LABS: ABS Eosinophils 0.1 10^3/ul (0-0.6); ABS Lymphocytes 2.2 10^3/ul (1.0-4.8); ABS Monocytes 0.6 10^3/ul (0-0.8); ABS Neutrophils 6.5 10^3/ul (1.5-7.7); Eosinophil % 1.3 %; Hematocrit 42 % (42-52); Hemoglobin 14.9 g/dL (14.0-18.0); Lymphocyte % 23.1 %; Mean Corpuscular HGB Conc 35 g/dL (31-36); Mean Corpuscular Hemoglobin 32 pg (27-31); Mean Corpuscular Volume 91 fL (80-94); Mean Platelet Volume 8.1 fL (7.4-10.4); Platelet Count 192 10^3/uL (150-450); Red Blood Count 4.61 10^6 /uL (4.18-5.48); Red Cell Distribution Width 13 % (10-15); White Blood Count 9.4 10^3/uL (3.5-10.8)
[2019-03-09 11:38] LABS: BUN/Creatinine Ratio 13.3 (8-20); Calcium 9.1 mg/dL (8.6-10.3); EGFR African American 125.5 (>60); EGFR Non-African American 103.7 (>60); Potassium 3.7 mmol/L (3.5-5.0)
[2019-03-09] MEDS ORDERED: Heparin(*) 1000 UNIT/ML 10 ML VIAL CATH LAB IV ONE ×2 (12:01→13:45)
[2019-03-09] MEDS ORDERED: Midazolam* 1 MG/ML 5 ML VIAL (5 MG) ONE (12:01)
[2019-03-09] MEDS ORDERED: fentaNYL* 50 MCG/ML 2 ML VIAL (100 MCG VIAL) ONE (12:01)
[2019-03-09] MEDS ORDERED: Lidocaine 1% INJ* 10 MG/ML 30 ML SDV ONE (12:01)
[2019-03-09] MEDS ORDERED: Iohexol 350 (CONTRAST) 200 ML MDV IV ONE ×2 (12:01→12:02)
[2019-03-09] MEDS ORDERED: Heparin 2 UNITS/ML IVPREMIX* 2,000 ML IV ONE (12:01)
[2019-03-09] MEDS ORDERED: nitroGLYCERIN DRIP* 25,000 MCG/250 ML BTL ONE (12:01)
[2019-03-09] MEDS ORDERED: VERAPAMIL 2.5 MG/ML 2 ML VIAL ** 5 mg/2 ml ONE (12:01)
[2019-03-09] MEDS ORDERED: Nitroglycerin TAB 0.4 MG* 0.4 MG TAB SL PRN (14:01)
[2019-03-09] MEDS ORDERED: ELETRIPTAN 40 MG PO PRN (14:06)
[2019-03-09] MEDS ORDERED: Acetaminophen TAB* 325 MG PO PRN (14:06)
[2019-03-09] MEDS ORDERED: NS 0.9% 1000 ML** 1,000 ML IV SCH (14:15)
[2019-03-09] MEDS ORDERED: Lidocaine 4% GEL* 10 GM TUBE TOPICAL SCH (14:30)
[2019-03-09] MEDS ORDERED: Ondansetron INJ* 2 MG/ML VIAL IV PRN (15:55)
[2019-03-09] MEDS: HYDROmorphone INJ1* 1 MG/ML SYRINGE IV SLOW PU PRN ×2 (16:31→20:53)
[2019-03-09] MEDS: Carvedilol TAB* 6.25 MG PO SCH (20:53)
[2019-03-09] MEDS: Ticagrelor* 90 MG TAB PO SCH (20:53)
[2019-03-09] MEDS ORDERED: Gabapentin CAP(*) 300 MG PO SCH (21:00)
[2019-03-09] MEDS ORDERED: Atorvastatin* 80 MG TAB PO SCH (21:00)
[2019-03-10] MEDS: HYDROmorphone INJ1* 1 MG/ML SYRINGE IV SLOW PU PRN (03:07)
[2019-03-10 04:56] LABS: ABS Eosinophils 0.2 10^3/ul (0-0.6); ABS Lymphocytes 2.3 10^3/ul (1.0-4.8); ABS Monocytes 0.7 10^3/ul (0-0.8); ABS Neutrophils 4.6 10^3/ul (1.5-7.7); Eosinophil % 2.4 %; Hematocrit 39 % (42-52); Hemoglobin 13.5 g/dL (14.0-18.0); Lymphocyte % 29.7 %; Mean Corpuscular HGB Conc 35 g/dL (31-36); Mean Corpuscular Hemoglobin 32 pg (27-31); Mean Corpuscular Volume 92 fL (80-94); Mean Platelet Volume 7.9 fL (7.4-10.4); Platelet Count 169 10^3/uL (150-450); Red Blood Count 4.23 10^6 /uL (4.18-5.48); Red Cell Distribution Width 14 % (10-15); White Blood Count 7.8 10^3/uL (3.5-10.8)
[2019-03-10 05:21] LABS: BUN/Creatinine Ratio 15.1 (8-20); Calcium 8.7 mg/dL (8.6-10.3); EGFR African American 145.5 (>60); EGFR Non-African American 120.2 (>60); Potassium 3.6 mmol/L (3.5-5.0)
[2019-03-10 08:18] VITALS: BP 131/79
[2019-03-10] MEDS: Ticagrelor* 90 MG TAB PO SCH (08:53)
[2019-03-10] MEDS: Carvedilol TAB* 6.25 MG PO SCH (08:53)
[2019-03-10] MEDS ORDERED: amLODIPine TAB* 5 MG PO SCH (09:00)
[2019-03-10] MEDS ORDERED: Multivitamins/Minerals TAB PO SCH (09:00)
[2019-03-10] MEDS ORDERED: Fluticasone NASAL SPRAY 50MCG* 16 gm SPRAY BTL BOTH NARES SCH (09:00)
[2019-03-10] MEDS ORDERED: Aspirin 81 mg CHEW TAB* 81 MG TAB.CHEW PO SCH (09:00)
[2019-03-10] MEDS ORDERED: CARIPRAZINE HCL 1.5 MG PO SCH (09:00)
[2019-03-10] MEDS ORDERED: Mirabegron (NF) 50 MG TAB PO SCH (09:00)
[2019-03-10] MEDS ORDERED: Losartan TAB* 25 MG PO SCH (09:00)
[2019-03-10] MEDS ORDERED: Ascorbic Acid TAB* 500 MG PO SCH (09:00)
--- NOTE | 2019-03-10 13:30 | DS ---
CC: Dr. Julien; Dr. Reymundo Ortiz DISCHARGE SUMMARY: DATE OF ADMISSION: 03/09/19 DATE OF DISCHARGE: 03/10/19 PRIMARY CARE PHYSICIAN: Dr. Julien. [facility] PSYCHIATRIC NURSE: Dr. Reymundo Ortiz. DISCHARGE DIAGNOSES: 1. Coronary artery disease, [place]. 2. Status post coronary artery bypass grafting. 3. Hypertension. 4. Hyperlipidemia. PROCEDURES: Cardiac cath, stent placement RPDA, FFR evaluation circumflex OM, left radial access. CONDITION ON DISCHARGE: Stable. DISPOSITION: Home. DISCHARGE MEDICATIONS: To continue noncardiac meds. To continue cardiac meds: 1. Norvasc 5 mg daily. 2. Aspirin 81 mg daily. 3. Lipitor 80 mg daily. 4. Carvedilol 6.25 b.i.d. 5. Losartan 50 mg daily. 6. Nitroglycerin 0.4 sublingual p.r.n. 7. Brilinta 90 b.i.d. ACTIVITY: No strenuous left arm use for 3 days. Wound care, shower only 3 days. FOLLOWUP: With Dr. Ortiz 03/14/19 at 4 p.m. for wrist check as scheduled. HISTORY: See outpatient H and P. DIAGNOSTIC STUDIES/LAB DATA: CBC on 03/09/19 was normal, as was BMP. Post PCI, CBC and BMP are stab le. EKG preprocedure consistent with a prior septal infarct with poor R-wave progression and right precor dial T-wave inversion, post procedure unchanged. HOSPITAL COURSE: He underwent outpatient catheterization via the left radial approach for anticipate d staged revascularization of multivessel disease. He presented in October 2018 with unstable calvin na, had an anteroapical wall motion abnormality with mildly reduced LVEF and had 3-vessel disease. B ecause of young age, he underwent a hybrid procedure with a MORALES bypass. Postop, he developed a DVT, which has now been treated and resolved, he now returns for planned revascularization. Left radial cath was unremarkable, revealed a patent MORALES graft to the LAD. The LAD is occluded and graft dependent, the retrograde portion of the LAD has a long tubular 70% stenosis isolating a small caliber second diagonal. Reference diameter probably too small for stenting. His circumflex OM was evaluated with IFR and was nonischemic. The RPDA angiographically had an 80% stenosis and was stente d with a 2.5 x 16 drug-eluting stent, which was post dilated to high pressure. He had no residual st enosis. The procedure was uncomplicated. Postprocedure, he had a migraine headache, which is chroni c problem for him, it resolved without neurologic residual. Today, he is ambulatory with stable lucita ls. His left hand is asymptomatic, left radial artery is patent by reverse [place]. He received ful l discharge instructions, medical regimen was not changed. [id number]/[facility] [place] #: [id number]
--- NOTE | 2019-03-10 13:55 | CATH ---
CC: Dr. Julien; Dr. Reymundo Ortiz STENT REPORT: DATE OF PROCEDURE: 03/09/19 PRIMARY CARE PHYSICIAN: Dr. Julien. WOOL SORTER: Dr. Reymundo Ortiz. PROCEDURES: Left radial artery access; bilateral selective coronary cineangiography; MORALES angiography; left heart catheterization; left ventriculography; iFR evaluation circumflex OM; stent placement RPDA, 2.5 x 16 Synergy drug-eluting stent. HISTORY: A 38-year-old male with prior presentation with unstable angina in October 2018, cath showed 3-vessel disease. He was referred for a hybrid procedure and had a MORALES bypass robotically to the LAD in [place] on 10/24/18. Postop, he developed a DVT, which has been treated and resolved. He now presents for outpatient catheterization for scheduled revascularization. PROCEDURE ACCESS: Left radial artery sheath 6F slender 15 cm. DIAGNOSTIC CATHETERS: 5F TIG4, 5FL 3.5, 5F pigtail, 5F KARISSA for MORALES angiography. GUIDING CATHETER: 6FR4. WIRE: Comet FFR/iFR wire. MEDICATIONS: 1. Subcu lidocaine. 2. IV Versed. 3. IV fentanyl. 4. Nitroglycerin 300 mcg. 5. Heparin 3000 units. 6. Verapamil 3 mg IA. 7. Heparin 7000 additional units. HEMODYNAMICS: Initial AO 117/78. LV 125/2-12, no aortic valve gradient on pullback. DESCRIPTION OF PROCEDURE: After diagnostic angiography and left heart catheterization, left ventriculography, the RPDA was stented with a 2.5 x 16 Synergy drug-eluting stent, which was post dilated with a 2.5 x 12 NC balloon distally to 16 atmospheres, proximally to 20 atmospheres. The circumflex OM was not intervened upon as iFR 0.97, nonischemic. ANGIOGRAPHY: RCA: The RCA is large, dominant with scattered luminal irregularity, the PDA is moderate in size, has a fairly discrete 80% proximal stenosis. Distally, the RCA supplies a small and then a larger posterolateral which has ectasia. The prior [id number] collaterals have disappeared. Left main: The left main is normal without stenosis. LAD: The LAD is moderate, supplies a small first diagonal and then is occluded as before. Distal LAD does not fill by [id number] collaterals. Circumflex: The circumflex is moderate, not dominant with a moderate first marginal branch which has scattered luminal irregularity, but no significant stenosis. Circumflex then supplies a larger second marginal branch which has a proximal 60% stenosis which was evaluated with iFR, found to be nonischemic. Circumflex ends with a small posterolateral. MORALES: The KARISSA is large, smooth, inserts into the mid LAD without insertion stenosis, fills it antegrade to its end beyond the apex. The retrograde LAD is small and fairly diffusely diseased with a fairly lengthy 70% stenosis before it reconstitutes more proximally. The proximal LAD is occluded, just beyond the occlusion point the small second diagonal arises, has fairly scattered plaque with 50% stenosis, mid LAD and diagonal reference diameter is less than 2 mm. LV gram: There is mild anterolateral hypokinesis with fairly localized apical more severe hypokinesis, visually estimated LVEF 55%. After RPDA stent deployment and post dilatation, the RPDA has no residual stenosis, has ALLISON 3 flow. CONCLUSION: 1. Three-vessel coronary artery disease with nonischemic circumflex OM stenosis by iFR, angiographically severe RPDA stenosis with excellent angiographic result with drug-eluting stent placement. 2. Patent MORALES to the occluded LAD. The LAD proximally to MORALES insertion has moderately severe stenosis in a small reference diameter LAD isolating a small reference diameter second diagonal with moderate disease, poorly suited for revascularization. 3. Mild LV regional systolic dysfunction with normal LVEF, improved from October 2018. 4. Successful left radial artery access. [id number]/[facility] #: [id number] [place]
== END 2019-03-10 13:00 | disposition home or self-care (01) ==
LOC: CHICATH 10:20 → ICU 14:33
PROVIDERS: ADMIT Internal Medicine Cardiovascular Disease; ATTEND Internal Medicine Cardiovascular Disease
DX: I25.5 Ischemic cardiomyopathy (principal); I25.6 Silent myocardial ischemia; I25.2 Old myocardial infarction; I25.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 native coronary artery without angina pectoris; Z95.5 Presence of coronary angioplasty implant and graft; I10 Essential (primary) hypertension; E78.5 Hyperlipidemia, unspecified; Z79.82 Long term (current) use of aspirin; Z79.899 Other long term (current) drug therapy; Z86.718 Personal history of other venous thrombosis and embolism; Z87.891 Personal history of nicotine dependence
CPT/HCPCS: 36415; 80048; 85025; 85347; 87641; 93005; 93458; 96374; 96376; 99156; 99157; A9270-GY; C1725; C1876; C1887; C9600-RC; G0378; J1170; J1644; J2250; J3010

== ENCOUNTER 2019-03-24 19:25 | Emergency (ER) | payer BC ==
--- OUTSIDE RECORDS SUMMARY | 2019-03-24 19:32 | XMS REPORT | Continuity of Care Document ---
:1980 External Reference #:[id number] Author Name Denisha Bustillos M.D. 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 AHI- 6.6/REM AHI 13.1, O2 agnieszka 91% Obstructive sleep apnea syndrome Glory Almonte MD Onset: 12/11/2013 Sprain of unspecified site of left knee, Kelechi Smith M.D. Onset: 2014 subsequent encounter Degeneration of cervical intervertebral disc Jorge Luis Harvey M.D. 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 Onset: 12/20 lower extremity Social History Type Date Description Comments Sex Unknown ETOH Use Occasionally consumes alcohol Tobacco Use Start: Unknown End: Patient is a former Quit April 2018. Unknown smoker Recreational Drug Use Denies Drug Use Smoking Status Reviewed: 02/21/19 Patient is a former Quit April 2018. smoker Exercise Type/Frequency Exercises regularly cardiac rehab and goes to fitness center, follows low sodium/fat diet Allergies, Adverse Reactions, Alerts Active Allergies Reaction Severity Comments Date Biaxin Urticaria Moderate 04/13/2010 Medications Active Medications SIG Qnty Indications Ordering Date Provider Brilinta 1 tab by mouth 60tabs I25.6 Reymundo S. Ortiz, 02/21/2019 90mg Tablets twice a day DO FACC Losartan Potassium 1 by mouth every 90tabs I10 Reymundo Ortiz, 02/21/2019 50mg day DO FACC Tablets Amlodipine Besylate 1 by mouth every 90tabs Reymundo Ortiz, 12/20/2018 5mg day DO FACC Tablets Acetaminophen 500 MG Take two tablets Unknown 12/19/2018 prn Lidocaine apply to 60gm R07.89 Jose Rodriguez NP 12/11/2018 4% Cream affected areas 3 or 4 times daily-prn Fluticasone [place] 2 Sprays 16units J30.89 Jose Rodriguez NP 12/11/2018 Propionate Into Each 50mcg/Act Nostril One Time Suspension Daily Tramadol HCL 1-2 tablets 42tabs R07.89 Jose Rodriguez NP 11/21/2018 50mg every 8 hours as Tablets needed for pain. Ascorbic Acid Take 1 tablet 30tabs Unknown 10/29/2018 500mg (500 mg total) Tablets by mouth daily Carvedilol take 1 tablet 180tabs Reymundo Ortiz, 10/28/2018 6.25mg (6.25 mg total) DO FACC Tablets by mouth 2 (two) times a day Atorvastatin Calcium take 1 tablet 90tabs Reymundo Ortiz, 10/28/2018 (80 mg total) by DO FACC 80mg Tablets mouth nightly Gabapentin take one capsule 60caps G47.00 Jose Rodriguez NP 06/28/2018 300mg bid Capsules Eletriptan 1 by mouth twice 10tabs G43.009 Jorge Luis Santoyo 09/12/2017 Hydrobromide a day as needed [facility] 40mg migraine max 2 Tablets days/wk Truvada 1 by mouth every 30tabs Z20.2 Sanchez Gama 03/14/2017 200-300mg day [facility] Tablets Lamotrigine 1 by mouth day Unknown 100mg Tablets Vraylar 1 cap po daily Unknown 1.5mg Capsules Latuda take one tablet Jose Rodriguez NP 80mg Tablets by mouth every day with 350 calories ( pt states titrate down 40 mg until next week of 03/01/19 ) Myrbetriq Once daily Unknown 50mg Tablets ER 24HR Aspirin chew one tablet 100units Reymundo Ortiz, 81mg Chewtabs by mouth every DO [facility] day Daily Farzaneh Men's Complete 1 Unknown Tablets by mouth every day Fish Oil Take one tablet Unknown 1200mg three times a Capsules day Shannon Allergy 1 by mouth every Unknown 180mg day prn Tablets Topiramate 1 and a half 60tabs Jorge Luis Santoyo 100mg twice a day [facility] Tablets History Medications Amlodipine Besylate 1 by mouth every 90tabs Reymundo Ortiz, 12/20/2018 - 10mg day DO [facility] 12/20/2018 Tablets Ferrous Gluconate Take 1 tablet (324 60tabs Jose Rodriguez NP 11/03/2018 - mg total) by mouth 11/19/2018 324(37.5Fe) mg Tablets 2 (two) times a day Latuda 1 by mouth every 30tabs Jose Rodriguez NP 11/03/2018 - 60mg Tablets day at bedtime 12/19/2018 Furosemide Take 1 tablet (40 5tabs Unknown 10/29/2018 - 40mg Tablets mg total) by mouth 11/08/2018 every morning for 5 days Folic Acid Take 1 tablet (1 mg 30tabs Unknown 10/29/2018 - 1mg Tablets total) by mouth 12/17/2018 daily Aspirin Ec Take 1 tablet (325 30tabs Unknown 10/29/2018 - 325mg Tablets mg total) by mouth 11/03/2018 DR daily Acetaminophen Take 2 tablets (650 30tabs Unknown 10/28/2018 - 325mg mg total) by mouth 12/19/2018 Tablets every 4 (four) hours as needed (Mild pain) Potassium Chloride Take 1 tablet (20 5tabs Unknown 10/28/2018 - Kayla ER mEq total) by mouth 11/08/2018 20Meq Tablets ER daily for 5 days Take with Furosemide Senna-Docusate Sodium Take 2 tablets by 30tabs Unknown 10/28/2018 - mouth nightly 11/19/2018 8.6-50mg Tablets Oxycodone HCL Take 1-1.5 tablets 40tabs Unknown 10/28/2018 - 10mg (10-15 mg total) by 12/10/2018 Tablets mouth every 4 (four) hours as needed (Severe pain) Max Daily Amount: 90 mg Carvedilol Take 1 tablet (6.25 60tabs Unknown 10/28/2018 - 6.25mg Tablets mg total) by mouth 10/28/2018 2 (two) times a day Senna-Docusate Sodium Take 2 tablets by 30tabs Unknown 10/28/2018 - mouth nightly 10/28/2018 8.6-50mg Tablets Oxycodone HCL Take 1-1.5 tablets 40tabs Unknown 10/28/2018 - 10mg (10-15 mg total) by 10/28/2018 Tablets mouth every 4 (four) hours as needed (Severe pain) Max Daily Amount: 90 mg Medications Administered in Office Medication SIG Qnty Indications Ordering Provider Date Technetium TC 99M Reymundo Ortiz DO [facility] 10/18/2018 Tetrofosmin, Per Unit Dose Up To 40 Millicuries Injection Influenza,Unspecified Unknown 11/14/2016 Injection Immunizations Description No Information Available Vital Signs Date Vital Result Comment 02/21/2019 4:16pm Height 71 inches 5'11" Weight 233.00 lb with shoes Heart Rate 62 /min BP Systolic Sitting 148 mmHg Rue lg cuff BP Diastolic Sitting 80 mmHg Rue lg cuff BP Systolic Standing 140 mmHg Rue lg cuff BP Diastolic Standing 86 mmHg Rue lg cuff Respiratory Rate 15 /min BMI (Body Mass Index) 32.5 kg/m2 Ejection Fraction 45-50% date 10/19/18 ECHO 01/05/2019 11:22am Height 71 inches 5'11" Weight 224.00 lb Heart Rate 58 /min BP Systolic 126 mmHg BP Diastolic 74 mmHg O2 % BldC Oximetry 98 % BMI (Body Mass Index) 31.2 kg/m2 Results Test Acquired Date Facility Test Result H/L Range Note Laboratory test 03/09/2019 [facility] Poc Activated 340 seconds [address] [place] [address] [phone] Laboratory test 03/09/2019 [facility] Poc Activated 247 seconds [address] [place] [address] [phone] Laboratory test 03/09/2019 [facility] Poc Activated 235 seconds [address] [place] [address] [phone] CBC Auto Diff 03/09/2019 [facility] White Blood 9.4 10^3/uL Normal 3.5-10.[address] [place] [address] [phone] Red Blood Count 4.61 10^6/uL Normal 4.18-5.48 Hemoglobin 14.9 g/dL Normal 14.0-18.0 Hematocrit 42 % Normal 42-52 Mean Corpuscular Volume 91 fL Normal 80-94 Mean Corpuscular Hemoglobin 32 pg High 27-31 Mean Corpuscular HGB Conc 35 g/dL Normal 31-36 Red Cell Distribution Width 13 % Normal 10-15 Platelet Count 192 10^3/uL Normal 150-450 Mean Platelet Volume 8.1 fL Normal 7.4-10.4 Abs Neutrophils 6.5 10^3/uL Normal 1.5-7.7 Abs Lymphocytes 2.2 10^3/uL Normal 1.0-4.8 Abs Monocytes 0.6 10^3/uL Normal 0-0.8 Abs Eosinophils 0.1 10^3/uL Normal 0-0.6 Abs Basophils 0.0 10^3/uL Normal 0-0.2 Abs Nucleated RBC 0.0 10^3/uL Granulocyte % 68.8 % Lymphocyte % 23.1 % Monocyte % 6.5 % Eosinophil % 1.3 % Basophil % 0.3 % Nucleated Red Blood Cells % 0.0 Basic Metabolic 03/09/2019 [facility] Sodium 142 mmol/L Normal 135-[address] [place] [address] [phone] Potassium 3.7 mmol/L Normal 3.5-5.0 Co2 Carbon Dioxide 22 mmol/L Normal 22-32 Glucose 98 mg/dL Normal 70-100 Blood Urea Nitrogen 11 mg/dL Normal 6-24 Creatinine 0.83 mg/dL Normal 0.67-1.17 BUN/Creatinine Ratio 13.3 Normal 8-20 Calcium 9.1 mg/dL Normal 8.6-10.3 Egfr Non- 103.7 >60 Egfr 125.5 >60 4 Chloride 112 mmol/L High 101-111 Anion Gap 8 mmol/L Normal 2-11 CBC No Diff 02/05/2019 [facility] White Blood 6.6 10^3/uL Normal 3.5-10.[address] [place] [address] [phone] Red Blood Count 4.69 10^6/uL Normal 4.18-5.48 Hemoglobin 14.9 g/dL Normal 14.0-18.0 Hematocrit 43 % Normal 42-52 Mean Corpuscular Volume 91 fL Normal 80-94 Mean Corpuscular Hemoglobin 32 pg High 27-31 Mean Corpuscular HGB Conc 35 g/dL Normal 31-36 Red Cell Distribution Width 14 % Normal 10-15 Platelet Count 198 10^3/uL Normal 150-450 Mean Platelet Volume 8.5 fL Normal 7.4-10.4 1,25 Dihydroxy 02/05/2019 [facility] Calcitriol 45 pg/mL 18- 64 5 Vitamin D [address] [place] [address] [phone] Comp Metabolic 02/05/2019 [facility] Sodium 141 mmol/L Normal 135-145 Panel [address] [place] [address] [phone] Potassium 4.0 mmol/L Normal 3.5-5.0 Co2 Carbon Dioxide 23 mmol/L Normal 22-32 Glucose 102 mg/dL High 70-100 Blood Urea Nitrogen 13 mg/dL Normal 6-24 Creatinine 0.89 mg/dL Normal 0.67-1.17 BUN/Creatinine Ratio 14.6 Normal 8-20 Calcium 9.2 mg/dL Normal 8.6-10.3 Total Protein 6.7 g/dL Normal 6.4-8.9 Albumin 4.6 g/dL Normal 3.2-5.2 Globulin 2.1 g/dL Normal 2-4 Albumin/Globulin Ratio 2.2 Normal 1-3 Total Bilirubin 0.40 mg/dL Normal 0.2-1.0 Alkaline Phosphatase 95 U/L Normal 34-104 Alt 37 U/L Normal 7-52 Ast 19 U/L Normal 13-39 Egfr Non- 95.7 >60 Egfr 115.8 >60 6 Chloride 112 mmol/L High 101-111 Anion Gap 6 mmol/L Normal 2-11 Lipid Profile 02/05/2019 [facility] Triglycerides 137 mg/dL 7 (Trig/Chol/HDL) [address] [place] [address] [phone] Cholesterol 115 mg/dL 8 HDL Cholesterol 28.8 mg/dL 9 LDL Cholesterol 59 mg/dL 10 Laboratory test 02/05/2019 [facility] Magnesium 2.0 mg/dL Normal 1.9-2.7 finding [address] [place] [address] [phone] Iron (Fe) 71 g/dL Normal 50-212 TSH (Thyroid Stim Horm) 0.38 mcIU/mL Normal 0.34-5.60 Ferritin 50.4 ng/mL Normal 24-336 Vitamin B12 417 pg/mL Normal 180-914 11 Hemoglobin A1c (Glyco HGB) 5.2 % Normal 4.0-5.6 12 Copper, Serum 1.07 g/mL 0.75-1.45 13 Zinc Serum 1.15 g/mL Abnormal 0.66-1.10 14 Surgical 01/09/2019 [facility] Surgical SEE RESULT 15, 16 Pathology [address] [facility] [place] [address] [phone] PDFReport SEE IMAGE GC/Chlamydia 12/18/2018 [facility] GCCHL Disclaimer (SEE NOTE) 17 Amplified Rna [address] [place] [address] [phone] Chlamydia trachomatis Berkley Negative Negative Neisseria gonorrhoeae (GC) Berkley Negative Negative Ctrach&Ngonorr Amplified Rna 12/18/2018 [facility] Source THROAT [address] [place] [address] [phone] C. trach Amplified Rna Negative Negative 18 Source THROAT N Gonorr Amplified Rna Negative Negative 19 Ctrach&Ngonorr Amplified Rna 12/18/2018 [facility] Source RECTAL [address] [place] [address] [phone] C. trach Amplified Rna Negative Negative 20 Source RECTAL N Gonorr Amplified Rna Negative Negative 21 Basic Metabolic 12/15/2018 [facility] Sodium 140 mmol/L Normal 135-145 Panel [address] [place] [address] [phone] Potassium 3.9 mmol/L Normal 3.5-5.0 Chloride 109 mmol/L Normal 101-111 Co2 Carbon Dioxide 26 mmol/L Normal 22-32 Anion Gap 5 mmol/L Normal 2-11 Glucose 107 mg/dL High 70-100 Blood Urea Nitrogen 14 mg/dL Normal 6-24 Creatinine 0.88 mg/dL Normal 0.67-1.17 BUN/Creatinine Ratio 15.9 Normal 8-20 Calcium 9.2 mg/dL Normal 8.6-10.3 Egfr Non- 96.9 >60 Egfr 117.3 >60 22 Laboratory 12/15/2018 [facility] Miscellaneous See Comment [address] [place] [address] [phone] Laboratory 12/05/2018 [facility] Troponin-I (TnI) 0.01 ng/mL <0.0 [address] [place] [address] [phone] CBC Auto Diff 12/05/2018 [facility] White Blood Count 7.2 10^3/ uL Normal 3.5- [address]8 [place] [address] [phone] Red Blood Count 4.78 10^6/uL Normal 4.18-5.48 Hemoglobin 15.0 g/dL Normal 14.0-18.0 Hematocrit 43 % Normal 42-52 Mean Corpuscular Volume 90 fL Normal 80-94 Mean Corpuscular Hemoglobin 31 pg Normal 27-31 Mean Corpuscular HGB Conc 35 g/dL Normal 31-36 Red Cell Distribution Width 14 % Normal 10-15 Platelet Count 226 10^3/uL Normal 150-450 Mean Platelet Volume 7.5 fL Normal 7.4-10.4 Abs Neutrophils 3.6 10^3/uL Normal 1.5-7.7 Abs Lymphocytes 2.3 10^3/uL Normal 1.0-4.8 Abs Monocytes 0.6 10^3/uL Normal 0-0.8 Abs Eosinophils 0.7 10^3/uL High 0-0.6 Abs Basophils 0.0 10^3/uL Normal 0-0.2 Abs Nucleated RBC 0.0 10^3/uL Granulocyte % 49.4 % Lymphocyte % 32.3 % Monocyte % 8.0 % Eosinophil % 9.7 % Basophil % 0.6 % Nucleated Red Blood Cells % 0.0 Inr/Protime 12/05/2018 [facility] Inr 1.10 High 0.82-1.[address] [place] [address] [phone] Laboratory test 12/05/2018 [facility] Troponin-I 0.03 <0.04 [address] (TnI) ng/[place] [address] [phone] Comp Metabolic 12/05/2018 [facility] Sodium 141 Normal 135- [address] mmol/[place] [address] [phone] Potassium 3.8 mmol/L Normal 3.5-5.0 Co2 Carbon Dioxide 23 mmol/L Normal 22-32 Glucose 96 mg/dL Normal 70-100 Blood Urea Nitrogen 13 mg/dL Normal 6-24 Creatinine 0.72 mg/dL Normal 0.67-1.17 BUN/Creatinine Ratio 18.1 Normal 8-20 Calcium 9.3 mg/dL Normal 8.6-10.3 Total Protein 7.0 g/dL Normal 6.4-8.9 Albumin 4.3 g/dL Normal 3.2-5.2 Globulin 2.7 g/dL Normal 2-4 Albumin/Globulin Ratio 1.6 Normal 1-3 Total Bilirubin 0.50 mg/dL Normal 0.2-1.0 Alkaline Phosphatase 130 U/L High 34-104 Alt 54 U/L High 7-52 Ast 25 U/L Normal 13-39 Egfr Non- 122.2 >60 Egfr 147.8 >60 27 Chloride 114 mmol/L High 101-111 Anion Gap 4 mmol/L Normal 2-11 Laboratory test 2018 [facility] Troponin-I 0.01 <0.04 [address] (TnI) ng/[place] [address] [phone] Laboratory test 10/30/2018 [facility] Troponin-I 0.01 <0.04 [address] (TnI) ng/[place] [address] [phone] Comp Metabolic 10/30/2018 [facility] Sodium 138 Normal 135- [address] mmol/[place] [address] [phone] Potassium 4.0 mmol/L Normal 3.5-5.0 Chloride 106 [...] Egfr Non- 91.4 >60 Egfr 110.6 >60 30 CBC Auto 10/30/2018 [facility] White Blood 10.6 10^3/uL Normal 3.5-10.[address] [place] [address] [phone] Red Blood Count 4.65 10^6/uL Normal 4.18-5.48 [...] Red Blood Cells % 0.0 Inr/Protime 10/30/2018 [facility] Inr 1.25 High 0.82-1.[address] [place] [address] [phone] Inr/Protime 10/18/2018 [facility] Inr 0.98 Normal 0.82-1.[address] [place] [address] [phone] Laboratory test 10/18/2018 [facility] Partial 34.9 Normal 26.0 -38.[address] [place] [address] Time PTT [phone] CBC Auto Diff 10/18/2018 [facility] White Blood 13.8 High 3.5- 10.[address] Count 10^3/[place] [address] [phone] Red Blood Count 5.14 10^6/uL Normal 4.18-5.48 [...] Blood Cells % 0.1 Comp Metabolic 10/18/2018 [facility] Sodium 138 mmol/L Normal 135-[address] [place] [address] [phone] Potassium 4.3 mmol/L Normal 3.5-5.0 Chloride 109 [...] Egfr Non- 112.0 >60 Egfr 135.5 >60 33 Laboratory test 10/18/2018 [facility] Troponin-I (TnI) 0.00 ng/ mL <0.04 34 finding [address] [place] [address] [phone] Hemoglobin A1c (Glyco HGB) 5.4 % Normal 4.0-5.6 35 Order 10/18/2018 [facility] Stress Test, <pending> [address] [place] [place] [address] Nuclear [phone] Laboratory test 10/09/2018 [facility] Troponin-I 0.01 ng/mL < 0.04 36 finding [address] [facility] (TnI) [place] [address] [phone] TSH (Thyroid Stim Horm) 0.44 mcIU/mL Normal 0.34-5.60 LDL Cholesterol Direct 185 mg/dL 37 Lipid Profile 10/09/2018 [facility] Triglycerides 479 mg/dL 38 (Trig/Chol/HDL) [address] [place] [address] [phone] Cholesterol 322 mg/dL 39 HDL Cholesterol 34.0 mg/dL 40 LDL Cholesterol (SEE NOTE) mg/dL 41 Urinalysis Profile 09/13/2018 [facility] Urine Color Yellow [address] [place] [address] [phone] Urine Appearance Cloudy Urine Specific [place] 1.018 Normal 1.010-1.030 Urine pH 6.0 Normal 5-9 Urine Urobilinogen Negative Negative Urine Ketones Negative Negative Urine Protein Negative Negative Urine Leukocytes Negative Negative Urine Blood Negative Negative Urine Nitrite Negative Negative Urine Bilirubin Negative Negative Urine Glucose Negative Negative Laboratory test 09/13/2018 [facility] C Reactive 11.10 mg/L High <8.[address] [place] [address] [phone] Comp Metabolic 09/13/2018 [facility] Sodium 140 mmol/L Normal 135-[address] [place] [address] [phone] Potassium 3.4 mmol/L Low 3.5-5.0 Chloride 109 [...] Egfr Non- 100.1 >60 Egfr 121.1 >60 42 CBC Auto 09/13/2018 [facility] White Blood 12.6 10^3/uL High 3.5-10.[address] [place] [address] [phone] Red Blood Count 4.81 10^6/uL Normal 4.18-5.48 [...] % Nucleated Red Blood Cells % 0.0 1 [place]: [id number] Reference Range: 74-125 seconds 2 [place]: [id number] Reference Range: 74-125 seconds 3 [place]: [id number] Reference Range: 74-125 seconds 4 Because ethnic data is not always [...] 5 Kidney failure <15 (or dialysis) 5 ADDITIONAL INFORMATION This test was developed and its performance characteristics determined by [facility] in a manner consistent with CLIA requirements. This test has not been cleared or approved by the U.S. Food and Drug Administration. Test Performed by: [facility] - [place] [id number] [place] [address] County Administrator: Omer Forman M.D. Ph.D.; CLIA# [id number] 6 Because ethnic data is not always [...] 5 Kidney failure <15 (or dialysis) 7 Desirable: <150 Borderline High: 150-199 High: 200-499 Very High: >500 8 Desirable: <200 Borderline High: 200-239 High: >239 9 Low: <40 Desirable: 40-60 High: >60 10 Desirable: <100 Near Optimal: 100-129 Borderline High: 130-159 High: 160-189 Very High: >189 11 Normal Range 180 to 914 Indeterminate Range 145 to 180 Deficient Range <145 12 Therapeutic target for the treatment of diabetes mellitus patients is <7% HBA1C, and in selective patients <6.0%. Please refer to [place] [employer] diabetic care guidelines for further information. 13 ADDITIONAL INFORMATION This test was developed and its performance characteristics determined by [facility] in a manner consistent with CLIA requirements. This test has not been cleared or approved by the U.S. Food and Drug Administration. Test Performed by: [facility] [place] [address] County Administrator: Omer Forman M.D. Ph.D.; CLIA# [id number] 14 ADDITIONAL INFORMATION This test was developed and its performance characteristics determined by [facility] in a manner consistent with CLIA requirements. This test has not been cleared or approved by the U.S. Food and Drug Administration. Test Performed by: [place] [address] County Administrator: Omer Forman M.D. 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 -- No evidence of active or chronic colitis. -- No evidence of microscopic colitis. CLINICAL HISTORY History of colitis POST-OPERATIVE DIAGNOSIS Colonoscopy: to cecum; brush diverticulosis; transverse greater right greater left; colitis left biopsy GROSS DESCRIPTION The specimen is received in formalin labeled, Biopsy, Splenic Colitis, and consists of a 0.5 x 0.3 x 0.2 cm bourne-pink irregular soft tissue fragment, which is submitted entirely in one cassette. Signed by and Reported on: Anuja Yap MD 01/10/19 7275 END OF REPORT DEPARTMENT OF PATHOLOGY, [address] [place] [address] Radames Ya M.D. Director [facility] # [id number] 17 As with all diagnostic procedures, the laboratory results obtained should be used in conjunction with other clinical information available to the physician, including confirmation by another method, as applicable. 18 ADDITIONAL INFORMATION This report is intended for use in clinical monitoring and management of patients. It is not intended for use in medical-legal applications. This test has been modified from the science instructor's instructions. Its performance characteristics were determined by [facility] in a manner consistent with CLIA requirements. This test has not been cleared or approved by the U.S. Food and Drug Administration. 19 ADDITIONAL INFORMATION This report is intended for use in clinical monitoring and management of patients. It is not intended for use in medical-legal applications. This test has been modified from the science instructor's instructions. Its performance characteristics were determined by [facility] in a manner consistent with CLIA requirements. This test has not been cleared or approved by the U.S. Food and Drug Administration. Test Performed by: [facility] - [address] [address] County Administrator: Omer Forman M.D. Ph.D.; CLIA# [id number] 20 ADDITIONAL INFORMATION This report is intended for use in clinical monitoring and management of patients. It is not intended for use in medical-legal applications. This test has been modified from the science instructor's instructions. Its performance characteristics were determined by [facility] in a manner consistent with CLIA requirements. This test has not been cleared or approved by the U.S. Food and Drug Administration. 21 ADDITIONAL INFORMATION This report is intended for use in clinical monitoring and management of patients. It is not intended for use in medical-legal applications. This test has been modified from the science instructor's instructions. Its performance characteristics were determined by [facility] in a manner consistent with CLIA requirements. This test has not been cleared or approved by the U.S. Food and Drug Administration. Test Performed by: [place] [address] County Administrator: Omer Forman M.D. Ph.D.; CLIA# [id number] 22 Because ethnic data is not always readily [...] 15-29 5 Kidney failure <15 (or dialysis) 23 Test Result Flag Unit RefValue Syphilis Total Ab w/ Reflex, Nonreactive S No serologic evidence of infection with T. pallidum (syphilis). Repeat testing may be considered in patients with suspected acute or primary syphilis in 2-4 weeks. REFERENCE VALUE Nonreactive Test Performed by: [facility] [address] [place] [address] County Administrator: Omer Forman M.D. Ph.D.; CLIA# [id number] 24 Troponin-I testing on Plasma Separator Tubes (PST) has a known false positive rate of 0.20-0.40%. All positive troponins reflex immediately to secondary confirmatory testing. Using the [employer] DxI 800 Access Immunoassay systems, the 99th percentile upper reference limit was demonstrated to be < 0.03 ng/mL. 25 Standard intensity warfarin therapeutic range: 2.0-3.0 High intensity warfarin therapeutic range: 2.5-3.5 26 Troponin-I testing on Plasma Separator Tubes (PST) has a known false positive rate of 0.20-0.40%. All positive troponins reflex immediately to secondary confirmatory testing. Using the [employer] DxI 800 Access Immunoassay systems, the 99th percentile upper reference limit was demonstrated to be < 0.03 ng/mL. 27 Because ethnic data is not always readily [...] 15-29 5 Kidney failure <15 (or dialysis) 28 Troponin-I testing on Plasma Separator Tubes (PST) has a known false positive rate of 0.20-0.40%. All positive troponins reflex immediately to secondary confirmatory testing. Using the [employer] DxI 800 Access Immunoassay systems, the 99th percentile upper reference limit was demonstrated to be < 0.03 ng/mL. 29 Troponin-I testing on Plasma Separator Tubes (PST) has a known false positive rate of 0.20-0.40%. All positive troponins reflex immediately to secondary confirmatory testing. Using the [employer] DxI 800 Access Immunoassay systems, the 99th percentile upper reference limit was demonstrated to be < 0.03 ng/mL. 30 Because ethnic data is not always readily [...] 15-29 5 Kidney failure <15 (or dialysis) 31 Standard intensity warfarin therapeutic range: 2.0-3.0 High intensity warfarin therapeutic range: 2.5-3.5 32 Standard intensity warfarin therapeutic range: 2.0-3.0 High intensity warfarin therapeutic range: 2.5-3.5 33 Because ethnic data is not always readily [...] 15-29 5 Kidney failure <15 (or dialysis) 34 Troponin-I testing on Plasma Separator Tubes (PST) has a known false positive rate of 0.20-0.40%. All positive troponins reflex immediately to secondary confirmatory testing. Using the [employer] DxI 800 Access Immunoassay systems, the 99th percentile upper reference limit was demonstrated to be < 0.03 ng/mL. 35 Therapeutic target for the treatment of diabetes mellitus patients is <7% HBA1C, and in selective patients <6.0%. Please refer to [place] [employer] diabetic care guidelines for further information. 36 Troponin-I testing on Plasma Separator Tubes (PST) has a known false positive rate of 0.20-0.40%. All positive troponins reflex immediately to secondary confirmatory testing. Using the [employer] DxI 800 Access Immunoassay systems, the 99th percentile upper reference limit was demonstrated to be < 0.03 ng/mL. 37 Desirable: <100 Near Optimal: 100-129 Borderline High: 130-159 High: 160-189 Very High: >189 38 Desirable: <150 Borderline High: 150-199 High: 200-499 Very High: >500 39 Desirable: <200 Borderline High: 200-239 High: >239 40 Low: <40 Desirable: 40-60 High: >60 41 Unable to calculate LDL as triglyceride is > 400 42 Because ethnic data is not always readily [...] (or dialysis) Procedures Date Code Description Status 01/09/2019 [id number] Colonoscopy Completed 11/08/2018 93429 EKG Tracing & Interpretation Completed 10/19/2018 40027 ECHO Transthorasic Realtime 2D W Doppler & Color Flow Completed Hosp 10/19/2018 01686 EKG, Interpretation Only Completed 10/18/2018 76864 Left Heart Cath. Incl S/I Coronaries, Angio S/I V Gram Completed If Done 10/18/2018 31880 EKG, Interpretation Only Completed 10/18/2018 00042 Myocardial Perfusion Imaging Tomographic (Spect) Completed Multiple Studies 10/18/2018 63229 Myocardial Perfusion Imaging Tomographic (Spect) Single Completed Study 10/09/2018 42721 EKG Tracing & Interpretation Completed Medical Devices Description No Information Available Encounters Type Date Location Provider Dx Diagnosis Office Visit 02/21/2019 [facility] Reymundo Ortiz, I25.6 Silent myocardial 4:40p Of [place] DO FACC ischemia E78.5 Hyperlipidemia, unspecified I25.2 Old myocardial infarction I25.5 Ischemic cardiomyopathy Z72.0 Tobacco use I25.10 Athscl heart disease of [place] coronary artery w/o ang pctrs I10 Essential (primary) hypertension Office Visit 01/05/2019 11:15a Pulmonology And Al[place] G47.21 [facility] [place], RN, rhythm sleep [facility] TAIL WORKER-BC disorder, delayed sleep phase type F51.04 Psychophysiologic insomnia G47.33 Obstructive sleep apnea (adult) (pediatric) Office Visit 12/20/2018 9:30a [facility] Buddy Wetzel I82.402 Acute embolism [facility] [place] and thombos unsp deep veins of l low extrem Office Visit 12/20/2018 1:40p [facility] Reymundo Santoyo I82.402 Acute embolism Of [facility] Angel DO and thombos FACC unsp deep veins of l low extrem I10 Essential (primary) hypertension I25.119 Athscl heart disease of [place] cor art w unsp ang pctrs E78.5 Hyperlipidemia, unspecified I25.2 Old myocardial infarction I25.5 Ischemic cardiomyopathy F17.201 Nicotine dependence, unspecified, in remission Office Visit 12/18/2018 4:00p [facility] Sanchez Gama Z11.3 Encntr silvestre Infectious [place] for infections w Diseases sexl mode of transmiss Z79.899 Other nursing home (current) drug therapy Z11.4 Encounter for screening for human immunodeficiency virus Office Visit 12/11/2018 10:20a [facility] Internal Jose Rodriguez NP R07.89 Other chest Medicine - C[facility] pain I82.402 Acute embolism and thombos unsp deep veins of l low extrem J30.89 Other allergic rhinitis Office Visit 11/21/2018 10:40a [facility] Internal Jose Rodriguez NP R07.89 Other chest Medicine - Ccmob pain F31.9 Bipolar disorder, unspecified I25.119 Athscl heart disease of [place] cor art w unsp ang pctrs Office Visit 11/20/2018 8:30a [facility] [place] G47.21 [facility], OSMAN, rhythm sleep [facility] TAIL WORKER-BC disorder, delayed sleep phase type F51.04 Psychophysiologic insomnia G47.33 Obstructive sleep apnea (adult) (pediatric) Office Visit 11/08/2018 1:40p [facility] Reymundo Santoyo I25.2 Old myocardial Of [facility] Angel, DO infarction FACC I82.402 Acute embolism and thombos unsp deep veins of l low extrem I25.5 Ischemic cardiomyopathy I10 Essential (primary) hypertension E78.5 Hyperlipidemia, unspecified F17.201 Nicotine dependence, unspecified, in remission Office Visit 11/03/2018 9:20a [facility] Internal Jose Rodriguez NP I25.119 Athscl heart Medicine - Ccm[place] disease of [place] cor art w unsp ang pctrs I10 Essential (primary) hypertension I82.402 Acute embolism and thombos unsp deep veins of l low extrem F31.9 Bipolar disorder, unspecified J90 Pleural effusion, not elsewhere classified Office Visit 11/02/2018 1:51p [facility] Reymundo Santoyo I25.10 Athscl heart Of [facility] Ortiz, DO disease of FACC [place] coronary artery w/o ang pctrs I25.5 Ischemic cardiomyopathy I25.2 Old myocardial infarction I82.442 Acute embolism and thrombosis of left tibial vein Office Visit 11/02/2018 9:53a [facility] I82.402 Acute embolism Assoc,leila Louis, and thombos Hospitalists [employer] UTILITY WORKER unsp deep veins of l low extrem I25.119 Athscl heart disease of [place] cor art w unsp ang pctrs I10 Essential (primary) hypertension G43.909 Migraine, unsp, not intractable, without status migrainosus Office Visit 11/01/2018 9:53a [facility] Sherry I82.402 Acute embolism Assoc, Quinn Louis, and thombos Hospitalists [employer] SERVICE UTILITY WORKER unsp deep veins of l low extrem I25.10 Athscl heart disease of [place] coronary artery w/o ang pctrs I10 Essential (primary) hypertension G43.909 Migraine, unsp, not intractable, without status migrainosus E78.00 Pure hypercholesterolemia, unspecified Office Visit 11/01/2018 4:43p [facility] Karon Rose, I25.10 Athscl heart Of [place] M.D. disease of [place] coronary artery w/o ang pctrs Office Visit 2018 9:52a [facility] Corine Oh, I82.402 Acute embolism Assoc,leila Lugo and thombos Hospitalists unsp deep veins of l low extrem R07.9 Chest pain, unspecified I10 Essential (primary) hypertension E78.5 Hyperlipidemia, unspecified Office Visit 2018 3:58p [facility] Sammi Soria, I82.402 Acute embolism Of [facility] FO[employer] SERVICE UTILITY WORKER and thombos unsp deep veins of l low extrem I25.10 Athscl heart disease of [place] coronary artery w/o ang pctrs Z95.1 Presence of aortocoronary bypass graft E78.5 Hyperlipidemia, unspecified I50.9 Heart failure, unspecified Office Visit 10/19/2018 3:01p [facility] Karon Rose, I25.119 Athscl heart Of [place] M.D. disease of [place] cor art w unsp ang pctrs I10 Essential (primary) hypertension E78.5 Hyperlipidemia, unspecified R07.9 Chest pain, unspecified Office Visit 10/18/2018 3:50p [facility] Karon Rose, I25.110 Athscl heart Of [place] M.D. disease of [place] cor art w unstable ang pctrs I25.2 Old myocardial infarction Office Visit 10/18/2018 9:00a [facility] Reymundo Santoyo I25.2 Old myocardial Of [facility] Ortiz, DO infarction FAC I25.119 Athscl heart disease of [place] cor art w unsp ang pctrs F17.201 Nicotine dependence, unspecified, in remission I10 Essential (primary) hypertension E78.5 Hyperlipidemia, unspecified E66.8 Other obesity Office Visit 10/09/2018 10:00a [facility] Internal Jose Michael, I10 Essential ( primary) Medicine - Ccmob [employer] WORKER hypertension R07.89 Other chest pain R22.2 Localized swelling, mass and lump, trunk K57.92 Dvtrcli of intest, part unsp, w/o perf or abscess w/o bleed R94.31 Abnormal electrocardiogram [ECG] [EKG] Office Visit 10/03/2018 [place] Jorge Luis Santoyo G43.109 Migraine with 3:45p Neurologic [place] aura, not Services Of [facility] intractable, w/o status migrainosus M54.5 Low back pain M54.2 Cervicalgia Office Visit 09/18/2018 [facility] Sanchez Gama Z11.4 Encounter for 4:00p For Infectious [place] screening for human Diseases immunodeficiency virus Z79.899 Other nursing home (current) drug therapy Assessments Date Code Description Provider 02/21/2019 I25.6 Silent myocardial ischemia Reymundo Natanael Ortiz, DO FAC 02/21/2019 E78.5 Hyperlipidemia, unspecified Reymundo Natanael Ortiz, DO FAC 02/21/2019 I25.2 Old myocardial infarction Reymundo SDemarcus Ortiz, DO FAC 02/21/2019 I25.5 Ischemic cardiomyopathy Reymundo SDemarcus Ortiz, DO [facility] 02/21/2019 Z72.0 Tobacco use Reymundo SDemarcus Ortiz, DO FAC 02/21/2019 I25.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 Reymundo Ortiz, DO [facility] [place] coronary artery without angina pectoris 02/21/2019 I10 Essential (primary) hypertension Reymundo SDemarcus Ortiz, DO [facility] 01/05/2019 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 unspecified deep veins of left lower extremity 12/20/2018 I82.402 Acute embolism and thrombosis of Reymundo Ortiz, DO [facility] unspecified deep veins of left lower extremity 12/20/2018 I10 Essential (primary) hypertension Reymundo Ortiz, [facility] 12/20/2018 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 Reymundo Ortiz, [facility] [place]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 12/20/2018 E78.5 Hyperlipidemia, unspecified Reymundo Ortiz, [facility] 12/20/2018 I25.2 Old myocardial infarction Reymundo Ortiz, [facility] 12/20/2018 I25.5 Ischemic cardiomyopathy Reymundo Ortiz, [facility] 12/20/2018 F17.201 Nicotine dependence, unspecified, in Reymundo Ortiz [facility] remission 12/18/2018 Z11.3 Encounter for screening for [place] Alexandra M.D. infections with a predominantly sexual mode of transmission 12/18/2018 Z79.899 Other nursing home (current) drug [place] Alexandra M.D. therapy 12/18/2018 Z11.4 Encounter for screening for human [place] Alexandra M.D. immunodeficiency virus [HIV] 12/11/2018 R07.89 Other chest pain Jose Michael, [employer] 12/11/2018 I82.402 Acute embolism and thrombosis of Jose Michael, [employer] WORKER unspecified deep veins of left lower extremity 12/11/2018 J30.89 Other allergic rhinitis Jose Michael, [employer] 11/21/2018 R07.89 Other chest pain Jose Michael, [employer] 11/21/2018 F31.9 Bipolar disorder, unspecified Jose Michael, [employer] WORKER 11/21/2018 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 Josekevin Rodriguez, [employer] WORKER [place]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 11/20/2018 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, [place] DNP, RN, delayed sleep phase type [facility] 11/20/2018 F51.04 Psychophysiologic insomnia [place] DNP, RN, [facility]- 11/20/2018 G47.33 Obstructive sleep apnea (adult) [place] DNP, RN, (pediatric) [facility]- 11/08/2018 I25.2 Old myocardial infarction Reymundo Ortiz, DO FACC 11/08/2018 I82.402 Acute embolism and thrombosis of Reymundo Ortiz, DO FAC unspecified deep veins of left lower extremity 11/08/2018 I25.5 Ischemic cardiomyopathy Reymundo Ortiz, DO FACC 11/08/2018 I10 Essential (primary) hypertension Reymundo Ortiz, DO FACC 11/08/2018 E78.5 Hyperlipidemia, unspecified Reymundo Ortiz, DO FACC 11/08/2018 F17.201 Nicotine dependence, unspecified, in Reymundo Ortiz, DO FACC remission 11/03/2018 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 Jose FARHAD Rodriguez [place]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 11/03/2018 I10 Essential (primary) hypertension Jose Michael [employer] WORKER 11/03/2018 I82.402 Acute embolism and thrombosis of Jose Rodriguez NP unspecified deep veins of left lower extremity 11/03/2018 F31.9 Bipolar disorder, unspecified Jose Rodriguez NP 11/03/2018 J90 Pleural effusion, not elsewhere Josekevin Rodriguez [employer] UTILITY WORKER classified 11/02/2018 I25.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 Reymundo Ortiz, DO FAC [place] coronary artery without angina pectoris 11/02/2018 I82.402 Acute embolism and thrombosis of Sherry Louis NP unspecified deep veins of left lower extremity 11/02/2018 I25.5 Ischemic cardiomyopathy Reymundo Ortiz, DO FACC 11/02/2018 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 Sherry Louis NP [place]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 11/02/2018 I25.2 Old myocardial infarction Reymundo Ortiz, DO FACC 11/02/2018 I10 Essential (primary) hypertension Sherry Louis NP 11/02/2018 I82.442 Acute embolism and thrombosis of left Reymundo Ortiz, DO FAC tibial vein 11/02/2018 G43.909 Migraine, unspecified, not Sherry Quinn Louis NP intractable, without status migrainosus 11/01/2018 I25.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 Karon Rose M.D. [place] coronary artery without angina pectoris 11/01/2018 I82.402 Acute embolism and thrombosis of Sherry Louis NP unspecified deep veins of left lower extremity 11/01/2018 I25.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 Sherry Louis NP [place] coronary artery without angina pectoris 11/01/2018 I10 Essential (primary) hypertension Sherry LouisFARHAD 11/01/2018 G43.909 Migraine, unspecified, not Sherry Louis NP intractable, without status migrainosus 11/01/2018 E78.00 Pure hypercholesterolemia, Sherry Louis NP unspecified 2018 I82.402 Acute embolism and thrombosis of Sammi SoriaFARHAD unspecified deep veins of left lower extremity 2018 I82.402 Acute embolism and thrombosis of Corine Oh M.D. unspecified deep veins of left lower extremity 2018 I25.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 Sammi SoriaFARHAD [place] coronary artery without angina pectoris 2018 R07.9 Chest pain, unspecified Corine Oh M.D. 2018 Z95.1 Presence of aortocoronary bypass Sammi BrandFARHAD oh graft 2018 I10 Essential (primary) hypertension Corine Oh M.D. 2018 E78.5 Hyperlipidemia, unspecified Sammi Soria NP 2018 E78.5 Hyperlipidemia, unspecified Corine Oh M.D. 2018 I50.9 Heart failure, unspecified Sammi BrandFARHAD oh 10/19/2018 R94.31 Abnormal electrocardiogram [ECG] Lauro Brown M.D. 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 [place]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 10/19/2018 I10 Essential (primary) hypertension Karon Rose M.D. 10/19/2018 E78.5 Hyperlipidemia, unspecified Karon Rose M.D. 10/19/2018 R07.9 Chest pain, unspecified Karon Rose M.D. 10/18/2018 R94.31 Abnormal electrocardiogram [ECG] Karon Rose M.D. [EKG] 10/18/2018 I25.1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 Karon Rose M.D. [place] coronary artery with unstable angina pectoris 10/18/2018 I25.2 Old myocardial infarction Karon Rose M.D. 10/18/2018 I25.1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 Sampson Aden MD, [facility], [place] coronary artery with unstable FSCAI angina pectoris 10/18/2018 R07.9 Chest pain, unspecified Reymundo Ortiz, DO [facility] 10/18/2018 I25.2 Old myocardial infarction Reymundo Ortiz, DO [facility] 10/18/2018 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 Reymundo Ortiz, DO [facility] [place]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 10/18/2018 F17.201 Nicotine dependence, unspecified, in Reymundo Ortiz, DO [facility] remission 10/18/2018 I10 Essential (primary) hypertension Reymundo Ortiz, DO [facility] 10/18/2018 E78.5 Hyperlipidemia, unspecified Reymundo Ortiz, DO [facility] 10/18/2018 E66.8 Other obesity Reymundo Ortiz, DO [facility] 10/18/2018 R07.89 Other chest pain Jose Michael, [employer] 10/18/2018 R94.31 Abnormal electrocardiogram [ECG] Jose Michael, [employer]ILITY WORKER [EKG] 10/09/2018 R94.31 Abnormal electrocardiogram [ECG] Enedina Abreu MD [EKG] 10/09/2018 I10 Essential (primary) hypertension Jose Michael, [employer] WORKER 10/09/2018 R07.89 Other chest pain Enedina Abreu MD 10/09/2018 R07.89 Other chest pain Jose Michael, [employer] WORKER 10/09/2018 R22.2 Localized swelling, mass and lump, Jose Michael, [employer] WORKER trunk 10/09/2018 K57.92 Diverticulitis of intestine, part Jose Mcihael, [employer] UTILITY WORKER unspecified, without perforation or abscess without bleeding 10/09/2018 R94.31 Abnormal electrocardiogram [ECG] Jose Michael [employer] UTILITY WORKER [EKG] 10/03/2018 G43.109 Migraine with aura, not intractable, Jorge Luis Lee M.D. without status migraino 10/03/2018 M54.5 Low back pain Jorge Luis Lee M.D. 10/03/2018 M54.2 Cervicalgia Jorge Luis eLe M.D. 09/18/2018 Z11.4 Encounter for screening for human [place] Alexandra M.D. immunodeficiency virus [Hi 09/18/2018 Z79.899 Other nursing home (current) drug [place] Alexandra M.D. therapy Plan of Treatment Future Appointment(s):05/23/2019 4:20 pm - Jose [facility] 3[facility] - Jorge Luis Lee M.D. at [place] [facility]02/21/2019 - Reymundo Ortiz DO FACCI25.6 Silent myocardial ischemiaNew Medication:Brilinta 90 mg - 1 tab by mouth twice a dayComments:Stop taking xareltoWait 2 days and then start taking brilinta 90 mg twice daily Please stop smoking immediately. Have lab work 1 or 2 days prior to procedure Start taking losartan 50 mg once dailyFollow up:Please give patient excuse slip Schedule cardiac catheterization with Dr. Aden f/u wound check with meE78.5 Hyperlipidemia, kpsyrkzzevhR69.2 Old myocardial [id number] Ischemic cardiomyopathyNew Orders:Cardiac Catheterization, Scheduled: Z72.0 Tobacco useI25.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 [place] coronary artery without angina [id number] Essential (primary) hypertensionNew Medication :Losartan Potassium 50 mg - 1 by mouth every day Functional Status Description No Information Available Mental Status Description No Information Available Referrals Refer to Dr Reason for Referral Status Appt Date Buddy Gold MD Sent 02/21/[address] [place] [address] [phone] Ofe Hoang NPP Sent [address] [place] [address] [phone] Malini Matson M.D. refaxed referral they will be looking for it. Closed 11/13/201810/[address] [place] [address] [phone] [facility]/30[facility] [place], [place] [id number] [phone] [facility] Closed 11/28/[address] [place], [place] [id number] [phone]
--- OUTSIDE RECORDS SUMMARY | 2019-03-24 19:32 | XMS REPORT | Continuity of Care Document ---
:1980 External Reference #:[id number] Author Name Jose Rodriguez NP (transmitted by agent of provider Kathryn Tyler) Address [address] [facility], [place] [address] Care Team Providers Name Role Phone Kem Celaya MD - Family Medicine Care Team Information Digital Forensic Analyst Radha Julien MD - Internal Medicine Care Team Information Digital Forensic Analyst Problems Active Problems Provider Date Obstructive sleep [...] Use Denies Drug Use Smoking Status Reviewed: 03/12/19 Patient is a former Quit April 2018. smoker Exercise Type/Frequency Exercises regularly cardiac rehab and goes to fitness center, follows low sodium/fat diet Allergies, Adverse Reactions, Alerts Active Allergies Reaction Severity Comments Date Biaxin Urticaria Moderate 04/13/2010 Medications Active Medications SIG Qnty Indications Ordering Date Provider Nickolas 1 tab by mouth 60tabs I25.6 Reymundo Ortiz, 02/21/2019 90mg Tablets twice a day [...] areas 3 or 4 times daily-prn Fluticasone [place] 2 Sprays 16units J30.89 Jose Rodriguez NP 12/11/2018 Propionate Into Each 50mcg/Act Nostril One Time Suspension Daily Tramadol HCL 1-2 tablets 42tabs M25.562 Jose Rodriguez NP 11/21/2018 50mg every 8 [...] 1 cap po daily Unknown 1.5mg Capsules Myrbetriq Once daily Unknown 50mg Tablets ER 24HR Aspirin chew one tablet 100units Reymundo Ortiz, 81mg Chewtabs by mouth every DO FACC day Daily Farzaneh Men's Complete 1 Unknown Tablets by mouth every day Fish Oil Take one tablet Unknown 1200mg three times a Capsules day Shannon Allergy 1 by mouth every Unknown 180mg day prn Tablets Topiramate 1 and a half 60tabs Jorge Luis Satnoyo 100mg twice a day [place] Tablets History Medications Amlodipine Besylate 1 by mouth every 90tabs Reymundo Ortiz, 12/20/2018 - 10mg day DO [facility] 12/20/2018 Tablets Ferrous Gluconate Take 1 tablet (324 60tabs Jose Rodriguez NP 11/03/2018 - mg total) by mouth 11/19/2018 324(37.5Fe) mg Tablets 2 (two) times a day Latuda 1 by mouth every 30tabs Jose Rodriguez, FARHAD 11/03/2018 - 60mg Tablets day at bedtime [...] Date Technetium TC 99M Reymundo Ortiz DO FAC 10/18/2018 Tetrofosmin, Per Unit Dose Up To 40 Millicuries Injection Influenza,Unspecified Unknown 11/14/2016 Injection Immunizations Description No Information Available Vital Signs Date Vital Result Comment 03/12/2019 2:45pm Height 71 inches 5'11" Weight 224.38 lb Heart Rate 71 /min BP Systolic 127 mmHg BP Diastolic 83 mmHg Body Temperature 97.2 F O2 % BldC Oximetry 97 % BMI (Body Mass Index) 31.3 kg/m2 02/21/2019 4:16pm Height 71 inches 5'11" Weight 233.00 lb with shoes Heart Rate 62 /min BP Systolic Sitting 148 mmHg Rue lg cuff BP Diastolic Sitting 80 mmHg Rue lg cuff BP Systolic Standing 140 mmHg Rue lg cuff BP Diastolic Standing 86 mmHg Rue lg cuff Respiratory Rate 15 /min BMI (Body Mass Index) 32.5 kg/m2 Ejection Fraction 45-50% date 10/19/18 ECHO Results Test Acquired Date Facility Test Result H/L Range Note Laboratory test 03/09/2019 [facility] Poc Activated 340 seconds [address] [place] [address] [phone] Laboratory test 03/09/2019 [facility] Poc Activated 247 seconds [address] [place] [address] [phone] Laboratory test 03/09/2019 [facility] Poc Activated 235 seconds [address] [place] [address] [phone] CBC Auto Diff 03/09/2019 [facility] White Blood 9.4 10^3/uL Normal 3.5-10.[address] [place] [address] [phone] Red Blood Count 4.61 10^6/uL Normal 4.18-5.48 [...] Blood Cells % 0.0 Basic Metabolic 03/09/2019 [facility] Sodium 142 mmol/L Normal 135-[address] [place] [address] [phone] Potassium 3.7 mmol/L Normal 3.5-5.0 Co2 Carbon Dioxide 22 mmol/L Normal 22-32 Glucose 98 mg/dL Normal 70-100 Blood Urea Nitrogen 11 mg/dL Normal 6-24 Creatinine 0.83 mg/dL Normal 0.67-1.17 BUN/Creatinine Ratio 13.3 Normal 8-20 Calcium 9.1 mg/dL Normal 8.6-10.3 Egfr Non- 103.7 >60 Egfr 125.5 >60 4 Chloride 112 mmol/L High 101-111 Anion Gap 8 mmol/L Normal 2-11 CBC No Diff 02/05/2019 [facility] White Blood 6.6 10^3/uL Normal 3.5-10.[address] [place] [address] [phone] Red Blood Count 4.69 10^6/uL Normal 4.18-5.48 Hemoglobin 14.9 g/dL Normal 14.0-18.0 Hematocrit 43 % Normal 42-52 Mean Corpuscular Volume 91 fL Normal 80-94 Mean Corpuscular Hemoglobin 32 pg High 27-31 Mean Corpuscular HGB Conc 35 g/dL Normal 31-36 Red Cell Distribution Width 14 % Normal 10-15 Platelet Count 198 10^3/uL Normal 150-450 Mean Platelet Volume 8.5 fL Normal 7.4-10.4 1,25 Dihydroxy 02/05/2019 [facility] Calcitriol 45 pg/mL 18- 64 5 Vitamin D [address] [place] [address] [phone] Comp Metabolic 02/05/2019 [facility] Sodium 141 mmol/L Normal 135-145 Panel [address] [place] [address] [phone] Potassium 4.0 mmol/L Normal 3.5-5.0 Co2 Carbon [...] 6 mmol/L Normal 2-11 Lipid Profile 02/05/2019 [facility] Triglycerides 137 mg/dL 7 (Trig/Chol/HDL) [address] [place] [address] [phone] Cholesterol 115 mg/dL 8 HDL Cholesterol 28.8 mg/dL 9 LDL Cholesterol 59 mg/dL 10 Laboratory test 02/05/2019 [facility] Magnesium 2.0 mg/dL Normal 1.9-2.7 finding [address] [place] [address] [phone] Iron (Fe) 71 g/dL Normal 50-212 TSH (Thyroid Stim Horm) 0.38 mcIU/mL Normal 0.34-5.60 Ferritin 50.4 ng/mL Normal 24-336 Vitamin B12 417 pg/mL Normal 180-914 11 Hemoglobin A1c (Glyco HGB) 5.2 % Normal 4.0-5.6 12 Copper, Serum 1.07 g/mL 0.75-1.45 13 Zinc Serum 1.15 g/mL Abnormal 0.66-1.10 14 Surgical 01/09/2019 [facility] Surgical SEE RESULT 15, [address] [place] [address] [phone] PDFReport SEE IMAGE GC/Chlamydia 12/18/2018 [facility] GCCHL Disclaimer (SEE NOTE) 17 Amplified Rna [address] [place] [address] [phone] Chlamydia trachomatis Berkley Negative Negative Neisseria gonorrhoeae (GC) Berkley Negative Negative Ctrach&Ngonorr Amplified Rna 12/18/2018 [facility] Source THROAT [address] [place] [address] [phone] C. trach Amplified Rna Negative Negative 18 Source THROAT N Gonorr Amplified Rna Negative Negative 19 Ctrach&Ngonorr Amplified Rna 12/18/2018 [facility] Source RECTAL [address] [place] [address] [phone] C. trach Amplified Rna Negative Negative 20 Source RECTAL N Gonorr Amplified Rna Negative Negative 21 Basic Metabolic 12/15/2018 [facility] Sodium 140 mmol/L Normal 135-[address] [place] [address] [phone] Potassium 3.9 mmol/L Normal 3.5-5.0 Chloride 109 mmol/L Normal 101-111 Co2 Carbon Dioxide 26 mmol/L Normal 22-32 Anion Gap 5 mmol/L Normal 2-11 Glucose 107 mg/dL High 70-100 Blood Urea Nitrogen 14 mg/dL Normal 6-24 Creatinine 0.88 mg/dL Normal 0.67-1.17 BUN/Creatinine Ratio 15.9 Normal 8-20 Calcium 9.2 mg/dL Normal 8.6-10.3 Egfr Non- 96.9 >60 Egfr 117.3 >60 22 Laboratory 12/15/2018 [facility] Miscellaneous See Comment 23 test finding [address] [place] [address] [phone] Laboratory 12/05/2018 [facility] Troponin-I (TnI) 0.01 ng/mL <0.0 24 test finding [address] [place] [address] [phone] CBC Auto Diff 12/05/2018 [facility] White Blood Count 7.2 10^3/ uL Normal 3.5- [address] 10.8 [place] [address] [phone] Red Blood Count 4.78 10^6/uL Normal 4.18-5.48 [...] Red Blood Cells % 0.0 Inr/Protime 12/05/2018 [facility] Inr 1.10 High 0.82-1.[address] [place] [address] [phone] Laboratory test 12/05/2018 [facility] Troponin-I 0.03 <0.[address] (TnI) ng/[place] [address] [phone] Comp Metabolic 12/05/2018 [facility] Sodium 141 Normal 135- [address] mmol/[place] [address] [phone] Potassium 3.8 mmol/L Normal 3.5-5.0 Co2 Carbon [...] 4 mmol/L Normal 2-11 Laboratory test 2018 [facility] Troponin-I 0.01 <0.04 [address] (TnI) ng/[place] [address] [phone] Laboratory test 10/30/2018 [facility] Troponin-I 0.01 <0.04 [address] (TnI) ng/[place] [address] [phone] Comp Metabolic 10/30/2018 [facility] Sodium 138 Normal 135- [address] mmol/[place] [address] [phone] Potassium 4.0 mmol/L Normal 3.5-5.0 Chloride 106 [...] Egfr 110.6 >60 30 CBC Auto 10/30/2018 [facility] White Blood 10.6 10^3/uL Normal 3.5-10.[address] [place] [address] [phone] Red Blood Count 4.65 10^6/uL Normal 4.18-5.48 [...] Red Blood Cells % 0.0 Inr/Protime 10/30/2018 [facility] Inr 1.25 High 0.82-1.[address] [place] [address] [phone] Inr/Protime 10/18/2018 [facility] Inr 0.98 Normal 0.82-1.[address] [place] [address] [phone] Laboratory test 10/18/2018 [facility] Partial 34.9 Normal 26.0 -38.[address] [place] [address] Time PTT [phone] CBC Auto Diff 10/18/2018 [facility] White Blood 13.8 High 3.5- 10.[address] Count 10^3/[place] [address] [phone] Red Blood Count 5.14 10^6/uL Normal 4.18-5.48 [...] Blood Cells % 0.1 Comp Metabolic 10/18/2018 [facility] Sodium 138 mmol/L Normal 135-[address] [place] [address] [phone] Potassium 4.3 mmol/L Normal 3.5-5.0 Chloride 109 [...] Egfr 135.5 >60 33 Laboratory test 10/18/2018 [facility] Troponin-I (TnI) 0.00 ng/ mL <0.04 34 finding [address] [place] [address] [phone] Hemoglobin A1c (Glyco HGB) 5.4 % Normal 4.0-5.6 35 Order 10/18/2018 [facility] Stress Test, <pending> [address] [place] [address] Nuclear [phone] Laboratory test 10/09/2018 [facility] Troponin-I 0.01 ng/mL < 0.04 36 finding [address] [facility] (TnI) [place] [address] [phone] TSH (Thyroid Stim Horm) 0.44 mcIU/mL Normal 0.34-5.60 LDL Cholesterol Direct 185 mg/dL 37 Lipid Profile 10/09/2018 [facility] Triglycerides 479 mg/dL 38 (Trig/Chol/HDL) [facility] [place] [address] [phone] Cholesterol 322 mg/dL 39 HDL Cholesterol 34.0 mg/dL 40 LDL Cholesterol (SEE NOTE) mg/dL 41 Urinalysis Profile 09/13/2018 [facility] Urine Color Yellow [facility] [place] [address] [phone] Urine Appearance Cloudy Urine Specific Clancy 1.018 Normal 1.010-1.030 Urine pH 6.0 Normal 5-9 Urine Urobilinogen Negative Negative Urine Ketones Negative Negative Urine Protein Negative Negative Urine Leukocytes Negative Negative Urine Blood Negative Negative Urine Nitrite Negative Negative Urine Bilirubin Negative Negative Urine Glucose Negative Negative Laboratory test 09/13/2018 [facility] C Reactive 11.10 mg/L High <8.01 finding [address] [facility] [place] [place] [address] [phone] Comp Metabolic 09/13/2018 [facility] Sodium 140 mmol/L Normal 135-[address] [place] [address] [phone] Potassium 3.4 mmol/L Low 3.5-5.0 Chloride 109 [...] Egfr 121.1 >60 42 CBC Auto 09/13/2018 [facility] White Blood 12.6 10^3/uL High 3.5-10.[address] [place] [address] [phone] Red Blood Count 4.81 10^6/uL Normal 4.18-5.48 [...] Nucleated Red Blood Cells % 0.0 1 Greenskeeper Laborer: [id number] Reference Range: 74-125 seconds 2 Greenskeeper Laborer: [id number] Reference Range: 74-125 seconds 3 Greenskeeper Laborer: [id number] Reference Range: 74-125 seconds 4 Because ethnic [...] developed and its performance characteristics determined by [facility] in a manner consistent with CLIA requirements. This test has not been cleared or approved by the U.S. Food and Drug Administration. Test Performed by: [facility] [id number] [place] [address] Cook Pressure: Omer Forman M.D. Ph.D.; CLIA# [id number] 6 Because ethnic data is not always [...] in selective patients <6.0%. Please refer to [place] [employer] diabetic care guidelines for further information. 13 ADDITIONAL INFORMATION This test was developed and its performance characteristics determined by [facility] in a manner consistent with CLIA requirements. This test has not been cleared or approved by the U.S. Food and Drug Administration. Test Performed by: [facility] [place] [address] Cook Pressure: Omer Forman M.D. Ph.D.; CLIA# [id number] 14 ADDITIONAL INFORMATION This test was developed and its performance characteristics determined by [facility] in a manner consistent with CLIA requirements. This test has not been cleared or approved by the U.S. Food and Drug Administration. Test Performed by: [place] [address] Cook Pressure: Omer Forman M.D. Ph.D.; CLIA# [id number] 16 SEE RESULT BELOW Name: JAKOB ROJO : [address]: Olman Stout MD Acct: [id number] Unit: [id number] AGE: 38 Location: [facility] Re01/09/19 SEX: M Status: DEP REF SPEC: [id number] ESPERANZA: 01/09/19- SUBM DR: Olman Stout MD REQ: [id number] RECD: 01/09/19 STATUS: STEFFI ISABEL DR: Jose Rodriguez BENCH CHEMIST _ ORDERED: LEVEL 4 COMMENTS: [id number] FINAL DIAGNOSIS Colon, splenic flexure, biopsy: -- [...] and Reported on: Anuja Yap MD 01/10/19 1505 END OF REPORT DEPARTMENT OF PATHOLOGY, [address] [place] [address] Radames Ya M[address] Director [facility] # [id number] 17 As with all diagnostic procedures, the laboratory results obtained should be used in conjunction with other clinical information available to the physician, including confirmation by another method, as applicable. 18 ADDITIONAL INFORMATION This report is intended for use in clinical monitoring and management of patients. It is not intended for use in medical-legal applications. This test has been modified from the oracle obiee developer's instructions. Its performance characteristics were determined by [facility] in a manner consistent with CLIA requirements. This test has not been cleared or approved by the U.S. Food and Drug Administration. 19 ADDITIONAL INFORMATION This report is intended for use in clinical monitoring and management of patients. It is not intended for use in medical-legal applications. This test has been modified from the oracle obiee developer's instructions. Its performance characteristics were determined by [facility] in a manner consistent with CLIA requirements. This test has not been cleared or approved by the U.S. Food and Drug Administration. Test Performed by: [address] [address] Cook Pressure: Omer Forman M.D. Ph.D.; CLIA# [id number] 20 ADDITIONAL INFORMATION This report is intended for use in clinical monitoring and management of patients. It is not intended for use in medical-legal applications. This test has been modified from the oracle obiee developer's instructions. Its performance characteristics were determined by [facility] in a manner consistent with CLIA requirements. This test has not been cleared or approved by the U.S. Food and Drug Administration. 21 ADDITIONAL INFORMATION This report is intended for use in clinical monitoring and management of patients. It is not intended for use in medical-legal applications. This test has been modified from the oracle obiee developer's instructions. Its performance characteristics were determined by [facility] in a manner consistent with CLIA requirements. This test has not been cleared or approved by the U.S. Food and Drug Administration. Test Performed by: [place] [address] Cook Pressure: Omer Forman M.D. Ph.D.; CLIA# [id number] 22 Because ethnic data is not always [...] weeks. REFERENCE VALUE Nonreactive Test Performed by: [facility] [address] [place] [address] Cook Pressure: Omer Forman M.D. Ph.D.; CLIA# [id number] 24 Troponin-I testing on Plasma Separator Tubes (PST) has a known false positive rate of 0.20-0.40%. All positive troponins reflex immediately to secondary confirmatory testing. Using the [employer] DxI 800 Access Immunoassay systems, the 99th percentile upper reference limit was demonstrated to be < 0.03 ng/mL. 25 Standard intensity warfarin therapeutic range: 2.0-3.0 High intensity warfarin therapeutic range: 2.5-3.5 26 Troponin-I testing on Plasma Separator Tubes (PST) has a known false positive rate of 0.20-0.40%. All positive troponins reflex immediately to secondary confirmatory testing. Using the [employer] DxI 800 Access Immunoassay systems, the 99th [...] immediately to secondary confirmatory testing. Using the [employer] DxI 800 Access Immunoassay systems, the 99th percentile upper reference limit was demonstrated to be < 0.03 ng/mL. 29 Troponin-I testing on Plasma Separator Tubes (PST) has a known false positive rate of 0.20-0.40%. All positive troponins reflex immediately to secondary confirmatory testing. Using the [employer] 800 Access Immunoassay systems, the 99th percentile [...] in selective patients <6.0%. Please refer to [place] [employer] diabetic care guidelines for further [...] dialysis) Procedures Date Code Description Status 01/09/2019 25982821 Colonoscopy Completed 11/08/2018 19889 EKG Tracing & Interpretation Completed 10/19/2018 91789 ECHO Transthorasic Realtime 2D W Doppler & Color Flow Completed Hosp 10/19/2018 17853 EKG, Interpretation Only Completed 10/18/2018 93932 Left Heart Cath. Incl S/I Coronaries, Angio S/I V Gram Completed If Done 10/18/2018 78656 EKG, Interpretation Only Completed 10/18/2018 95661 Myocardial Perfusion Imaging Tomographic (Spect) Completed Multiple Studies 10/18/2018 36081 Myocardial Perfusion Imaging Tomographic (Spect) Single Completed Study 10/09/2018 70648 EKG Tracing & Interpretation Completed Medical Devices Description No Information Available Encounters Type Date Location Provider Dx Diagnosis Office Visit 02/21/2019 [facility] Reymundo Ortiz, I25.6 Silent myocardial 4:40p [facility] DO FACC ischemia E78.5 Hyperlipidemia, unspecified I25.2 Old myocardial infarction I25.5 Ischemic cardiomyopathy Z72.0 Tobacco use I25.10 Athscl heart disease of [place] coronary artery w/o ang pctrs I10 Essential (primary) hypertension Office Visit 01/05/2019 11:15a [facility] And [place] G47.21 [facility], RN, rhythm sleep [facility] PIECE MARKER SMALL ARMS-BC disorder, delayed sleep phase type F51.04 Psychophysiologic insomnia G47.33 Obstructive sleep apnea (adult) (pediatric) Office Visit 12/20/2018 9:30a [facility] Vascular Buddy Wetzel I82.402 Acute embolism Medicine [facility] Parish Gold and thombos unsp deep veins of l low extrem Office Visit 12/20/2018 1:40p [facility] Reymundo Santoyo I82.402 Acute embolism [facility] DO Angel and thombos FACC unsp deep veins of l low extrem I10 Essential (primary) hypertension I25.119 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 E78.5 Hyperlipidemia, unspecified I25.2 Old myocardial infarction I25.5 Ischemic cardiomyopathy F17.201 Nicotine dependence, unspecified, in remission Office Visit 12/18/2018 4:00p [facility] Alicia Gama Z11.3 Encntr screen Infectious [place] for infections w Diseases sexl mode of transmiss Z79.899 Other alf (current) drug therapy Z11.4 Encounter for screening for human immunodeficiency virus Office Visit 12/11/2018 10:20a [facility] Internal Jose Rodriguez NP R07.89 Other chest Medicine - Ccmob pain I82.402 Acute embolism and [place] unsp deep veins of l low extrem J30.89 Other allergic rhinitis Office Visit 11/21/2018 10:40a [facility] Internal Jose Rodriguez NP R07.89 Other chest Medicine - Ccmob pain F31.9 Bipolar disorder, unspecified I25.119 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 Office Visit 11/20/2018 8:30a [facility] [place] G47.21 [facility], RN, rhythm sleep [facility] PIECE MARKER SMALL ARMS-BC disorder, delayed sleep phase type F51.04 Psychophysiologic insomnia G47.33 Obstructive sleep apnea (adult) (pediatric) Office Visit 11/08/2018 1:40p [facility] Reymundo Santoyo I25.2 Old myocardial [facility] Angel, DO infarction [facility] I82.402 Acute embolism and thombos unsp deep veins of l low extrem I25.5 Ischemic cardiomyopathy I10 Essential (primary) hypertension E78.5 Hyperlipidemia, unspecified F17.201 Nicotine dependence, unspecified, in remission Office Visit 11/03/2018 9:20a [facility] Internal Jose Rodriguez NP I25.119 Aths[place] heart Medicine - Ccmob disease of [place] cor art w unsp ang pctrs I10 Essential (primary) hypertension I82.402 Acute embolism and thombos unsp deep veins of l low extrem F31.9 Bipolar disorder, unspecified J90 Pleural effusion, not elsewhere classified Office Visit 11/02/2018 1:51p [facility] Reymundo Santoyo I25.10 Athscl heart [facility] Angel, DO disease of [facility] [place] coronary artery w/o ang pctrs I25.5 Ischemic cardiomyopathy I25.2 Old myocardial infarction I82.442 Acute embolism and thrombosis of left tibial vein Office Visit 11/02/2018 9:53a [facility] Sherry I82.402 Acute embolism Assoc,leila Louis, and [facility] Hospitalists BENCH CHEMIST unsp deep veins of l low extrem I25.119 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 I10 Essential (primary) hypertension G43.909 Migraine, unsp, not intractable, without status migrainosus Office Visit 11/01/2018 9:53a [facility] Sherry I82.402 Acute embolism Assoc,leila Louis, and [facility] Hospitalists BENCH CHEMIST unsp deep veins of l low extrem I25.10 Athscl heart disease of [place] coronary artery w/o ang pctrs I10 Essential (primary) hypertension G43.909 Migraine, unsp, not intractable, without status migrainosus E78.00 Pure hypercholesterolemia, unspecified Office Visit 11/01/2018 4:43p [facility] Karon Rose, I25.10 Athscl heart Of Reserve Officer M.D. disease of [place] coronary artery w/o ang pctrs Office Visit 2018 9:52a [facility] Corine Oh, I82.402 Acute embolism Assoc,leila Lugo and [facility] Hospitalists unsp deep veins of l low extrem R07.9 Chest pain, unspecified I10 Essential (primary) hypertension E78.5 Hyperlipidemia, unspecified Office Visit 2018 3:58p [facility] Sammi Soria, I82.402 Acute embolism [facility]CH CHEMIST [facility] unsp deep veins of l low extrem I25.10 Athscl heart disease of [place] coronary artery w/o ang pctrs Z95.1 Presence of aortocoronary bypass graft E78.5 Hyperlipidemia, unspecified I50.9 Heart failure, unspecified Office Visit 10/19/2018 3:01p [facility] Karon Rose, I25.119 Athscl heart Of Reserve Officer M.D. disease of [place] cor art w unsp ang pctrs I10 Essential (primary) hypertension E78.5 Hyperlipidemia, unspecified R07.9 Chest pain, unspecified Office Visit 10/18/2018 3:50p [facility] Karon Rose, I25.110 Athscl heart Of Reserve Officer M.D. disease of [place] cor art w unstable ang pctrs I25.2 Old myocardial infarction Office Visit 10/18/2018 9:00a [facility] Reymundo Santoyo I25.2 Old myocardial [facility] Ortiz, DO infarction FACC I25.119 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 F17.201 Nicotine dependence, unspecified, in remission I10 Essential (primary) hypertension E78.5 Hyperlipidemia, unspecified E66.8 Other obesity Office Visit 10/09/2018 10:00a [facility] Internal Jose Michael, I10 Essential ( primary) Medicine - Ccmob [employer] hypertension R07.89 Other chest pain R22.2 Localized swelling, mass and lump, trunk K57.92 Dvtrcli of intest, part unsp, w/o perf or abscess w/o bleed R94.31 Abnormal electrocardiogram [ECG] [EKG] Office Visit 10/03/2018 [place] Jorge Luis DarrenDemarcus G43.109 Migraine with 3:45p Neurologic [place] Lee aura, not [facility] intractable, w/o status migrainosus M54.5 Low back pain M54.2 Cervicalgia Office Visit 09/18/2018 [facility] Sanchez Gama Z11.4 Encounter for 4:00p For Infectious [place] Alexandra screening for human Diseases immunodeficiency virus Z79.899 Other alf (current) drug therapy Assessments Date Code Description Provider 03/12/2019 M25.562 Pain in left knee Jose Rodriguez, [employer] 02/21/2019 I25.6 Silent myocardial ischemia Reymundo Ortiz, DO [facility] 02/21/2019 E78.5 Hyperlipidemia, unspecified Reymundo Ortiz, DO [facility] 02/21/2019 I25.2 Old myocardial infarction Reymundo Ortiz, DO [facility] 02/21/2019 I25.5 Ischemic cardiomyopathy Reymundo Ortiz, DO [facility] 02/21/2019 Z72.0 Tobacco use Reymundo Ortiz DO [facility] 02/21/2019 I25.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 Reymundo Ortiz, DO [facility] [place] coronary artery without angina pectoris 02/21/2019 I10 Essential (primary) hypertension Reymundo Ortiz, DO [facility] 01/05/2019 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 unspecified deep veins of left lower extremity 12/20/2018 I82.402 Acute embolism and thrombosis of Reymundo Ortiz, [facility] unspecified deep veins of left lower extremity 12/20/2018 I10 Essential (primary) hypertension Reymundo Ortiz, [facility] 12/20/2018 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 Reymundo Ortiz, [facility] [place]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 12/20/2018 E78.5 Hyperlipidemia, unspecified Reymundo Ortiz, [facility] 12/20/2018 I25.2 Old myocardial infarction Reymundo Ortiz, [facility] 12/20/2018 I25.5 Ischemic cardiomyopathy Reymundo Ortiz, [facility] 12/20/2018 F17.201 Nicotine dependence, unspecified, in Reymundo Ortiz [facility] remission 12/18/2018 Z11.3 Encounter for screening for Sanchez Alexandra M.D. infections with a predominantly sexual mode of transmission 12/18/2018 Z79.899 Other alf (current) drug Sanchez Alexandra M.D. therapy 12/18/2018 Z11.4 Encounter for screening for human Sanchez Alexandra M.D. 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, Alannah South DNP, RN, delayed sleep phase type [facility]- 11/20/2018 F51.04 Psychophysiologic insomnia Alannah South DNP, RN, [facility]- 11/20/2018 G47.33 Obstructive sleep apnea (adult) Alannah South DNP, RN, (pediatric) [facility] 11/08/2018 I25.2 Old myocardial infarction Reymundo Ortiz DO [facility] 11/08/2018 I82.402 Acute embolism and thrombosis of Reymundo Ortiz, DO [facility] unspecified deep veins of left lower extremity 11/08/2018 I25.5 Ischemic cardiomyopathy Reymundo Ortiz, DO [facility] 11/08/2018 I10 Essential (primary) hypertension Reymundo Ortiz, DO [facility] 11/08/2018 E78.5 Hyperlipidemia, unspecified Reymundo Ortiz, DO [facility] 11/08/2018 F17.201 Nicotine dependence, unspecified, in Reymundo Ortiz, DO [facility] remission 11/03/2018 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 Jose Rodriguez NP [place]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 11/03/2018 I10 Essential (primary) hypertension Jose Rodriguez NP 11/03/2018 I82.402 Acute embolism and thrombosis of Jose Rodriguez [employer] unspecified deep veins of left lower extremity 11/03/2018 F31.9 Bipolar disorder, unspecified Jose Rodriguez NP 11/03/2018 J90 Pleural effusion, not elsewhere Josekevin Rodriguez [employer] classified 11/02/2018 I25.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 Reymundo Ortiz, DO [facility] [place] coronary artery without angina pectoris 11/02/2018 I82.402 Acute embolism and thrombosis of Sherry Louis NP unspecified deep veins of left lower extremity 11/02/2018 I25.5 Ischemic cardiomyopathy Reymundo Ortiz, DO [facility] 11/02/2018 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 [place] coronary artery without angina pectoris 11/01/2018 I82.402 Acute embolism and thrombosis of Sherry Louis NP unspecified deep veins of left lower extremity 11/01/2018 I25.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 Sherry Louis NP [place] coronary artery without angina pectoris 11/01/2018 I10 Essential (primary) hypertension Sherry Louis NP 11/01/2018 G43.909 Migraine, unspecified, not Sherry Louis NP intractable, without status migrainosus 11/01/2018 E78.00 Pure hypercholesterolemia, Sherry Louis NP unspecified 2018 I82.402 Acute embolism and thrombosis of Sammi Soria FARHAD unspecified deep veins of left lower extremity 2018 I82.402 Acute embolism and thrombosis of Corine Oh M.D. unspecified deep veins of left lower extremity 2018 I25.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 Sammi Soria NP [place] coronary artery without angina pectoris 2018 R07.9 Chest pain, unspecified Corine Oh M.D. 2018 Z95.1 Presence of aortocoronary bypass Sammi Soria NP graft 2018 I10 Essential (primary) hypertension Corine Oh M.D. 2018 E78.5 Hyperlipidemia, unspecified Sammi BrandFARHAD oh 2018 E78.5 Hyperlipidemia, unspecified Corine Oh M.D. 2018 I50.9 Heart failure, unspecified Sammi SoriaFARHAD 10/19/2018 R94.31 Abnormal electrocardiogram [ECG] Lauro Brown M.D. 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 [place]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 10/19/2018 I10 Essential (primary) hypertension Karon Rose M.D. 10/19/2018 E78.5 Hyperlipidemia, unspecified Karon Rose M.D. 10/19/2018 R07.9 Chest pain, unspecified Karon Rose M.D. 10/18/2018 R94.31 Abnormal electrocardiogram [ECG] Karon Rose M.D. [EKG] 10/18/2018 I25.1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 Karon Rose M.D. [place] coronary artery with unstable angina pectoris 10/18/2018 I25.2 Old myocardial infarction Karon Rose M.D. 10/18/2018 I25.1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 Sampson Aden MD, [facility], [place] coronary artery with unstable FSCAI angina pectoris 10/18/2018 R07.9 Chest pain, unspecified Reymundo Ortiz, DO [facility] 10/18/2018 I25.2 Old myocardial infarction Reymundo Ortiz, DO FAC 10/18/2018 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 Reymundo Ortiz, DO [facility] [place]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 10/18/2018 F17.201 Nicotine dependence, unspecified, in Reymundo Ortiz, DO [facility] remission 10/18/2018 I10 Essential (primary) hypertension Reymundo Ortiz, DO [facility] 10/18/2018 E78.5 Hyperlipidemia, unspecified Reymundo Ortiz, DO [facility] 10/18/2018 E66.8 Other obesity Reymundo Ortiz, DO [facility] 10/18/2018 R07.89 Other chest pain Jose Michael, [employer] 10/18/2018 R94.31 Abnormal electrocardiogram [ECG] Josekevin Rodriguez NP [EKG] 10/09/2018 R94.31 Abnormal electrocardiogram [ECG] Enedina Abreu MD [EKG] 10/09/2018 I10 Essential (primary) hypertension Josekevin Rodriguez NP 10/09/2018 R07.89 Other chest pain Enedina Abreu MD 10/09/2018 R07.89 Other chest pain Jose Michael [employer] 10/09/2018 R22.2 Localized swelling, mass and lump, Jose FARHAD Rodriguez trunk 10/09/2018 K57.92 Diverticulitis of intestine, part Jose FARHAD Rodriguez unspecified, without perforation or abscess without bleeding 10/09/2018 R94.31 Abnormal electrocardiogram [ECG] Josekevin Rodriguez NP [EKG] 10/03/2018 G43.109 Migraine with aura, not intractable, Jorge Luis Lee M.D. without status migraino 10/03/2018 M54.5 Low back pain Jorge Luis Lee M.D. 10/03/2018 M54.2 Cervicalgia Jorge Luis Lee M.D. 09/18/2018 Z11.4 Encounter for screening for human Sanchez Alexandra M.D. immunodeficiency virus [Hi 09/18/2018 Z79.899 Other terminologist (current) drug Sanchez Alexandra M.D. therapy Plan of Treatment Future Appointment(s):04/10/2019 3:45 pm - Jorge Luis Lee M.D. at [place] [facility]03/12/2019 - Jose Rodriguez NPM25.562 Pain in left kneeNew Therapy:Physical TherapyComments:For your knee pain I recommend using the Voltaren gel twice daily. You can also ice the knee for 20 minutes every few hours, especially if you are doing activities that exacerbate the pain. I am referring you to PT today.Referral:Manjinder Wing MD, Surgery,Orthopedic Functional Status Description No Information Available Mental Status Description No Information Available Referrals Refer to Dr Reason for Referral Status Appt Date Manjinder Wing MD Created [address] [facility] [place] [address] [place] [address] [phone] Buddy Gold MD Sent 02/21/2019 [address] [facility] [address] [place] [phone] Ofe Hoang NPP Sent [address] [place], [place] [id number] [phone] Malini Matson M.D. refaxed referral they will be looking for it. Closed 11/13/2018/[address] [place] [address] [phone] [facility] Sent 10/30/2018 [address] [place] [address] [phone] [facility] Closed 11/28/2018 [address] [place] [address] [phone]
--- OUTSIDE RECORDS SUMMARY | 2019-03-24 19:32 | XMS REPORT | Continuity of Care Document ---
:1980 External Reference #:[id number] Author Name Manjinder Wing M.D. (transmitted by agent of provider Marina Contreras) Address [address] [place] [address] Care Team Providers Name Role Phone Kem Celaya MD - Family Medicine Care Team Information Sorting Grapple Operator [phone] Radha Julien MD - Internal Medicine Care Team Information Sorting Grapple Operator [phone] Problems Active Problems Provider Date Obstructive sleep [...] Use Denies Drug Use Smoking Status Reviewed: 03/20/19 Patient is a former Quit April 2018. smoker Exercise Type/Frequency Exercises regularly cardiac rehab and goes to fitness center, follows low sodium/fat diet Allergies, Adverse Reactions, Alerts Active Allergies Reaction Severity Comments Date Biaxin Urticaria Moderate 04/13/2010 Medications Active Medications SIG Qnty Indications Ordering Date Provider Oxycodone HCL 1 tablet every 12 20tabs S83.232A Manjinder Wing M.D. 2019 5mg Tablets hours if needed Losartan Potassium 1 by mouth every 90tabs I10 Ryemundo Ortiz, 02/21/2019 50mg day DO FACC Tablets Amlodipine Besylate 1 by mouth every 90tabs Reymundo Ortiz, 12/20/2018 5mg day DO FACC Tablets Acetaminophen 500 MG Take two tablets Unknown 12/19/2018 prn Atorvastatin Calcium take 1 tablet (80 90tabs Reymundo Ortiz, 10/28/2018 80mg mg total) by DO FACC Tablets mouth nightly Gabapentin take one capsule 60caps G47.00 Jose Rodriguez NP 06/28/2018 300mg Capsules bid Truvada 1 by mouth every 30tabs Z20.2 Sanchez Gama 03/14/2017 200-300mg Tablets day prn [place] Fish Oil Take one tablet Unknown 1200mg Capsules three times a day Daily Farzaneh Men's Complete 1 Unknown Tablets by mouth every day Vraylar 1 cap po daily Unknown 1.5mg Capsules Calcium 500 500 mg one by Unknown mouth once a day [id number]-mg-Unit Tablets Topiramate ER take one tab by Unknown 150mg CS24 mouth at at bedtime History Medications Brilinta 1 tab by mouth 60tabs I25.6 Reymundo Santoyo 02/21/2019 - 90mg Tablets twice a day DO Angel 03/19/2019 FACEthel Amlodipine Besylate 1 by mouth every 90tabs Reymundo Santoyo 12/20/2018 - day DO Angel 12/20/2018 10mg Tablets FACC Fluticasone [place] 2 Sprays 16units J30.89 Jose Rodriguez NP 12/11/2018 - Propionate Into Each Nostril 03/19/2019 50mcg/Act One Time Daily Suspension Lidocaine apply to affected 60gm R07.89 Jose Rodriguez NP 12/11/2018 - 4% Cream areas 3 or 4 03/19/2019 times daily-prn Tramadol HCL 1-2 tablets every 42tabs M25.562 Jose Rodriguez NP 11/21/2018 - 50mg 8 hours as needed 03/19/2019 Tablets for pain. Ferrous Gluconate Take 1 tablet 60tabs Jose Rodriguez NP 11/03/2018 - (324 mg total) by 11/19/2018 324(37.5Fe) mg mouth 2 (two) Tablets times a day Latuda 1 by mouth every 30tabs Jose Rodriguez NP 11/03/2018 - 60mg Tablets day at bedtime 12/19/2018 Aspirin Ec Take 1 tablet 30tabs Unknown 10/29/2018 - 325mg (325 mg total) by 11/03/[address] mouth daily Ascorbic Acid Take 1 tablet 30tabs Unknown 10/29/2018 - 500mg (500 mg total) by 03/19/2019 Tablets mouth daily Folic Acid Take 1 tablet (1 30tabs Unknown 10/29/2018 - 1mg Tablets mg total) by 12/17/2018 mouth daily Furosemide Take 1 tablet (40 5tabs Unknown 10/29/2018 - 40mg Tablets mg total) by 11/08/2018 mouth every morning for 5 days Acetaminophen Take 2 tablets 30tabs Unknown 10/28/2018 - 325mg (650 mg total) by 12/19/2018 Tablets mouth every 4 (four) hours as needed (Mild pain) Potassium Chloride Take 1 tablet (20 5tabs Unknown 10/28/2018 - Kayla ER mEq total) by 11/08/2018 20Meq Tablets mouth daily for 5 ER days Take with Furosemide Senna-Docusate Sodium Take 2 tablets by 30tabs Unknown 10/28/2018 - mouth nightly 11/19/2018 8.6-50mg Tablets Carvedilol take 1 tablet 180tabs Reymundo Santoyo 10/28/2018 - 6.25mg (6.25 mg total) DO Angel 03/19/2019 Tablets by mouth 2 (two) FACC times a day Oxycodone HCL Take 1-1.5 40tabs Unknown 10/28/2018 - 10mg tablets (10-15 mg 12/10/2018 Tablets total) by mouth every 4 (four) hours as needed (Severe pain) Max Daily Amount: 90 mg Carvedilol Take 1 tablet 60tabs Unknown 10/28/2018 - 6.25mg (6.25 mg total) 10/28/2018 Tablets by mouth 2 (two) times a day Senna-Docusate Sodium Take 2 tablets by 30tabs Unknown 10/28/2018 - mouth nightly 10/28/2018 8.6-50mg Tablets Oxycodone HCL Take 1-1.5 40tabs Unknown 10/28/2018 - 10mg tablets (10-15 mg 10/28/2018 Tablets total) by mouth every 4 (four) hours as needed (Severe pain) Max Daily Amount: 90 mg Medications Administered in Office Medication SIG Qnty Indications Ordering Provider Date Technetium TC 99M Reymundo Ortiz, DO [facility] 10/18/2018 Tetrofosmin, Per Unit Dose Up To 40 Millicuries Injection Influenza,Unspecified Unknown 11/14/2016 Injection Immunizations Description No Information Available Vital Signs Date Vital Result Comment 03/20/2019 3:18pm Height 71 inches 5'11" Weight 220.00 lb Heart Rate 76 /min BP Systolic 140 mmHg BP Diastolic 80 mmHg Body Temperature 98.8 F Pain Level 8 BMI (Body Mass Index) 30.7 kg/m2 03/14/2019 3:43pm Height 71 inches 5'11" Weight 224.00 lb with shoes Heart Rate 72 /min BP Systolic Sitting 124 mmHg lue reg cuff BP Diastolic Sitting 72 mmHg lue reg cuff BP Systolic Standing 130 mmHg lue reg cuff BP Diastolic Standing 72 mmHg lue reg cuff Respiratory Rate 14 /min BMI (Body Mass Index) 31.2 kg/m2 Ejection Fraction 45-50% echo. 10/19/18 Results Test Acquired Date Facility Test Result H/L Range Note Laboratory test 03/09/2019 [facility] Activated 340 seconds [address] [place] [address] [phone] Laboratory test 03/09/2019 [facility] Activated 247 seconds [address] [place] [address] [phone] Laboratory test 03/09/2019 [facility] Activated 235 seconds [address] [place] [address] [phone] CBC Auto Diff 03/09/2019 [facility] White Blood 9.4 10^3/uL Normal 3.5-10.[address] [place] [address] [phone] Red Blood Count 4.61 10^6/uL Normal 4.18-5.48 [...] Blood Cells % 0.0 Basic Metabolic 03/09/2019 [facility] Sodium 142 mmol/L Normal 135-[address] [place] [address] [phone] Potassium 3.7 mmol/L Normal 3.5-5.0 Co2 Carbon Dioxide 22 mmol/L Normal 22-32 Glucose 98 mg/dL Normal 70-100 Blood Urea Nitrogen 11 mg/dL Normal 6-24 Creatinine 0.83 mg/dL Normal 0.67-1.17 BUN/Creatinine Ratio 13.3 Normal 8-20 Calcium 9.1 mg/dL Normal 8.6-10.3 Egfr Non- 103.7 >60 Egfr 125.5 >60 4 Chloride 112 mmol/L High 101-111 Anion Gap 8 mmol/L Normal 2-11 CBC No Diff 02/05/2019 [facility] White Blood 6.6 10^3/uL Normal 3.5-10.[address] [place] [address] [phone] Red Blood Count 4.69 10^6/uL Normal 4.18-5.48 Hemoglobin 14.9 g/dL Normal 14.0-18.0 Hematocrit 43 % Normal 42-52 Mean Corpuscular Volume 91 fL Normal 80-94 Mean Corpuscular Hemoglobin 32 pg High 27-31 Mean Corpuscular HGB Conc 35 g/dL Normal 31-36 Red Cell Distribution Width 14 % Normal 10-15 Platelet Count 198 10^3/uL Normal 150-450 Mean Platelet Volume 8.5 fL Normal 7.4-10.4 Comp Metabolic 02/05/2019 [facility] Sodium 141 mmol/L Normal 135-145 Panel [address] [place] [address] [phone] Potassium 4.0 mmol/L Normal 3.5-5.0 Co2 Carbon [...] Egfr Non- 95.7 >60 Egfr 115.8 >60 5 Chloride 112 mmol/L High 101-111 Anion Gap 6 mmol/L Normal 2-11 Lipid Profile 02/05/2019 [facility] Triglycerides 137 mg/dL 6 (Trig/Chol/HDL) [address] [place] [address] [phone] Cholesterol 115 mg/dL 7 HDL Cholesterol 28.8 mg/dL 8 LDL Cholesterol 59 mg/dL 9 Laboratory test 02/05/2019 [facility] Magnesium 2.0 mg/dL Normal 1.9-2.7 finding [address] [place] [address] [phone] Iron (Fe) 71 g/dL Normal 50-212 TSH (Thyroid Stim Horm) 0.38 mcIU/mL Normal 0.34-5.60 Ferritin 50.4 ng/mL Normal 24-336 Vitamin B12 417 pg/mL Normal 180-914 10 Hemoglobin A1c (Glyco HGB) 5.2 % Normal 4.0-5.6 11 Copper, Serum 1.07 g/mL 0.75-1.45 12 Zinc Serum 1.15 g/mL Abnormal 0.66-1.10 13 1,25 Dihydroxy 02/05/2019 [facility] Calcitriol 45 pg/mL 18- 64 14 Vitamin D [address] [place], [place] [id number] [phone] Surgical 01/09/2019 [facility] Surgical SEE RESULT 15, [address] [place] [address] [phone] PDFReport SEE IMAGE Ctrach&Ngonorr Amplified Rna 12/18/2018 [facility] Source THROAT [address] [place] [address] [phone] C. trach Amplified Rna Negative Negative 17 Source THROAT N Gonorr Amplified Rna Negative Negative 18 Ctrach&Ngonorr Amplified Rna 12/18/2018 [facility] Source RECTAL [address] [place] [address] [phone] C. trach Amplified Rna Negative Negative 19 Source RECTAL N Gonorr Amplified Rna Negative Negative 20 GC/Chlamydia 12/18/2018 [facility] GCCHL Disclaimer (SEE NOTE) 21 Amplified Rna [address] [place] [address] [phone] Chlamydia trachomatis Berkley Negative Negative Neisseria gonorrhoeae (GC) Berkley Negative Negative Basic Metabolic 12/15/2018 [facility] Sodium 140 mmol/L Normal 135-[address] [place] [address] [phone] Potassium 3.9 mmol/L Normal 3.5-5.0 Chloride 109 mmol/L Normal 101-111 Co2 Carbon Dioxide 26 mmol/L Normal 22-32 Anion Gap 5 mmol/L Normal 2-11 Glucose 107 mg/dL High 70-100 Blood Urea Nitrogen 14 mg/dL Normal 6-24 Creatinine 0.88 mg/dL Normal 0.67-1.17 BUN/Creatinine Ratio 15.9 Normal 8-20 Calcium 9.2 mg/dL Normal 8.6-10.3 Egfr Non- 96.9 >60 Egfr 117.3 >60 22 Laboratory 12/15/2018 [facility] Miscellaneous See Comment 23 test finding [address] [place] [address] [phone] Comp Metabolic 12/05/2018 [facility] Sodium 141 mmol/L Normal 135- Panel [address] [place] [address] [phone] Potassium 3.8 mmol/L Normal 3.5-5.0 Co2 Carbon [...] Egfr Non- 122.2 >60 Egfr 147.8 >60 24 Chloride 114 mmol/L High 101-111 Anion Gap 4 mmol/L Normal 2-11 Laboratory 12/05/2018 [facility] Troponin-I 0.03 <0.04 [address] (TnI) ng/[place] [address] [phone] Inr/Protime 12/05/2018 [facility] Inr 1.10 High 0.82-1.[address] [place] [address] [phone] Laboratory 12/05/2018 [facility] Troponin-I 0.01 <0.04 [address] (TnI) ng/[place] [address] [phone] CBC Auto Diff 12/05/2018 [facility] White Blood 7.2 Normal 3.5 -10.[address] Count 10^3/[place] [address] [phone] Red Blood Count 4.78 10^6/uL Normal 4.18-5.48 [...] Nucleated Red Blood Cells % 0.0 Laboratory 2018 [facility] Troponin-I 0.01 <0.04 28 test finding [address] (TnI) ng/[place] [address] [phone] CBC Auto Diff 10/30/2018 [facility] White Blood 10.6 Normal 3.5-10.[address] Count 10^3/[place] [address] [phone] Red Blood Count 4.65 10^6/uL Normal 4.18-5.48 [...] Red Blood Cells % 0.0 Inr/Protime 10/30/2018 [facility] Inr 1.25 High 0.82-1.[address] [place] [address] [phone] Laboratory test 10/30/2018 [facility] Troponin-I 0.01 <0.04 [address] (TnI) ng/mL [place], [place] [address] [phone] Comp Metabolic 10/30/2018 [facility] Sodium 138 Normal 135- [address] mmol/[place] [address] [phone] Potassium 4.0 mmol/L Normal 3.5-5.0 Chloride 106 [...] Egfr Non- 91.4 >60 Egfr 110.6 >60 31 Order 10/18/2018 [facility] Stress Test, <pending> [address] [address] [phone] Laboratory test 10/18/2018 [facility] Troponin-I 0.00 ng/mL < 0.04 [address] (TnI) [place] [address] [phone] Hemoglobin A1c (Glyco HGB) 5.4 % Normal 4.0-5.6 33 Comp Metabolic 10/18/2018 [facility] Sodium 138 mmol/L Normal 135-[address] [place] [address] [phone] Potassium 4.3 mmol/L Normal 3.5-5.0 Chloride 109 [...] Egfr Non- 112.0 >60 Egfr 135.5 >60 34 CBC Auto 10/18/2018 [facility] White Blood 13.8 10^3/uL High 3.5-10.[address] [place] [address] [phone] Red Blood Count 5.14 10^6/uL Normal 4.18-5.48 [...] % Nucleated Red Blood Cells % 0.1 Laboratory 10/18/2018 [facility] Partial Thrombo 34.9 Normal 26.0-38.0 test finding [address] [place] [address] [phone] Inr/Protime 10/18/2018 [facility] Inr 0.98 Normal 0.82-1.[address] [place] [address] [phone] Lipid Profile 10/09/2018 [facility] Triglycerides 479 mg/dL 36 (Trig/Chol/HD [address] L) [place] [address] [phone] Cholesterol 322 mg/dL 37 HDL Cholesterol 34.0 mg/dL 38 LDL Cholesterol (SEE NOTE) mg/dL 39 Laboratory test 10/09/2018 [facility] Troponin-I (TnI) 0.01 ng/ mL <0.04 [address] [place] [address] [phone] TSH (Thyroid Stim Horm) 0.44 mcIU/mL Normal 0.34-5.60 LDL Cholesterol Direct 185 mg/dL 41 1 Workers Compensation Examiner: [id number] Reference Range: 74-125 seconds 2 Workers Compensation Examiner: [id number] Reference Range: 74-125 seconds 3 Workers Compensation Examiner: [id number] Reference Range: 74-125 seconds 4 Because ethnic [...] 5 Kidney failure <15 (or dialysis) 5 Because ethnic data is not always [...] 5 Kidney failure <15 (or dialysis) 6 Desirable: <150 Borderline High: 150-199 High: 200-499 Very High: >500 7 Desirable: <200 Borderline High: 200-239 High: >239 8 Low: <40 Desirable: 40-60 High: >60 9 Desirable: <100 Near Optimal: 100-129 Borderline High: 130-159 High: 160-189 Very High: >189 10 Normal Range 180 to 914 Indeterminate Range 145 to 180 Deficient Range <145 11 Therapeutic target for the treatment of diabetes mellitus patients is <7% HBA1C, and in selective patients <6.0%. Please refer to [place] [employer] diabetic care guidelines for further information. 12 ADDITIONAL INFORMATION This test was developed and its performance characteristics determined by [facility] in a manner consistent with CLIA requirements. This test has not been cleared or approved by the U.S. Food and Drug Administration. Test Performed by: [facility] [address] [place] [address] Technician Automated Equipment: Omer Forman M.D. Ph.D.; CLIA# [id number] 13 ADDITIONAL INFORMATION This test was developed and its performance characteristics determined by [facility] in a manner consistent with CLIA requirements. This test has not been cleared or approved by the U.S. Food and Drug Administration. Test Performed by: [facility] [employer] [address] Technician Automated Equipment: Omer Forman M.D. Ph.D.; CLIA# [id number] 14 ADDITIONAL INFORMATION This test was developed and its performance characteristics determined by [facility] in a manner consistent with CLIA requirements. This test has not been cleared or approved by the U.S. Food and Drug Administration. Test Performed by: [facility] [address] Technician Automated Equipment: Omer Forman M.D. Ph.D.; CLIA# [id number] 15 [id number] 16 SEE RESULT BELOW Name: DARREL,JAKOB Darren : [address]: Olman Stout MD Acct: [id number] Unit: [id number] AGE: 38 Location: [facility] Re01/09/19 SEX: M Status: DEP REF SPEC: [id number] ESPERANZA: 01/09/19- SUBM DR: Olman Stout MD REQ: [id number] RECD: 01/09/19 STATUS: STEFFI ISABEL DR: Jose Rodriguez DECORATING MACHINE OPERATOR _ ORDERED: LEVEL 4 COMMENTS: [id number] FINAL DIAGNOSIS Colon, splenic flexure, biopsy: -- [...] 1505 END OF REPORT DEPARTMENT OF PATHOLOGY, [address] [place] [address] Radames Ya M.D. Director [facility] # [id number] 17 ADDITIONAL INFORMATION This report is intended for use in clinical monitoring and management of patients. It is not intended for use in medical-legal applications. This test has been modified from the music manager's instructions. Its performance characteristics were determined by [facility] in a manner consistent with CLIA requirements. This test has not been cleared or approved by the U.S. Food and Drug Administration. 18 ADDITIONAL INFORMATION This report is intended for use in clinical monitoring and management of patients. It is not intended for use in medical-legal applications. This test has been modified from the music manager's instructions. Its performance characteristics were determined by [facility] in a manner consistent with CLIA requirements. This test has not been cleared or approved by the U.S. Food and Drug Administration. Test Performed by: [place] [address] Technician Automated Equipment: Omer Forman M.D. Ph.D.; CLIA# [id number] 19 ADDITIONAL INFORMATION This report is intended for use in clinical monitoring and management of patients. It is not intended for use in medical-legal applications. This test has been modified from the music manager's instructions. Its performance characteristics were determined by [facility] in a manner consistent with CLIA requirements. This test has not been cleared or approved by the U.S. Food and Drug Administration. 20 ADDITIONAL INFORMATION This report is intended for use in clinical monitoring and management of patients. It is not intended for use in medical-legal applications. This test has been modified from the music manager's instructions. Its performance characteristics were determined by [facility] in a manner consistent with CLIA requirements. This test has not been cleared or approved by the U.S. Food and Drug Administration. Test Performed by: [place] [address] Technician Automated Equipment: Omer Forman M.D. Ph.D.; CLIA# [id number] 21 As with all diagnostic procedures, the laboratory results obtained should be used in conjunction with other clinical information available to the physician, including confirmation by another method, as applicable. 22 Because ethnic data is not always [...] weeks. REFERENCE VALUE Nonreactive Test Performed by: [facility] [place] [address] [place] [address] Technician Automated Equipment: Omer Forman M.D. Ph.D.; [facility]# [id number] 24 Because ethnic data is not always [...] 15-29 5 Kidney failure <15 (or dialysis) 25 Troponin-I testing on Plasma Separator Tubes (PST) has a known false positive rate of 0.20-0.40%. All positive troponins reflex immediately to secondary confirmatory testing. Using the [employer] DxI 800 Access Immunoassay systems, the 99th percentile upper reference limit was demonstrated to be < 0.03 ng/mL. 26 Standard intensity warfarin therapeutic range: 2.0-3.0 High intensity warfarin therapeutic range: 2.5-3.5 27 Troponin-I testing on Plasma Separator Tubes (PST) has a known false positive rate of 0.20-0.40%. All positive troponins reflex immediately to secondary confirmatory testing. Using the [employer] DxI 800 Access Immunoassay systems, the 99th percentile upper reference limit was demonstrated to be < 0.03 ng/mL. 28 Troponin-I testing on Plasma Separator Tubes (PST) has a known false positive rate of 0.20-0.40%. All positive troponins reflex immediately to secondary confirmatory testing. Using the [employer] DxI 800 Access Immunoassay systems, the 99th percentile upper reference limit was demonstrated to be < 0.03 ng/mL. 29 Standard intensity warfarin therapeutic range: 2.0-3.0 High intensity warfarin therapeutic range: 2.5-3.5 30 Troponin-I testing on Plasma Separator Tubes (PST) has a known false positive rate of 0.20-0.40%. All positive troponins reflex immediately to secondary confirmatory testing. Using the [employer] DxI 800 Access Immunoassay systems, the 99th percentile upper reference limit was demonstrated to be < 0.03 ng/mL. 31 Because ethnic data is not always readily [...] 15-29 5 Kidney failure <15 (or dialysis) 32 Troponin-I testing on Plasma Separator Tubes (PST) has a known false positive rate of 0.20-0.40%. All positive troponins reflex immediately to secondary confirmatory testing. Using the [employer] DxI 800 Access Immunoassay systems, the 99th percentile upper reference limit was demonstrated to be < 0.03 ng/mL. 33 Therapeutic target for the treatment of diabetes mellitus patients is <7% HBA1C, and in selective patients <6.0%. Please refer to [place] [employer] diabetic care guidelines for further information. 34 Because ethnic data is not always readily [...] 15-29 5 Kidney failure <15 (or dialysis) 35 Standard intensity warfarin therapeutic range: 2.0-3.0 High intensity warfarin therapeutic range: 2.5-3.5 36 Desirable: <150 Borderline High: 150-199 High: 200-499 Very High: >500 37 Desirable: <200 Borderline High: 200-239 High: >239 38 Low: <40 Desirable: 40-60 High: >60 39 Unable to calculate LDL as triglyceride is > 400 40 Troponin-I testing on Plasma Separator Tubes (PST) has a known false positive rate of 0.20-0.40%. All positive troponins reflex immediately to secondary confirmatory testing. Using the [employer] DxI 800 Access Immunoassay systems, the 99th percentile upper reference limit was demonstrated to be < 0.03 ng/mL. 41 Desirable: <100 Near Optimal: 100-129 Borderline High: 130-159 High: 160-189 Very High: >189 Procedures Date Code Description Status 03/10/2019 59604 EKG, Interpretation Only Completed 03/09/2019 96113 Intravascular Blood Flow Velocity Completed 03/09/2019 23643 EKG, Interpretation Only Completed 03/09/2019 53483 Percutaneous Transcatheter Placement Of Intracoronary Completed Stent 01/09/2019 92032373 Colonoscopy Completed 11/08/2018 21238 EKG Tracing & Interpretation Completed 10/19/2018 94632 ECHO Transthorasic Realtime 2D W Doppler & Color Flow Completed Hosp 10/19/2018 76507 EKG, Interpretation Only Completed 10/18/2018 14338 Left Heart Cath. 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 E78.5 Hyperlipidemia, unspecified I25.2 Old myocardial infarction I25.5 Ischemic cardiomyopathy I10 Essential (primary) hypertension F17.201 Nicotine dependence, unspecified, in remission Office Visit 03/12/2019 2:40p [facility] Internal Jose Rodriguez NP M25.562 Pain in left Medicine - Ccmob knee Z95.1 Presence of aortocoronary bypass graft Office Visit 02/21/2019 4:40p [facility] Reymundo Santoyo I25.6 Silent myocardial Of Saige Ortiz, DO ischemia FACC E78.5 Hyperlipidemia, unspecified I25.2 Old myocardial infarction I25.5 Ischemic cardiomyopathy Z72.0 Tobacco use 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 E78.5 Hyperlipidemia, unspecified I25.2 Old myocardial infarction I25.5 Ischemic cardiomyopathy F17.201 Nicotine dependence, unspecified, in remission Office Visit 12/18/2018 4:00p [facility] Sanchez Gama Z11.3 [place]clor[place] screen Infectious [place] for infections w Diseases sexl mode of transmiss Z79.899 Other terminal system operator (current) drug therapy Z11.4 Encounter for screening for human immunodeficiency virus Office Visit 12/11/2018 10:20a [facility] Internal Jose Michael, DECORATING MACHINE OPERATOR R07.89 Other chest Medicine - Ccmob pain I82.402 Acute embolism and thombos unsp deep veins of l low extrem J30.89 Other allergic rhinitis Office Visit 11/21/2018 10:40a [facility] Internal Josekevin Rodriguez DECORATING MACHINE OPERATOR R07.89 Other chest Medicine - Ccmob pain F31.9 Bipolar disorder, unspecified I25.119 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 Office Visit 11/20/2018 8:30a Pulmonology And Alannah G47.21 [facility] [place], RN, rhythm sleep [facility] RAILWAY TRACK WORKER-BC disorder, delayed sleep phase type F51.04 Psychophysiologic insomnia G47.33 Obstructive sleep apnea (adult) (pediatric) Office Visit 11/08/2018 1:40p [facility] Reymundo Santoyo I25.2 Old myocardial Of Business Mail Entry Clerk Ortiz, DO infarction FACC I82.402 Acute embolism and thombos unsp deep veins of l low extrem I25.5 Ischemic cardiomyopathy I10 Essential (primary) hypertension E78.5 Hyperlipidemia, unspecified F17.201 Nicotine dependence, unspecified, in remission Office Visit 11/03/2018 9:20a [facility] Internal Jose Rodriguez, FARHAD I25.119 Athsc heart Medicine - Ccmob disease of council cor art w unsp ang pctrs I10 Essential (primary) hypertension I82.402 Acute embolism and thombos unsp deep veins of l low extrem F31.9 Bipolar disorder, unspecified J90 Pleural effusion, not elsewhere classified Office Visit 11/02/2018 [facility]402 [facility] Heriberto, and thombos Hospitalists DECORATING MACHINE OPERATOR unsp deep veins of l low extrem I25.119 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 I10 Essential (primary) hypertension G43.909 Migraine, unsp, not intractable, without status migrainosus Office Visit 11/02/2018 1:51p [facility] Reymundo Santoyo I25.10 Athscl heart Of [facility] Ortiz, DO disease of [facility] council coronary artery w/o ang pctrs I25.5 Ischemic cardiomyopathy I25.2 Old myocardial infarction I82.442 Acute embolism and thrombosis of left tibial vein Office Visit 11/01/2018 9:53a [facility] I82.402 Acute embolism Assoc, Quinn Louis, [facility] DECORATING MACHINE OPERATOR unsp deep veins of l low extrem 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 I10 Essential (primary) hypertension G43.909 Migraine, unsp, not intractable, without status migrainosus E78.00 Pure hypercholesterolemia, unspecified Office Visit 11/01/2018 4:43p [facility] Karon Rose I25.10 Athscl heart Of [facility] Parish disease of council coronary artery w/o ang pctrs Office Visit 2018 9:52a [facility] Corine Oh, I82.402 Acute embolism Assoc,leila Lugo and [facility] Hospitalists unsp deep veins of l low extrem R07.9 Chest pain, unspecified I10 Essential (primary) hypertension E78.5 Hyperlipidemia, unspecified Office Visit 2018 3:58p [facility] Sammi Soria, I82.402 Acute embolism Of [facility] DECORATING MACHINE OPERATOR and thombos unsp deep veins of l low extrem 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 disease of [place] cor art w unsp ang pctrs I10 Essential (primary) hypertension E78.5 Hyperlipidemia, unspecified R07.9 Chest pain, unspecified Office Visit 10/18/2018 3:50p [facility] Karon Rose, I25.110 Athscl heart Of [facility] M.D. disease of [place] cor art w unstable ang pctrs I25.2 Old myocardial infarction Office Visit 10/18/2018 9:00a [facility] Reymundo Santoyo I25.2 Old myocardial Of [facility] Ortiz, DO infarction FACC I25.119 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 F17.201 Nicotine dependence, unspecified, in remission I10 Essential (primary) hypertension E78.5 Hyperlipidemia, unspecified E66.8 Other obesity Office Visit 10/09/2018 10:00a [facility] Internal Jose Michael, I10 Essential ( primary) Medicine - Ccmob DECORATING MACHINE OPERATOR hypertension R07.89 Other chest pain R22.2 Localized swelling, mass and lump, trunk K57.92 Dvtrcli of intest, part unsp, w/o perf or abscess w/o bleed R94.31 Abnormal electrocardiogram [ECG] [EKG] Office Visit 10/03/2018 Saira Santoyo G43.109 Migraine with 3:45p Neurologic [place] aura, not Services Of [facility] intractable, w/o status migrainosus M54.5 Low back pain M54.2 Cervicalgia Office Visit 09/18/2018 [place] Marko Gama Z11.4 Encounter for 4:00p For Infectious [place] screening for human Diseases immunodeficiency virus Z79.899 Other terminal system operator (current) drug therapy Assessments Date Code Description Provider 03/20/2019 S83.232A Complex tear of medial meniscus, Manjinder Wing M.D. 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 Reymundo Ortiz, DO FACC council coronary artery without angina pectoris 03/14/2019 Z95.1 Presence of aortocoronary bypass Reymundo Ortiz, DO FACC graft 03/14/2019 E78.5 Hyperlipidemia, unspecified Reymundo Ortiz, DO FACC 03/14/2019 I25.2 Old myocardial infarction Reymundo Ortiz, DO FACC 03/14/2019 I25.5 Ischemic cardiomyopathy Reymundo Ortiz, DO FACC 03/14/2019 I10 Essential (primary) hypertension Reymundo Ortiz, DO FACC 03/14/2019 F17.201 Nicotine dependence, unspecified, in Reymundo Ortiz, DO FACC remission 03/12/2019 M25.562 Pain in left knee Jose Michael, DECORATING MACHINE OPERATOR 03/12/2019 Z95.1 Presence of aortocoronary bypass Jose Rodriguez, DECORATING MACHINE OPERATOR graft 03/09/2019 I25.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 Sampson Aden MD, [facility], council coronary artery without angina FSCAI pectoris 03/09/2019 Z95.1 Presence of aortocoronary bypass Sampson Aden MD, [facility] , graft FSCAI 02/21/2019 I25.6 Silent myocardial ischemia Reymundo Ortiz, DO FACC 02/21/2019 E78.5 Hyperlipidemia, unspecified Reymundo Ortiz, DO FACC 02/21/2019 I25.2 Old myocardial infarction Reymundo Ortiz, DO FACC 02/21/2019 I25.5 Ischemic cardiomyopathy Reymundo Ortiz, DO FACC 02/21/2019 Z72.0 Tobacco use Reymundo Ortiz, DO FACC 02/21/2019 I25.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 Reymundo Ortiz, DO FACC council coronary artery without angina pectoris 02/21/2019 I10 Essential (primary) hypertension Reymundo Ortiz, DO FACC 01/05/2019 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 unspecified deep veins of left lower extremity 12/20/2018 I82.402 Acute embolism and thrombosis of Reymundo Ortiz, DO [facility] unspecified deep veins of left lower extremity 12/20/2018 I10 Essential (primary) hypertension Reymundo Ortiz, [facility] 12/20/2018 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 Reymundo Ortiz, DO [facility] council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 12/20/2018 E78.5 Hyperlipidemia, unspecified Reymundo Ortiz, [facility] 12/20/2018 I25.2 Old myocardial infarction Reymundo Ortiz, [facility] 12/20/2018 I25.5 Ischemic cardiomyopathy Reymundo Ortiz, [facility] 12/20/2018 F17.201 Nicotine dependence, unspecified, in Reymundo Ortiz, [facility] remission 12/18/2018 Z11.3 Encounter for screening for [place] Alexandra M.D. infections with a predominantly sexual mode of transmission 12/18/2018 Z79.899 Other terminal system operator (current) drug [place] Alexandra M.D. therapy 12/18/2018 Z11.4 Encounter for screening for human [place] Alexandra M.D. immunodeficiency virus [HIV] 12/11/2018 R07.89 Other chest pain Jose Michael, DECORATING MACHINE OPERATOR 12/11/2018 I82.402 Acute embolism and thrombosis of Jose Michael, DECORATING MACHINE OPERATOR unspecified deep veins of left lower extremity 12/11/2018 J30.89 Other allergic rhinitis Jose Michael, DECORATING MACHINE OPERATOR 11/21/2018 R07.89 Other chest pain Jose Michael, DECORATING MACHINE OPERATOR 11/21/2018 F31.9 Bipolar disorder, unspecified Jose Michael, DECORATING MACHINE OPERATOR 11/21/2018 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 Jose Michael, DECORATING MACHINE OPERATOR council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 11/20/2018 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, Alannah South DNP, RN, delayed sleep phase type [facility] 11/20/2018 F51.04 Psychophysiologic insomnia Alannah South DNP, RN, [facility] 11/20/2018 G47.33 Obstructive sleep apnea (adult) Alannah South DNP, RN, (pediatric) [facility] 11/08/2018 I25.2 Old myocardial infarction Reymundo Ortiz, DO FACC 11/08/2018 I82.402 Acute embolism and thrombosis of Reymundo Ortiz, DO FAC unspecified deep veins of left lower extremity 11/08/2018 I25.5 Ischemic cardiomyopathy Reymundo Ortiz, DO FACC 11/08/2018 I10 Essential (primary) hypertension Ryemundo Ortiz, DO FACC 11/08/2018 E78.5 Hyperlipidemia, unspecified Reymundo Ortiz, DO FACC 11/08/2018 F17.201 Nicotine dependence, unspecified, in Reymundo Ortiz, DO FACC remission 11/03/2018 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 Jose Michael DECORATING MACHINE OPERATOR council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 11/03/2018 I10 Essential (primary) hypertension Jose Rodriguez, DECORATING MACHINE OPERATOR 11/03/2018 I82.402 Acute embolism and thrombosis of Jose Rodriguez DECORATING MACHINE OPERATOR unspecified deep veins of left lower extremity 11/03/2018 F31.9 Bipolar disorder, unspecified Jose Michael, DECORATING MACHINE OPERATOR 11/03/2018 J90 Pleural effusion, not elsewhere Jose Michael, DECORATING MACHINE OPERATOR classified 11/02/2018 I25.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 Reymundo Ortiz, DO FACC council coronary artery without angina pectoris 11/02/2018 I82.402 Acute embolism and thrombosis of Sherry Ball Heriberto DECORATING MACHINE OPERATOR unspecified deep veins of left lower extremity 11/02/2018 I25.5 Ischemic cardiomyopathy Reymundo Ortiz, DO FACC 11/02/2018 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 Sherry Garciafield Heriberto NP council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 11/02/2018 I25.2 Old myocardial infarction Reymundo Ortiz, DO FACC 11/02/2018 I10 Essential (primary) hypertension Sherry Ball Aaliyahcarine, DECORATING MACHINE OPERATOR 11/02/2018 I82.442 Acute embolism and thrombosis of left Reymundo Ortiz, DO FACC tibial vein 11/02/2018 G43.909 Migraine, unspecified, not Sherry Louis NP intractable, without status migrainosus 11/01/2018 I25.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 Karon Rose M.D. council coronary artery without angina pectoris 11/01/2018 I82.402 Acute embolism and thrombosis of Sherry Louis NP unspecified deep veins of left lower extremity 11/01/2018 I25.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 Sherry Louis NP council coronary artery without angina pectoris 11/01/2018 I10 Essential (primary) hypertension Sherry Louis, DECORATING MACHINE OPERATOR 11/01/2018 G43.909 Migraine, unspecified, not Sherry Louis, DECORATING MACHINE OPERATOR intractable, without status migrainosus 11/01/2018 E78.00 Pure hypercholesterolemia, Sherry Louis NP unspecified 2018 I82.402 Acute embolism and thrombosis of Sammi SoriaFARHAD unspecified deep veins of left lower extremity 2018 I82.402 Acute embolism and thrombosis of Corine Oh M.D. unspecified deep veins of left lower extremity 2018 I25.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 Sammi SoriaFRAHAD council coronary artery without angina pectoris 2018 R07.9 Chest pain, unspecjose Oh M.D. 2018 Z95.1 Presence of aortocoronary bypass Sammi BrandFARHAD oh graft 2018 I10 Essential (primary) hypertension Corine Oh M.D. 2018 E78.5 Hyperlipidemia, unspecified Sammi Soria NP 2018 E78.5 Hyperlipidemia, unspecified Corine Oh M.D. 2018 I50.9 Heart failure, unspecified Sammithai Soria NP 10/19/2018 R94.31 Abnormal electrocardiogram [ECG] Lauro Brown M.D. 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 council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 10/19/2018 I10 Essential (primary) hypertension Karon Rose M.D. 10/19/2018 E78.5 Hyperlipidemia, unspecified Karon Rose M.D. 10/19/2018 R07.9 Chest pain, unspecified Karon Rose M.D. 10/18/2018 R94.31 Abnormal electrocardiogram [ECG] Karon Rose M.D. [EKG] 10/18/2018 I25.1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 Karon Rose M.D. council coronary artery with unstable angina pectoris 10/18/2018 I25.2 Old myocardial infarction Karon Rose M.D. 10/18/2018 I25.1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 Sampson Aden MD, [facility], council coronary artery with unstable FSCAI angina pectoris 10/18/2018 R07.9 Chest pain, unspecified Reymundo Ortiz, DO [facility] 10/18/2018 I25.2 Old myocardial infarction Reymundo Ortiz, DO [facility] 10/18/2018 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 Reymundo Ortiz, DO [facility] council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 10/18/2018 F17.201 Nicotine dependence, unspecified, in Reymundo Ortiz, DO [facility] remission 10/18/2018 I10 Essential (primary) hypertension Reymundo Ortiz, DO [facility] 10/18/2018 E78.5 Hyperlipidemia, unspecified Reymundo Ortiz, DO [facility] 10/18/2018 E66.8 Other obesity Reymundo Ortiz, DO [facility] 10/18/2018 R07.89 Other chest pain Josekevin Rodriguez DECORATING MACHINE OPERATOR 10/18/2018 R94.31 Abnormal electrocardiogram [ECG] Josekevin [...] bleeding 10/09/2018 R94.31 Abnormal electrocardiogram [ECG] Jose FARHAD Rodriguez [EKG] 10/03/2018 G43.109 Migraine with aura, not intractable, Jorge Luis Lee M.D. without status migraino 10/03/2018 M54.5 Low back pain Jorge Luis Lee M.D. 10/03/2018 M54.2 Cervicalgia Jorge Luis Lee M.D. 09/18/2018 Z11.4 Encounter for screening for human Sanchez Alexandra M.D. immunodeficiency virus [Hi 09/18/2018 Z79.899 Other half-way (current) drug [place] Alexandra M.D. therapy Plan of Treatment Future Appointment(s):04/09/2019 3:15 pm - Manjinder Wing M.D. at [facility] at [facility]07/16/2019 4:40 pm - Reymundo Ortiz DO FACC at [facility]04/04/2019 4:00 pm - Jorge Luis Lee M.D. at [place] [facility]03/20/2019 - Manjinder Wing M.D.S83.232A Complex tear of medial meniscus, current injury, left knee, initial encounterNew Medication: Oxycodone HCL 5 mg - 1 tablet every 12 hours if neededNew Xrays:MRI Knee Left W/ O, Ordered: 03/20/19Follow up:Follow up: 2-3 weeks and after the MRI left knee Functional Status Description No Information Available Mental Status Description No Information Available Referrals Refer to Reason for Referral Status Appt Manjinder Wing MD Scheduled 03/20/2019 [address] [facility] [place] [address] [place] [address] [phone] Buddy Gold MD Sent 02/21/2019 [address] [facility] [address] [place] [address] [phone] Ofe Hoang NPP Sent [address] [place] [address] [phone] Dano, Mahmoud, M.D. refaxed referral they will be looking for it. Closed 11/13/2018/ [address] [place] [address] [phone] [facility] Sent 10/30/2018 [address], [place] [id number] [phone] [facility] Closed 11/28/[address] [place] [address] [phone]
--- OUTSIDE RECORDS SUMMARY | 2019-03-24 19:32 | XMS REPORT | Continuity of Care Document ---
:1980 External Reference #:[id number] Author Name Reymundo Ortiz DO FACC (transmitted by agent of provider Carrol Cannon) Address [address] 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 [...] areas 3 or 4 times daily-prn Fluticasone [place] 2 Sprays 16units J30.89 Jose Rodriguez NP [...] 30tabs Z20.2 Sanchez Gama 03/14/2017 200-300mg day prn [place] [facility] Tablets Lamotrigine 1 by mouth [...] Reymundo Ortiz, 12/20/2018 - 10mg day DO FACC 12/20/2018 Tablets Ferrous Gluconate Take 1 tablet [...] Date Technetium TC 99M Reymundo Ortiz DO [facility] 10/18/2018 Tetrofosmin, Per Unit Dose Up To 40 Millicuries Injection Influenza,Unspecified Unknown 11/14/2016 Injection Immunizations Description No Information Available Vital Signs Date Vital Result Comment 03/14/2019 3:43pm Height 71 inches 5'11" Weight 224.00 lb with shoes Heart Rate 72 /min BP Systolic Sitting 124 mmHg lue reg cuff BP Diastolic Sitting 72 mmHg lue reg cuff BP Systolic Standing 130 mmHg lue reg cuff BP Diastolic Standing 72 mmHg lue reg cuff Respiratory Rate 14 /min BMI (Body Mass Index) 31.2 kg/m2 Ejection Fraction 45-50% echo. 10/19/18 03/12/2019 2:45pm Height 71 inches 5'11" Weight 224.38 lb Heart Rate 71 /min BP Systolic 127 mmHg BP Diastolic 83 mmHg Body Temperature 97.2 F O2 % BldC Oximetry 97 % BMI (Body Mass Index) 31.3 kg/m2 Results Test Acquired Date Facility Test Result H/L Range Note Basic Metabolic 03/09/2019 [facility] Sodium 142 mmol/L Normal 135-145 Panel [address] [place] [address] [phone] Potassium 3.7 mmol/L Normal 3.5-5.0 Co2 Carbon Dioxide 22 mmol/L Normal 22-32 Glucose 98 mg/dL Normal 70-100 Blood Urea Nitrogen 11 mg/dL Normal 6-24 Creatinine 0.83 mg/dL Normal 0.67-1.17 BUN/Creatinine Ratio 13.3 Normal 8-20 Calcium 9.1 mg/dL Normal 8.6-10.3 Egfr Non- 103.7 >60 Egfr 125.5 >60 1 Chloride 112 mmol/L High 101-111 Anion Gap 8 mmol/L Normal 2-11 CBC Auto 03/09/2019 [facility] White Blood 9.4 10^3/uL Normal 3.5-10.[address] [place] [address] [phone] Red Blood Count 4.61 10^6/uL Normal 4.18-5.48 [...] Red Blood Cells % 0.0 Laboratory test 03/09/2019 [facility] Poc Activated 340 seconds [address] [place] [address] [phone] Laboratory test 03/09/2019 [facility] Poc Activated 235 seconds [address] [place] [address] [phone] Laboratory test 03/09/2019 [facility] Poc Activated 247 seconds [address] [place] [place] [address] [phone] 1,25 Dihydroxy 02/05/2019 [facility] Calcitriol 45 pg/mL 18- 6 5 Vitamin D [address] [place] [address] [phone] CBC No Diff 02/05/2019 [facility] White Blood 6.6 10^3/uL Normal 3.5- 101 Count 10.8 [place] [address] [phone] Red Blood Count 4.69 10^6/uL Normal 4.18-5.48 Hemoglobin 14.9 g/dL Normal 14.0-18.0 Hematocrit 43 % Normal 42-52 Mean Corpuscular Volume 91 fL Normal 80-94 Mean Corpuscular Hemoglobin 32 pg High 27-31 Mean Corpuscular HGB Conc 35 g/dL Normal 31-36 Red Cell Distribution Width 14 % Normal 10-15 Platelet Count 198 10^3/uL Normal 150-450 Mean Platelet Volume 8.5 fL Normal 7.4-10.4 Comp Metabolic 02/05/2019 [facility] Sodium 141 mmol/L Normal 135-[address] [place] [address] [phone] Potassium 4.0 mmol/L Normal 3.5-5.0 Co2 Carbon [...] 6 mmol/L Normal 2-11 Lipid Profile 02/05/2019 [facility] Triglycerides 137 mg/dL 7 (Trig/Chol/HDL) [address] [place] [address] [phone] Cholesterol 115 mg/dL 8 HDL Cholesterol 28.8 mg/dL 9 LDL Cholesterol 59 mg/dL 10 Laboratory test 02/05/2019 [facility] Magnesium 2.0 mg/dL Normal 1.9-2.7 finding [address] [place] [address] [phone] Iron (Fe) 71 g/dL Normal 50-212 TSH (Thyroid Stim Horm) 0.38 mcIU/mL Normal 0.34-5.60 Ferritin 50.4 ng/mL Normal 24-336 Vitamin B12 417 pg/mL Normal 180-914 11 Hemoglobin A1c (Glyco HGB) 5.2 % Normal 4.0-5.6 12 Copper, Serum 1.07 g/mL 0.75-1.45 13 Zinc Serum 1.15 g/mL Abnormal 0.66-1.10 14 Surgical 01/09/2019 [facility] Surgical SEE RESULT 15, 16 Pathology [address] [facility] [place] [address] [phone] PDFReport SEE IMAGE GC/Chlamydia 12/18/2018 [facility] GCCHL Disclaimer (SEE NOTE) 17 Amplified Rna [address] [place] [address] [phone] Chlamydia trachomatis Berkley Negative Negative Neisseria gonorrhoeae (GC) Berkley Negative Negative Ctrach&Ngonorr Amplified Rna 12/18/2018 [facility] Source THROAT [address] [place] [address] [phone] C. trach Amplified Rna Negative Negative 18 Source THROAT N Gonorr Amplified Rna Negative Negative 19 Ctrach&Ngonorr Amplified Rna 12/18/2018 [facility] Source RECTAL [address] [place] [address] [phone] C. trach Amplified Rna Negative Negative 20 Source RECTAL N Gonorr Amplified Rna Negative Negative 21 Basic Metabolic 12/15/2018 [facility] Sodium 140 mmol/L Normal 135-145 Panel [address] [place] [address] [phone] Potassium 3.9 mmol/L Normal 3.5-5.0 Chloride 109 mmol/L Normal 101-111 Co2 Carbon Dioxide 26 mmol/L Normal 22-32 Anion Gap 5 mmol/L Normal 2-11 Glucose 107 mg/dL High 70-100 Blood Urea Nitrogen 14 mg/dL Normal 6-24 Creatinine 0.88 mg/dL Normal 0.67-1.17 BUN/Creatinine Ratio 15.9 Normal 8-20 Calcium 9.2 mg/dL Normal 8.6-10.3 Egfr Non- 96.9 >60 Egfr 117.3 >60 22 Laboratory 12/15/2018 [facility] Miscellaneous See Comment 23 test finding [address] [place] [address] [phone] Laboratory 12/05/2018 [facility] Troponin-I (TnI) 0.01 ng/mL <0.0 [address] [place] [address] [phone] CBC Auto Diff 12/05/2018 [facility] White Blood Count 7.2 10^3/ uL Normal 3.5- [address] 10.8 [place] [address] [phone] Red Blood Count 4.78 10^6/uL Normal 4.18-5.48 [...] Red Blood Cells % 0.0 Inr/Protime 12/05/2018 [facility] Inr 1.10 High 0.82-1.[address] [place] [address] [phone] Laboratory test 12/05/2018 [facility] Troponin-I 0.03 <0.[address] (TnI) ng/mL [place], [place] [phone] Comp Metabolic 12/05/2018 [facility] Sodium 141 Normal 135- [address] mmol/[place] [address] [phone] Potassium 3.8 mmol/L Normal 3.5-5.0 Co2 Carbon [...] 4 mmol/L Normal 2-11 Laboratory test 2018 [facility] Troponin-I 0.01 <0.04 [address] (TnI) ng/[place] [address] [phone] Comp Metabolic 10/30/2018 [facility] Sodium 138 Normal 135- [address] mmol/[place] [address] [phone] Potassium 4.0 mmol/L Normal 3.5-5.0 Chloride 106 [...] Egfr Non- 91.4 >60 Egfr 110.6 >60 29 CBC Auto 10/30/2018 [facility] White Blood 10.6 10^3/uL Normal 3.5-10.[address] [place] [address] [phone] Red Blood Count 4.65 10^6/uL Normal 4.18-5.48 [...] Red Blood Cells % 0.0 Inr/Protime 10/30/2018 [facility] Inr 1.25 High 0.82-1.[address] [place] [address] [phone] Laboratory test 10/30/2018 [facility] Troponin-I 0.01 ng/mL < 0.[address] (TnI) [place] [address] [phone] Inr/Protime 10/18/2018 [facility] Inr 0.98 Normal 0.82-1.[address] [place] [address] [phone] Laboratory test 10/18/2018 [facility] Partial 34.9 Normal 26.0 -38.[address] [place] [address] Time PTT [phone] CBC Auto Diff 10/18/2018 [facility] White Blood 13.8 High 3.5- 10.[address] Count 10^3/[place] [address] [phone] Red Blood Count 5.14 10^6/uL Normal 4.18-5.48 [...] Blood Cells % 0.1 Comp Metabolic 10/18/2018 [facility] Sodium 138 mmol/L Normal 135-[address] [place] [address] [phone] Potassium 4.3 mmol/L Normal 3.5-5.0 Chloride 109 [...] Egfr 135.5 >60 33 Laboratory test 10/18/2018 [facility] Troponin-I (TnI) 0.00 ng/ mL <0.[address] [place] [address] [phone] Hemoglobin A1c (Glyco HGB) 5.4 % Normal 4.0-5.6 35 Order 10/18/2018 [facility] Stress Test, <pending> [address] [place] [address] Nuclear [phone] Laboratory test 10/09/2018 [facility] Troponin-I 0.01 ng/mL < 0.04 36 finding 101 (TnI) [place] [address] [phone] TSH (Thyroid Stim Horm) 0.44 mcIU/mL Normal 0.34-5.60 LDL Cholesterol Direct 185 mg/dL 37 Lipid Profile 10/09/2018 [facility] Triglycerides 479 mg/dL 38 (Trig/Chol/HDL) [address] [place] [address] [phone] Cholesterol 322 mg/dL 39 HDL Cholesterol 34.0 mg/dL 40 LDL Cholesterol (SEE NOTE) mg/dL 41 Urinalysis Profile 09/13/2018 [facility] Urine Color Yellow [address] [place] [address] [phone] Urine Appearance Cloudy Urine Specific [place] 1.018 Normal 1.010-1.030 Urine pH 6.0 Normal 5-9 Urine Urobilinogen Negative Negative Urine Ketones Negative Negative Urine Protein Negative Negative Urine Leukocytes Negative Negative Urine Blood Negative Negative Urine Nitrite Negative Negative Urine Bilirubin Negative Negative Urine Glucose Negative Negative Laboratory test 09/13/2018 [facility] C Reactive 11.10 mg/L High <8.01 finding 101 [facility] [place] [address] [phone] Comp Metabolic 09/13/2018 [facility] Sodium 140 mmol/L Normal 135-[address] [place] [address] [phone] Potassium 3.4 mmol/L Low 3.5-5.0 Chloride 109 [...] Egfr 121.1 >60 42 CBC Auto 09/13/2018 [facility] White Blood 12.6 10^3/uL High 3.5-10.[address] [place] [address] [phone] Red Blood Count 4.81 10^6/uL Normal 4.18-5.48 [...] Nucleated Red Blood Cells % 0.0 1 Because ethnic data is not always [...] 5 Kidney failure <15 (or dialysis) 2 Chicken Buyer: [id number] Reference Range: 74-125 seconds 3 Chicken Buyer: [id number] Reference Range: 74-125 seconds 4 Chicken Buyer: [id number] Reference Range: 74-125 seconds 5 ADDITIONAL INFORMATION This test was developed and its performance characteristics determined by [facility] in a manner consistent with CLIA requirements. This test has not been cleared or approved by the U.S. Food and Drug Administration. Test Performed by: [facility] [address] [id number] [place] [address] [employer] Experimental Mechanic: Omer Forman M.D. Ph.D.; CLIA# [id number] 6 Because ethnic data is not always [...] in selective patients <6.0%. Please refer to [place] [employer] diabetic care guidelines for further information. 13 ADDITIONAL INFORMATION This test was developed and its performance characteristics determined by [facility] in a manner consistent with CLIA requirements. This test has not been cleared or approved by the U.S. Food and Drug Administration. Test Performed by: [facility] [place] [address] [employer] Experimental Mechanic: Omer Forman M.D. Ph.D.; CLIA# [id number] 14 ADDITIONAL INFORMATION This test was developed and its performance characteristics determined by [facility] in a manner consistent with CLIA requirements. This test has not been cleared or approved by the U.S. Food and Drug Administration. Test Performed by: [facility] [place] [address] [employer] Experimental Mechanic: Omer Forman M.D. Ph.D.; CLIA# [id number] 15 [id number] 16 SEE RESULT BELOW Name: JAKOB ROJO : [address]: Olman Stout MD Acct: [id number] Unit: [id number] AGE: 38 Location: [facility] Re01/09/19 SEX: M Status: DEP REF SPEC: [id number] ESPERANZA: 01/09/19- SUBM DR: Olman Stout MD REQ: [id number] RECD: 01/09/19 STATUS: STEFFI ISABEL DR: Jose Rodriguez REBAR BENDER _ ORDERED: LEVEL 4 COMMENTS: [id number] FINAL DIAGNOSIS Colon, splenic flexure, biopsy: -- [...] 1505 END OF REPORT DEPARTMENT OF PATHOLOGY, [address] [place] [address] Radames Ya M.D. Director [facility] # [id number] 17 As with all diagnostic procedures, the laboratory results obtained should be used in conjunction with other clinical information available to the physician, including confirmation by another method, as applicable. 18 ADDITIONAL INFORMATION This report is intended for use in clinical monitoring and management of patients. It is not intended for use in medical-legal applications. This test has been modified from the field artillery crewmember's instructions. Its performance characteristics were determined by [facility] in a manner consistent with CLIA requirements. This test has not been cleared or approved by the U.S. Food and Drug Administration. 19 ADDITIONAL INFORMATION This report is intended for use in clinical monitoring and management of patients. It is not intended for use in medical-legal applications. This test has been modified from the field artillery crewmember's instructions. Its performance characteristics were determined by [facility] in a manner consistent with CLIA requirements. This test has not been cleared or approved by the U.S. Food and Drug Administration. Test Performed by: [facility] - [address] [address] [employer] Experimental Mechanic: Omer Forman M.D. Ph.D.; CLIA# [id number] 20 ADDITIONAL INFORMATION This report is intended for use in clinical monitoring and management of patients. It is not intended for use in medical-legal applications. This test has been modified from the field artillery crewmember's instructions. Its performance characteristics were determined by [facility] in a manner consistent with CLIA requirements. This test has not been cleared or approved by the U.S. Food and Drug Administration. 21 ADDITIONAL INFORMATION This report is intended for use in clinical monitoring and management of patients. It is not intended for use in medical-legal applications. This test has been modified from the field artillery crewmember's instructions. Its performance characteristics were determined by [facility] in a manner consistent with CLIA requirements. This test has not been cleared or approved by the U.S. Food and Drug Administration. Test Performed by: [place] [address] [employer] Experimental Mechanic: Omer Forman M.D. Ph.D.; CLIA# [id number] 22 Because ethnic data is not always [...] weeks. REFERENCE VALUE Nonreactive Test Performed by: [facility] [address] [place] [address] [employer] Experimental Mechanic: Omer Forman M.D. Ph.D.; IA# [id number] 24 Troponin-I testing on Plasma Separator Tubes (PST) has a known false positive rate of 0.20-0.40%. All positive troponins reflex immediately to secondary confirmatory testing. Using the [employer] Mobile DxI 800 Access Immunoassay systems, the 99th percentile upper reference limit was demonstrated to be < 0.03 ng/mL. 25 Standard intensity warfarin therapeutic range: 2.0-3.0 High intensity warfarin therapeutic range: 2.5-3.5 26 Troponin-I testing on Plasma Separator Tubes (PST) has a known false positive rate of 0.20-0.40%. All positive troponins reflex immediately to secondary confirmatory testing. Using the [employer] DxI 800 Access Immunoassay systems, the 99th [...] immediately to secondary confirmatory testing. Using the [employer] DxI 800 Access Immunoassay systems, the 99th percentile upper reference limit was demonstrated to be < 0.03 ng/mL. 29 Because ethnic data is not always readily [...] 15-29 5 Kidney failure <15 (or dialysis) 30 Standard intensity warfarin therapeutic range: 2.0-3.0 High intensity warfarin therapeutic range: 2.5-3.5 31 Troponin-I testing on Plasma Separator Tubes (PST) has a known false positive rate of 0.20-0.40%. All positive troponins reflex immediately to secondary confirmatory testing. Using the [employer] DxI 800 Access Immunoassay systems, the 99th percentile upper reference limit was demonstrated to be < 0.03 ng/mL. 32 Standard intensity warfarin therapeutic range: 2.0-3.0 [...] in selective patients <6.0%. Please refer to [place] [employer] diabetic care guidelines for further [...] (or dialysis) Procedures Date Code Description Status 03/10/2019 80256 EKG, Interpretation Only Completed 03/09/2019 62627 Intravascular Blood Flow Velocity Completed 03/09/2019 49947 EKG, Interpretation Only Completed 03/09/2019 18220 Percutaneous Transcatheter Placement Of Intracoronary Completed Stent 01/09/2019 48855275 Colonoscopy Completed 11/08/2018 06066 EKG Tracing & Interpretation Completed 10/19/2018 24664 ECHO Transthorasic Realtime 2D W Doppler & Color Flow Completed Hosp 10/19/2018 16730 EKG, Interpretation Only Completed 10/18/2018 54400 Left Heart Cath. Incl S/I Coronaries, Angio S/I V Gram Completed If Done 10/18/2018 89772 EKG, Interpretation Only Completed 10/18/2018 72722 Myocardial Perfusion Imaging Tomographic (Spect) Completed Multiple Studies 10/18/2018 81637 Myocardial Perfusion Imaging Tomographic (Spect) Single Completed Study 10/09/2018 56613 EKG Tracing & Interpretation Completed Medical Devices Description No Information Available Encounters Type Date Location Provider Dx Diagnosis Office Visit 02/21/2019 [facility] Reymundo Ortiz, I25.6 Silent myocardial 4:40p Of [facility] DO FACC ischemia E78.5 Hyperlipidemia, unspecified I25.2 Old myocardial infarction I25.5 Ischemic cardiomyopathy Z72.0 Tobacco use I25.10 Athscl heart disease of [place] coronary artery w/o ang pctrs I10 Essential (primary) hypertension Office Visit 01/05/2019 11:15a [facility] And [place] 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 [facility], OSMAN, rhythm sleep [facility] RETAIL GREETER-BC disorder, delayed sleep phase type F51.04 Psychophysiologic insomnia G47.33 Obstructive sleep apnea (adult) (pediatric) Office Visit 12/20/2018 9:30a [facility] Wetzel I82.402 Acute embolism Medicine [facility] Parish Gold and thombos unsp deep veins of l low extrem Office Visit 12/20/2018 1:40p [facility] Reymundo Santoyo I82.402 Acute embolism Of [facility] DO Angel and thombos FACC unsp deep veins of l low extrem I10 Essential (primary) hypertension I25.119 Athscl heart disease of [place] cor art w unsp ang pctrs E78.5 Hyperlipidemia, unspecified I25.2 Old myocardial infarction I25.5 Ischemic cardiomyopathy F17.201 Nicotine dependence, unspecified, in remission Office Visit 12/18/2018 4:00p [facility] Alicia Gama Z11.3 Encntr screen Infectious Macqueen, M.D. for infections w Diseases sexl mode of transmiss Z79.899 Other senior living (current) drug therapy Z11.4 Encounter for screening for human immunodeficiency virus Office Visit 12/11/2018 10:20a [facility] Internal Jose Rodriguez NP R07.89 Other chest Medicine - Ccmob pain I82.402 Acute embolism and thombos unsp deep veins of l low extrem J30.89 Other allergic rhinitis Office Visit 11/21/2018 10:40a [facility] Internal Jose Rodriguez NP R07.89 Other chest Medicine - Ccmob pain F31.9 Bipolar disorder, unspecified I25.119 Athscl heart disease of [place] cor art w unsp ang pctrs Office Visit 11/20/2018 8:30a [facility] G47.21 [facility], RN, rhythm sleep [facility] RETAIL GREETER-BC disorder, delayed sleep phase type F51.04 Psychophysiologic insomnia G47.33 Obstructive sleep apnea (adult) (pediatric) Office Visit 11/08/2018 1:40p [facility] Reymundo Santoyo I25.2 Old myocardial Of [facility] Angel, DO infarction FACC I82.402 Acute embolism and thombos unsp deep veins of l low extrem I25.5 Ischemic cardiomyopathy I10 Essential (primary) hypertension E78.5 Hyperlipidemia, unspecified F17.201 Nicotine dependence, unspecified, in remission Office Visit 11/03/2018 9:20a [facility] Internal Jose Rodriguez NP I25.119 Athscl heart Medicine - Ccm[place] disease of [place] cor art w unsp ang pctrs I10 Essential (primary) hypertension I82.402 Acute embolism and thombos unsp deep veins of l low extrem F31.9 Bipolar disorder, unspecified J90 Pleural effusion, not elsewhere classified Office Visit 11/02/2018 1:51p [facility] Reymundo Santoyo I25.10 Athscl heart [facility] Ortiz, DO disease of FACC [place] coronary artery w/o ang pctrs I25.5 Ischemic cardiomyopathy I25.2 Old myocardial infarction I82.442 Acute embolism and thrombosis of left tibial vein Office [facility]/02[facility]2018 [facility] I82.402 [facility] embolism Assoc,leila Louis, and [facility] Hospitalists REBAR BENDER unsp deep veins of l low extrem I25.119 Athscl heart disease of [place] cor art w unsp ang pctrs I10 Essential (primary) hypertension G43.909 Migraine, unsp, not intractable, without status migrainosus Office Visit 11/01/2018 9:53a [facility] Sherry I82.402 Acute embolism Assoc, Quinn Louis, and [facility] Hospitalists REBAR BENDER unsp deep veins of l low extrem I25.10 Athscl heart disease of [place] coronary artery w/o ang pctrs I10 Essential (primary) hypertension G43.909 Migraine, unsp, not intractable, without status migrainosus E78.00 Pure hypercholesterolemia, unspecified Office Visit 11/01/2018 4:43p [facility] Karon oRse, I25.10 Athscl heart [facility] M.D. disease of [place] coronary artery w/o ang pctrs Office Visit 2018 9:52a [facility] Corine Oh, I82.402 Acute embolism Assoc,leila Lugo and [facility] Hospitalists unsp deep veins of l low extrem R07.9 Chest pain, unspecified I10 Essential (primary) hypertension E78.5 Hyperlipidemia, unspecified Office Visit 2018 3:58p [facility] Sammi Soria, I82.402 Acute embolism Of [facility] REBAR BENDER and [facility] unsp deep veins of l low extrem I25.10 Athscl heart disease of [place] coronary artery w/o ang pctrs Z95.1 Presence of aortocoronary bypass graft E78.5 Hyperlipidemia, unspecified I50.9 Heart failure, unspecified Office Visit 10/19/2018 3:01p [facility] Karon Rose, I25.119 Athscl heart Of [place] Mover M.D. disease of [place] cor art w unsp ang pctrs I10 Essential (primary) hypertension E78.5 Hyperlipidemia, unspecified R07.9 Chest pain, unspecified Office Visit 10/18/2018 3:50p [facility] Karon Rose, I25.110 Athscl heart Of [facility] M.D. disease of [place] cor art w unstable ang pctrs I25.2 Old myocardial infarction Office Visit 10/18/2018 9:00a [facility] Reymundo Santoyo I25.2 Old myocardial Of [place] Ortiz, DO infarction FACC I25.119 Athscl heart disease of [place] cor art w unsp ang pctrs F17.201 Nicotine dependence, unspecified, in remission I10 Essential (primary) hypertension E78.5 Hyperlipidemia, unspecified E66.8 Other obesity Office Visit 10/09/2018 10:00a [facility] Internal Jose Michael, I10 Essential ( primary) Medicine - Ccmob REBAR BENDER hypertension R07.89 Other chest pain R22.2 Localized swelling, mass and lump, trunk K57.92 Dvtrcli of intest, part unsp, w/o perf or abscess w/o bleed R94.31 Abnormal electrocardiogram [ECG] [EKG] Office Visit 10/03/2018 [facility] [facility] G43.109 Migraine with 3:45p Neurologic [place] aura, not [facility], w/o status migrainosus M54.5 Low back pain M54.2 Cervicalgia Office Visit 09/18/2018 [facility] Sanchez Gama Z11.4 Encounter for 4:00p For Infectious [place] screening for human Diseases immunodeficiency virus Z79.899 Other long wall mining 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 tender (current) drug therapy Assessments Date Code Description Provider 03/14/2019 I25.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 Reymundo Ortiz, DO [facility] [place] coronary artery without angina pectoris 03/14/2019 Z95.1 Presence of aortocoronary bypass Reymundo Ortiz DO [facility] graft 03/14/2019 E78.5 Hyperlipidemia, unspecified Reymundo Ortiz, DO [facility] 03/14/2019 I25.2 Old myocardial infarction Reymundo Ortiz, DO [facility] 03/14/2019 I25.5 Ischemic cardiomyopathy Reymundo Ortiz, DO [facility] 03/14/2019 I10 Essential (primary) hypertension Reymundoalfonzo Ortiz, DO [facility] 03/14/2019 F17.201 Nicotine dependence, unspecified, in Reymundo Ortiz, DO [facility] remission 03/12/2019 M25.562 Pain in left knee Jose Michael, [employer] B[employer]ER 03/09/2019 I25.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 Sampson Aden MD, FAC, [place] coronary artery without angina FSCAI pectoris 03/09/2019 Z95.1 Presence of aortocoronary bypass Sampson Aedn MD, [facility] , graft FSCAI 02/21/2019 I25.6 Silent myocardial ischemia Reymundo Ortiz, DO [facility] 02/21/2019 E78.5 Hyperlipidemia, unspecified Reymundo Ortiz, DO [facility] 02/21/2019 I25.2 Old myocardial infarction Reymundo Ortiz, DO [facility] 02/21/2019 I25.5 Ischemic cardiomyopathy Reymundo Ortiz, DO [facility] 02/21/2019 Z72.0 Tobacco use Reymundo Ortiz, DO [facility] 02/21/2019 I25.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 Reymundo Ortiz, DO [facility] [place] coronary artery without angina pectoris 02/21/2019 I10 Essential (primary) hypertension Reymundo Ortiz, DO [facility] 01/05/2019 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 01/05/2019 F51.04 Psychophysiologic insomnia Alannah South DNP, RN, [facility] 01/05/2019 G47.33 Obstructive sleep apnea (adult) Alannah South DNP, RN, (pediatric) [facility] 12/20/2018 I82.402 Acute embolism and thrombosis of Buddy Gold M.D. 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 therapy 12/18/2018 Z11.4 Encounter for screening for human Sanchez Alexandra M.D. 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 11/20/2018 F51.04 Psychophysiologic insomnia Alannah South DNP, RN, [facility] 11/20/2018 G47.33 Obstructive sleep apnea (adult) Alannah South DNP, RN, (pediatric) [facility] 11/08/2018 I25.2 Old myocardial infarction Reymundo Natanael Ortiz, DO [facility] 11/08/2018 I82.402 Acute embolism and thrombosis of Reymundoalfonzo Santoyo Angel, DO [facility] unspecified deep veins of left lower extremity 11/08/2018 I25.5 Ischemic cardiomyopathy Reymundo Ortiz, DO [facility] 11/08/2018 I10 Essential (primary) hypertension Reymundo Ortiz, DO [facility] 11/08/2018 E78.5 Hyperlipidemia, unspecified Reymundo Ortiz, DO [facility] 11/08/2018 F17.201 Nicotine dependence, unspecified, in Reymundo Ortiz, DO [facility] remission 11/03/2018 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 Jose Michael, [employer]ER [place]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 11/03/2018 I10 Essential (primary) hypertension Jose Michael, [employer]BAR B[employer]ER 11/03/2018 I82.402 Acute embolism and thrombosis of Jose Michael, [employer]BAR B[employer]ER unspecified deep veins of left lower extremity 11/03/2018 F31.9 Bipolar disorder, unspecified Jose Michael, [employer]BAR B[employer]ER 11/03/2018 J90 Pleural effusion, not elsewhere Josekevin Rodriguez, REBAR BENDER classified 11/02/2018 I25.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 Reymundo Ortiz, DO [facility] [place] coronary artery without angina pectoris 11/02/2018 I82.402 Acute embolism and thrombosis of Sherry Louis REBAR BENDER unspecified deep veins of left lower extremity 11/02/2018 I25.5 Ischemic cardiomyopathy Reymundo Ortiz, DO [facility] 11/02/2018 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 Sherry Louis NP [place]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 11/02/2018 I25.2 Old myocardial infarction Reymundo Ortiz, DO [facility] 11/02/2018 I10 Essential (primary) hypertension Sherry Louis, REBAR BENDER 11/02/2018 I82.442 Acute embolism and thrombosis of left Reymundo Ortiz, DO [facility] tibial vein 11/02/2018 G43.909 Migraine, unspecified, not Sherry Louis, REBAR BENDER intractable, without status migrainosus 11/01/2018 I25.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 Karon Rose M.D. [place] coronary artery without angina pectoris 11/01/2018 I82.402 Acute embolism and thrombosis of Sherry Louis REBAR BENDER unspecified deep veins of left lower extremity 11/01/2018 I25.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 Sherry Louis [employer]BAR [employer]ER [place] coronary artery without angina pectoris 11/01/2018 I10 Essential (primary) hypertension Sherry Louis, REBAR BENDER 11/01/2018 G43.909 Migraine, unspecified, not Sherry Louis, REBAR BENDER intractable, without status migrainosus 11/01/2018 E78.00 Pure hypercholesterolemia, Sherry Louis, REBAR BENDER unspecified 2018 I82.402 Acute embolism and thrombosis of Sammi Soria NP unspecified deep veins of left lower extremity 2018 I82.402 Acute embolism and thrombosis of Corine Oh M.D. unspecified deep veins of left lower extremity 2018 I25.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 Sammi Soria FARHAD [place] coronary artery without angina pectoris 2018 R07.9 [...] Atherosclerotic heart disease of Karon Rose M.D. [place]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 10/19/2018 I10 Essential (primary) hypertension Karon Rose M.D. 10/19/2018 E78.5 Hyperlipidemia, unspecified Karon Rose M.D. 10/19/2018 R07.9 Chest pain, unspecified Karon Rose M.D. 10/18/2018 R94.31 Abnormal electrocardiogram [ECG] Karon Rose M.D. [EKG] 10/18/2018 I25.1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 Karon Rose M.D. [place] coronary artery with unstable angina pectoris 10/18/2018 I25.2 Old myocardial infarction Karon Rose M.D. 10/18/2018 I25.1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 Sampson Aden MD, [facility], [place] coronary artery with unstable FSCAI angina pectoris 10/18/2018 R07.9 Chest pain, unspecified Reymundo Ortiz DO [facility] 10/18/2018 I25.2 Old myocardial infarction Reymundo Ortiz DO [facility] 10/18/2018 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 Reymundo Ortiz DO [facility] [place]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 10/18/2018 F17.201 Nicotine dependence, unspecified, in Reymundo S. Ortiz, DO [facility] remission 10/18/2018 I10 Essential (primary) hypertension Reymundo Ortiz, DO [facility] 10/18/2018 E78.5 Hyperlipidemia, unspecified Reymundo Natanael Ortiz, DO [facility] 10/18/2018 E66.8 Other obesity Reymundo SDemarcus Ortiz, DO [facility] 10/18/2018 R07.89 Other chest pain Jose Michael, REBAR BENDER 10/18/2018 R94.31 Abnormal electrocardiogram [ECG] Jose Michael, REBAR BENDER [EKG] 10/09/2018 R94.31 Abnormal electrocardiogram [ECG] Enedina Abreu MD [EKG] 10/09/2018 I10 Essential (primary) hypertension Jose Michael, REBAR BENDER 10/09/2018 R07.89 Other chest pain Enedina Abreu MD 10/09/2018 R07.89 Other chest pain Jose Michael, REBAR BENDER 10/09/2018 R22.2 Localized swelling, mass and lump, Jose Michael, REBAR BENDER trunk 10/09/2018 K57.92 Diverticulitis of intestine, part Jose Michael, REBAR BENDER unspecified, without perforation or abscess without bleeding 10/09/2018 R94.31 Abnormal electrocardiogram [ECG] Jose Michael, REBAR BENDER [EKG] 10/03/2018 G43.109 Migraine with aura, not intractable, Jorge Luis Lee M.D. without status migraino 10/03/2018 M54.5 Low back pain Jorge Luis Lee M.D. 10/03/2018 M54.2 Cervicalgia Jorge Luis Lee M.D. 09/18/2018 Z11.4 Encounter for screening for human Sanchez Alexandra M.D. immunodeficiency virus [Hi 09/18/2018 Z79.899 Other senior living (current) drug Sanchez Alexandra M.D. therapy Plan of Treatment Future Appointment(s):07/16/2019 4:40 pm - Reymundo Ortiz DO [facility] at [facility]04/04/2019 4:00 pm - Jorge Luis Lee M.D. at [place] [facility]03/14/2019 - [facility]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 [place] coronary artery without angina pectorisFollow up:Please give patient excuse slip f/u 4 fbqrdqP62.1 Presence of aortocoronary bypass smolrD51.5 Hyperlipidemia, pheyjluaxfuG42.2 Old myocardial mfbkmqvhopI83.5 Ischemic tewjswiehodxazV04 Essential (primary) iltzslejccjhN73.201 Nicotine dependence, unspecified, in remission Functional Status Description No Information Available Mental Status Description No Information Available Referrals Refer to Dr Reason for Referral Status Appt Date Manjinder Wing MD Created [address] [facility] [address] [place], [place] [id number] [phone] Buddy Gold MD Sent 02/21/[address] [place] [address] [phone] Ofe Hoang NPP Sent [address] [place], [place] [id number] [phone] Malini Matson M.D. refaxed referral they will be looking for it. Closed 11/13/201810/[address] [place] [address] [phone] [facility] Sent 10/30/2018 [address] [place] [address] [phone] [facility] Closed 11/28/2018 [address] [facility] [place], [place] [id number] [phone]
--- OUTSIDE RECORDS SUMMARY | 2019-03-24 19:33 | XMS REPORT | Continuity of Care Document ---
:1980 External Reference #:[id number] Author Name Reymundo Ortiz DO FACC (transmitted by agent of provider Babs Shaffer) Address [address] [facility] [place] [address] Care Team Providers Name Role Phone Kem Celaya MD - Family Medicine Care Team Information Scorekeeper [phone] Radha Julien MD - Internal Medicine Care Team Information Scorekeeper Problems Active Problems Provider Date Obstructive sleep [...] Medications SIG Qnty Indications Ordering Date Provider Abigaililinmisti 1 tab by mouth 60tabs I25.6 Reymundo Santoyo 02/21/2019 90mg Tablets twice a day Ortiz, DO FACC Losartan Potassium 1 by mouth every 30tabs I10 Reymundo S. 02/21/2019 50mg day Ortiz, DO FACC Tablets Amlodipine Besylate 1 by mouth every 90tabs Reymundo S. 12/20/2018 5mg day Ortiz, DO FACC Tablets Acetaminophen 500 MG Take two tablets Unknown 12/19/2018 prn Lidocaine apply to affected 60gm R07.89 Jose Rodriguez NP 12/11/2018 4% Cream areas 3 or 4 times daily-prn Fluticasone [place] 2 Sprays 16units J30.89 Jose Rodriguze NP 12/11/2018 Propionate Into Each Nostril 50mcg/Act One Time Daily Suspension Tramadol HCL 1-2 tablets every 42tabs R07.89 Jose Rodriguez NP 11/21/2018 50mg 8 hours as needed Tablets for pain. Ascorbic Acid Take 1 tablet 30tabs Unknown 10/29/2018 500mg (500 mg total) by Tablets mouth daily Carvedilol take 1 tablet 180tabs Reymundo S. 10/28/2018 6.25mg (6.25 mg total) Angel, FACC Tablets by mouth 2 (two) times a day Atorvastatin Calcium take 1 tablet (80 90tabs Reymundo S. 10/28/2018 mg total) by Angel, DO FACC 80mg Tablets mouth nightly Gabapentin take one capsule 60caps G47.00 Jose Rodriguez NP 06/28/2018 300mg qhs. if tolerated Capsules after two weeks increase to one cap morning and every night at bedtime Eletriptan 1 by mouth twice 10tabs G43.009 Jorge Luis SDemarcus 09/12/2017 Hydrobromide a day as needed Parish [...] 24HR Aspirin chew one tablet 100units Reymundo S. 81mg Chewtabs by mouth every Ortiz, DO [facility] day Daily Farzaneh Men's Complete 1 Unknown Tablets by mouth every day Fish Oil Take one tablet Unknown 1200mg three times a day Capsules Shannon Allergy 1 by mouth every Unknown 180mg day prn Tablets Topiramate 1 and a half 60tabs Jorge Luis S. 100mg twice a day [facility] [place] Tablets History Medications Amlodipine Besylate 1 by mouth every 90tabs Reymundo Ortiz, 12/20/2018 - 10mg day DO [facility] 12/20/2018 Tablets Ferrous Gluconate Take 1 tablet [...] Date Technetium TC 99M Reymundo Ortiz DO [facility] 10/18/2018 Tetrofosmin, Per Unit Dose Up [...] Date Facility Test Result H/L Range Note 1,25 Dihydroxy 02/05/2019 [facility] Calcitriol 45 pg/mL 18- 64 1 Vitamin D [address] [place] [address] [phone] Laboratory test 02/05/2019 [facility] Magnesium 2.0 mg/dL Normal 1.9-2.[address] [place] [address] [phone] Iron (Fe) 71 g/dL Normal 50-212 TSH (Thyroid Stim Horm) 0.38 mcIU/mL Normal 0.34-5.60 Ferritin 50.4 ng/mL Normal 24-336 Vitamin B12 417 pg/mL Normal 180-914 2 Hemoglobin A1c (Glyco HGB) 5.2 % Normal 4.0-5.6 3 Copper, Serum 1.07 g/mL 0.75-1.45 4 Zinc Serum 1.15 g/mL Abnormal 0.66-1.10 5 CBC No Diff 02/05/2019 [facility] White Blood 6.6 10^3/uL Normal 3.5-10.[address] [place] [address] [phone] Red Blood Count 4.69 10^6/uL Normal 4.18-5.48 Hemoglobin 14.9 g/dL Normal 14.0-18.0 Hematocrit 43 % Normal 42-52 Mean Corpuscular Volume 91 fL Normal 80-94 Mean Corpuscular Hemoglobin 32 pg High 27-31 Mean Corpuscular HGB Conc 35 g/dL Normal 31-36 Red Cell Distribution Width 14 % Normal 10-15 Platelet Count 198 10^3/uL Normal 150-450 Mean Platelet Volume 8.5 fL Normal 7.4-10.4 Lipid Profile 02/05/2019 [facility] Triglycerides 137 mg/dL 6 (Trig/Chol/HDL) [address] [place] [address] [phone] Cholesterol 115 mg/dL 7 HDL Cholesterol 28.8 mg/dL 8 LDL Cholesterol 59 mg/dL 9 Comp Metabolic 02/05/2019 [facility] Sodium 141 mmol/L Normal 135-145 Panel [address] [place] [address] [phone] Potassium 4.0 mmol/L Normal 3.5-5.0 Co2 Carbon [...] Egfr Non- 95.7 >60 Egfr 115.8 >60 10 Chloride 112 mmol/L High 101-111 Anion Gap 6 mmol/L Normal 2-11 Surgical 01/09/2019 [facility] Surgical SEE RESULT 11, [address] [place] [address] [phone] PDFReport SEE IMAGE GC/Chlamydia 12/18/2018 [facility] GCCHL Disclaimer (SEE NOTE) 13 Amplified Rna [address] [place] [address] [phone] Chlamydia trachomatis Berkley Negative Negative Neisseria gonorrhoeae (GC) Berkley Negative Negative Ctrach&Ngonorr Amplified Rna 12/18/2018 [facility] Source THROAT [address] [place] [address] [phone] C. trach Amplified Rna Negative Negative 14 Source THROAT N Gonorr Amplified Rna Negative Negative 15 Ctrach&Ngonorr Amplified Rna 12/18/2018 [facility] Source RECTAL [address] [place] [address] [phone] C. trach Amplified Rna Negative Negative 16 Source RECTAL N Gonorr Amplified Rna Negative Negative 17 Basic Metabolic 12/15/2018 [facility] Sodium 140 mmol/L Normal 135-145 Panel [address] [place] [address] [phone] Potassium 3.9 mmol/L Normal 3.5-5.0 Chloride 109 mmol/L Normal 101-111 Co2 Carbon Dioxide 26 mmol/L Normal 22-32 Anion Gap 5 mmol/L Normal 2-11 Glucose 107 mg/dL High 70-100 Blood Urea Nitrogen 14 mg/dL Normal 6-24 Creatinine 0.88 mg/dL Normal 0.67-1.17 BUN/Creatinine Ratio 15.9 Normal 8-20 Calcium 9.2 mg/dL Normal 8.6-10.3 Egfr Non- 96.9 >60 Egfr 117.3 >60 18 Laboratory 12/15/2018 [facility] Miscellaneous See Comment 19 test finding [address] [place] [address] [phone] Laboratory 12/05/2018 [facility] Troponin-I (TnI) 0.01 ng/mL <0.0 20 test finding [address] 4 [place] [address] [phone] CBC Auto Diff 12/05/2018 [facility] White Blood Count 7.2 10^3/ uL Normal 3.5- [address] 10.8 [place] [address] [phone] Red Blood Count 4.78 10^6/uL Normal 4.18-5.48 [...] Red Blood Cells % 0.0 Inr/Protime 12/05/2018 [facility] Inr 1.10 High 0.82-1.[address] [place] [address] [phone] Laboratory test 12/05/2018 [facility] Troponin-I 0.03 <0.[address] (TnI) ng/mL [place], [place] [address] [phone] Comp Metabolic 12/05/2018 [facility] Sodium 141 Normal 135- [address] mmol/[place] [address] [phone] Potassium 3.8 mmol/L Normal 3.5-5.0 Co2 Carbon [...] Egfr Non- 122.2 >60 Egfr 147.8 >60 23 Chloride 114 mmol/L High 101-111 Anion Gap 4 mmol/L Normal 2-11 Laboratory test 2018 [facility] Troponin-I 0.01 <0.04 [address] (TnI) ng/[place] [address] [phone] Comp Metabolic 10/30/2018 [facility] Sodium 138 Normal 135- [address] mmol/[place] [address] [phone] Potassium 4.0 mmol/L Normal 3.5-5.0 Chloride 106 [...] Egfr Non- 91.4 >60 Egfr 110.6 >60 25 CBC Auto 10/30/2018 [facility] White Blood 10.6 10^3/uL Normal 3.5-10.[address] [place] [address] [phone] Red Blood Count 4.65 10^6/uL Normal 4.18-5.48 [...] Red Blood Cells % 0.0 Inr/Protime 10/30/2018 [facility] Inr 1.25 High 0.82-1.[address] [place] [address] [phone] Laboratory test 10/30/2018 [facility] Troponin-I 0.01 ng/mL < 0.[address] (TnI) [place] [address] [phone] Inr/Protime 10/18/2018 [facility] Inr 0.98 Normal 0.82-1.[address] [place] [address] [phone] Laboratory test 10/18/2018 [facility] Partial 34.9 Normal 26.0 -38.[address] [place] [address] Time PTT [phone] CBC Auto Diff 10/18/2018 [facility] White Blood 13.8 High 3.5- 10.[address] Count 10^3/[place] [address] [phone] Red Blood Count 5.14 10^6/uL Normal 4.18-5.48 [...] Blood Cells % 0.1 Comp Metabolic 10/18/2018 [facility] Sodium 138 mmol/L Normal 135-[address] [place] [address] [phone] Potassium 4.3 mmol/L Normal 3.5-5.0 Chloride 109 [...] Egfr Non- 112.0 >60 Egfr 135.5 >60 29 Laboratory test 10/18/2018 [facility] Troponin-I (TnI) 0.00 ng/ mL <0.04 30 finding [address] [place] [address] [phone] Hemoglobin A1c (Glyco HGB) 5.4 % Normal 4.0-5.6 31 Order 10/18/2018 [facility] Stress Test, <pending> [address] [place] [address] Nuclear [phone] Laboratory test 10/09/2018 [facility] Troponin-I 0.01 ng/mL < 0.04 32 finding [address] [facility] (TnI) [place] [address] [phone] TSH (Thyroid Stim Horm) 0.44 mcIU/mL Normal 0.34-5.60 LDL Cholesterol Direct 185 mg/dL 33 Lipid Profile 10/09/2018 [facility] Triglycerides 479 mg/dL 34 (Trig/Chol/HDL) [facility] [place] [address] [phone] Cholesterol 322 mg/dL 35 HDL Cholesterol 34.0 mg/dL 36 LDL Cholesterol (SEE NOTE) mg/dL 37 Urinalysis Profile 09/13/2018 [facility] Urine Color Yellow [facility] [place] [address] [phone] Urine Appearance Cloudy Urine Specific [place] 1.018 Normal 1.010-1.030 Urine pH 6.0 Normal 5-9 Urine Urobilinogen Negative Negative Urine Ketones Negative Negative Urine Protein Negative Negative Urine Leukocytes Negative Negative Urine Blood Negative Negative Urine Nitrite Negative Negative Urine Bilirubin Negative Negative Urine Glucose Negative Negative Laboratory test 09/13/2018 [facility] C Reactive 11.10 mg/L High <8.01 finding [address] [facility] [place] [address] [phone] Comp Metabolic 09/13/2018 [facility] Sodium 140 mmol/L Normal 135-145 Panel [facility] [place] [address] [phone] Potassium 3.4 mmol/L Low 3.5-5.0 Chloride 109 [...] Egfr Non- 100.1 >60 Egfr 121.1 >60 38 CBC Auto 09/13/2018 [facility] White Blood 12.6 10^3/uL High 3.5-10.[address] [place] [address] [phone] Red Blood Count 4.81 10^6/uL Normal 4.18-5.48 [...] Red Blood Cells % 0.0 Basic Metabolic 09/05/2018 [facility] Sodium 142 mmol/L Normal 135-145 Panel [address] [place] [address] [phone] Potassium 4.0 mmol/L Normal 3.5-5.0 Chloride 109 mmol/L Normal 101-111 Co2 Carbon Dioxide 24 mmol/L Normal 22-32 Anion Gap 9 mmol/L Normal 2-11 Glucose 94 mg/dL Normal 70-100 Blood Urea Nitrogen 14 mg/dL Normal 6-24 Creatinine 0.91 mg/dL Normal 0.67-1.17 BUN/Creatinine Ratio 15.4 Normal 8-20 Calcium 10.5 mg/dL High 8.6-10.3 Egfr Non- 93.7 >60 Egfr 113.4 >60 39 HIV-1 Rna QNT 09/05/2018 [facility] HIV-1 Rna Undetected Undetected 40 By PCR Sli [address] [facility] (PCR) copies/[place] [address] [phone] Laboratory 09/05/2018 [facility] Syphillis Igg Negative Negative test finding [address] [facility] W/[place] [address] [phone] 1 ADDITIONAL INFORMATION This test was developed and its performance characteristics determined by [facility] in a manner consistent with CLIA requirements. This test has not been cleared or approved by the U.S. Food and Drug Administration. Test Performed by: [facility] [address] [place] [address] Integration Project Manager: Omer Forman M.D. Ph.D.; CLIA# [id number] 2 Normal Range 180 to 914 Indeterminate Range 145 to 180 Deficient Range <145 3 Therapeutic target for the treatment of diabetes mellitus patients is <7% HBA1C, and in selective patients <6.0%. Please refer to [place] [employer] diabetic care guidelines for further information. 4 ADDITIONAL INFORMATION This test was developed and its performance characteristics determined by [facility] in a manner consistent with CLIA requirements. This test has not been cleared or approved by the U.S. Food and Drug Administration. Test Performed by: [facility] [place] [address] Integration Project Manager: Omer Forman M.D. Ph.D.; CLIA# [id number] 5 ADDITIONAL INFORMATION This test was developed and its performance characteristics determined by [facility] in a manner consistent with CLIA requirements. This test has not been cleared or approved by the U.S. Food and Drug Administration. Test Performed by: [facility] [place] [address] Integration Project Manager: Omer Forman M.D. Ph.D.; CLIA# [id number] 6 Desirable: <150 Borderline High: 150-199 High: 200-499 Very High: >500 7 Desirable: <200 Borderline High: 200-239 High: >239 8 Low: <40 Desirable: 40-60 High: >60 9 Desirable: <100 Near Optimal: 100-129 Borderline High: 130-159 High: 160-189 Very High: >189 10 Because ethnic data is not always [...] 5 Kidney failure <15 (or dialysis) 11 [id number] SEE RESULT BELOW Name: JAKOB ROJO : [address]: Olman Stout MD Acct: [id number] Unit: [id number] AGE: 38 Location: [facility] Re01/09/19 SEX: M Status: DEP REF SPEC: [id number] ESPERANZA: 01/09/19- DR: Olman Stout MD REQ: [id number] RECD: 01/09/19 STATUS: STEFFI ISABEL DR: Jose Rodriguez INSURANCE VERIFICATION CLERK _ ORDERED: LEVEL 4 COMMENTS: [id number] FINAL DIAGNOSIS Colon, splenic flexure, biopsy: -- [...] 1505 END OF REPORT DEPARTMENT OF PATHOLOGY, [address] [place] [address] Radames Ya M.D. Director [facility] # [id number] 13 As with all diagnostic procedures, the laboratory results obtained should be used in conjunction with other clinical information available to the physician, including confirmation by another method, as applicable. 14 ADDITIONAL INFORMATION This report is intended for use in clinical monitoring and management of patients. It is not intended for use in medical-legal applications. This test has been modified from the teaching assistant's instructions. Its performance characteristics were determined by [facility] in a manner consistent with CLIA requirements. This test has not been cleared or approved by the U.S. Food and Drug Administration. 15 ADDITIONAL INFORMATION This report is intended for use in clinical monitoring and management of patients. It is not intended for use in medical-legal applications. This test has been modified from the teaching assistant's instructions. Its performance characteristics were determined by [facility] in a manner consistent with CLIA requirements. This test has not been cleared or approved by the U.S. Food and Drug Administration. Test Performed by: [facility] - [address] [address] Integration Project Manager: Omer Forman M.D. Ph.D.; CLIA# [id number] 16 ADDITIONAL INFORMATION This report is intended for use in clinical monitoring and management of patients. It is not intended for use in medical-legal applications. This test has been modified from the teaching assistant's instructions. Its performance characteristics were determined by [facility] in a manner consistent with CLIA requirements. This test has not been cleared or approved by the U.S. Food and Drug Administration. 17 ADDITIONAL INFORMATION This report is intended for use in clinical monitoring and management of patients. It is not intended for use in medical-legal applications. This test has been modified from the teaching assistant's instructions. Its performance characteristics were determined by [facility] in a manner consistent with CLIA requirements. This test has not been cleared or approved by the U.S. Food and Drug Administration. Test Performed by: [place] [address] Integration Project Manager: Omer Forman M.D. Ph.D.; CLIA# [id number] 18 Because ethnic data is not always readily [...] 15-29 5 Kidney failure <15 (or dialysis) 19 Test Result Flag Unit RefValue Syphilis Total Ab w/ Reflex, Nonreactive S No serologic evidence of infection with T. pallidum (syphilis). Repeat testing may be considered in patients with suspected acute or primary syphilis in 2-4 weeks. REFERENCE VALUE Nonreactive Test Performed by: [facility] [address] [place] [address] Integration Project Manager: Omer Forman M.D. Ph.D.; CLIA# [id number] 20 Troponin-I testing on Plasma Separator Tubes (PST) has a known false positive rate of 0.20-0.40%. All positive troponins reflex immediately to secondary confirmatory testing. Using the [employer] DxI 800 Access Immunoassay systems, the 99th percentile upper reference limit was demonstrated to be < 0.03 ng/mL. 21 Standard intensity warfarin therapeutic range: 2.0-3.0 High intensity warfarin therapeutic range: 2.5-3.5 22 Troponin-I testing on Plasma Separator Tubes (PST) has a known false positive rate of 0.20-0.40%. All positive troponins reflex immediately to secondary confirmatory testing. Using the [employer] DxI 800 Access Immunoassay systems, the 99th percentile upper reference limit was demonstrated to be < 0.03 ng/mL. 23 Because ethnic data is not always [...] 5 Kidney failure <15 (or dialysis) 24 Troponin-I testing on Plasma Separator Tubes (PST) has a known false positive rate of 0.20-0.40%. All positive troponins reflex immediately to secondary confirmatory testing. Using the [employer] DxI 800 Access Immunoassay systems, the 99th percentile upper reference limit was demonstrated to be < 0.03 ng/mL. 25 Because ethnic data is not always readily [...] 15-29 5 Kidney failure <15 (or dialysis) 26 Standard intensity warfarin therapeutic range: 2.0-3.0 High intensity warfarin therapeutic range: 2.5-3.5 27 Troponin-I testing on Plasma Separator Tubes (PST) has a known false positive rate of 0.20-0.40%. All positive troponins reflex immediately to secondary confirmatory testing. Using the [employer] DxI 800 Access Immunoassay systems, the 99th percentile upper reference limit was demonstrated to be < 0.03 ng/mL. 28 Standard intensity warfarin therapeutic range: 2.0-3.0 High intensity warfarin therapeutic range: 2.5-3.5 29 Because ethnic data is not always [...] 5 Kidney failure <15 (or dialysis) 30 Troponin-I testing on Plasma Separator Tubes (PST) has a known false positive rate of 0.20-0.40%. All positive troponins reflex immediately to secondary confirmatory testing. Using the [employer] DxI 800 Access Immunoassay systems, the 99th percentile upper reference limit was demonstrated to be < 0.03 ng/mL. 31 Therapeutic target for the treatment of diabetes mellitus patients is <7% HBA1C, and in selective patients <6.0%. Please refer to [place] [employer] diabetic care guidelines for further information. 32 Troponin-I testing on Plasma Separator Tubes (PST) has a known false positive rate of 0.20-0.40%. All positive troponins reflex immediately to secondary confirmatory testing. Using the [employer] DxI 800 Access Immunoassay systems, the 99th percentile upper reference limit was demonstrated to be < 0.03 ng/mL. 33 Desirable: <100 Near Optimal: 100-129 Borderline High: 130-159 High: 160-189 Very High: >189 34 Desirable: <150 Borderline High: 150-199 High: 200-499 Very High: >500 35 Desirable: <200 Borderline High: 200-239 High: >239 36 Low: <40 Desirable: 40-60 High: >60 37 Unable to calculate LDL as triglyceride is > 400 38 Because ethnic data is not always readily [...] 15-29 5 Kidney failure <15 (or dialysis) 39 Because ethnic data is not always readily [...] 15-29 5 Kidney failure <15 (or dialysis) 40 Result in log copies/mL is Undetected. ADDITIONAL INFORMATION The quantification range of this assay is 20 to 10,000,000 copies/mL (1.30 log to 7.00 log copies/mL). Testing was performed using the tano HIV-1 test ([employer] with the tano [employer]0 System. This test has been modified from the teaching assistant's instructions. Its performance characteristics were determined by [facility] in a manner consistent with CLIA requirements. This test has not been cleared or approved by the U.S. Food and Drug Administration. Test Performed by: [facility] [address] [place] [address] Procedures Date Code Description Status 01/09/2019 33730659 Colonoscopy Completed 11/08/2018 38080 EKG Tracing & Interpretation Completed 10/19/2018 43711 ECHO Transthorasic Realtime 2D W Doppler & Color Flow Completed Hosp 10/19/2018 79714 EKG, Interpretation Only Completed 10/18/2018 66641 Left Heart Cath. 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 11:15a [facility], BOILER CLEANER-BC sleep disorder, [facility] delayed sleep phase type F51.04 Psychophysiologic insomnia G47.33 Obstructive sleep apnea (adult) (pediatric) Office Visit 12/20/2018 9:30a [facility] I82.402 Acute embolism Medicine Of [facility] [place] Gold and thombos unsp deep veins of l low extrem Office Visit 12/20/2018 1:40p [facility] Reymundo Santoyo I82.402 Acute embolism Of [facility] Ortiz, DO and thombos FACC unsp deep veins of l low extrem I10 Essential (primary) hypertension 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 E78.5 Hyperlipidemia, unspecified I25.2 Old myocardial infarction I25.5 Ischemic cardiomyopathy F17.201 Nicotine dependence, unspecified, in remission Office Visit 12/18/2018 4:00p [facility] Z11.3 Aníbal screen Infectious [place] for infections w Diseases sexl mode of transmiss Z79.899 Other exterminator helper (current) drug therapy Z11.4 Encounter for screening for human immunodeficiency virus Office Visit 12/11/2018 10:20a [facility] Internal Jose Rodriguez NP R07.89 Other chest Medicine - Ccmob pain I82.402 Acute embolism and thombos unsp deep veins of l low extrem J30.89 Other allergic rhinitis Office Visit 11/21/2018 10:40a [facility] Internal Jose Rodriguez NP R07.89 Other chest Medicine - Ccmob pain F31.9 Bipolar disorder, unspecified 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 Office Visit 11/20/2018 8:30a [facility] [place] G47.21 Circadian [facility] [place], RN, rhythm sleep [facility] LI-BC disorder, delayed sleep phase type F51.04 Psychophysiologic insomnia G47.33 Obstructive sleep apnea (adult) (pediatric) Office Visit 11/08/2018 1:40p [facility] Reymundo Santoyo I25.2 Old myocardial Of [facility] Ortiz, DO infarction FACC I82.402 Acute embolism and thombos unsp deep veins of l low extrem I25.5 Ischemic cardiomyopathy I10 Essential (primary) hypertension E78.5 Hyperlipidemia, unspecified F17.201 Nicotine dependence, unspecified, in remission Office Visit 11/03/2018 9:20a [facility] Internal Jose Rodriguez NP I25.119 [facility] - [facility] disease of [place] cor art w unsp ang pctrs I10 Essential (primary) hypertension I82.402 Acute embolism and thombos unsp deep veins of l low extrem F31.9 Bipolar disorder, unspecified J90 Pleural effusion, not elsewhere classified Office Visit 11/02/2018 1:51p [facility] Reymundo Santoyo I25.10 [facility] heart Of [facility] Ortiz, DO 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[facility] [place] coronary artery w/o ang pctrs I25.5 Ischemic cardiomyopathy I25.2 Old myocardial infarction I82.442 Acute embolism and thrombosis of left tibial vein Office Visit 11/02/2018 9:53a [facility] I82.402 Acute embolism Assoc, Quinn Louis, and [facility] Hospitalists INSURANCE VERIFICATION CLERK unsp deep veins of l low extrem 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 I10 Essential (primary) hypertension G43.909 Migraine, unsp, not intractable, without status migrainosus Office Visit 11/01/2018 9:[facility] I[facility].402 [facility] Assoc, Quinn Louis, and [facility] Hospitalists INSURANCE VERIFICATION CLERK unsp deep veins of l low extrem I25.10 Athscl heart disease of [place] coronary artery w/o ang pctrs I10 Essential (primary) hypertension G43.909 Migraine, unsp, not intractable, without status migrainosus E78.00 Pure hypercholesterolemia, unspecified Office Visit 11/01/2018 4:43p [facility] Karon Rose, I25.10 Aths[facility] heart Of Saige Lugo disease of [place] coronary artery w/o ang pctrs Office Visit 2018 9:52a [facility] Corine Oh, I82.402 Acute embolism Assoc,leila Lugo and [facility] Hospitalists unsp deep veins of l low extrem R07.9 Chest pain, unspecified I10 Essential (primary) hypertension E78.5 Hyperlipidemia, unspecified Office Visit 2018 3:58p [facility] Sammi Soria, I82.402 Acute embolism Of [facility] INSURANCE VERIFICATION CLERK and thombos unsp deep veins of l low extrem 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 disease of [place] cor art w unsp ang pctrs I10 Essential (primary) hypertension E78.5 Hyperlipidemia, unspecified R07.9 Chest pain, unspecified Office Visit 10/18/2018 3:50p [facility] Karon Rose, I25.110 Athscl heart Of [facility] M.D. 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 F17.201 Nicotine dependence, unspecified, in remission I10 Essential (primary) hypertension E78.5 Hyperlipidemia, unspecified E66.8 Other obesity Office Visit 10/09/2018 10:00a [facility] Internal Jose Michael, I10 Essential ( primary) Medicine - [facility] INSURANCE VERIFICATION CLERK hypertension R07.89 Other chest pain R22.2 Localized swelling, mass and lump, trunk K57.92 Dvtrcli of intest, part unsp, w/o perf or abscess w/o bleed R94.31 Abnormal electrocardiogram [ECG] [EKG] Office Visit 10/03/2018 Saira Santoyo G43.109 Migraine with 3:45p [facility] [place] aura, not Services Of [facility] intractable, w/o status migrainosus M54.5 Low back pain M54.2 Cervicalgia Office Visit 09/18/2018 [place] Marko Gama Z11.4 Encounter for 4:00p For Infectious [place] screening for human Diseases immunodeficiency virus Z79.899 Other shelter (current) drug therapy Assessments Date Code Description Provider 02/21/2019 I25.6 Silent myocardial ischemia Reymundo Ortiz, DO FACC 02/21/2019 E78.5 Hyperlipidemia, unspecified Reymundo Ortiz, DO FACC 02/21/2019 I25.2 Old myocardial infarction Reymundo Ortiz, DO FACC 02/21/2019 I25.5 Ischemic cardiomyopathy Reymundo Ortiz, DO FACC 02/21/2019 Z72.0 Tobacco use Reymundo Ortiz, DO FACC 02/21/2019 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 therapy 12/18/2018 Z11.4 Encounter for screening for human Sanchez Alexandra M.D. 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 Josekevin Rodriguez, INSURANCE VERIFICATION CLERK [place]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 11/20/2018 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, Alannah South DNP, RN, delayed sleep phase type [facility]- 11/20/2018 F51.04 Psychophysiologic insomnia Alannah South DNP, RN, [facility]- 11/20/2018 G47.33 Obstructive sleep apnea (adult) Alannah South DNP, RN, (pediatric) [facility] 11/08/2018 I25.2 Old myocardial infarction Reymundo SDemarcus Ortiz, DO [facility] 11/08/2018 I82.402 Acute embolism and thrombosis of Reymundo Putnamno, DO [facility] unspecified deep veins of left lower extremity 11/08/2018 I25.5 Ischemic cardiomyopathy Reymundo Ortiz, DO FAC 11/08/2018 I10 Essential (primary) hypertension Reymundo SDemarcus Ortiz, DO FAC 11/08/2018 E78.5 Hyperlipidemia, unspecified Reymundo Natanael Ortiz, DO FAC 11/08/2018 F17.201 Nicotine dependence, unspecified, in Reymundo Putnamno, DO [facility] remission 11/03/2018 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 Josekevin Rodriguez, INSURANCE VERIFICATION CLERK [place]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 11/03/2018 I10 Essential (primary) hypertension Josekevin Rodriguez, INSURANCE VERIFICATION CLERK 11/03/2018 I82.402 Acute embolism and thrombosis of Josekevin Rodriguez, INSURANCE VERIFICATION CLERK unspecified deep veins of left lower extremity 11/03/2018 F31.9 Bipolar disorder, unspecified Jose Michael, INSURANCE VERIFICATION CLERK 11/03/2018 J90 Pleural effusion, not elsewhere Jose Michael, INSURANCE VERIFICATION CLERK classified 11/02/2018 I25.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 Reymundo Ortiz, DO [facility] [place] coronary artery without angina pectoris 11/02/2018 I82.402 Acute embolism and thrombosis of Sherry Louis NP unspecified deep veins of left lower extremity 11/02/2018 I25.5 Ischemic cardiomyopathy Reymundo Ortiz, DO [facility] 11/02/2018 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 Sherry Louis NP [place]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 11/02/2018 I25.2 Old myocardial infarction Reymundo Ortiz, DO [facility] 11/02/2018 I10 Essential (primary) hypertension Sherry Louis, INSURANCE VERIFICATION CLERK 11/02/2018 I82.442 Acute embolism and thrombosis of left Reymundo Ortiz, DO [facility] tibial vein 11/02/2018 G43.909 Migraine, unspecified, not Sherry Louis, INSURANCE VERIFICATION CLERK intractable, without status migrainosus 11/01/2018 I25.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 Karon Rose M.D. [place] coronary artery without angina pectoris 11/01/2018 I82.402 Acute embolism and thrombosis of Sherry Louis INSURANCE VERIFICATION CLERK unspecified deep veins of left lower extremity 11/01/2018 I25.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 Sherry Louis INSURANCE VERIFICATION CLERK [place] coronary artery without angina pectoris 11/01/2018 I10 Essential (primary) hypertension Sherry Louis, INSURANCE VERIFICATION CLERK 11/01/2018 G43.909 Migraine, unspecified, not Sherry Louis, INSURANCE VERIFICATION CLERK intractable, without status migrainosus 11/01/2018 E78.00 Pure hypercholesterolemia, Sherry Louis, INSURANCE VERIFICATION CLERK unspecified 2018 I82.402 Acute embolism and thrombosis of Sammi Soria NP unspecified deep veins of left lower extremity 2018 I82.402 Acute embolism and thrombosis of Corine Oh M.D. unspecified deep veins of left lower extremity 2018 I25.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 Sammi Soria NP [place] coronary artery without angina pectoris 2018 R07.9 Chest pain, unspecified Corine Oh M.D. 2018 Z95.1 Presence of aortocoronary bypass Sammi Soria, FARHAD graft 2018 I10 Essential (primary) hypertension Corine Oh M.D. 2018 E78.5 Hyperlipidemia, unspecified Sammi Soria, INSURANCE VERIFICATION CLERK 2018 E78.5 Hyperlipidemia, unspecified Corine Oh M.D. 2018 I50.9 Heart failure, unspecified Sammi Soria, INSURANCE VERIFICATION CLERK 10/19/2018 R94.31 Abnormal electrocardiogram [ECG] Lauro Brown M.D. 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 [place]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 10/19/2018 I10 Essential (primary) hypertension Karon Rose M.D. 10/19/2018 E78.5 Hyperlipidemia, unspecified Karon Rose M.D. 10/19/2018 R07.9 Chest pain, unspecified Karon Rose M.D. 10/18/2018 R94.31 Abnormal electrocardiogram [ECG] Karon Rose M.D. [EKG] 10/18/2018 I25.1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 Karon Rose M.D. [place] coronary artery with unstable angina pectoris 10/18/2018 I25.2 Old myocardial infarction Karon Rose M.D. 10/18/2018 I25.1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 Sampson Aden MD, [facility], [place] coronary artery with unstable FSCAI angina pectoris 10/18/2018 R07.9 Chest pain, unspecified Reymundo Ortiz DO [facility] 10/18/2018 I25.2 Old myocardial infarction Reymundo Ortiz, DO [facility] 10/18/2018 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 Reymundo Ortiz, DO [facility] [place]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 10/18/2018 F17.201 Nicotine dependence, unspecified, in Reymundo Ortiz, DO [facility] remission 10/18/2018 I10 Essential (primary) hypertension Reymundo Ortiz DO [facility] 10/18/2018 E78.5 Hyperlipidemia, unspecified Reymundo Ortiz, DO [facility] 10/18/2018 E66.8 Other obesity Reymundo Ortiz, DO [facility] 10/18/2018 R07.89 Other chest pain Jose Michael, INSURANCE VERIFICATION CLERK 10/18/2018 R94.31 Abnormal electrocardiogram [ECG] Josekevin Rodriguez NP [EKG] 10/09/2018 R94.31 Abnormal electrocardiogram [ECG] Enedina Abreu MD [EKG] 10/09/2018 I10 Essential (primary) hypertension Jose Michael, INSURANCE VERIFICATION CLERK 10/09/2018 R07.89 Other chest pain Enedina Abreu MD 10/09/2018 R07.89 Other chest pain Jose Michael, INSURANCE VERIFICATION CLERK 10/09/2018 R22.2 Localized swelling, mass and lump, Josekevin Rodriguez, INSURANCE VERIFICATION CLERK trunk 10/09/2018 K57.92 Diverticulitis of intestine, part Jose Michael, INSURANCE VERIFICATION CLERK unspecified, without perforation or abscess without bleeding 10/09/2018 R94.31 Abnormal electrocardiogram [ECG] Jose Rodriguez NP [EKG] 10/03/2018 G43.109 Migraine with aura, not intractable, Jorge Luis Lee M.D. without status migraino 10/03/2018 M54.5 Low back pain Jorge Luis Lee M.D. 10/03/2018 M54.2 Cervicalgia Jorge Luis Lee M.D. 09/18/2018 Z11.4 Encounter for screening for human Sanchez Alexandra M.D. immunodeficiency virus [Co 09/18/2018 Z79.899 Other exterminator helper (current) drug Sanchez Alexandra M.D. therapy Plan of Treatment Future Appointment(s):05/23/2019 4:20 pm - Jose Rodriguez NP at [facility] 3[facility]45 pm - Jorge Luis Lee M.D. at [place] [facility]02/21/2019 - Reymundo Ortiz, DO FACCI25.6 Silent myocardial ischemiaNew Medication:Brilinta 90 [...] Aden f/u wound check with meE78.5 Hyperlipidemia, pgunxrsmzcuY39.2 Old myocardial qojwskdwppB90.5 Ischemic cardiomyopathyNew Orders:Cardiac Catheterization, Ordered: Z72.0 Tobacco useI25.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 [place] coronary artery without angina [id number] Essential (primary) hypertensionNew Medication :Losartan Potassium 50 mg - 1 by mouth every day Functional Status Description No Information Available Mental Status Description No Information Available Referrals Refer to Dr Reason for Referral Status Appt Date Buddy Gold MD Sent 02/21/[address] [place] [id number] [phone] Ofe Hoang NPP Sent [address] [place] [address] [phone] Malini Matson M.D. refaxed referral they will be looking for it. Closed 11/13/201810/[address] [place], [place] [id number] [phone] [facility] Sent 10/30/2018 [address] [place] [address] [phone] [facility] Closed 11/28/[address] [place] [address] [phone]
[2019-03-24 19:42] VITALS: BP 145/89
--- NOTE | 2019-03-24 21:20 | UC ---
Minor Trauma HPI - HPI Summary HPI Summary: Slipped and fell on stairs this morning hitting right back and side. 9:30 AM Worsening pain throughout the day. - History of Current Complaint Chief Complaint: UCBackPain Stated Complaint: BACK INJURY Time Seen by Provider: 03/24/19 20:34 Hx Obtained From: Patient Onset/Duration: Sudden Onset, Lasting Hours - 11, Worse Since - onset Onset Of Pain: Immediate Severity Initially: Moderate Severity Currently: Severe Pain Intensity: 8 Mechanism Of Injury: Blunt Trauma, Fall From A Standing Position - onto stairs Aggravating Factor(s): Deep Breaths, Movement Alleviating Factor(s): Nothing Associated Signs And Symptoms: Negative: Loss Of Consciousness, Ecchymosis, Swelling - Allergies/Home Medications Allergies/Adverse Reactions: Allergies Allergy/AdvReac Type Severity Reaction Status Date / Time clarithromycin [From Biaxin] Allergy Severe Hives Verified 03/24/19 19:33 Home Medications: Home Medications Oxycodone HCl 5 mg PO Q6H PRN 03/24/19 [History Confirmed 03/24/19] PMH/Surg Hx/FS Hx/Imm Hx Cardiovascular History: Cardiac Disease Other History Of: Negative For: HIV, Hepatitis B, Hepatitis C, Anticoagulant Therapy - Surgical History Surgical History: Yes Surgery Procedure, Year, and Place: right foot fusion, 2013? - METAL SCREW. wisdom teeth removal. 10/2018 CABG - SINGLE BYPASS. 03/09/2019 STENT PLACED HEART VESSEL HAS STENT CARD [place] [facility] [place] [employer] SCIENTIFIC SYNERGY IMMEDIATELY AFTER IMPLANTATION CLEARED FOR 1.5 AND 3.0 T MAX SPATIAL GRADIENT 2500 GAUSS/cm OR LESS , NORMAL MODE - Family History Known Family History: Positive: Cardiac Disease, Hypertension, Other - CA, Non- Contributory Negative: Diabetes - Social History Occupation: Employed Full-time Lives: With Family Alcohol Use: Rare Alcohol Amount: 1 drink a month Substance Use Type: Marijuana Substance Use Comment - Amount & Last Used: rare-marijuana Smoking Status (MU): Former Smoker Type: Cigarettes Amount Used/How Often: 3 CIG/DAY Length of Time of Smoking/Using Tobacco: 15 YEARS Have You Smoked in the Last Year: Yes - quit April 2018 When Did the Patient Quit Smoking/Using Tobacco: states he stopped yesterday - Immunization History Most Recent Influenza Vaccination: 11/01/18 Most Recent Pneumonia Vaccination: never Review of Systems All Other Systems Reviewed And Are Negative: Yes Cardiovascular: Positive: Chest Pain Physical Exam Triage Information Reviewed: Yes Appearance: Well-Appearing, Well-Nourished, Pain Distress - sitting still splinted respirations Vital Signs: Initial Vital Signs Temp 98.3 F 03/24/19 19:37 Pulse 67 03/24/19 19:37 Resp 18 03/24/19 19:37 BP 145/89 03/24/19 19:37 Pulse Ox 99 03/24/19 19:37 Vital Signs Reviewed: Yes Eyes: Positive: Conjunctiva Clear Neck exam: Normal Respiratory Exam: Normal Respiratory: Negative: Chest non-tender - tender along right side of chest lower rib cage from front all the way around the back. Cardiovascular Exam: Normal Musculoskeletal Exam: Normal Neurological Exam: Normal Psychological Exam: Normal Skin Exam: Normal Minor Trauma Course/Dx - Differential Dx/Diagnosis Differential Diagnosis/HQI/PQRI: Contusion(s), Fracture, Hematoma(s), Laceration (s) Provider Diagnosis: Contusion of rib on right side Discharge ED - Sign-Out/Discharge Documenting (check all that apply): Patient Departure All imaging exams completed and their final reports reviewed: No - Discharge Plan Condition: Stable Disposition: HOME Patient Education Materials: Rib Contusion (ED) Referrals: Jose Rodriguez NP [Primary Care Provider] - - Billing Disposition and Condition Condition: STABLE Disposition: Home
--- NOTE | 2019-03-25 08:16 | UC ---
- Progress Note Progress Note: Final radiologist reading of right rib x-rays from March 24, 2019 come back as no fracture no pneumothorax. Provider interpretation as it is the same therefore there is no discrepancy. Course/Dx - Diagnoses Provider Diagnoses: Contusion of rib on right side Discharge ED - Sign-Out/Discharge Documenting (check all that apply): Patient Departure All imaging exams completed and their final reports reviewed: Yes - Discharge Plan Condition: Stable Disposition: HOME Patient Education Materials: Rib Contusion (ED) Referrals: Jose Rodriguez NP [Primary Care Provider] - - Billing Disposition and Condition Condition: STABLE Disposition: Home
== END 2019-03-24 21:29 | disposition home or self-care (01) ==
LOC: UCEAST 19:25
DX: S20.211A Contusion of right front wall of thorax, initial encounter (principal); Z88.1 Allergy status to other antibiotic agents; Z87.891 Personal history of nicotine dependence; W10.9XXA Fall (on) (from) unspecified stairs and steps, initial encounter; Y92.9 Unspecified place or not applicable
CPT/HCPCS: 99211; G0463

== ENCOUNTER 2019-05-05 14:39 | Emergency (ER) | payer BC ==
[2019-05-05] MEDS ORDERED: Aspirin 81 mg CHEW TAB* 81 MG TAB.CHEW PO ONE (14:45)
[2019-05-05] MEDS ORDERED: Nitroglycerin TAB 0.4 MG* 0.4 MG TAB SL ONE (14:46)
--- OUTSIDE RECORDS SUMMARY | 2019-05-05 14:49 | XMS REPORT | Continuity of Care Document ---
:1980 External Reference #:[id number] Author Name Manjinder Wing M.D. (transmitted by agent of provider Morena Lundberg) Address [address] [place] [address] Care Team Providers Name Role Phone Kem Celaya MD - Family Medicine Care Team Information Hydraulic Chair Assembler [phone] Radha Julien MD - Internal Medicine Care Team Information Hydraulic Chair Assembler [phone] Problems Active Problems Provider Date Obstructive sleep apnea syndrome Glory Almonte MD Onset: 11/30/2013 Note: Mild. AHI- 6.6/REM AHI 13.1, O2 agnieszka 91% Obstructive sleep apnea syndrome Glory Almonte MD Onset: 12/11/2013 Sprain of knee Kelecih Smith M.D. Onset: 01/07/2015 Degeneration of cervical intervertebral disc Jorge Luis Harvey M.D. 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 Onset: 12/20 lower extremity Social History Type Date Description Comments Sex Unknown ETOH Use Occasionally consumes alcohol Tobacco Use Start: Unknown End: Patient is a former Quit April 2018. Unknown smoker Recreational Drug Use Denies Drug Use Smoking Status Reviewed: 04/09/19 Patient is a former Quit April 2018. smoker Exercise Type/Frequency Exercises regularly cardiac rehab and goes to fitness center, follows low sodium/fat diet Allergies, Adverse Reactions, Alerts Active Allergies Reaction Severity Comments Date Biaxin Urticaria Moderate 04/13/2010 Medications Active Medications SIG Qnty Indications Ordering Date Provider Forearm Crutches M84.352A Manjinder Wing M.D. 04/09/2019 Topiramate 1 po qam and 2 270tabs Jorge Luis Santoyo 04/04/2019 100mg Tablets qhs [facility] Butalbital/Acetaminoph 1 by mouth twice 30caps Jorge Luis Santoyo 04/04/2019 en/Caffeine a day as needed [facility] [place] 50-300-40mg headache max 2 Capsules days/wk Oxycodone HCL 1 tablet every 20tabs S83.232A Manjinder Wing M.D. 03/20/2019 5mg Tablets 12 hours if needed Losartan Potassium 1 by mouth every 90tabs I10 Reymundo Ortiz, 02/21/2019 50mg day DO FACC Tablets Amlodipine Besylate 1 by mouth every 90tabs Reymundo Ortiz, 12/20/2018 5mg day DO FACC Tablets Acetaminophen 500 MG Take two tablets Unknown 12/19/2018 prn Atorvastatin Calcium take 1 tablet 90tabs Reymundo Ortiz, 10/28/2018 80mg (80 mg total) by DO FACC Tablets mouth nightly Gabapentin take one capsule 60caps G47.00 Jose Rodriguez NP 06/28/2018 300mg Capsules bid Truvada 1 by mouth every 30tabs Z20.2 Sanchez Gama 03/14/2017 200-300mg Tablets day prn [facility] Myrbetriq 1 by mouth every Unknown 50mg Tablets ER day 24HR Lamotrigine 1 by mouth once Unknown 100mg Tablets a day Fluticasone Propionate 2 sprays each Unknown nostril daily as 50mcg/Act Suspension needed Carvedilol 1 by mouth twice Unknown 6.25mg Tablets a day Brilinta 1 tab by mouth Unknown 90mg Tablets twice a day Aspirin Adult Low 1 by mouth every Unknown Strength day 81mg Tablets DR Calcium 500 500 mg one by Unknown mouth once a day [phone]-mg-Unit Tablets Vraylar 2 cap po daily Unknown 1.5mg Capsules Daily Farzaneh Men's Complete 1 Unknown Tablets by mouth every day Fish Oil Take one tablet Unknown 1200mg Capsules three times a day History Medications Brilinta 1 tab by mouth 60tabs I25.6 Reymundo S. 02/21/2019 - 90mg Tablets twice a day Ortiz, DO 03/19/2019 FACC Amlodipine Besylate 1 by mouth every 90tabs Reymundo S. 12/20/2018 - day Ortiz, DO 12/20/2018 10mg Tablets FACC Lidocaine apply to affected 60gm R07.89 Jose Rodriguez NP 12/11/2018 - 4% Cream areas 3 or 4 03/19/2019 times daily-prn Fluticasone Baden 2 Sprays 16units J30.89 Jose Rodriguez NP 12/11/2018 - Propionate Into Each Nostril 03/19/2019 50mcg/Act One Time Daily Suspension Tramadol HCL 1-2 tablets every 42tabs M25.562 Jose Rodriguez NP 11/21/2018 - 50mg 8 hours as needed 03/19/2019 Tablets for pain. Ferrous Gluconate Take 1 tablet 60tabs Jsoe Rodriguez NP 11/03/2018 - (324 mg total) by 11/19/2018 324(37.5Fe) mg mouth 2 (two) Tablets times a day Latuda 1 by mouth every 30tabs Jose Rodriguez NP 11/03/2018 - 60mg Tablets day at bedtime 12/19/2018 Furosemide Take 1 tablet (40 5tabs Unknown 10/29/2018 - 40mg Tablets mg total) by 11/08/2018 mouth every morning for 5 days Folic Acid Take 1 tablet (1 30tabs Unknown 10/29/2018 - 1mg Tablets mg total) by 12/17/2018 mouth daily Ascorbic Acid Take 1 tablet 30tabs Unknown 10/29/2018 - 500mg (500 mg total) by 03/19/2019 Tablets mouth daily Aspirin Ec Take 1 tablet 30tabs Unknown 10/29/2018 - 325mg (325 mg total) by 11/03/[address] mouth daily Acetaminophen Take 2 tablets 30tabs Unknown 10/28/2018 [...] Date Technetium TC 99M Reymundo Ortiz DO [facility] 10/18/2018 Tetrofosmin, Per Unit Dose Up To 40 Millicuries Injection Influenza,Unspecified Unknown 11/14/2016 Injection Immunizations Description No Information Available Vital Signs Date Vital Result Comment 04/09/2019 3:17pm Height 71 inches 5'11" Heart Rate 93 /min BP Systolic 144 mmHg BP Diastolic 88 mmHg Body Temperature 97.1 F Pain Level 6 04/04/2019 4:01pm Height 71 inches 5'11" Weight 227.00 lb Heart Rate 80 /min BP Systolic Sitting 138 mmHg BP Diastolic Sitting 96 mmHg BMI (Body Mass Index) 31.7 kg/m2 Results Test Acquired Date Facility Test Result H/L Range Note Laboratory test 03/09/2019 [facility] Poc Activated 340 seconds [address] [place] [address] [phone] Laboratory test 03/09/2019 [facility] Poc Activated 247 seconds [address] [place] [address] [phone] Laboratory test 03/09/2019 [facility] Poc Activated 235 seconds [address] [place] [address] [phone] CBC Auto Diff 03/09/2019 [facility] White Blood 9.4 10^3/uL Normal 3.5-10.[address] [place] [address] [phone] Red Blood Count 4.61 10^6/uL Normal 4.18-5.48 [...] Blood Cells % 0.0 Basic Metabolic 03/09/2019 [facility] Sodium 142 mmol/L Normal 135-[address] [place] [address] [phone] Potassium 3.7 mmol/L Normal 3.5-5.0 Co2 Carbon Dioxide 22 mmol/L Normal 22-32 Glucose 98 mg/dL Normal 70-100 Blood Urea Nitrogen 11 mg/dL Normal 6-24 Creatinine 0.83 mg/dL Normal 0.67-1.17 BUN/Creatinine Ratio 13.3 Normal 8-20 Calcium 9.1 mg/dL Normal 8.6-10.3 Egfr Non- 103.7 >60 Egfr 125.5 >60 4 Chloride 112 mmol/L High 101-111 Anion Gap 8 mmol/L Normal 2-11 CBC No Diff 02/05/2019 [facility] White Blood 6.6 10^3/uL Normal 3.5-10.[address] [place] [address] [phone] Red Blood Count 4.69 10^6/uL Normal 4.18-5.48 Hemoglobin 14.9 g/dL Normal 14.0-18.0 Hematocrit 43 % Normal 42-52 Mean Corpuscular Volume 91 fL Normal 80-94 Mean Corpuscular Hemoglobin 32 pg High 27-31 Mean Corpuscular HGB Conc 35 g/dL Normal 31-36 Red Cell Distribution Width 14 % Normal 10-15 Platelet Count 198 10^3/uL Normal 150-450 Mean Platelet Volume 8.5 fL Normal 7.4-10.4 Comp Metabolic 02/05/2019 [facility] Sodium 141 mmol/L Normal 135-[address] [place] [address] [phone] Potassium 4.0 mmol/L Normal 3.5-5.0 Co2 Carbon [...] 6 mmol/L Normal 2-11 Lipid Profile 02/05/2019 [facility] Triglycerides 137 mg/dL 6 (Trig/Chol/HDL) [address] [place] [address] [phone] Cholesterol 115 mg/dL 7 HDL Cholesterol 28.8 mg/dL 8 LDL Cholesterol 59 mg/dL 9 Laboratory test 02/05/2019 [facility] Magnesium 2.0 mg/dL Normal 1.9-2.[address] [place] [address] [phone] Iron (Fe) 71 g/dL Normal 50-212 TSH (Thyroid Stim Horm) 0.38 mcIU/mL Normal 0.34-5.60 Ferritin 50.4 ng/mL Normal 24-336 Vitamin B12 417 pg/mL Normal 180-914 10 Hemoglobin A1c (Glyco HGB) 5.2 % Normal 4.0-5.6 11 Copper, Serum 1.07 g/mL 0.75-1.45 12 Zinc Serum 1.15 g/mL Abnormal 0.66-1.10 13 1,25 Dihydroxy 02/05/2019 [facility] Calcitriol 45 pg/mL 18- 64 14 Vitamin D [address] [place] [address] [phone] Surgical 01/09/2019 [facility] Surgical SEE RESULT 15, [address] [place] [address] [phone] PDFReport SEE IMAGE Ctrach&Ngonorr Amplified Rna 12/18/2018 [facility] Source RECTAL [address] [place] [address] [phone] C. trach Amplified Rna Negative Negative 17 Source RECTAL N Gonorr Amplified Rna Negative Negative 18 Ctrach&Ngonorr Amplified Rna 12/18/2018 [facility] Source THROAT [address] [place] [address] [phone] C. trach Amplified Rna Negative Negative 19 Source THROAT N Gonorr Amplified Rna Negative Negative 20 GC/Chlamydia 12/18/2018 [facility] GCCHL Disclaimer (SEE NOTE) 21 Amplified Rna [address] [place] [address] [phone] Chlamydia trachomatis Berkley Negative Negative Neisseria gonorrhoeae (GC) Berkley Negative Negative Basic Metabolic 12/15/2018 [facility] Sodium 140 mmol/L Normal 135-[address] [place] [address] [phone] Potassium 3.9 mmol/L Normal 3.5-5.0 Chloride 109 mmol/L Normal 101-111 Co2 Carbon Dioxide 26 mmol/L Normal 22-32 Anion Gap 5 mmol/L Normal 2-11 Glucose 107 mg/dL High 70-100 Blood Urea Nitrogen 14 mg/dL Normal 6-24 Creatinine 0.88 mg/dL Normal 0.67-1.17 BUN/Creatinine Ratio 15.9 Normal 8-20 Calcium 9.2 mg/dL Normal 8.6-10.3 Egfr Non- 96.9 >60 Egfr 117.3 >60 22 Laboratory 12/15/2018 [facility] Miscellaneous See Comment 23 test finding [address] [place] [address] [phone] Comp Metabolic 12/05/2018 [facility] Sodium 141 mmol/L Normal 135- Panel [address] [place] [address] [phone] Potassium 3.8 mmol/L Normal 3.5-5.0 Co2 Carbon [...] Gap 4 mmol/L Normal 2-11 Laboratory 12/05/2018 [facility] Troponin-I 0.03 <0.[address] (TnI) ng/[place] [address] [phone] Laboratory 12/05/2018 [facility] Troponin-I 0.01 <0.04 26 test finding [address] (TnI) ng/[place] [address] [phone] CBC Auto Diff 12/05/2018 [facility] White Blood 7.2 Normal 3.5 -10.[address] Count 10^3/[place] [address] [phone] Red Blood Count 4.78 10^6/uL Normal 4.18-5.48 [...] Red Blood Cells % 0.0 Inr/Protime 12/05/2018 [facility] Inr 1.10 High 0.82-1.[address] [place], [place] [address] [phone] Laboratory test 2018 [facility] Troponin-I 0.01 <0.04 [address] (TnI) ng/mL [place], [place] [address] [phone] CBC Auto Diff 10/30/2018 [facility] White 10.6 Normal 3.5- 10.[address] Blood 10^3/[place] [address] Count [phone] Red Blood Count 4.65 10^6/uL Normal 4.18-5.48 [...] Red Blood Cells % 0.0 Inr/Protime 10/30/2018 [facility] Inr 1.25 High 0.82-1.[address] [place] [address] [phone] Laboratory test 10/30/2018 [facility] Troponin-I 0.01 <0.04 [address] (TnI) ng/[place] [address] [phone] Comp Metabolic 10/30/2018 [facility] Sodium 138 Normal 135- [address] mmol/[place] [address] [phone] Potassium 4.0 mmol/L Normal 3.5-5.0 Chloride 106 [...] >60 Egfr 110.6 >60 31 Order 10/18/2018 [facility] Stress Test, <pending> [address] [place] [address] Nuclear [phone] Laboratory test 10/18/2018 [facility] Troponin-I 0.00 ng/mL < 0.[address] (TnI) [place] [address] [phone] Hemoglobin A1c (Glyco HGB) 5.4 % Normal 4.0-5.6 33 Comp Metabolic 10/18/2018 [facility] Sodium 138 mmol/L Normal 135-[address] [place] [address] [phone] Potassium 4.3 mmol/L Normal 3.5-5.0 Chloride 109 [...] Egfr 135.5 >60 34 CBC Auto 10/18/2018 [facility] White Blood 13.8 10^3/uL High 3.5-10.[address] [place] [address] [phone] Red Blood Count 5.14 10^6/uL Normal 4.18-5.48 [...] Red Blood Cells % 0.1 Laboratory 10/18/2018 [facility] Partial 34.9 Normal 26.0- 38.0 test finding [address] [place] [address] Time PTT [phone] Inr/Protime 10/18/2018 [facility] Inr 0.98 Normal 0.82-1.[address] [place] [address] [phone] Laboratory 10/09/2018 [facility] Troponin-I 0.01 ng/mL <0.04 36 test finding [address] (TnI) [place], [place] [address] [phone] TSH (Thyroid Stim Horm) 0.44 mcIU/mL Normal 0.34-5.60 LDL Cholesterol Direct 185 mg/dL 37 Lipid Profile 10/09/2018 [facility] Triglycerides 479 mg/dL 38 (Trig/Chol/HDL) [address] [place], [place] [address] [phone] Cholesterol 322 mg/dL 39 HDL Cholesterol 34.0 mg/dL 40 LDL Cholesterol (SEE NOTE) mg/dL 41 1 Energy Broker: [id number] Reference Range: 74-125 seconds 2 Energy Broker: [id number] Reference Range: 74-125 seconds 3 Energy Broker: [id number] Reference Range: 74-125 seconds 4 Because ethnic [...] in selective patients <6.0%. Please refer to [place] [employer] diabetic care guidelines for further information. 12 ADDITIONAL INFORMATION This test was developed and its performance characteristics determined by [facility] in a manner consistent with CLIA requirements. This test has not been cleared or approved by the U.S. Food and Drug Administration. Test Performed by: [facility] [place] [address] Formula Checker: Omer Forman M.D. Ph.D.; CLIA# [id number] 13 ADDITIONAL INFORMATION This test was developed and its performance characteristics determined by [facility] in a manner consistent with CLIA requirements. This test has not been cleared or approved by the U.S. Food and Drug Administration. Test Performed by: [facility] [place] [address] Formula Checker: Omer Forman M.D. Ph.D.; CLIA# [id number] 14 ADDITIONAL INFORMATION This test was developed and its performance characteristics determined by [facility] in a manner consistent with CLIA requirements. This test has not been cleared or approved by the U.S. Food and Drug Administration. Test Performed by: [facility] [place] [address] Formula Checker: Omer Forman M.D. Ph.D.; CLIA# [id number] 15 [id number] 16 SEE RESULT BELOW Name: JAKOB ROJO : [address]: Olman Stout MD Acct: [id number] Unit: [id number] AGE: 38 Location: [facility] Re01/09/19 SEX: M Status: DEP REF SPEC: [id number] ESPERANZA: 01/09/19- SUBM DR: Olman Stout MD REQ: [id number] RECD: 01/09/19 STATUS: STEFFI ISABEL DR: Jose Rodriguez SENIOR INTERACTION DESIGNER _ ORDERED: LEVEL 4 COMMENTS: [id number] FINAL DIAGNOSIS Colon, splenic flexure, biopsy: -- [...] 1505 END OF REPORT DEPARTMENT OF PATHOLOGY, [address] [place] [address] Radames Ya M.D. Director [facility] # [id number] 17 ADDITIONAL INFORMATION This report is intended for use in clinical monitoring and management of patients. It is not intended for use in medical-legal applications. This test has been modified from the weights and measures inspector's instructions. Its performance characteristics were determined by [facility] in a manner consistent with CLIA requirements. This test has not been cleared or approved by the U.S. Food and Drug Administration. 18 ADDITIONAL INFORMATION This report is intended for use in clinical monitoring and management of patients. It is not intended for use in medical-legal applications. This test has been modified from the weights and measures inspector's instructions. Its performance characteristics were determined by [facility] in a manner consistent with CLIA requirements. This test has not been cleared or approved by the U.S. Food and Drug Administration. Test Performed by: [place] [address] Formula Checker: Omer Forman M.D. Ph.D.; CLIA# [id number] 19 ADDITIONAL INFORMATION This report is intended for use in clinical monitoring and management of patients. It is not intended for use in medical-legal applications. This test has been modified from the weights and measures inspector's instructions. Its performance characteristics were determined by [facility] in a manner consistent with CLIA requirements. This test has not been cleared or approved by the U.S. Food and Drug Administration. 20 ADDITIONAL INFORMATION This report is intended for use in clinical monitoring and management of patients. It is not intended for use in medical-legal applications. This test has been modified from the weights and measures inspector's instructions. Its performance characteristics were determined by [facility] in a manner consistent with CLIA requirements. This test has not been cleared or approved by the U.S. Food and Drug Administration. Test Performed by: [facility] [address] [place] [address] Formula Checker: Omer Forman M.D. Ph.D.; CLIA# [id number] 21 As with all diagnostic procedures, the [...] weeks. REFERENCE VALUE Nonreactive Test Performed by: [facility] [address] [place] [address] Formula Checker: Omer Forman M.D. Ph.D.; CLIA# [id number] 24 Because ethnic data is not always [...] immediately to secondary confirmatory testing. Using the [employer]ter [employer] DxI 800 Access Immunoassay systems, the 99th percentile upper reference limit was demonstrated to be < 0.03 ng/mL. 26 Troponin-I testing on Plasma Separator Tubes (PST) has a known false positive rate of 0.20-0.40%. All positive troponins reflex immediately to secondary confirmatory testing. Using the [employer] DxI 800 Access Immunoassay systems, the 99th percentile upper reference limit was demonstrated to be < 0.03 ng/mL. 27 Standard intensity warfarin therapeutic range: 2.0-3.0 High intensity warfarin therapeutic range: 2.5-3.5 28 Troponin-I testing on Plasma Separator Tubes [...] immediately to secondary confirmatory testing. Using the localstay.comI 800 Access Immunoassay systems, the 99th percentile upper reference limit was demonstrated to be < 0.03 ng/mL. 33 Therapeutic target for the treatment of diabetes mellitus patients is <7% HBA1C, and in selective patients <6.0%. Please refer to [place] [employer] diabetic care guidelines for further [...] High intensity warfarin therapeutic range: 2.5-3.5 36 Troponin-I testing on Plasma Separator Tubes (PST) has a known false positive rate of 0.20-0.40%. All positive troponins reflex immediately to secondary confirmatory testing. Using the [employer] DxI 800 Access Immunoassay systems, the 99th [...] calculate LDL as triglyceride is > 400 Procedures Date Code Description Status 03/10/2019 68915 EKG, Interpretation Only Completed 03/09/2019 12466 Intravascular Blood Flow Velocity Completed 03/09/2019 64198 EKG, Interpretation Only Completed 03/09/2019 97045 Percutaneous Transcatheter Placement Of Intracoronary Completed Stent 01/09/2019 89524389 Colonoscopy Completed 11/08/2018 51649 EKG Tracing & Interpretation Completed 10/19/2018 89499 ECHO Transthorasic Realtime 2D W Doppler & Color Flow Completed Hosp 10/19/2018 93082 EKG, Interpretation Only Completed 10/18/2018 27842 Left Heart Cath. Incl S/I Coronaries, Angio S/I V Gram Completed If Done 10/18/2018 64596 EKG, Interpretation Only Completed 10/18/2018 00816 Myocardial Perfusion Imaging Tomographic (Spect) Completed Multiple Studies 10/18/2018 37047 Myocardial Perfusion Imaging Tomographic (Spect) Single Completed Study 10/09/2018 92089 EKG Tracing & Interpretation Completed Medical Devices Description No Information Available Encounters Type Date Location Provider Dx Diagnosis Office Visit 04/04/2019 [facility] Jorge Luis Santoyo G43.909 Migraine, unsp, 4:00p Services Of Saige Lee M.D. 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.1 Presence of aortocoronary bypass graft E78.5 Hyperlipidemia, unspecified I25.2 Old myocardial infarction I25.5 Ischemic cardiomyopathy I10 Essential (primary) hypertension F17.201 Nicotine dependence, unspecified, in remission Office Visit 03/12/2019 2:40p [facility] Internal Jose Rodriguez NP M25.562 Pain in left Medicine - Ccmob knee Z95.1 Presence of aortocoronary bypass graft Office Visit 02/21/2019 4:40p [facility] Reymundo Santoyo I25.6 Silent myocardial Of Saige Ortiz DO ischemia FACC E78.5 Hyperlipidemia, unspecified I25.2 Old myocardial infarction I25.5 Ischemic cardiomyopathy Z72.0 Tobacco use 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 I10 Essential (primary) hypertension Office Visit 01/05/2019 11:15a [facility] Alannah G47.21 [facility] oSuth, RN, rhythm sleep [facility] CIGAR ROLLER-BC disorder, delayed sleep phase type F51.04 Psychophysiologic insomnia G47.33 Obstructive sleep apnea (adult) (pediatric) Office Visit 12/20/2018 1:40p [facility] Reymundo SDemarcus I82.402 Acute embolism Of Saige Ortiz DO and thombos FAC unsp deep veins of l low extrem I10 Essential (primary) hypertension I25.119 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 and thombos unsp deep veins of l low extrem Office Visit 12/18/2018 4:00p [facility] Alicia Gama Z11.3 Encntr screen Infectious [place] [facility] for infections w Diseases sexl mode of transmiss Z79.899 Other fpc (current) drug therapy Z11.4 Encounter for screening for human immunodeficiency virus Office Visit 12/11/2018 10:20a [facility] Internal Jose Rodriguez NP R07.89 Other chest Medicine - Ccmob pain I82.402 Acute embolism and thombos unsp deep veins of l low extrem J30.89 Other allergic rhinitis Office Visit 11/21/2018 10:40a [facility] Internal Jose Rodriguez NP R07.89 Other chest Medicine - Ccmob pain F31.9 Bipolar disorder, unspecified I25.119 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 Office Visit 11/20/2018 8:30a [facility] G47.21 [facility] [place], RN, rhythm sleep [facility] CIGAR ROLLER-BC disorder, delayed sleep phase type F51.04 Psychophysiologic insomnia G47.33 Obstructive sleep apnea (adult) (pediatric) Office Visit 11/08/2018 1:40p [facility] Reymundo Santoyo I25.2 Old myocardial Of [facility] Angel, DO infarction [facility] I82.402 Acute embolism and thombos unsp deep veins of l low extrem I25.5 Ischemic cardiomyopathy I10 Essential (primary) hypertension E78.5 Hyperlipidemia, unspecified F17.201 Nicotine dependence, unspecified, in remission Office Visit 11/03/2018 9:20a [facility] Internal Jose Rodriguez NP I25.119 Athscl heart Medicine - Ccmob disease of cahto cor art w unsp ang pctrs I10 Essential (primary) hypertension I82.402 Acute embolism and thombos unsp deep veins of l low extrem F31.9 Bipolar disorder, unspecified J90 Pleural effusion, not elsewhere classified Office Visit 11/02/2018 1:51p [facility] Reymundo Santoyo I25.10 Athscl heart Of [facility] Angel, DO disease of [facility] cahto coronary artery w/o ang pctrs I25.5 Ischemic cardiomyopathy I25.2 Old myocardial infarction I82.442 Acute embolism and thrombosis of left tibial vein Office Visit 11/02/2018 9:53a [facility] I82.402 Acute embolism [facility]oc[facility] Quinn Louis, and [facility] Hospital[facility] SENIOR INTERACTION DESIGNER unsp deep veins of l low extrem I25.119 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 I10 Essential (primary) hypertension G43.909 Migraine, unsp, not intractable, without status migrainosus E78.00 Pure hypercholesterolemia, unspecified Office Visit 2018 3:58p [facility] Sammi Soria, I82.402 Acute embolism Of [facility] SENIOR INTERACTION DESIGNER and thombos unsp deep veins of l low extrem 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 disease of cahto cor art w unsp ang pctrs I10 Essential (primary) hypertension E78.5 Hyperlipidemia, unspecified R07.9 Chest pain, unspecified Office Visit 10/18/2018 3:50p [facility] Karon Rose, I25.110 Athscl heart Of Staffing Operations Manager M.D. disease of cahto cor art w unstable ang pctrs I25.2 Old myocardial infarction Office Visit 10/18/2018 9:00a [facility] Reymundo Santoyo I25.2 Old myocardial Of [facility] Ortiz, DO infarction FACC I25.119 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 F17.201 Nicotine dependence, unspecified, in remission I10 Essential (primary) hypertension E78.5 Hyperlipidemia, unspecified E66.8 Other obesity Office Visit 10/09/2018 10:00a [facility] Internal Jose Michael, I10 Essential ( primary) Medicine - [facility] SENIOR INTERACTION DESIGNER hypertension R07.89 Other chest pain R22.2 Localized swelling, mass and lump, trunk K57.92 Dvtrcli of intest, part unsp, w/o perf or abscess w/o bleed R94.31 Abnormal electrocardiogram [ECG] [EKG] Assessments Date Code Description Provider 04/09/2019 M84.352A Stress fracture, left femur, initial Manjinder Wing M.D. encounter for fracture 04/04/2019 G43.909 Migraine, unspecified, not Jorge Luis Lee M.D. intractable, without status migrainosus 03/20/2019 S83.232A Complex tear of medial meniscus, Manjinder Wnig M.D. 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 03/14/2019 Z95.1 Presence of aortocoronary bypass Reymundo Ortiz, DO FACC graft 03/14/2019 E78.5 Hyperlipidemia, unspecified Reymundo SDemarcus Ortiz, DO FACC 03/14/2019 I25.2 Old myocardial infarction Reymundo Natanael Ortiz, DO FACC 03/14/2019 I25.5 Ischemic cardiomyopathy Reymundo SDemarcus Ortiz, DO FACC 03/14/2019 I10 Essential (primary) hypertension Reymundo SDemarcus Ortiz, DO FACC 03/14/2019 F17.201 Nicotine dependence, unspecified, in Reymundo Putnamno, DO FACC remission 03/12/2019 M25.562 Pain in left knee Josekevin Rodriguez SENIOR INTERACTION DESIGNER 03/12/2019 Z95.1 Presence of aortocoronary bypass Jose Rodriguez NP graft 03/10/2019 R94.31 Abnormal electrocardiogram [ECG] Karon Rose M.D. [EKG] 03/09/2019 R94.31 Abnormal electrocardiogram [ECG] Denisha Bustillos M.D. [EKG] 03/09/2019 I25.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 Sampson Aden MD, FACC, cahto coronary artery without angina FSCAI pectoris 03/09/2019 Z95.1 Presence of aortocoronary bypass Sampson Aden MD, [facility] , graft FSCAI 02/21/2019 I25.6 Silent myocardial ischemia Reymundo Ortiz, DO [facility] 02/21/2019 E78.5 Hyperlipidemia, unspecified Reymundo Ortiz, DO [facility] 02/21/2019 I25.2 Old myocardial infarction Reymundo Ortiz, DO [facility] 02/21/2019 I25.5 Ischemic cardiomyopathy Reymundo Ortiz, DO [facility] 02/21/2019 Z72.0 Tobacco use Reymundo Ortiz, DO [facility] 02/21/2019 I25.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 Reymundo Ortiz, DO [facility] cahto coronary artery without angina pectoris 02/21/2019 I10 Essential (primary) hypertension Reymundo Ortiz, [facility] 01/05/2019 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 01/05/2019 F51.04 Psychophysiologic insomnia Alannah South DNP, RN, [facility] 01/05/2019 G47.33 Obstructive sleep apnea (adult) Alannah South DNP, RN, (pediatric) [facility] 12/20/2018 I82.402 Acute embolism and thrombosis of Buddy Gold M.D. unspecified deep veins of left lower extremity 12/20/2018 I82.402 Acute embolism and thrombosis of Reymundo Ortiz, DO [facility] unspecified deep veins of left lower extremity 12/20/2018 I10 Essential (primary) hypertension Reymundo Ortiz, DO [facility] 12/20/2018 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 Reymundo Ortiz, [facility] cahto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 12/20/2018 E78.5 Hyperlipidemia, unspecified Reymundo Ortiz, DO [facility] 12/20/2018 I25.2 Old myocardial infarction Reymundo Ortiz, DO [facility] 12/20/2018 I25.5 Ischemic cardiomyopathy Reymundo Ortiz, DO [facility] 12/20/2018 F17.201 Nicotine dependence, unspecified, in Reymundo Ortiz, DO [facility] remission 12/18/2018 Z11.3 Encounter for screening for Sanchez Alexandra M.D. infections with a predominantly sexual mode of transmission 12/18/2018 Z79.899 Other long term care pharmacist (current) drug Sanchez Alexandra M.D. therapy 12/18/2018 Z11.4 Encounter for screening for human Sanchez Alexandra M.D. immunodeficiency virus [HIV] 12/11/2018 R07.89 Other chest pain Jose Michael, SENIOR INTERACTION DESIGNER 12/11/2018 I82.402 Acute embolism and thrombosis of Jose Michael, SENIOR INTERACTION DESIGNER unspecified deep veins of left lower extremity 12/11/2018 J30.89 Other allergic rhinitis Jose Michael, SENIOR INTERACTION DESIGNER 11/21/2018 R07.89 Other chest pain Jose Michael, SENIOR INTERACTION DESIGNER 11/21/2018 F31.9 Bipolar disorder, unspecified Jose Michael, SENIOR INTERACTION DESIGNER 11/21/2018 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 Josekevin Rodriguez, SENIOR INTERACTION DESIGNER cahto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 11/20/2018 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 11/20/2018 F51.04 Psychophysiologic insomnia Alannah South DNP, RN, [facility] 11/20/2018 G47.33 Obstructive sleep apnea (adult) Alannah South DNP, RN, (pediatric) [facility] 11/08/2018 I25.2 Old myocardial infarction Reymundo SDemarcus Ortiz, DO [facility] 11/08/2018 I82.402 Acute embolism and thrombosis of Reymundo Putnamno, DO [facility] unspecified deep veins of left lower extremity 11/08/2018 I25.5 Ischemic cardiomyopathy Reymundo Ortiz, DO [facility]AC 11/08/2018 I10 Essential (primary) hypertension Reymundo Ortiz, DO FAC 11/08/2018 E78.5 Hyperlipidemia, unspecified Reymundo Ortiz, DO FAC 11/08/2018 F17.201 Nicotine dependence, unspecified, in Reymundo Natanael Ortiz, DO [facility] remission 11/03/2018 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 Josekevin Rodriguez, SENIOR INTERACTION DESIGNER cahto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 11/03/2018 I10 Essential (primary) hypertension Jose Michael, SENIOR INTERACTION DESIGNER 11/03/2018 I82.402 Acute embolism and thrombosis of Jose Michael, SENIOR INTERACTION DESIGNER unspecified deep veins of left lower extremity 11/03/2018 F31.9 Bipolar disorder, unspecified Josekevin Rodriguez, SENIOR INTERACTION DESIGNER 11/03/2018 J90 Pleural effusion, not elsewhere Jose Michael, SENIOR INTERACTION DESIGNER classified 11/02/2018 I25.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 Reymundo Ortiz, DO [facility] cahto coronary artery without angina pectoris 11/02/2018 I82.402 Acute embolism and thrombosis of Sherry Louis SENIOR INTERACTION DESIGNER unspecified deep veins of left lower extremity 11/02/2018 I25.5 Ischemic cardiomyopathy Reymundo Ortiz, DO [facility] 11/02/2018 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 Sherry Louis SENIOR INTERACTION DESIGNER cahto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 11/02/2018 I25.2 Old myocardial infarction Reymundo Ortiz, DO [facility] 11/02/2018 I10 Essential (primary) hypertension Sherry Louis, SENIOR INTERACTION DESIGNER 11/02/2018 I82.442 Acute embolism and thrombosis of left Reymundo Ortiz, DO [facility] tibial vein 11/02/2018 G43.909 Migraine, unspecified, not Sherry Louis, SENIOR INTERACTION DESIGNER intractable, without status migrainosus 11/01/2018 I25.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 Karon Rose M.D. cahto coronary artery without angina pectoris 11/01/2018 I82.402 Acute embolism and thrombosis of Sherry Louis SENIOR INTERACTION DESIGNER unspecified deep veins of left lower extremity 11/01/2018 I25.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 Sherry Louis SENIOR INTERACTION DESIGNER cahto coronary artery without angina pectoris 11/01/2018 I10 Essential (primary) hypertension Sherry Louis, SENIOR INTERACTION DESIGNER 11/01/2018 G43.909 Migraine, unspecified, not Sherry Louis, SENIOR INTERACTION DESIGNER intractable, without status migrainosus 11/01/2018 E78.00 Pure hypercholesterolemia, Sherry Louis, SENIOR INTERACTION DESIGNER unspecified 2018 I82.402 Acute embolism and thrombosis of Sammi Soria NP unspecified deep veins of left lower extremity 2018 I82.402 Acute embolism and thrombosis of Corine Oh M.D. unspecified deep veins of left lower extremity 2018 I25.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 Sammi Soria FARHAD cahto coronary artery without angina pectoris 2018 R07.9 Chest pain, unspecified Corine Oh M.D. 2018 Z95.1 Presence of aortocoronary bypass Smami Soria NP graft 2018 I10 Essential (primary) hypertension Corine Oh M.D. 2018 E78.5 Hyperlipidemia, unspecified Sammi BrandFARHAD oh 2018 E78.5 Hyperlipidemia, unspecified Corine Oh M.D. 2018 I50.9 Heart failure, unspecified Sammi BrandFARHAD oh 10/19/2018 R94.31 Abnormal electrocardiogram [ECG] Lauro Brown M.D. 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 cahto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 10/19/2018 I10 Essential (primary) hypertension Karon Rose M.D. 10/19/2018 E78.5 Hyperlipidemia, unspecified Karon Rose M.D. 10/19/2018 R07.9 Chest pain, unspecified Karon Rose M.D. 10/18/2018 R94.31 Abnormal electrocardiogram [ECG] Karon Rose M.D. [EKG] 10/18/2018 I25.1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 Karon Rose M.D. cahto coronary artery with unstable angina pectoris 10/18/2018 I25.2 Old myocardial infarction Karon Rose M.D. 10/18/2018 I25.1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 Sampson Aden MD, [facility], cahto coronary artery with unstable FSCAI angina pectoris 10/18/2018 R07.9 Chest pain, unspecified Reymundo Ortiz DO [facility] 10/18/2018 I25.2 Old myocardial infarction Reymundo Ortiz, DO [facility] 10/18/2018 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 Reymundo Ortiz DO [facility] cahto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 10/18/2018 F17.201 Nicotine dependence, unspecified, in Reymundo Ortiz, DO FACC remission 10/18/2018 I10 Essential (primary) hypertension Reymundo SDemarcus Ortiz, DO FACC 10/18/2018 E78.5 Hyperlipidemia, unspecified Reymundo SDemarcus Ortiz, DO FACC 10/18/2018 E66.8 Other obesity Reymundo SDemarcus Ortiz, DO FACC 10/18/2018 R07.89 Other chest pain Jose Michael, SENIOR INTERACTION DESIGNER 10/18/2018 R94.31 Abnormal electrocardiogram [ECG] Jose Michael, SENIOR INTERACTION DESIGNER [EKG] 10/09/2018 R94.31 Abnormal electrocardiogram [ECG] Enedina Abreu MD [EKG] 10/09/2018 I10 Essential (primary) hypertension Jsoe Michael, SENIOR INTERACTION DESIGNER 10/09/2018 R07.89 Other chest pain Enedina Abreu MD 10/09/2018 R07.89 Other chest pain Jose Michael, SENIOR INTERACTION DESIGNER 10/09/2018 R22.2 Localized swelling, mass and lump, Jose Michael, SENIOR INTERACTION DESIGNER trunk 10/09/2018 K57.92 Diverticulitis of intestine, part Jose Michael, SENIOR INTERACTION DESIGNER unspecified, without perforation or abscess without bleeding 10/09/2018 R94.31 Abnormal electrocardiogram [ECG] Jose Michael, SENIOR INTERACTION DESIGNER [EKG] Plan of Treatment Future Appointment(s):06/11/2019 3:30 pm - Manjinder Wing M.D. at [facility]/16/2019 4:40 pm - Reymundo Ortiz DO FAC at [facility]04/09/2019 - Manjinder Wing M.D.M84.352A Stress fracture, left femur, initial encounter for fractureNew Medication:Forearm Crutches -Follow up:Follow up: 2-3 months OK to use forearm crutches or a walker OK to use the knee brace The stressed bone is the medial femoral condyle, the thigh bone at the inside of the knee Functional Status Description No Information Available Mental Status Description No Information Available Referrals Refer to Reason for Referral Status Appt Manjinder Wing MD Scheduled 03/20/2019 [address] [facility] [place] [address] [phone] Buddy Gold MD Sent 02/21/[address] [place] [phone] Ofe Hoang NPP Sent [address] [place] [address] [phone] Malini Matson M.D. refaxed referral they will be looking for it. Closed 11/13/201810/27 [address] [facility] [place] [address] [phone] [facility] 10/30[facility] [place] [address] [phone] [facility] Closed 11/28/[address] [place] [address] [phone]
--- OUTSIDE RECORDS SUMMARY | 2019-05-05 14:49 | XMS REPORT | Continuity of Care Document ---
:1980 External Reference #:[id number] Author Name Manjinder Wing M.D. (transmitted by agent of provider Graciela Durand) Address [address] [place] [address] Care Team Providers Name Role Phone Kem Celaya MD - Family Medicine Care Team Information Photonics Engineering Technician [phone] Radha Julien MD - Internal Medicine Care Team Information Photonics Engineering Technician [phone] Problems Active Problems Provider Date Obstructive sleep apnea syndrome Glory Almonte MD Onset: 11/30/2013 Note: Mild. AHI- 6.6/REM AHI 13.1, O2 agnieszka 91% Obstructive sleep apnea syndrome Glory Almonte MD Onset: 12/11/2013 Sprain of knee Kelechi Smith M.D. Onset: 01/07/2015 Degeneration of cervical [...] Amlodipine Besylate 1 by mouth every 90tabs Jose Rodriguez NP 12/20/2018 5mg day Tablets Acetaminophen 500 MG Take two tablets Unknown 12/19/2018 prn Atorvastatin Calcium take 1 tablet 90tabs Reymundo Ortiz, 10/28/2018 80mg (80 mg total) by DO FACC Tablets mouth nightly Gabapentin take one capsule 60caps G47.00 Jose Rodriguez NP 06/28/2018 300mg Capsules bid Truvada 1 by mouth every 30tabs Z20.2 Sanchez Gama 03/14/2017 200-300mg Tablets day Parish Alexandra Myrbetriq 1 by mouth every Unknown 50mg Tablets ER day 24HR Lamotrigine 1 by mouth once Unknown 100mg Tablets a day Fluticasone Propionate 2 sprays each Unknown nostril daily as 50mcg/Act Suspension needed Carvedilol 1 by mouth twice Unknown 6.25mg Tablets a day Brilinta 1 tab by mouth 180tabs Reymundo Ortiz, 90mg Tablets twice a day DO FACC Aspirin Adult Low 1 by mouth every Unknown Strength day 81mg Tablets DR Calcium 500 500 mg one by Unknown mouth once a day [phone]-mg-Unit Tablets Vraylar 2 cap po daily Unknown 1.5mg Capsules Daily Farzaneh Men's Complete 1 Unknown Tablets by mouth every day Fish Oil Take one tablet Unknown 1200mg Capsules three times a day History Medications Brilinta 1 tab by mouth 60tabs I25.6 Reymundo Santoyo 02/21/2019 - 90mg Tablets twice a day DO Angel [facility] 03/19/2019 Amlodipine Besylate 1 by mouth every 90tabs Reymundo Santoyo 12/20/2018 - day DO Angel [facility] 12/20/2018 10mg Tablets Lidocaine apply to 60gm R07.89 Jose Rodriguez NP 12/11/2018 - 4% Cream affected areas 3 03/19/2019 or 4 times daily-prn Fluticasone [place] 2 Sprays 16units J30.89 Joes Rodriguez NP 12/11/2018 - Propionate Into Each 03/19/2019 50mcg/Act Nostril One Time Suspension Daily Tramadol HCL 1-2 tablets 42tabs M25.562 Jose Rodriguez NP 11/21/2018 - 50mg every 8 hours as 03/19/2019 Tablets needed for pain. Ferrous Gluconate Take 1 tablet 60tabs Jose Rodriguez NP 11/03/2018 - (324 mg total) 11/19/2018 324(37.5Fe) mg by mouth 2 (two) Tablets times a day Latuda 1 by mouth every 30tabs Jose Rodriguez NP 11/03/2018 - 60mg Tablets day at bedtime 12/19/2018 Medications Administered in Office Medication SIG Qnty Indications Ordering Provider Date Technetium TC 99M Reymundo Ortiz DO [facility] 10/18/2018 Tetrofosmin, Per Unit Dose Up [...] Result H/L Range Note Laboratory test 03/09/2019 [facility] Poc Activated 340 seconds [address] [place] [address] [phone] Laboratory test 03/09/2019 [facility] Poc Activated 247 seconds [address] [place] [address] [phone] Laboratory test 03/09/2019 [facility] Poc Activated 235 seconds [address] [place] [address] [phone] CBC Auto Diff 03/09/2019 [facility] White Blood 9.4 10^3/uL Normal 3.5-10.[address] [place] [address] [phone] Red Blood Count 4.61 10^6/uL Normal 4.18-5.48 [...] Blood Cells % 0.0 Basic Metabolic 03/09/2019 [facility] Sodium 142 mmol/L Normal 135-[address] [place] [address] [phone] Potassium 3.7 mmol/L Normal 3.5-5.0 Co2 Carbon Dioxide 22 mmol/L Normal 22-32 Glucose 98 mg/dL Normal 70-100 Blood Urea Nitrogen 11 mg/dL Normal 6-24 Creatinine 0.83 mg/dL Normal 0.67-1.17 BUN/Creatinine Ratio 13.3 Normal 8-20 Calcium 9.1 mg/dL Normal 8.6-10.3 Egfr Non- 103.7 >60 Egfr 125.5 >60 4 Chloride 112 mmol/L High 101-111 Anion Gap 8 mmol/L Normal 2-11 CBC No Diff 02/05/2019 [facility] White Blood 6.6 10^3/uL Normal 3.5-10.[address] [place] [address] [phone] Red Blood Count 4.69 10^6/uL Normal 4.18-5.48 Hemoglobin 14.9 g/dL Normal 14.0-18.0 Hematocrit 43 % Normal 42-52 Mean Corpuscular Volume 91 fL Normal 80-94 Mean Corpuscular Hemoglobin 32 pg High 27-31 Mean Corpuscular HGB Conc 35 g/dL Normal 31-36 Red Cell Distribution Width 14 % Normal 10-15 Platelet Count 198 10^3/uL Normal 150-450 Mean Platelet Volume 8.5 fL Normal 7.4-10.4 Comp Metabolic 02/05/2019 [facility] Sodium 141 mmol/L Normal 135-145 Panel [address] [place] [address] [phone] Potassium 4.0 mmol/L Normal 3.5-5.0 Co2 Carbon [...] 6 mmol/L Normal 2-11 Lipid Profile 02/05/2019 [facility] Triglycerides 137 mg/dL 6 (Trig/Chol/HDL) [address] [place] [address] [phone] Cholesterol 115 mg/dL 7 HDL Cholesterol 28.8 mg/dL 8 LDL Cholesterol 59 mg/dL 9 Laboratory test 02/05/2019 [facility] Magnesium 2.0 mg/dL Normal 1.9-2.7 finding [address] [place], [place] [address] [phone] Iron (Fe) 71 g/dL Normal 50-212 TSH (Thyroid Stim Horm) 0.38 mcIU/mL Normal 0.34-5.60 Ferritin 50.4 ng/mL Normal 24-336 Vitamin B12 417 pg/mL Normal 180-914 10 Hemoglobin A1c (Glyco HGB) 5.2 % Normal 4.0-5.6 11 Copper, Serum 1.07 g/mL 0.75-1.45 12 Zinc Serum 1.15 g/mL Abnormal 0.66-1.10 13 1,25 Dihydroxy 02/05/2019 [facility] Calcitriol 45 pg/mL 18- 64 14 Vitamin D [address] [place] [address] [phone] Surgical 01/09/2019 [facility] Surgical SEE RESULT 15, 16 Pathology [address] [facility] [place] [address] [phone] PDFReport SEE IMAGE Ctrach&Ngonorr Amplified Rna 12/18/2018 [facility] Source RECTAL [address] [place] [address] [phone] C. trach Amplified Rna Negative Negative 17 Source RECTAL N Gonorr Amplified Rna Negative Negative 18 Ctrach&Ngonorr Amplified Rna 12/18/2018 [facility] Source THROAT [address] [place] [address] [phone] C. trach Amplified Rna Negative Negative 19 Source THROAT N Gonorr Amplified Rna Negative Negative 20 GC/Chlamydia 12/18/2018 [facility] GCCHL Disclaimer (SEE NOTE) 21 Amplified Rna [address] [place] [address] [phone] Chlamydia trachomatis Berkley Negative Negative Neisseria gonorrhoeae (GC) Berkley Negative Negative Basic Metabolic 12/15/2018 [facility] Sodium 140 mmol/L Normal 135-145 Panel [address] [place] [address] [phone] Potassium 3.9 mmol/L Normal 3.5-5.0 Chloride 109 mmol/L Normal 101-111 Co2 Carbon Dioxide 26 mmol/L Normal 22-32 Anion Gap 5 mmol/L Normal 2-11 Glucose 107 mg/dL High 70-100 Blood Urea Nitrogen 14 mg/dL Normal 6-24 Creatinine 0.88 mg/dL Normal 0.67-1.17 BUN/Creatinine Ratio 15.9 Normal 8-20 Calcium 9.2 mg/dL Normal 8.6-10.3 Egfr Non- 96.9 >60 Egfr 117.3 >60 22 Laboratory 12/15/2018 [facility] Miscellaneous See Comment 23 test finding [address] [place] [address] [phone] Laboratory 12/05/2018 [facility] Troponin-I (TnI) 0.01 ng/mL <0.0 24 test finding [address] [place] [address] [phone] CBC Auto Diff 12/05/2018 [facility] White Blood Count 7.2 10^3/ uL Normal 3.5- [address] 10.8 [place] [address] [phone] Red Blood Count 4.78 10^6/uL Normal 4.18-5.48 [...] Red Blood Cells % 0.0 Inr/Protime 12/05/2018 [facility] Inr 1.10 High 0.82-1.[address] [place] [address] [phone] Laboratory test 12/05/2018 [facility] Troponin-I 0.03 <0.04 [address] (TnI) ng/mL [place], [place] [address] [phone] Comp Metabolic 12/05/2018 [facility] Sodium 141 Normal 135- [address] mmol/L [place], [place] [address] [phone] Potassium 3.8 mmol/L Normal 3.5-5.0 Co2 Carbon [...] 101-111 Anion Gap 4 mmol/L Normal 2-11 1 Rental Boats Caretaker: [id number] Reference Range: 74-125 seconds 2 Rental Boats Caretaker: [id number] Reference Range: 74-125 seconds 3 Rental Boats Caretaker: [id number] Reference Range: 74-125 seconds 4 Because ethnic [...] in selective patients <6.0%. Please refer to [employer] diabetic care guidelines for further information. 12 ADDITIONAL INFORMATION This test was developed and its performance characteristics determined by [facility] in a manner consistent with CLIA requirements. This test has not been cleared or approved by the U.S. Food and Drug Administration. Test Performed by: [facility] - [address] [address] Medical Office Receptionist Assistant: Omer Forman M.D. Ph.D.; CLIA# [id number] 13 ADDITIONAL INFORMATION This test was developed and its performance characteristics determined by [facility] in a manner consistent with CLIA requirements. This test has not been cleared or approved by the U.S. Food and Drug Administration. Test Performed by: [facility] [place] [address] Medical Office Receptionist Assistant: Omer Forman M.D. Ph.D.; CLIA# [id number] 14 ADDITIONAL INFORMATION This test was developed and its performance characteristics determined by [facility] in a manner consistent with CLIA requirements. This test has not been cleared or approved by the U.S. Food and Drug Administration. Test Performed by: [facility] [place] [address] Medical Office Receptionist Assistant: Omer Forman M.D. Ph.D.; CLIA# [id number] 15 [id number] 16 SEE RESULT BELOW Name: JAKOB ROJO : [address]: Olman Stout MD Acct: [id number] Unit: [id number] AGE: 38 Location: [facility] Re01/09/19 SEX: M Status: DEP REF SPEC: [id number] ESPERANZA: 01/09/19- SUBM DR: Olman Stout MD REQ: [id number] RECD: 01/09/19 STATUS: STEFFI ISABEL DR: Jose Rodriguez WRAPPING MACHINE OPERATOR _ ORDERED: LEVEL 4 COMMENTS: [id number] FINAL DIAGNOSIS Colon, splenic flexure, biopsy: -- [...] 1505 END OF REPORT DEPARTMENT OF PATHOLOGY, [address] [place] [address] Radames Ya M.D. Director [facility] # [id number] 17 ADDITIONAL INFORMATION This report is intended for use in clinical monitoring and management of patients. It is not intended for use in medical-legal applications. This test has been modified from the diamond grader's instructions. Its performance characteristics were determined by [facility] in a manner consistent with CLIA requirements. This test has not been cleared or approved by the U.S. Food and Drug Administration. 18 ADDITIONAL INFORMATION This report is intended for use in clinical monitoring and management of patients. It is not intended for use in medical-legal applications. This test has been modified from the diamond grader's instructions. Its performance characteristics were determined by [facility] in a manner consistent with CLIA requirements. This test has not been cleared or approved by the U.S. Food and Drug Administration. Test Performed by: [place] [address] Medical Office Receptionist Assistant: Omer Forman M.D. Ph.D.; CLIA# [id number] 19 ADDITIONAL INFORMATION This report is intended for use in clinical monitoring and management of patients. It is not intended for use in medical-legal applications. This test has been modified from the diamond grader's instructions. Its performance characteristics were determined by [facility] in a manner consistent with CLIA requirements. This test has not been cleared or approved by the U.S. Food and Drug Administration. 20 ADDITIONAL INFORMATION This report is intended for use in clinical monitoring and management of patients. It is not intended for use in medical-legal applications. This test has been modified from the diamond grader's instructions. Its performance characteristics were determined by [facility] in a manner consistent with CLIA requirements. This test has not been cleared or approved by the U.S. Food and Drug Administration. Test Performed by: [address] [address] Medical Office Receptionist Assistant: Omer Forman M.D. Ph.D.; CLIA# [id number] 21 As with all diagnostic procedures, the [...] REFERENCE VALUE Nonreactive Test Performed by: [facility] - [address] [address] Medical Office Receptionist Assistant: Omer Forman M.D. Ph.D.; CLIA# [id number] 24 Troponin-I testing on Plasma Separator Tubes (PST) has a known false positive rate of 0.20-0.40%. All positive troponins reflex immediately to secondary confirmatory testing. Using the TrabajoPanel 800 Access Immunoassay systems, the 99th percentile upper reference limit was demonstrated to be < 0.03 ng/mL. 25 Standard intensity warfarin therapeutic range: 2.0-3.0 High intensity warfarin therapeutic range: 2.5-3.5 26 Troponin-I testing on Plasma Separator Tubes (PST) has a known false positive rate of 0.20-0.40%. All positive troponins reflex immediately to secondary confirmatory testing. Using the Character Booster DxI 800 Access Immunoassay systems, the 99th [...] dialysis) Procedures Date Code Description Status 03/10/2019 13371 EKG, Interpretation Only Completed 03/09/2019 17471 Intravascular Blood Flow Velocity Completed 03/09/2019 02833 EKG, Interpretation Only Completed 03/09/2019 78149 Percutaneous Transcatheter Placement Of Intracoronary Completed Stent 01/09/2019 [id number] Colonoscopy Completed 11/08/2018 66044 EKG Tracing & Interpretation Completed Medical Devices Description No Information Available Encounters Type Date Location Provider Dx Diagnosis Office Visit 04/09/2019 [facility] Manjinder Wing, M84.352D Stress fracture, 3:15p at [facility].Lanette left femur, subs for fx w routn heal Office Visit 04/04/2019 [facility] Jorge Luis Santoyo G43.909 Migraine, unsp, 4:00p Services Of Saige Lee M.D. 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, unspecified, in remission Office Visit 03/12/2019 2:40p [facility] Internal Jose Michael, WRAPPING MACHINE OPERATOR M25.562 Pain in left Medicine - Ccmob knee Z95.1 Presence of aortocoronary bypass graft Office Visit 03/10/2019 1:37p [facility] Sampson Aguilar I25.10 Athscl heart Of [facility] [place] Keiko, disease of [place] FACC, FSCAI coronary artery w/o ang pctrs Office Visit 02/21/2019 4:40p [facility] Reymundo Santoyo I25.6 Silent myocardial Of [facility] Ortiz, DO ischemia FACC E78.5 Hyperlipidemia, unspecified I25.2 Old myocardial infarction I25.5 Ischemic cardiomyopathy Z72.0 Tobacco use I25.10 Athscl heart disease of [place] coronary artery w/o ang pctrs I10 Essential (primary) hypertension Office Visit 01/05/2019 11:15a Pulmonology And Alannah G47.21 [facility] NAVEED South, RN, rhythm sleep [facility] RACQUET MAKER-BC disorder, delayed sleep phase type F51.04 Psychophysiologic insomnia G47.33 Obstructive sleep apnea (adult) (pediatric) Office Visit 12/20/2018 9:30a [facility] Buddy Wetzel I82.402 Acute embolism Medicine Of [facility] Parish Gold and [facility] unsp deep veins of l low extrem Office Visit 12/20/2018 1:40p [facility] Reymundo Santoyo I82.402 Acute embolism Of [facility] Ortiz, DO and thombos FAC unsp deep veins of l low extrem I10 Essential (primary) hypertension I25.119 Athscl heart disease of [place] cor art w unsp ang pctrs E78.5 Hyperlipidemia, unspecified I25.2 Old myocardial infarction I25.5 Ischemic cardiomyopathy F17.201 Nicotine dependence, unspecified, in remission Office Visit 12/18/2018 4:00p [facility] Sanchez Gama Z11.3 Encntr screen Infectious [place] Alexandra for infections w Diseases sexl mode of transmiss Z79.899 Other computer terminal operator (current) drug therapy Z11.4 Encounter for screening for human immunodeficiency virus Office Visit 12/11/2018 10:20a [facility] Internal Jose Rodriguez NP R07.89 Other chest Medicine - Ccmob pain I82.402 Acute embolism and thombos unsp deep veins of l low extrem J30.89 Other allergic rhinitis Office Visit 11/21/2018 10:40a [facility] Jose Rodriguez NP R07.89 Other chest Medicine - Ccmob pain F31.9 Bipolar disorder, unspecified I25.119 Athscl heart disease of [place] cor art w unsp ang pctrs Office Visit 11/20/2018 8:30a Pulmonology And Alannah G47.21 [facility] [place], RN, rhythm sleep [facility] RACQUET MAKER-BC disorder, delayed sleep phase type F51.04 Psychophysiologic insomnia G47.33 Obstructive sleep apnea (adult) (pediatric) Office Visit 11/08/2018 1:40p [facility] Reymundo Santoyo I25.2 Old myocardial Of [facility] Ortiz, DO infarction FACC I82.402 Acute embolism and thombos unsp deep veins of l low extrem I25.5 Ischemic cardiomyopathy I10 Essential (primary) hypertension E78.5 Hyperlipidemia, unspecified F17.201 Nicotine dependence, unspecified, in remission Office Visit 11/03/2018 9:20a [facility] Internal Jose Rodriguez NP I25.119 Athscl heart Medicine - Ccmob disease of [place] cor art w unsp ang pctrs I10 Essential (primary) hypertension I82.402 Acute embolism and thombos unsp deep veins of l low extrem F31.9 Bipolar disorder, unspecified J90 Pleural effusion, not elsewhere classified Office Visit 11/02/2018 1:51p [facility] Reymundo Santoyo I25.10 Athscl heart Of [facility] Ortiz, DO disease of FAC [place] coronary artery w/o ang pctrs I25.5 Ischemic cardiomyopathy I25.2 Old myocardial infarction I82.442 Acute embolism and thrombosis of left tibial vein Office Visit 11/02/2018 9:53a [facility] I82.402 Acute embolism Assoc,pc Quinn Louis, and thombos Hospitalists WRAPPING MACHINE OPERATOR unsp deep veins of l low extrem I25.119 Athscl heart disease of [place] cor art w unsp ang pctrs I10 Essential (primary) hypertension G43.909 Migraine, unsp, not intractable, without status migrainosus Assessments Date Code Description Provider 04/09/2019 M84.352D Stress fracture, left femur, Manjinder Wing M.D. subsequent encounter for fracture with routine healing 04/04/2019 G43.909 Migraine, unspecified, not Jorge Luis Lee M.D. intractable, without status migrainosus 03/20/2019 S83.232A Complex tear of medial meniscus, Manjinder Wing M.D. 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 [EKG] 03/09/2019 R94.31 Abnormal electrocardiogram [ECG] Denisha Bustillos M.D. [EKG] 03/09/2019 I25.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 Sampson Aden MD, FACC, [place] coronary artery without angina FSCAI pectoris 03/09/2019 Z95.1 Presence of aortocoronary bypass Sampson Aden MD, FACC , graft FSCAI 02/21/2019 I25.6 Silent myocardial ischemia Reymundo Ortiz, DO [facility] 02/21/2019 E78.5 Hyperlipidemia, unspecified Reymundo Ortiz, DO FACC 02/21/2019 I25.2 Old myocardial infarction Reymundo Ortiz, DO [facility] 02/21/2019 I25.5 Ischemic cardiomyopathy Reymundo Ortiz, DO [facility] 02/21/2019 Z72.0 Tobacco use Reymundo Ortiz, DO [facility] 02/21/2019 I25.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 Reymundo Ortiz, DO [facility] [place] coronary artery without angina pectoris 02/21/2019 I10 Essential (primary) hypertension Reymundo Ortiz, DO [facility] 01/05/2019 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 unspecified deep veins of left lower extremity 12/20/2018 I82.402 Acute embolism and thrombosis of Reymundo Ortiz, DO [facility] unspecified deep veins of left lower extremity 12/20/2018 I10 Essential (primary) hypertension Reymundo Ortiz, DO [facility] 12/20/2018 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 Reymundo Ortiz, DO [facility] [place]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 12/20/2018 E78.5 Hyperlipidemia, unspecified Reymundo Ortiz, DO [facility] 12/20/2018 I25.2 Old myocardial infarction Reymundo Ortiz, DO [facility] 12/20/2018 I25.5 Ischemic cardiomyopathy Reymundo Ortiz, DO [facility] 12/20/2018 F17.201 Nicotine dependence, unspecified, in Reymundo Ortiz, DO [facility] remission 12/18/2018 Z11.3 Encounter for screening for Sanchez Alexandra M.D. infections with a predominantly sexual mode of transmission 12/18/2018 Z79.899 Other computer terminal operator (current) drug Sanchez Alexandra M.D. therapy 12/18/2018 Z11.4 Encounter for screening for human Sanchez Alexandra M.D. immunodeficiency virus [HIV] 12/11/2018 R07.89 Other chest pain Jose Michael, WRAPPING MACHINE OPERATOR 12/11/2018 I82.402 Acute embolism and thrombosis of Jose Michael, WRAPPING MACHINE OPERATOR unspecified deep veins of left lower extremity 12/11/2018 J30.89 Other allergic rhinitis Jose Michael, WRAPPING MACHINE OPERATOR 11/21/2018 R07.89 Other chest pain Jose Michael, WRAPPING MACHINE OPERATOR 11/21/2018 F31.9 Bipolar disorder, unspecified Jose Michael, WRAPPING MACHINE OPERATOR 11/21/2018 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 Jose Rodriguez, WRAPPING MACHINE OPERATOR [place]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 11/20/2018 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, Alannah South DNP, RN, delayed sleep phase type [facility] 11/20/2018 F51.04 Psychophysiologic insomnia Alannah South DNP, RN, [facility] 11/20/2018 G47.33 Obstructive sleep apnea (adult) Alannah South DNP, RN, (pediatric) [facility] 11/08/2018 I25.2 Old myocardial infarction Reymundo Natanael Ortiz, DO [facility] 11/08/2018 I82.402 Acute embolism and thrombosis of Reymundo Putnamno, DO [facility] unspecified deep veins of left lower extremity 11/08/2018 I25.5 Ischemic cardiomyopathy Reymundo Ortiz, DO [facility] 11/08/2018 I10 Essential (primary) hypertension Reymundo Ortiz, DO [facility] 11/08/2018 E78.5 Hyperlipidemia, unspecified Reymundo Ortiz, [facility] 11/08/2018 F17.201 Nicotine dependence, unspecified, in Reymundo DarrenDemarcus Angel, DO [facility] remission 11/03/2018 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 Jose Rodriguez, WRAPPING MACHINE OPERATOR [place]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 11/03/2018 I10 Essential (primary) hypertension Josekevin Rodriguez, WRAPPING MACHINE OPERATOR 11/03/2018 I82.402 Acute embolism and thrombosis of Josekevin Rodriguez, WRAPPING MACHINE OPERATOR unspecified deep veins of left lower extremity 11/03/2018 F31.9 Bipolar disorder, unspecified Josekevin Rodriguez, WRAPPING MACHINE OPERATOR 11/03/2018 J90 Pleural effusion, not elsewhere Jose Michael, WRAPPING MACHINE OPERATOR classified 11/02/2018 I25.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 Reymundo Ortiz, DO FAC [place] coronary artery without angina pectoris 11/02/2018 I82.402 Acute embolism and thrombosis of Shrery Louis NP unspecified deep veins of left lower extremity 11/02/2018 I25.5 Ischemic cardiomyopathy Reymundo Ortiz, DO FAC 11/02/2018 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 Sherry Louis NP [place]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 11/02/2018 I25.2 Old myocardial infarction Reymundo Ortiz, DO FAC 11/02/2018 I10 Essential (primary) hypertension Sherry Louis NP 11/02/2018 I82.442 Acute embolism and thrombosis of left Reymundo Ortiz, DO FAC tibial vein 11/02/2018 G43.909 Migraine, unspecified, not Sherry Louis, WRAPPING MACHINE OPERATOR intractable, without status migrainosus Plan of Treatment Future Appointment(s):06/11/2019 3:30 pm - Manjinder Wing M.D. at [facility] at [id number]/16/2019 4:40 pm - Reymundo DarrenDemarcus Ortiz, DO [facility] at [facility]04/04/2019 - Jorge Luis Lee M.D.G43.909 Migraine, unspecified, not intractable, without status migrainosusFollow up:1 YEAR Functional Status Description No Information Available Mental Status Description No Information Available Referrals Refer to Dr Reason for Referral Status Appt Date Manjinder Wing MD Scheduled 03/20/2019 [address] [place] [address] [place] [address] [phone] Buddy Gold MD Sent 02/21/[address] [place] [address] [phone] Ofe Hoang NPP Sent [address] [place] [address] [phone]
--- NOTE | 2019-05-05 14:55 | ED ---
HPI Chest Pain - HPI Summary HPI Summary: This pt is a 38 Y/O M presenting to [facility] by ems for mid-sternal CP described as pressure that began last night while he was getting ready for bed that was rated a 9/10 and has alleviated to a 6/10 spontaneously throughout the day. He states that his pain is reproducible on deep breaths and movements. He states that he took his daily ASA today. He also reports SOB increase when lying flat. He denies any fevers, chills, diaphoresis, and N/V. He states that he has an extensive cardiac Hx of a silent CO in October that resulted in a single bypass graft in February. He also had a cardiac catheterization in February. He states that his pain is aggravated when he lies down. - History of Current Complaint Chief Complaint: EDChestPainROMI Time Seen by Provider: 05/05/19 14:44 Hx Obtained From: Patient Onset/Duration: Started Hours Ago Timing: Constant, Lasting Hours Initial Severity: Severe - 9 Current Severity: Moderate Pain Intensity: 6 Pain Scale Used: 0-10 Numeric Chest Pain Location: Mid Sternal Chest Pain Radiates: No Character: Pressure/Squeezing Aggravating Factor(s): Movement, Deep Breaths, Recumbent Position Alleviating Factor(s): OTC Meds - ASA Associated Signs and Symptoms: Positive: Chest Pain, Shortness of Breath. Negative: Fever, Chills, Diaphoresis, Nausea, Vomiting - Additional Pertinent History Primary Care Physician: SRUTHI - Allergy/Home Medications Allergies/Adverse Reactions: Allergies Allergy/AdvReac Type Severity Reaction Status Date / Time clarithromycin [From Biaxin] Allergy Severe Hives Verified 05/05/19 14:48 Home Medications: Home Medications Emtricitabine/Tenofovir (Tdf) [Truvada 200 mg-300 mg Tablet] 1 each PO DAILY PRN 03/22/17 [History Confirmed 05/05/19] amLODIPine TAB* [Norvasc 5 mg TAB*] 5 mg PO DAILY 05/16/18 [History Confirmed ] Topiramate TAB(*) [Topamax 100 mg tab] 150 mg PO BID 10/18/18 [History Confirmed 05/05/19] Acetaminophen TAB* [Tylenol TAB*] 650 mg PO Q4H PRN 10/30/18 [History Confirmed 05/05/19] Ascorbic Acid TAB* [Vitamin C TAB*] 500 mg PO DAILY 10/30/18 [History Confirmed 05/05/19] Atorvastatin* [Lipitor 80 MG*] 80 mg PO BEDTIME 10/30/18 [History Confirmed ] Carvedilol TAB* [Coreg TAB*] 6.25 mg PO BID 10/30/18 [History Confirmed 05/05/19 ] Eletriptan 40 mg (Nf)* [Relpax (NF)] 40 mg PO DAILY PRN MDD 80 mg 10/30/18 [ History Confirmed 05/05/19] Gabapentin CAP(*) [Neurontin 300 CAP(*)] 300 mg PO BID 10/30/18 [History Confirmed 05/05/19] Multivitamins/Minerals TAB* [Theragran/minerals TAB*] 1 tab PO DAILY 10/30/18 [ History Confirmed 05/05/19] Aspirin 81 mg CHEW TAB* 81 mg PO DAILY tab.chew 11/02/18 [Rx Confirmed 05/05/19 ] Mirabegron (NF) [Myrbetriq (NF)] 50 mg PO DAILY 12/05/18 [History Confirmed ] traMADol TAB* [Ultram*] 50 - 100 mg PO Q8HR PRN 01/09/19 [History Confirmed ] Cariprazine HCl [Vraylar] 1.5 mg PO DAILY 03/09/19 [History Confirmed 05/05/19] Fexofenadine (NF) [Shannon 180 (NF)] 180 mg PO DAILY PRN 03/09/19 [History Confirmed 05/05/19] Fluticasone NASAL SPRAY 50MCG* [Flonase NASAL SPRAY 50MCG*] 2 spray BOTH NARES DAILY 03/09/19 [History Confirmed 05/05/19] Lidocaine 4% GEL* [Topicaine 4% GEL*] 1 applic TOPICAL SEE INSTRUCTIONS [History Confirmed 05/05/19] Losartan TAB* [Cozaar TAB*] 50 mg PO DAILY 03/09/19 [History Confirmed 05/05/19] Peebles-3 Fatty Acids/Fish Oil [Fish Oil 1,200 mg Softgel] 1 cap PO TID 03/09/19 [ History Confirmed 05/05/19] Ticagrelor* [Brilinta 90 MG*] 90 mg PO BID 03/09/19 [History Confirmed 05/05/19] lamoTRIgine TAB(*) [Lamictal TAB(*)] 100 mg PO QPM 03/09/19 [History Confirmed 05/05/19] Oxycodone HCl 5 mg PO Q6H PRN 03/24/19 [History Confirmed 05/05/19] PMH/Surg Hx/FS Hx/Imm Hx Previously Healthy: Yes Endocrine/Hematology History: Denies: Hx Anticoagulant Therapy, Hx Diabetes, Hx Thyroid Disease, Hx Anemia Cardiovascular History: Reports: Hx Angina, Hx Coronary Artery Disease - CHOLESTEROL CONTROL WITH MEDS, Hx Hypercholesterolemia, Hx Hypertension, Hx Myocardial Infarction Denies: Hx Congestive Heart Failure, Hx Deep Vein Thrombosis, Hx Pacemaker/ ICD, Hx Valvular Heart Disease Respiratory History: Reports: Hx Sleep Apnea - evaluation for 06/2013, another scheduled for 07/2018 Denies: Hx Asthma, Hx Chronic Obstructive Pulmonary Disease (COPD), Hx Lung Cancer, Hx Pneumonia, Hx Pulmonary Embolism GI History: Reports: Other GI Disorders - enlarged liver 2018 Denies: Hx Gall Bladder Disease - possible gallstones on MRI 2018, Hx Gastrointestinal Bleed, Hx Jaundice, Hx Ulcer, Hx Urosepsis History: Denies: Hx Chronic Renal Failure, Hx Dialysis, Hx Kidney Stones, Hx Renal Disease Musculoskeletal History: Reports: Hx Arthritis, Hx Back Problems, Other Musculoskeletal History - osteo-arthritis Right foot Denies: Hx Rheumatoid Arthritis, Hx Osteoporosis, Hx Scoliosis Sensory History: Reports: Hx Contacts or Glasses Denies: Hx Cataracts, Hx Hearing Aid Opthamlomology History: Reports: Hx Contacts or Glasses Denies: Hx Cataracts Neurological History: Reports: Hx Headaches - HX MIGRAINES, Hx Migraine - NONE FOR ONE MONTH SINCE ON TOPAMAX, Other Neuro Impairments/Disorders - migraines Denies: Hx Dementia, Hx Seizures, Hx Transient Ischemic Attacks (TIA) Psychiatric History: Reports: Hx Anxiety - ON MEDS, Hx Eating Disorder - reports inconsistent eating habits, times of binging, others restricting, Hx Depression, Hx Bipolar Disorder - on [place] for depression Denies: Hx Panic Disorder, Hx of Violent Episodes Against Others - Pt denied - Cancer History Hx Chemotherapy: No Hx Radiation Therapy: No - Surgical History Surgical History: Yes Surgery Procedure, Year, and Place: right foot fusion, 2013? - METAL SCREW. wisdom teeth removal. 10/2018 CABG - SINGLE BYPASS. 03/09/2019 STENT PLACED HEART VESSEL HAS STENT CARD - [facility] [place] - [employer]ENT[employer] SYNERGY IMMEDIATELY AFTER IMPLANTATION CLEARED FOR 1.5 AND 3.0 T MAX SPATIAL GRADIENT 2500 GAUSS/cm OR LESS , NORMAL MODE Hx Anesthesia Reactions: Yes - LOCAL ANESTHESIA ONLY - Immunization History Date of Tetanus Vaccine: 2011 Immunizations Up to Date: Yes Infectious Disease History: No Infectious Disease History: Denies: Hx Hepatitis, Hx Human Immunodeficiency Virus (HIV), History Other Infectious Disease, Traveled Outside the [place] in Last 30 Days - Family History Known Family History: Positive: Cardiac Disease, Hypertension, Other - CA Negative: Diabetes - Social History Occupation: Employed Full-time Lives: Alone Alcohol Use: Rare Alcohol Amount: 1 drink a month Hx Substance Use: Yes Substance Use Type: Reports: Marijuana Substance Use Comment - Amount & Last Used: rare-marijuana Hx Tobacco Use: Yes Smoking Status (MU): Former Smoker Type: Cigarettes Amount Used/How Often: 3 CIG/DAY Length of Time of Smoking/Using Tobacco: 15 YEARS Have You Smoked in the Last Year: Yes - quit April 2018 Review of Systems Negative: Fever, Chills, Skin Diaphoresis Positive: Chest Pain Positive: Shortness Of Breath Negative: Vomiting, Nausea All Other Systems Reviewed And Are Negative: Yes Physical Exam - Summary Physical Exam Summary: Constitutional: Well-developed, Well-nourished, Alert. (-) Distressed Skin: Warm, Dry HENT: Normocephalic; Atraumatic Eyes: Conjunctiva normal Neck: Musculoskeletal ROM normal neck. (-) JVD, (-) Stridor, (-) Tracheal deviation Cardio: Rhythm regular, rate normal, Heart sounds normal; Intact distal pulses; Radial pulses are 2+ and symmetric. (-) Murmur Pulmonary/Chest wall: Effort normal. (-) Respiratory distress, (-) Wheezes, (-) Rales Abd: Soft, (-) tenderness, (-) Distension, (-) Guarding, (-) Rebound Musculoskeletal: (-) Edema Lymph: (-) Cervical adenopathy Neuro: Alert, Oriented x3 Psych: Mood and affect Normal Triage Information Reviewed: Yes Vital Signs On Initial Exam: Initial Vitals Temp Pulse Resp BP Pulse Ox 98.3 F 85 16 159/103 100 05/05/19 14:42 05/05/19 14:42 05/05/19 14:42 05/05/19 14:42 05/05/19 14:42 Vital Signs Reviewed: Yes Procedures - Sedation Patient Received Moderate/Deep Sedation with Procedure: No Diagnostics - Vital Signs Vital Signs Temp Pulse Resp BP Pulse Ox 05/05/19 14:42 98.3 F 85 16 159/103 100 - Laboratory Result Diagrams: 05/05/19 14:53 05/05/19 14:53 Lab Statement: Any lab studies that have been ordered have been reviewed, and results considered in the medical decision making process. - EKG 1441 Cardiac Rate: NL - 82 BPM EKG Rhythm: Sinus Rhythm ST Segment: Other Summary of EKG Findings: NSR at [address] elevations in V2-V4, T wave inversion in 1 in AVL, prior EKG has same ST elevations but with a different morphology. Interpreted by Dr. Mcgregor at 1441 05/05/2019. Re-Evaluation - Re-Evaluation First Eval Re-Evaluation Time: 14:54 Change: Unchanged Comment: Dr. Palomino, data entry specialist, reviewed the EKG and stated that the pt did not need to go to the hot plate plywood press laborer and the EKG did not show a STEMI. Second Eval Re-Evaluation Time: 15:52 Change: Improved Comment: Pt states feeling better after Nitro. Agreed to admission overnight for Dr. Brown's assessment tomorrow morning. Dr. Lee, Hospitalist, will be consulted. Third Eval Re-Evaluation Time: 16:46 Change: Unchanged Comment: Pt states that he is too stressed to remain in the Hospital overnight without his father. He will be discharged after Internal Medicine team has re- consulted Dr. Brown, data entry specialist, and stated that the pt was fit for out patient stress testing. Chest Pain Course/Dx - Course Course Of Treatment: Patient is here with chest pain. Patient's had chest pain consistently since last night. Patient had an EKG which did show some ST elevations in V2 through V4 which were different morphology to prior EKG. Patient is high risk given his prior single-vessel bypass and stent in February. The web ui software engineer was called immediately and they do not think patient needs to be taken to the [facility]. Patient had blood performed which was grossly unremarkable. Cardiology was called and given patient's EKG changes , they recommended admitting to the hospital. Patient was initially agreeable to that but then decided to change his mind and the hospitalist team talked to him. Patient was concerned that his father cannot be in the hospital with him. Patient had a second troponin sent, a d-dimer which are both negative. Micheal Carrasco was called again by the internal medicine team and they will follow- up with patient on Tuesday and patient will have an outpatient stress test. - Diagnoses Provider Diagnoses: Chest pain, ST segment changes on electrocardiogram - Provider Notifications Discussed Care Of Patient With: Laurita Lee Time Discussed With Above Provider: 15:59 Instructed by Provider To: Admit As Inpatient Admit/Transition Orders Completed By ED Provider: Yes Discharge ED - Sign-Out/Discharge Documenting (check all that apply): Patient Departure - discharge - Discharge Plan Condition: Good Disposition: HOME Patient Education Materials: Chest Pain (ED) Referrals: Reymundo Ortiz DO [Medical Doctor] - 05/07/19 Jose Rodriguez NP [Primary Care Provider] - 3 Days Additional Instructions: Follow up with your primary care provider within [address] Ortiz's office on Tuesday. Follow up for your outpatient stress test. - Billing Disposition and Condition Condition: GOOD Disposition: Home - Attestation Statements Document Initiated by Elieser: Yes Documenting Scribe: Jeb Haywood Provider For Whom Elieser is Documenting (Include Credential): Vinayak Mcgregor MD Scribe Attestation: Jeb Venegas, scribed for Vinayak Mcgregor MD on 05/05/19 at 1915. Scribe Documentation Reviewed: Yes Provider Attestation: The documentation as recorded by the Jeb corbin accurately reflects the service I personally performed and the decisions made by me, Vinayak Mcgregor MD Status of Scribe Document: Viewed
[2019-05-05 15:02] LABS: ABS Basophils 0.1 10^3/ul (0-0.2); ABS Eosinophils 0.1 10^3/ul (0-0.6); ABS Monocytes 0.7 10^3/ul (0-0.8); Eosinophil % 1.6 %; Hematocrit 42 % (42-52); Hemoglobin 14.7 g/dL (14.0-18.0); Lymphocyte % 22.2 %; Mean Corpuscular HGB Conc 35 g/dL (31-36); Mean Corpuscular Hemoglobin 32 pg (27-31); Mean Corpuscular Volume 92 fL (80-94); Mean Platelet Volume 7.5 fL (7.4-10.4); Platelet Count 209 10^3/uL (150-450); Red Blood Count 4.56 10^6 /uL (4.18-5.48); Red Cell Distribution Width 13 % (10-15); White Blood Count 8.9 10^3/uL (3.5-10.8)
[2019-05-05 15:33] LABS: Albumin 4.5 g/dL (3.2-5.2); Albumin/Globulin Ratio 1.7 (1-3); BUN/Creatinine Ratio 13.8 (8-20); Calcium 9.7 mg/dL (8.6-10.3); EGFR African American 130.9 (>60); EGFR Non-African American 108.2 (>60); Globulin 2.6 g/dL (2-4); Potassium 3.5 mmol/L (3.5-5.0); Total Bilirubin 0.6 mg/dL (0.2-1.0); Total Protein 7.1 g/dL (6.4-8.9)
[2019-05-05 15:35] LABS: Troponin I 0.01 ng/mL (<0.03)
[2019-05-05 17:13] LABS: C Reactive Protein 14.82 mg/L (<8.01)
[2019-05-05 18:32] VITALS: BP 125/72
--- NOTE | 2019-05-05 22:31 | CONS ---
CC: Dr. Vinayak Mcgregor; Dr. Reymundo Ortiz * CONSULTATION REPORT: DATE OF CONSULTATION: 05/05/19 - EMERGENCY DEPT CONSULTING PROVIDER: Dr. Vinayak Mcgregor. OUTPATIENT DAYCARE DIRECTOR: Dr. Reymundo Ortiz. CHIEF COMPLAINT: Chest pain x20 hours. HISTORY OF PRESENT ILLNESS: Mr. Martinez is a 38-year-old male with past medical history significant for hypertension, hyperlipidemia, coronary artery disease, postoperative DVT as well as bipolar disorder, who presents to the emergency department after last night when he was trying to get a sleep, he had a sudden onset of chest pressure in the center of his chest, initially greater than 9/10, which was worse with deep breathing, not worse with activity, but diminished over time. The patient had no shortness of breath or other associated symptoms. The patient has not had any symptoms like this before. The patient denies fevers, chills, cough, nausea, vomiting or diaphoresis. The patient did not pass out, but did feel intermittently dizzy over the course of the day on 05/05/19. The patient has a history of a myocardial infarction at the end of last year, for which he had a single-vessel bypass as well as a planned stent in February of this year. The patient had a postoperative DVT at the end of last year and completed a course of anticoagulation, is no longer anticoagulated, the patient has no swelling in his legs or recent immobilization. The patient does continue to participate in cardiac rehab. In the emergency department, the patient had an EKG, which showed convex ST- segment elevations with a widened QRS complex in the anterior leads, which is similar to EKG changes seen when he was here in February. The patient's chest pain did not improve after nitroglycerin. The patient was given aspirin today for a total of 324 mg. Due to the concern for chest pain and the patient's significant risk factors, we were asked to evaluate this patient for admission to the hospital. PAST MEDICAL HISTORY: Hypertension, hyperlipidemia, migraine, anxiety, depression, bipolar disorder, history of DVT. PAST SURGICAL HISTORY: Single-vessel CABG, stent, bone fusion in the right foot in 2013. MEDICATIONS: 1. Fish oil 1000 mg p.o. daily. 2. Metformin 1000 mg p.o. daily. 3. Gabapentin 300 mg p.o. t.i.d. 4. Multivitamin 1 tab p.o. daily. 5. Lipitor 80 mg p.o. daily. 6. Amlodipine 5 mg p.o. daily. 7. Brilinta 90 mg p.o. b.i.d. 8. Vraylar 1.5 mg p.o. daily. 9. Topiramate 100 mg p.o. daily. 10. Carvedilol 6.25 mg p.o. b.i.d. 11. Vitamin C 500 mg p.o. daily. 12. Fluticasone 1 spray both nares daily. 13. Myrbetriq 50 mg p.o. daily. 14. Aspirin 81 mg p.o. daily. 15. Lamictal 100 mg p.o. daily. ALLERGIES: CLARITHROMYCIN. FAMILY HISTORY: The patient's father is alive and well. The patient's mother has seizure disorder. The patient has a great uncle who of heart disease, and a maternal grandmother with diabetes. SOCIAL HISTORY: The patient smoked for approximately 25 years, quitting several years ago. The patient drinks alcohol very rarely. The patient has a history of cocaine use. Does not use cocaine recently. 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 The patient lives alone. The patient is not and has no children. The patient's surrogate decision maker may be his father, Gutierrez Martinez. REVIEW OF SYSTEMS: A 10-point review of systems was reviewed and is negative except as above in the HPI. PHYSICAL EXAM: General: The patient is a 38-year-old male who appears stated age and sitting in the bed, in no acute distress. Vital Signs: At the time of evaluation, temperature 98.3, pulse 85, respiratory rate 16, oxygen saturation 100% on room air, blood pressure is 159/103. HEENT: Normocephalic, atraumatic. Sclerae anicteric. No conjunctival injection. Nasal mucosa moist. Oral mucosa moist. No pharyngeal erythema, discharge or exudate. Neck: Supple, nontender. No lymphadenopathy. No carotid bruits auscultated. No JVD. Cardiac: Regular rate and rhythm. No clicks, murmurs, gallops or rubs. Pulses are 2+ in the dorsalis pedis, posterior tibialis and radial areas. No bilateral calf tenderness. No palpable cords. Respiratory: Clear to auscultation bilaterally. No wheezes, rales or rhonchi. Good air exchange bilaterally. Abdomen: Soft, nontender, nondistended. Bowel sounds present and normoactive in all 4 quadrants. No hepatosplenomegaly. No abdominal bruits auscultated. No hepatojugular reflux. Genitourinary: No suprapubic or CVA tenderness. Skin: Clear, dry, and intact. No rashes. Neuro: Cranial nerves II through XII are intact. No focal deficits. Alert and oriented x3. Psychiatric: Anxious, otherwise pleasant and cooperative. DIAGNOSTIC STUDIES/LAB DATA: Laboratory data: White blood cell count 9.9, hemoglobin 14.7. Sodium 140, potassium 2.5, chloride 108, carbon dioxide 28, anion gap 8, BUN 11, creatinine 0.8, glucose 103, lactic acid 1.6, calcium 9.7. Bilirubin 0.6, AST 15, ALT 30, alkaline phosphatase 96. Troponin I 0.01, protein 7.1, albumin 12.5, globulin 2.6. Studies: EKG shows normal sinus rhythm, ST-segment elevation or J-point elevation in V2, V3, V4 in conjunction with incomplete left bundle-branch block consistent with previous exam and possible J-point elevation, T-wave inversion in aVL, S wave in lead 1. Chest x-ray read as no active cardiopulmonary disease. ASSESSMENT AND PLAN: Mr. Martinez is a 38-year-old male with past medical history significant for coronary artery disease, hypertension, hyperlipidemia, and history of provoked deep venous thrombosis, who presents to the emergency department with chest pain for 20 hours. The patient in the emergency department was found to have an EKG consistent with his baseline as well as a negative troponin. The patient's chest pain is not classic for acute coronary syndrome. The patient likely will be discharged from the emergency department pending further evaluation. 1. Chest pain. The patient's chest pain came on suddenly as pleuritic, not associated with shortness of breath, diaphoresis, nausea or vomiting. The patient's chest pain is worse with breathing and lying flat. The patient will have D-dimer added on as well as a CRP to asses for a pulmonary embolism and possible pericarditis respectively. The patient will have a repeat troponin 3 hours after his first one. The patient's case has been discussed with Dr. Lauro Brown of Cardiology and based on the description of the patient's case, he thinks it would be reasonable for the patient to follow up with his outpatient lead rider for outpatient stress testing. The patient is disinclined to stay in the hospital as he would not be able to have a stress test until Tuesday and visitors are not currently allowed to the hospital as well as increased risk of staying in the hospital at this point given the ongoing pandemic, it may be possible that the risk of the patient's staying in the hospital outweigh the benefits of closer monitoring pending a stress test. 2. Hypertension. The patient is on oral antihypertensive at this point despite nitroglycerin. Continue to monitor the patient's blood pressure, avoid overtreatment in the setting of the possible pulmonary embolism particularly. 3. Hyperlipidemia. The patient is on max dose statin. 4. Migraine. The patient is not currently having any migraines. 5. Anxiety, depression. See above discussion regarding hospitalization. Continue the patient's lamotrigine, Vraylar and topiramate. 6. History of DVT. The patient is not currently on anticoagulation. D-dimer as above. TIME SPENT: Approximately 60 minutes was spent on this consultation, 30 of which was spent [id number] with the patient obtaining history and physical and discussing the treatment plan. This plan was discussed with my attending, Dr. Laurita Lee, and she is in agreement. LESLEE ADAMS [id number]/CPS #: [id number] MTDD
== END 2019-05-05 18:37 | disposition home or self-care (01) ==
LOC: ED 14:39
DX: R07.9 Chest pain, unspecified (principal); R94.31 Abnormal electrocardiogram [ECG] [EKG]; I10 Essential (primary) hypertension; E78.5 Hyperlipidemia, unspecified; G43.909 Migraine, unspecified, not intractable, without status migrainosus; F41.9 Anxiety disorder, unspecified; Z86.718 Personal history of other venous thrombosis and embolism; I25.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 native coronary artery without angina pectoris; E78.00 Pure hypercholesterolemia, unspecified; I25.2 Old myocardial infarction; F31.9 Bipolar disorder, unspecified; Z95.5 Presence of coronary angioplasty implant and graft; Z95.1 Presence of aortocoronary bypass graft; Z87.891 Personal history of nicotine dependence; Z79.82 Long term (current) use of aspirin; Z79.02 Long term (current) use of antithrombotics/antiplatelets; Z79.899 Other long term (current) drug therapy; Z88.1 Allergy status to other antibiotic agents
CPT/HCPCS: 36415; 71045; 80053; 83605; 84484; 85025; 85379; 86140; 93005; 99284; A9270-GY